=== PATIENT | female | born 1965 | race Caucasian/White ===

== ENCOUNTER 2017-02-15 03:28 | Inpatient (IN) | payer BC ==
[2017-02-15] VITALS (8 sets, daily range): BP systolic 97–132; BP diastolic 55–71; PULSE 64–98; RESP 16–20; TEMP 97.5–102.8; O2SAT 76–100
[~2017-02-15] VITALS: Ht 175.3 cm; Wt 56.7 kg
[~2017-02-15 03:28] MED LIST: CLIN1CAP6 PO; DILA4TAB10 PO; GABA300C3 PO; IBUP800 PO; LORA1TAB PO; NORT1CAP54 PO
[2017-02-15] MEDS ORDERED: LIDOCAINE 1%/EPINEPHrine 1:100,000 SOLN 20 ML VIAL INFIL ONE (04:00)
--- NOTE | 2017-02-15 04:41 | PD ---
HPI Chief Complaint: Musculoskeletal Complaint Time Seen by Provider: 03:45 Travel History International Travel<30 days: No Contact w/Intl Traveler<30days: No Traveled to known affect area: No History of Present Illness HPI The patient is a 51-year-old female that comes in complaining of redness and swelling of her right knee for 4 days. The knee is painful and she cannot flex or extend the knee without fairly severe pain. She is followed by a pain management physician, Dr. Salguero, who is in [facility]. The patient is on high doses of pain pills including Dilaudid, lorazepam and morphine. She apparently has severe neurodermatitis and starts scratching her skin, the buttocks, breasts and anterior tibial areas of her legs. She has caused multiple lesions in these areas. She has destroyed the skin of her breasts and her nipples are completely gone from this neurodermatitis. The patient's original pain was low back pain and this is why she takes chronic narcotic and other pain medications. She denies any fever. PFSH Past Medical History Cardiovascular Problems: No Diminished Hearing: No Gastrointestinal Disorders: No Genitourinary: No Musculoskeletal: No Neurologic: No Reproductive: No Respiratory: No Immunizations Current: Yes Tetanus Vaccination: Unknown Influenza Vaccination: No ?: Not Menopausal: Yes Tubal Ligation: Yes Past Surgical History Abdominal Surgery: Yes (tummy tuck) Cardiac Surgery: No Section: Yes (X2) Endocrine Surgery: No Eye Surgery: No Genitourinary Surgery: No Gynecologic Surgery: Yes () Oral Surgery: Yes (RHINOPLASTY) Pacemaker: No Thoracic Surgery: No Other Surgery: Yes (BREAST AUGMENTATION X 2, LIFT X 1) Social History Alcohol Use: No Tobacco Use: Yes (1.5 PPD) Substance Use: No (DENIES) Allergies-Medications (Allergen,Severity, Reaction): Coded Allergies: *MDRO Multi-Drug Resistant Organism (Verified Adverse Reaction, Unknown, ) MRSA (finger wound) - 06/06/16 Reported Meds & Prescriptions Reported Meds & Active Scripts Active Reported Morphine ER (Morphine Sulfate) 60 Mg Tab 60 Mg PO TID Motrin Ib (Ibuprofen) 200 Mg Tab 600 Mg PO TID PRN Lorazepam 0.5 Mg Tab 0.5 Mg PO DAILY PRN Nortriptyline (Nortriptyline HCl) 50 Mg Cap 50 Mg PO HS Dilaudid (Hydromorphone HCl) 8 Mg Tab 8 Mg PO Q6H PRN Gabapentin 600 Mg Tab 600 Mg PO BID Review of Systems Except as stated in HPI: all other systems reviewed are Neg Physical Exam Narrative GENERAL: The patient is alert, oriented 3 in moderate apparent distress with her right knee discomfort. Her vital signs show temperature of 97.5 but are otherwise normal. SKIN: Warm and dry. Multiple areas of recent and remote neurodermatitis, scarring are present on the anterior lower legs and bilateral buttocks, right greater than left. The breasts show similar lesions with complete scarring of the nipples. HEAD: Atraumatic. Normocephalic. EYES: Pupils equal and round. No scleral icterus. No injection or drainage. ENT: No nasal bleeding or discharge. Mucous membranes pink and moist. NECK: Trachea midline. No JVD. CARDIOVASCULAR: Regular rate and rhythm. No murmur appreciated. RESPIRATORY: No accessory muscle use. Clear to auscultation. Breath sounds equal bilaterally. GASTROINTESTINAL: Abdomen soft, non-tender, nondistended. Hepatic and splenic margins not palpable. MUSCULOSKELETAL: No obvious deformities. No clubbing. No cyanosis. No edema. NEUROLOGICAL: Awake and alert. No obvious cranial nerve deficits. Motor grossly within normal limits. Normal speech. PSYCHIATRIC: Appropriate mood and affect; insight and judgment normal. Data Data Last Documented VS Vital Signs Date Time Temp Pulse Resp B/P Pulse Ox O2 Delivery O2 Flow Rate FiO2 02/15/17 03:53 18 02/15/17 03:46 97.5 64 104/62 100 Orders Lidocai-Epi 1%-1:100,000 Inj (Xylocaine- (02/15/17 04:00) Synovial Fl Cell Count + Diff (02/15/17 04:20) Synovial Fluid Crystals (02/15/17 04:20) Synovial Fluid Total Protein (02/15/17 04:20) Fluid Culture And Gram Stain (02/15/17 04:20) Complete Blood Count With Diff (02/15/17 04:41) Comprehensive Metabolic Panel (02/15/17 04:41) Urinalysis - C+S If Indicated (02/15/17 04:41) Admit Order (Ed Use Only) (02/15/17 06:13) Labs Laboratory Tests Test 02/15/17 04:30 Synovial Fluid Color STRAW Synovial Fluid Appearance MARKED Synovial Fluid WBC 22824 /MM3 Synovial Fluid RBC 1600 /MM3 Synovial Fluid Neutrophils 96 % Synovial Fluid Lymphocytes 3 % Synovial Fluid Monocytes 1 % MDM Medical Decision Making Medical Screen Exam Complete: Yes Emergency Medical Condition: Yes Medical Record Reviewed: Yes Interpretation(s) The synovial fluid has a cell count of 76,400, cloudy with 1600 red cells. Differential Diagnosis Joint space infection, cellulitis knee, osteoarthritis knee, gout, pseudogout Narrative Course The patient was discussed with Dr. Monreal. He states his value for septic arthritis is 100,000 or over. The patient has plenty of opportunity for bacteria in her the skin through her neurodermatitis lesions. Plan: The patient will be put on Ceftazidime and vancomycin. Procedures Procedure Narrative The area was prepped with Betadine. After that the procedure was performed using sterile technique. Lidocaine with epinephrine was used to anesthetize the skin. A #18-gauge needle was used under sterile technique to access the joint space. Approximately 50 cc of synovial fluid was recovered. The fluid was cloudy. The patient tolerated the procedure well and felt much better after the fluid was withdrawn. The nurses could not get an IV so I started an IV in the external jugular on the right. EKG Prior to Arrival: Joshua De La Torre MD Feb 15, 2017 04:41
[2017-02-15] MEDS ORDERED: DILA8TAB4 PO (04:44)
[2017-02-15] MEDS ORDERED: NORT50CA PO (04:44)
[2017-02-15] MEDS ORDERED: MOTR200T4 PO (04:44)
[2017-02-15] MEDS ORDERED: LORA-373 PO (04:44)
[2017-02-15] MEDS ORDERED: MORP1TAB26 PO (04:44)
[2017-02-15] MEDS ORDERED: GABA600T PO (04:44)
[2017-02-15 05:51] LABS: WBC, SYNOVIAL FLUID 76400 /MM3 (0-200)
[2017-02-15 06:26] LABS: AUTOMATED NEUTROPHIL # 5.4 TH/MM3 (1.8-7.7); BASOPHIL % 0.4 % (0.0-2.0); EOSINOPHIL # 0.1 TH/MM3 (0-0.4); EOSINOPHIL % 1.1 % (0.0-4.0); HEMATOCRIT 29.6 % (35.0-46.0); LYMPH % 11.6 % (9.0-44.0); LYMPHOCYTE # 0.8 TH/MM3 (1.0-4.8); MEAN CELL VOLUME 71.3 FL (80.0-100.0); MEAN CORPUSCULAR HEMOGLOBIN 24.1 PG (27.0-34.0); MEAN CORPUSCULAR HGB CONC 33.8 % (32.0-36.0); MONO % 11.6 % (0.0-8.0); NEUT % 75.3 % (16.0-70.0); PLATELET COUNT 349 TH/MM3 (150-450); RED BLOOD COUNT 4.15 MIL/MM3 (4.00-5.30); RED CELL DISTRIBUTION WIDTH 16.7 % (11.6-17.2); WHITE BLOOD COUNT 7.1 TH/MM3 (4.0-11.0)
[2017-02-15 06:39] LABS: HEMO FLAGS AUTO DIFF
[2017-02-15 06:44] LABS: CHLORIDE 95 MEQ/L (98-107); POTASSIUM 3.1 MEQ/L (3.5-5.1); SODIUM (NA) 134 MEQ/L (136-145)
[2017-02-15] MEDS ORDERED: LORazepam 0.5 MG TAB PO PRN (06:45)
[2017-02-15] MEDS ORDERED: cefTAZidime INJ 2,000 MG in SODIUM CHLORIDE 0.9% INJ 100 ML IV ONE (06:45)
[2017-02-15] MEDS ORDERED: HYDROmorphone HCL 4 MG TAB PO PRN ×2 (06:45→12:45)
[2017-02-15] MEDS ORDERED: BISACODYL 10 MG SUPP PR PRN (06:45)
[2017-02-15] MEDS ORDERED: VANCOMYCIN INJ 1,250 MG in SODIUM CHLOR 0.9% 250 ML INJ 250 ML IV ONE (06:45)
[2017-02-15] MEDS ORDERED: SODIUM CHLORIDE 0.9% FLUSH 5 ML FLUSH FLUSH PRN (06:45)
[2017-02-15] MEDS ORDERED: ONDANSETRON HCL 4 MG/2 ML VIAL IVP PRN (06:45)
[2017-02-15 06:48] LABS: ANION GAP 10 MEQ/L (5-15); BICARBONATE 28.9 MEQ/L (21.0-32.0); BLOOD UREA NITROGEN 21 MG/DL (7-18)
[2017-02-15 06:51] LABS: ALT (GPT) 14 U/L (10-53); AST (GOT) 14 U/L (15-37); GLOMERULAR FILTRATION RATE 62 ML/MIN (>89)
[2017-02-15 06:52] LABS: TOTAL BILIRUBIN ADULT 0.6 MG/DL (0.2-1.0)
[2017-02-15] MEDS: SODIUM CHLOR 0.9% 1000 ML INJ 1,000 ML IV SCH ×2 (06:52→17:00)
[2017-02-15 06:54] LABS: ALKALINE PHOSPHATASE 252 U/L (45-117)
[2017-02-15 07:24] LABS: OVALOCYTES 1+ (NORMAL)
[2017-02-15 07:25] LABS: SCAN/DIFF AUTO DIFF CONFIRMED
[2017-02-15] MEDS ORDERED: Vancomycin Consult Pharmacy 1 EA OTHER SCH (08:00)
[2017-02-15] MEDS: GABAPENTIN 300 MG CAP PO SCH ×2 (08:58→20:37)
[2017-02-15] MEDS: SODIUM CHLORIDE 0.9% FLUSH 5 ML FLUSH FLUSH SCH ×2 (08:59→20:38)
[2017-02-15] MEDS ORDERED: MORPHINE SULFATE 60 MG CONTROLLED RELEASE TAB PO SCH (09:00)
--- NOTE | 2017-02-15 11:13 | HHI.HP ---
[facility] Primary [facility] Physician No Primary Care Physician Admission Diagnosis septic arthritis right knee, neurodermatitis Diagnoses: (1) Septic arthritis Diagnosis: Principal Chief Complaint: Right knee pain Travel History International Travel<30 Days: No Contact w/Intl Traveler <30 Da: No Traveled to Known Affected Are: No History of Present Illness 51-year-old female with history of chronic back pain, neurodermatitis , chronic wounds, polysubstance abuse, history of IV drug use who presented to hospital because three-day history of right knee pain, swelling. Patient states that she is normal state of health until 3 days ago when he started developing pain and swelling in her right knee. Progress got worse where she could not in light that well so she came to the hospital for evaluation. Patient indicates that she just got out of the hospital in [place] recently because of her chronic lower extremity wounds in which she is managing at home at this time. Patient does suffer from chronic back pain is on morphine and Dilaudid in outpatient setting. Patient states that she has been weaning herself off and has not been using any morphine. Or he has been using Dilaudid. Patient does openly admit that she and IV drug user but she states that he has not use in 20 years. Patient had workup done emergency department, had knee aspiration done which does indicate septic arthritis with gram- positive bacteria. Is recommended by ER physician patient be admitted for IV antibiotics. Patient denies any fever, chills, chest pain, shortness of breath , abdominal pain. Review of Systems Constitutional: DENIES: Diaphoretic episodes, Fatigue, Fever, Weight gain, Weight loss, Chills, Dizziness, Change in appetite, Night Sweats Eyes: DENIES: Blurred vision, Diplopia, Eye inflammation, Eye pain, Vision loss , Photosensitivity, Double Vision Ears, nose, mouth, throat: DENIES: Tinnitus, Hearing loss, Vertigo, Nasal discharge, Oral lesions, Throat pain, Hoarseness, Ear Pain, Running Nose, Epistaxis, Sinus Pain, Toothache, Odynophagia Respiratory: DENIES: Apneas, Cough, Snoring, Wheezing, Hemoptysis, Sputum production, Shortness of breath Cardiovascular: DENIES: Chest pain, Palpitations, Syncope, Dyspnea on Exertion , PND, Lower Extremity Edema, Orthopnea, Claudication Musculoskeletal: COMPLAINS OF: Joint pain (right knee), Back pain (chronic), DENIES: Muscle aches, Stiffness, Joint Swelling, Neck pain Neurologic: DENIES: Abnormal gait, Headache, Localized weakness, Paresthesias, Seizures, Speech Problems, Tremor, Poor Balance Past Family Social History Past Medical History Chronic lower extremity wounds Neurodermatitis Chronic back pain History of IV drug use Fibromyalgia Past Surgical History Tubal ligation Debridement of lower extremity wounds Breast augmentation 2 Ji toxic Right tibia fracture repair Rhinoplasty Reported Medications Reported Meds & Active Scripts Active Reported Morphine ER (Morphine Sulfate) 60 Mg Tab 60 Mg PO TID Motrin Ib (Ibuprofen) 200 Mg Tab 600 Mg PO TID PRN Lorazepam 0.5 Mg Tab 0.5 Mg PO DAILY PRN Nortriptyline (Nortriptyline HCl) 50 Mg Cap 50 Mg PO HS Dilaudid (Hydromorphone HCl) 8 Mg Tab 8 Mg PO Q6H PRN Gabapentin 600 Mg Tab 600 Mg PO BID Allergies: Coded Allergies: *MDRO Multi-Drug Resistant Organism (Verified Adverse Reaction, Unknown, ) MRSA (finger wound) - 06/06/16 Family History Reviewed and unremarkable Social History Patient states that she does smoke at 1-1/2 pack a cigarettes a day since she was 15 years old. She denies any illicit drugs at this time. States that last time she used IV drugs was 20 years ago. However she was admitted the hospital for years ago because of IV drug use and infection. Drug of choice is Dilaudid Physical Exam Vital Signs Vital Signs Date Time Temp Pulse Resp B/P Pulse Ox O2 Delivery O2 Flow Rate FiO2 02/15/17 08:00 99.5 97 20 132/71 100 02/15/17 07:21 83 16 02/15/17 07:21 98.3 83 16 106/63 100 Room Air 02/15/17 06:00 78 18 111/62 99 Room Air 02/15/17 03:53 18 02/15/17 03:46 97.5 64 16 104/62 100 Physical Exam GENERAL: Well-developed, well-nourished, in no acute distress. alert and orientated. Patient appears to be highly medicated. Hypertension had a hard time staying awake during her evaluation. Had to keep nudging her to keep her eyes open. She states that she is overmedicated. HEENT: Head is normocephalic without any lesions or masses noted. Facial features are symmetric. Eyes: Pupils equal round reactive to light. Extraocular muscles are intact. Conjunctivae were clear. Oropharyngeal: Pharynx without any erythema edema. Tongue is midline without deviation. Buccal mucosa is moist without any masses or lesions. Dentition in poor repair NECK: Supple without any masses. Trachea midline no deviation. No JVD, no bruits are appreciated CARDIAC: Regular rhythm, regular rate. S1/S2 are heard. No murmurs gallops or rubs. LUNGS: Clear to auscultation bilaterally. No wheeze, rhonchi or rales. No use of accessory muscles on inspiration or expiration. ABDOMEN: Soft, nontender. Nondistended. Bowel sounds heard in all 4 quadrants. No organomegaly or masses. Negative rebound, negative guarding NEUROLOGY: Mood and affect appear appropriate. Cranial nerves II through XII grossly intact. Muscle strength 5/5 in upper and lower extremities bilaterally. Deep tendon reflexes are 2+ in upper and lower extremities bilaterally. LEFT LOWER EXTREMITY: Patient has significant ulcerated wounds on her left lower extremity from the medial calf area down encompassing the whole anterior surface of her distal tibia and ankle. RIGHT LOWER EXTREMITY bandages noted over right knee which appears to be very painful, swollen, patient will not let me do range of motion due to pain. She also has multiple ulcerations noted on the medial aspect of her proximal tibia Laboratory Laboratory Tests Test 02/15/17 02/15/17 04:30 06:05 Synovial Fluid Color STRAW Synovial Fluid Appearance MARKED Synovial Fluid WBC 91847 Synovial Fluid RBC 1600 Synovial Fluid Neutrophils 96 Synovial Fluid Lymphocytes 3 Synovial Fluid Monocytes 1 Synovial Fluid Crystals NONE White Blood Count 7.1 Red Blood Count 4.15 Hemoglobin 10.0 Hematocrit 29.6 Mean Corpuscular Volume 71.3 Mean Corpuscular Hemoglobin 24.1 Mean Corpuscular Hemoglobin 33.8 Concent Red Cell Distribution Width 16.7 Platelet Count 349 Mean Platelet Volume 6.3 Neutrophils (%) (Auto) 75.3 Lymphocytes (%) (Auto) 11.6 Monocytes (%) (Auto) 11.6 Eosinophils (%) (Auto) 1.1 Basophils (%) (Auto) 0.4 Neutrophils # (Auto) 5.4 Lymphocytes # (Auto) 0.8 Monocytes # (Auto) 0.8 Eosinophils # (Auto) 0.1 Basophils # (Auto) 0.0 CBC Comment AUTO DIFF Differential Comment AUTO DIFF CONFIRMED Ovalocytes 1+ Sodium Level 134 Potassium Level 3.1 Chloride Level 95 Carbon Dioxide Level 28.9 Anion Gap 10 Blood Urea Nitrogen 21 Creatinine 0.94 Estimat Glomerular Filtration 62 Rate Random Glucose 112 Calcium Level 8.7 Total Bilirubin 0.6 Aspartate Amino Transf 14 (AST/SGOT) Alanine Aminotransferase 14 (ALT/SGPT) Alkaline Phosphatase 252 Total Protein 8.2 Albumin 2.4 Date/Time Procedure Status Source Growth 02/15/17 04:30 Gram Stain - Final Resulted Fluid Synovial Fluid 02/15/17 04:30 Body Fluid Culture Resulted Fluid Synovial Fluid Pending Result Diagram: 02/15/1760402/15/17604 Assessment and Plan Assessment and Plan Right knee septic arthritis: Patient afebrile, no leukocytosis, 3 day history of swelling and pain. Aspiration was done which does indicate septic arthritis with WBCs 76,400. Patient started on vancomycin, cefepime. Gram stain does show gram-positive cocci. We'll discontinue cefepime at this time. Continue pain control. Physical therapy, Check blood cultures, Consult ID for antibiotic recommendations, Discussed with ID, who indicated that the patient will require Orthopedic evaluation, will require surgical intervention, since large joint and Gram positive bacteria. Chronic lower extremity wounds: Consult wound care nurse for management Chronic back pain: Continue pain control Polysubstance abuse with history of IV drug use: Continue monitor for any signs of sepsis which would warrant any further workup for endocarditis. At this time will continue treatment for the septic arthritis. Patient is rather high doses of pain medication to include morphine 60 mg 3 times daily, Dilaudid 8 mg every 6 hours, Ativan 0.5 mg as needed for anxiety. I did review patient on E force and it is confirmed that she is prescribed these medications at that higher doses. DVT prevention: Lovenox Written by Josue Castillo PA-C, acting as scribe for Dr. Peterson on 02/15/17 at 1315. The documentation accurately reflects the work and decisions performed face-to- face by Dr. Peterson on 02/15/17 at 1315. Physician Certification 2 Midnight Certification Type: Admission for Inpatient Services Order for Inpatient Services The services are ordered in accordance with Medicare regulations or non- Medicare payer requirements, as applicable. In the case of services not specified as inpatient-only, they are appropriately provided as inpatient services in accordance with the 2-midnight benchmark. Estimated LOS (days): 2 days is the estimated time the patient will need to remain in the hospital, assuming treatment plan goals are met and no additional complications. Post-Hospital Plan: Not yet determined Problem Qualifiers (1) Septic arthritis: Qualified Code: M00.9 - Pyogenic arthritis of right knee joint, due to unspecified organism Josue Castillo Feb 15, 2017 11:13 Brandyn Peterson MD Feb 15, 2017 13:47
[2017-02-15] MEDS: ENOXAPARIN SODIUM 30 MG/0.3 ML SYRINGE SQ SCH (12:23)
--- NOTE | 2017-02-15 15:32 | PD.CONS ---
History of Present Illness Service Infectious disease Consult Requested By Dr Peterson Reason for Consult Evaluate patient with septic right knee Primary Care Physician No Primary Care Physician Diagnoses: History of Present Illness Patient seen and examined. Records reviewed. Patient very poor historian. 51-year-old female presented to the hospital complaining of 3-4 day history of acute onset of pain and swelling in her right knee. She denies having any injury or fall. Patient has chronic wounds in both lower extremity and she does her own wound care. She does not really follow up with any wound care center. She denies any fever or chills or sweats. Denies any significant respiratory complaint, GI or any urinary complaints. Since admission she has had fevers. Arthrocentesis was done of the right knee and it suggestive of septic joint, and the Gram stain showed gram-positive cocci. Infectious disease consultations be requested to evaluate the patient. Review of Systems Constitutional: COMPLAINS OF: Fever, Chills Eyes: DENIES: Eye pain Ears, nose, mouth, throat: DENIES: Nasal discharge, Oral lesions, Throat pain, Ear Pain, Running Nose Respiratory: DENIES: Cough, Shortness of breath Cardiovascular: DENIES: Chest pain, Palpitations Gastrointestinal: DENIES: Abdominal pain, Diarrhea, Nausea, Vomiting Genitourinary: DENIES: Urinary frequency, Hematuria, Dysuria Musculoskeletal: COMPLAINS OF: Joint pain, Joint Swelling Integumentary: COMPLAINS OF: Rash, Breast skin changes Neurologic: DENIES: Headache Psychiatric: COMPLAINS OF: Confusion, DENIES: Hallucinations Past Family Social History Allergies: Coded Allergies: *MDRO Multi-Drug Resistant Organism (Verified Adverse Reaction, Unknown, ) MRSA (finger wound) - 06/06/16 Past Medical History Sicca syndrome. Sun sensitivity. Psoriasis. Alopecia. Raynaud's phenomenon. Aphthous ulcers. Vasculitis diagnosis 2013 Hx MSSA sepsis and septic R wrist Fibromyalgia Hx IVDU - claims last use 15 yeasr ago, but admission 2012 (+) drug screen and admits to use at that time Past Surgical History Breasts augmentation surgery. Abdominoplasty. section. Surgery on her R wrist Tubal ligation Debridement of lower extremity wounds Right tibia fracture repair Rhinoplasty Active Ordered Medications Dulcolax Lovenox Neurontin Dilaudid Ativan Pamelor Zofran Vancomycin Social History Patient states that she does smoke at 1-1/2 pack a cigarettes a day since she was 15 years old. She denies any illicit drugs at this time. States that last time she used IV drugs was 20 years ago. However she was admitted the hospital for years ago because of IV drug use and infection. Drug of choice is Dilaudid No ETOH abuser Lives with significant other Physical Exam Vital Signs Vital Signs Date Time Temp Pulse Resp B/P Pulse Ox O2 Delivery O2 Flow Rate FiO2 02/15/17 12:00 101.0 96 20 123/71 96 02/15/17 08:00 99.5 97 20 132/71 100 02/15/17 07:21 83 16 02/15/17 07:21 98.3 83 16 106/63 100 Room Air 02/15/17 06:00 78 18 111/62 99 Room Air 02/15/17 03:53 18 02/15/17 03:46 97.5 64 16 104/62 100 Physical Exam GENERAL: This is a thin, well-developed female, looks disorganized, some confusion, awake, not in resp distress. SKIN: Warm and dry. Has large dry looking large ulcers in both legs, raised borders; Some nodular areas in her forearms, not tender, not discolored. She has generalized hypopigmented scars HEAD: Atraumatic. Normocephalic. No temporal or scalp tenderness. EYES: [place] conjunctivae, no petechia, no hemorrhage. Pupils equal round and reactive. Extraocular motions intact. No scleral icterus. No injection or drainage. ENT: Nose without bleeding, or purulent drainage. Moist mucosa. Throat without erythema, or exudate. Uvula midline. Airway patent. NECK: Trachea midline. No JVD or lymphadenopathy. Supple, nontender, no meningeal signs. CARDIOVASCULAR: Regular rate and rhythm without murmurs, gallops, or rubs. RESPIRATORY: Clear to auscultation. Breath sounds equal bilaterally. No wheezes , rales, or rhonchi. BREAST: Has implants, has hypopigmented scars on her breast GASTROINTESTINAL: Abdomen soft, non-tender, mildly distended. Bowel sounds are present and normoactive. No hepato-splenomegaly, or palpable masses. No guarding. MUSCULOSKELETAL: Extremities without clubbing, cyanosis, or edema. R knee is swollen with effusions, pain with movement. No calf tenderness. NEUROLOGICAL: Awake and with intermittent confusion. Cranial nerves II through XII intact. Motor and sensory grossly within normal limits. PSYCH: Sluggish, cooperative LINE: PIV with no evidence of infection Laboratory Laboratory Tests Test 02/15/17 02/15/17 02/15/17 04:30 06:05 11:25 Synovial Fluid Color STRAW Synovial Fluid Appearance MARKED Synovial Fluid WBC 61655 Synovial Fluid RBC 1600 Synovial Fluid Neutrophils 96 Synovial Fluid Lymphocytes 3 Synovial Fluid Monocytes 1 Synovial Fluid Crystals NONE White Blood Count 7.1 Red Blood Count 4.15 Hemoglobin 10.0 Hematocrit 29.6 Mean Corpuscular Volume 71.3 Mean Corpuscular Hemoglobin 24.1 Mean Corpuscular Hemoglobin 33.8 Concent Red Cell Distribution Width 16.7 Platelet Count 349 Mean Platelet Volume 6.3 Neutrophils (%) (Auto) 75.3 Lymphocytes (%) (Auto) 11.6 Monocytes (%) (Auto) 11.6 Eosinophils (%) (Auto) 1.1 Basophils (%) (Auto) 0.4 Neutrophils # (Auto) 5.4 Lymphocytes # (Auto) 0.8 Monocytes # (Auto) 0.8 Eosinophils # (Auto) 0.1 Basophils # (Auto) 0.0 CBC Comment AUTO DIFF Differential Comment AUTO DIFF CONFIRMED Ovalocytes 1+ Sodium Level 134 Potassium Level 3.1 Chloride Level 95 Carbon Dioxide Level 28.9 Anion Gap 10 Blood Urea Nitrogen 21 Creatinine 0.94 Estimat Glomerular Filtration 62 Rate Random Glucose 112 Calcium Level 8.7 Total Bilirubin 0.6 Aspartate Amino Transf 14 (AST/SGOT) Alanine Aminotransferase 14 (ALT/SGPT) Alkaline Phosphatase 252 Total Protein 8.2 Albumin 2.4 Nasal Screen MRSA (PCR) POSITIVE Date/Time Procedure Status Source Growth 02/15/17 13:50 Aerobic Blood Culture Received Blood Peripheral Pending 02/15/17 13:50 Anaerobic Blood Culture Received Blood Peripheral Pending 02/15/17 04:30 Gram Stain - Final Resulted Fluid Synovial Fluid 02/15/17 04:30 Body Fluid Culture Resulted Fluid Synovial Fluid Pending Result Diagram: 02/15/1760402/15/17 0605 Assessment and Plan Assessment and Plan IMPRESSION Sepsis due to septic knee Septic R knee, likely Staph or strep Chronic skin lesions, etiology? ?Hx vasculitis with purpuric lesions in BLE last 2012 Hx IVDU Hs MSSA sepsis 2012 Chronic narcotic dependence RECOMMENDATION Continue IV Vanco Follow C/S Ortho evaluation for management septic knee Monitor progress I will follow along with you Thank you for this consultation Discussed Condition With D/W Marquita Cook PA-C, MD Feb 15, 2017 15:32
[2017-02-15] MEDS ORDERED: ACETAMINOPHEN 325 MG TAB PO PRN (17:15)
[2017-02-15] MEDS ORDERED: SODIUM CHLOR 0.9% 1000 ML INJ 1,000 ML IV ONE (17:15)
[2017-02-15] MEDS: HYDROmorphone HCL PF 1 MG/ML VIAL IV PRN ×2 (17:23→20:47)
[2017-02-15] MEDS ORDERED: CEFEPIME INJ 1,000 MG in SODIUM CHLORIDE 0.9% INJ 100 ML IV SCH (18:00)
[2017-02-15] MEDS: NORTRIPTYLINE HCL 25 MG CAP PO SCH (20:37)
[2017-02-16] MEDS: SODIUM CHLOR 0.9% 1000 ML INJ 1,000 ML IV SCH ×3 (00:03→22:32)
[2017-02-16 00:04] VITALS: BP 98/52; PULSE 89; RESP 20; TEMP 98.3; O2SAT 100
[2017-02-16] MEDS ORDERED: VANCOMYCIN 1,000 MG/NS 250 ML IV SCH ×2 (02:00)
[2017-02-16] MEDS: HYDROmorphone HCL PF 1 MG/ML VIAL IV PRN ×6 (04:26→22:21)
[2017-02-16] MEDS ORDERED: GENTAMICIN SULFATE 80 MG/2 ML VIAL ONE (04:57)
[2017-02-16 05:34] VITALS: BP 122/60; PULSE 60; RESP 20; TEMP 102.1; O2SAT 95
[2017-02-16] MEDS ORDERED: FAMOTIDINE 20 MG/2 ML VIAL ONE (07:02)
[2017-02-16] MEDS ORDERED: ceFAZolin 2 GM PREMIX 50 ML ONE (07:05)
[2017-02-16] MEDS ORDERED: VANCOMYCIN HCL 1000 MG VIAL ONE (07:05)
--- NOTE | 2017-02-16 07:48 | HHI.PR ---
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 02/16 With Diagnosis of Septic right knee has Right knee arthrotomy with irrigation and debridement by Doctor Leandro Mathis also had today with Diagnosis of Right Hip intertrochanteric fracture status post Right hip reduction and intramedullary nail fixation. complaint of pain seen in the room with nurse Miss Galvan no Nausea, vomit or diarrhea. Objective Vital Signs Date Time Temp Pulse Resp B/P Pulse Ox O2 Delivery O2 Flow Rate FiO2 02/16/17 05:34 102.1 60 20 122/60 95 02/16/17 00:04 98.3 89 20 98/52 100 02/15/17 20:00 98.3 88 18 97/58 95 02/15/17 17:10 102.8 91 20 106/68 76 02/15/17 16:00 100.0 98 20 103/55 100 02/15/17 12:00 101.0 96 20 123/71 96 02/15/17 08:00 99.5 97 20 132/71 100 I/O 02/15/17 02/15/17 02/15/17 02/16/17 02/16/17 02/16/17 07:00 15:00 23:00 07:00 15:00 23:00 Intake Total 790 ml 2615 ml 692 ml Balance 790 ml 2615 ml 692 ml Intake Oral 690 ml IV Total 100 ml 2615 ml 692 ml # Voids 3 Result Diagram: 02/15/17 0605 02/15/17 0605 Imaging No Imaging studies present. Procedures 02/16 With Diagnosis of Septic right knee has Right knee arthrotomy with irrigation and debridement by Doctor Leandro Mathis also had today with Diagnosis of Right Hip intertrochanteric fracture status post Right hip reduction and intramedullary nail fixation. Other Results Laboratory Tests Test 02/15/17 02/15/17 02/15/17 04:30 06:05 11:25 Synovial Fluid Color STRAW Synovial Fluid Appearance MARKED Synovial Fluid WBC 18314 /MM3 Synovial Fluid RBC 1600 /MM3 Synovial Fluid Neutrophils 96 % Synovial Fluid Lymphocytes 3 % Synovial Fluid Monocytes 1 % Synovial Fluid Crystals NONE White Blood Count 7.1 TH/MM3 Red Blood Count 4.15 MIL/MM3 Hemoglobin 10.0 GM/DL Hematocrit 29.6 % Mean Corpuscular Volume 71.3 FL Mean Corpuscular Hemoglobin 24.1 PG Mean Corpuscular Hemoglobin 33.8 % Concent Red Cell Distribution Width 16.7 % Platelet Count 349 TH/MM3 Mean Platelet Volume 6.3 FL Neutrophils (%) (Auto) 75.3 % Lymphocytes (%) (Auto) 11.6 % Monocytes (%) (Auto) 11.6 % Eosinophils (%) (Auto) 1.1 % Basophils (%) (Auto) 0.4 % Neutrophils # (Auto) 5.4 TH/MM3 Lymphocytes # (Auto) 0.8 TH/MM3 Monocytes # (Auto) 0.8 TH/MM3 Eosinophils # (Auto) 0.1 TH/MM3 Basophils # (Auto) 0.0 TH/MM3 CBC Comment AUTO DIFF Differential Comment AUTO DIFF CONFIRMED Ovalocytes 1+ Sodium Level 134 MEQ/L Potassium Level 3.1 MEQ/L Chloride Level 95 MEQ/L Carbon Dioxide Level 28.9 MEQ/L Anion Gap 10 MEQ/L Blood Urea Nitrogen 21 MG/DL Creatinine 0.94 MG/DL Estimat Glomerular Filtration 62 ML/MIN Rate Random Glucose 112 MG/DL Calcium Level 8.7 MG/DL Total Bilirubin 0.6 MG/DL Aspartate Amino Transf 14 U/L (AST/SGOT) Alanine Aminotransferase 14 U/L (ALT/SGPT) Alkaline Phosphatase 252 U/L Total Protein 8.2 GM/DL Albumin 2.4 GM/DL Nasal Screen MRSA (PCR) POSITIVE Objective Remarks GENERAL: Well-developed, well-nourished, in no acute distress. alert and orientated. Patient appears to be highly medicated. Hypertension had a hard time staying awake during her evaluation. Had to keep nudging her to keep her eyes open. She states that she is overmedicated. HEENT: Head is normocephalic without any lesions or masses noted. Facial features are symmetric. Eyes: Pupils equal round reactive to light. Extraocular muscles are intact. Conjunctivae were clear. Oropharyngeal: Pharynx without any erythema edema. Tongue is midline without deviation. Buccal mucosa is moist without any masses or lesions. Dentition in poor repair NECK: Supple without any masses. Trachea midline no deviation. No JVD, no bruits are appreciated CARDIAC: Regular rhythm, regular rate. S1/S2 are heard. No murmurs gallops or rubs. LUNGS: Clear to auscultation bilaterally. No wheeze, rhonchi or rales. No use of accessory muscles on inspiration or expiration. ABDOMEN: Soft, nontender. Nondistended. Bowel sounds heard in all 4 quadrants. No organomegaly or masses. Negative rebound, negative guarding NEUROLOGY: Mood and affect appear appropriate. Cranial nerves II through XII grossly intact. Muscle strength 5/5 in upper and lower extremities bilaterally. Deep tendon reflexes are 2+ in upper and lower extremities bilaterally. LEFT LOWER EXTREMITY: Patient has significant ulcerated wounds on her left lower extremity from the medial calf area down encompassing the whole anterior surface of her distal tibia and ankle. RIGHT LOWER EXTREMITY bandages noted over right knee which appears to be very painful, swollen, patient will not let me do range of motion due to pain. She also has multiple ulcerations noted on the medial aspect of her proximal tibia Medications and IVs Current Medications Medications (Trade) Dose Ordered Sig/Arlette Route Start Time Stop Time Status Last Admin (NS 1000 ml Inj) 1,000 ml @ 100 mls/hr Q10H IV 02/15/17 06:32 02/16/17 00:03 (NS Flush) 2 ml UNSCH PRN FLUSH 02/15/17 06:45 (NS Flush) 2 ml BID FLUSH 02/15/17 09:00 02/15/17 20:38 (Zofran Inj) 4 mg Q6H PRN IVP 02/15/17 06:45 (Dulcolax Supp) 10 mg DAILY PRN MA 02/15/17 06:45 (Dilaudid Pf Inj) 1 mg Q3H PRN IV 02/15/17 06:45 02/16/17 04:26 (Neurontin) 600 mg BID PO 02/15/17 09:00 02/15/17 20:37 (Ativan) 0.5 mg DAILY PRN PO 02/15/17 06:45 Nortriptyline HCl 50 mg 50 mg HS PO 02/15/17 21:00 02/15/17 20:37 Pharmacy Profile Note 0 ml @ 0 mls/hr UNSCH OTHER 02/15/17 08:00 (Vancomycin Inj/ NS 250 ml Inj) 250 ml @ 250 mls/hr Q18H IV 02/16/17 02:00 02/16/17 00:38 Miscellaneous Information SPECIFIC LAB TO BE DRAWN:VANCOMY... ONCE ONCE XX 02/17/17 13:45 02/17/17 13:46 (Dilaudid) 4 mg Q6H PRN PO 02/15/17 12:45 (Lovenox Inj) 30 mg Q24H SQ 02/15/17 12:00 02/15/17 12:23 (Flu (Quadrivalent) Vaccine Inj) 0.5 ml ONCE ONCE IM 02/16/17 10:00 02/16/17 10:01 (Tylenol) 650 mg Q4H PRN PO 02/15/17 17:15 02/15/17 17:25 A/P Assessment and Plan 1. Right septic Arthritis, Aspiration performed indicating arthritis with WBCs 76,400. Patient started on vancomycin, cefepime. Gram stain does show gram-positive cocci MRSA, followed by ID specialist recommended to continued Vancomycin. Status post Family Day Care Worker procedures 02/16/17 with diagnosis of Septic right knee has Right knee arthrotomy with irrigation and debridement by Doctor Leandro Mathis. left FLORENTIN drainage 2. Tobacco dependence stated on Bronchodilator Mucolytic and incentive spirometry, strongly recommended to stop smoking. 3. Chronic lower extremity wounds, Consulted Wound care management 4. Chronic low back pain continue Pain medicines 5. Polysubstance abuse with history of IV drug use: workup for Endocarditis. 6. Hypokalemia 2.8 giving replacement with IV Potassium chloride and following. DVT prevention: Lovenox Discharge Planning Not yet cleared by attending physician. Cade Fitch MD Feb 16, 2017 07:48 Cade Fitch MD Feb 16, 2017 07:48 Cade Fitch MD Feb 16, 2017 07:48 Cade Fitch MD Feb 16, 2017 07:48
[2017-02-16] MEDS ORDERED: ONDANSETRON HCL 4 MG/2 ML VIAL IV PUSH ONE (08:00)
[2017-02-16] MEDS ORDERED: PROPOFOL 200 MG/20 ML AMP IV ONE (08:00)
[2017-02-16] MEDS ORDERED: SODIUM CHLOR 0.9% 250 ML INJ 250 ML IV ONE (08:00)
[2017-02-16] MEDS ORDERED: DO NOT ADM ANY ANTICOAGULANT DRUGS XX PRN (08:00)
--- NOTE | 2017-02-16 08:04 | PD.OP ---
cc: Leandro Mahtis MD Operative Report Date of Surgery: Feb 16, 2017 Preoperative Diagnosis: Septic right knee Postoperative Diagnosis: Procedure: Right knee arthrotomy with irrigation and debridement Anesthesia: Gen. Surgeon: Leandro Mathis Oncology Nurse Navigator(s): BRIAN Ch PA-C The surgical procedure was assisted by my physician assistant casino shift manager. My P.A. presence was necessary throughout this case for the manipulation and positioning of the surgical extremity. My P.A. was assisting me throughout the duration of this procedure. The skill set of a physician assistant casino shift manager was medically necessary to complete this procedure. During the surgical case the automobile technician was working at the back table and the physician assistant casino shift manager was directly assisting me. Operation and Findings: Jamee presented to the hospital with right knee pain and swelling. Aspiration of knee revealed bacterial infection of knee. Informed consent was obtained and operative site was marked. She is brought to operating room. She is given IV sedation and general anesthesia. Right leg was prepped with alcohol followed by Hibiclens and draped usual sterile fashion. Timeout procedure was performed. A 3 cm incision was made over the lateral aspect of the knee. Iliotibial band was split in line with fibers. Joint capsule was opened. Approximately 100 cc of purulent drainage was obtained from the knee joint. Multiple loculations were manually debrided. The knee was thoroughly irrigated with pulsatile lavage. Knee fluid appeared to be clean at this time. A drain was placed deep. Fascia was closed with 0 PDS. Subcutaneous tissues closed with 3-0 PDS. Skin was closed with govind. Sterile dressings were applied. Patient was transferred to recovery in stable condition. Leandro Mathis MD Feb 16, 2017 08:04
[2017-02-16] MEDS ORDERED: *morphine SULFATE 8 MG/ML PERIprocedure ONLY ONE ×2 (08:11→08:34)
[2017-02-16] MEDS ORDERED: SODIUM CHLORIDE 0.9% FLUSH 5 ML FLUSH IVF PRN ×2 (08:15→08:30)
[2017-02-16] MEDS ORDERED: diphenhydrAMINE HCL 25 MG CAP PO PRN (08:15)
[2017-02-16] MEDS ORDERED: Post-op Orders (for Pharmacy) MISC XX ONE (08:15)
[2017-02-16] MEDS ORDERED: MORPHINE SULFATE 4 MG/ML INJ ONE (08:15)
[2017-02-16] MEDS ORDERED: MORPHINE SULFATE 4 MG/ML INJ IV PUSH PRN ×2 (08:15→08:30)
[2017-02-16] MEDS ORDERED: fentaNYL CITRATE 250 MCG/5 ML AMP ONE (08:15)
--- NOTE | 2017-02-16 08:22 | PD.OP ---
cc: Leandro Mathis MD Operative Report Date of Surgery: Feb 16, 2017 Preoperative Diagnosis: Right hip intertrochanteric fracture Postoperative Diagnosis: Procedure: Right hip reduction and intramedullary nail fixation Anesthesia: Gen. Surgeon: Leandro Mathis Critical Care Nurse Specialist(s): BRIAN Chong PA-C The surgical procedure was assisted by my physician mobile unit assistant. My P.A. presence was necessary throughout this case for the manipulation and positioning of the surgical extremity. My P.A. was assisting me throughout the duration of this procedure. The skill set of a physician mobile unit assistant was medically necessary to complete this procedure. During the surgical case the radio tower technician was working at the back table and the physician mobile unit assistant was directly assisting me. Operation and Findings: Implants used: 10 mm 130 Synthes TFNA short troch nail Plan of activity: Weight-bear as tolerated Patient was seen and evaluated preoperatively. The patient has significant hip pain from intertrochanteric hip fracture. The risk and benefits of surgery were discussed in depth with the patient to include bleeding infection nonunion malunion and need for hip replacement painful hardware as well as medical competitions including but not stroke heart attack and . Informed consent was obtained. Operative site was marked. Patient was brought to the operating room and placed on fracture table. IV sedation was administered by anesthesiologist. Timeout procedure was performed. Hip and leg were prepped with alcohol followed by DuraPrep and draped in the usual sterile fashion. IV antibiotics were given prior to incision. Procedure began with reduction of fracture. Traction was applied. The leg was manipulated to achieve reduction. Excellent reduction was achieved. Fluoroscopy was used to confirm reduction. A three inch incision was made proximal to the trochanter. Subcutaneous tissue was dissected bluntly. Guidepin was placed at the tip of the trochanter and advanced into the femoral canal. Fluoroscopy confirmed appropriate guidepin placement. A opening reamer was placed over the guidepin. The Synthes TFNA nail was attached to the insertion handle. Nail was now placed through the tip of the trochanter into the femoral canal. Fluoroscopy confirmed appropriate nail placement. A second incision was made over the lateral thigh. Cannulas were placed through the insertion handle down to the femur. Guidepin was now placed through the femoral nail into the center of the femoral head. Fluoroscopy confirmed appropriate guidepin placement. Screw length was measured. Cannulated drill was placed over the guidepin. Appropriate length lag screw was now placed. Traction was released and compression was applied. The set screw was now tightened in dynamic mode. Using the insertion handle as a guide a distal interlocking screw was drilled and placed. Final fluoroscopy revealed well aligned fracture with well-placed hardware. Incision was closed with 3-0 Vicryl and govind. Sterile dressings were applied. Patient was awakened and transferred to recovery room. Leandro Mathis MD Feb 16, 2017 08:22
[2017-02-16] MEDS ORDERED: ACETAMINOPHEN 1000 MG/100 ML VIAL IV ONE ×2 (08:29→08:30)
[2017-02-16] MEDS ORDERED: ERGOCALCIFEROL (VIT D2) 50,000 UNIT CAP PO ONE (08:30)
[2017-02-16] MEDS ORDERED: ACETAMINOPHEN/HYDROcodone 325 MG/7.5 MG TAB PO PRN ×2 (08:30)
[2017-02-16] MEDS ORDERED: ENOXAPARIN SODIUM 30 MG/0.3 ML SYRINGE SQ SCH (08:30)
[2017-02-16] MEDS ORDERED: CHOLECALCIFEROL (VIT D3) 5000 UNIT CAP PO SCH (09:00)
[2017-02-16] MEDS ORDERED: CALCIUM/VITAMIN D 250 MG/125 U TAB PO SCH (09:00)
[2017-02-16] MEDS ORDERED: SODIUM CHLORIDE 0.9% FLUSH 5 ML FLUSH IVF SCH (09:00)
[2017-02-16] MEDS: SODIUM CHLORIDE 0.9% FLUSH 5 ML FLUSH IVF SCH ×2 (09:25→20:25)
[2017-02-16] MEDS: GABAPENTIN 300 MG CAP PO SCH ×2 (09:25→20:24)
[2017-02-16] MEDS: ENOXAPARIN SODIUM 30 MG/0.3 ML SYRINGE SQ SCH (09:27)
--- NOTE | 2017-02-16 09:41 | MB ---
cc: KARTHIK LYNCH Corrected Copy: 02/18/17 DATE OF CONSULTATION: 02/16/2017 REASON FOR CONSULTATION: Right knee infection. HISTORY Jamee is a 51-year female who has multiple medical problems. She has chronic bilateral lower extremity wounds. She also has a history of IV drug abuse and chronic smoking. She has began developing right knee pain approximately 3 days ago. She had difficulty walking. She presented to the emergency room where x-rays were negative for fracture. Aspiration of the knee revealed an infection. The patient has been admitted for treatment of septic arthritis of the right knee. She has been started on IV antibiotics. She is currently awake and alert. Her main complaint is right knee. Pain is worse with movement and walking. She denies any traumatic injuries to her knee. PAST MEDICAL HISTORY: 1. Past medical history of chronic right of bilateral lower extremity wounds. 2. Chronic back pain 3. Chronic smoking 4. Fibromyalgia. SURGERIES 1. Tubal ligation 2. 3. Breast augmentation 4. Right tibia ORIF 5. Rhinoplasty. MEDICATIONS Medications include 1. Morphine. 2. Motrin 3. Nortriptyline 4. Gabapentin ALLERGIES NO KNOWN DRUG ALLERGIES. FAMILY HISTORY Noncontributory. SOCIAL HISTORY The patient smokes a pack and half a day. She denies current drug use. REVIEW OF SYSTEMS The patient denies headache, visual changes, neck pain, chest pain, shortness of breath, abdominal pain, nausea or recent weight loss. She complains of right knee pain. She also has bilateral leg wounds. PHYSICAL EXAMINATION IN GENERAL: The patient is a thin 51-year female in no acute distress. She is awake and alert. She is alert and x3. VITAL SIGNS: Temperature 102.1, pulse 60, respirations 20, blood pressure 122/60, O2 sat 95% on room air. HEAD, EYES, EARS, NOSE, AND THROAT: The patient is normocephalic. Pupils are equal. NECK: Soft, nontender. Trachea is midline. ABDOMEN: The abdomen is soft, nontender, nondistended. EXTREMITIES: Examination of bilateral upper extremities reveals no obvious pain deformity with shoulder or wrist motion. She has good cap refill fingers. Radial pulses are palpable. Sensation intact in all fingers. Examination of left leg reveals no obvious pain or deformity with hip, knee or ankle motion. She has large skin wounds on her calf. She has diminished capillary fill in toes. Examination of right leg reveals no tension on her hip or ankle. She has a large knee effusion. She has significant pain with any knee motion. There is a large skin ulceration on her calf. She has diminished sensation. She has diminished cap refill in her toes. LABORATORY DATA The left knee was aspirated in the emergency department. The gram stain revealed gram positive cocci in clusters. IMPRESSION 1. Chronic smoking dependence 2. Septic right knee infection. 3. Probable peripheral vascular disease. PLAN The treatment options were discussed the patient. At this point I would recommend right knee arthrotomy with irrigation debridement. Risks of surgery include bleeding, infection, injury to blood vessels, recurrent infection, knee stiffness, loss of motion, arthritis as well as medical complications including blood clot, stroke, heart attack and . The patient would also benefit from fascia surgery workup given her chronic lower extremity wounds. All questions were answered. I will plan on surgery today. MD JULIANA Farrell/buck /8:35 AM /3:08 PM
[2017-02-16] MEDS ORDERED: INFLUENZA VIRUS VACCINE (QUADRIVALENT) 0.5 ML SYR IM ONE (10:00)
--- NOTE | 2017-02-16 10:00 | EKG ---
Date Performed: 02/16/2017 Time Performed: 06:56:54 PTAGE: 51 years EKG: SINUS TACHYCARDIA POSSIBLE LEFT ATRIAL ENLARGEMENT ABNORMAL RHYTHM ECG PREVIOUS TRACING : 09/22/2013 12.40 DOCTOR: Ming Fraire Interpretating Date/Time 02/16/2017 09:58:33
--- NOTE | 2017-02-16 10:50 | HHI.IDPN ---
Subjective Subjective Remarks Notes reviewed Febrile to 102 Went to OR today for her R knee BC negative so far Antibiotics Vancomycin Lines PIV Past Medical History Sicca syndrome. Sun sensitivity. Psoriasis. Alopecia. Raynaud's phenomenon. Aphthous ulcers. Vasculitis diagnosis 2013 Hx MSSA sepsis and septic R wrist Fibromyalgia Hx IVDU - claims last use 15 yeasr ago, but admission 2012 (+) drug screen and admits to use at that time Past Surgical History Breasts augmentation surgery. Abdominoplasty. section. Surgery on her R wrist Tubal ligation Debridement of lower extremity wounds Right tibia fracture repair Rhinoplasty Allergies: Coded Allergies: *MDRO Multi-Drug Resistant Organism (Verified Adverse Reaction, Unknown, ) MRSA (finger wound) - 06/06/16 MRSA PCR Screen POSITIVE -02/15/17 Objective . Vital Signs Date Time Temp Pulse Resp B/P Pulse Ox O2 Delivery O2 Flow Rate FiO2 02/16/17 09:00 99.2 88 16 109/60 98 Nasal Cannula 2 02/16/17 08:45 90 16 111/58 98 Nasal Cannula 2 02/16/17 08:30 94 16 120/59 97 Nasal Cannula 2 02/16/17 08:15 110 16 106/58 97 Nasal Cannula 2 02/16/17 08:07 101.2 108 16 99/64 98 Nasal Cannula 2 02/16/17 05:34 102.1 60 20 122/60 95 02/16/17 00:04 98.3 89 20 98/52 100 02/15/17 20:00 98.3 88 18 97/58 95 02/15/17 17:10 102.8 91 20 106/68 76 02/15/17 16:00 100.0 98 20 103/55 100 02/15/17 12:00 101.0 96 20 123/71 96 02/15/17 02/15/17 02/16/17 15:00 23:00 07:00 Intake Total 790 ml 2615 ml 692 ml Balance 790 ml 2615 ml 692 ml Intake Oral 690 ml IV Total 100 ml 2615 ml 692 ml # Voids 3 . Laboratory Tests Test 02/15/17 06:05 White Blood Count 7.1 TH/MM3 Red Blood Count 4.15 MIL/MM3 Hemoglobin 10.0 GM/DL Hematocrit 29.6 % Mean Corpuscular Volume 71.3 FL Mean Corpuscular Hemoglobin 24.1 PG Mean Corpuscular Hemoglobin 33.8 % Concent Red Cell Distribution Width 16.7 % Platelet Count 349 TH/MM3 Mean Platelet Volume 6.3 FL Neutrophils (%) (Auto) 75.3 % Lymphocytes (%) (Auto) 11.6 % Monocytes (%) (Auto) 11.6 % Eosinophils (%) (Auto) 1.1 % Basophils (%) (Auto) 0.4 % Neutrophils # (Auto) 5.4 TH/MM3 Lymphocytes # (Auto) 0.8 TH/MM3 Monocytes # (Auto) 0.8 TH/MM3 Eosinophils # (Auto) 0.1 TH/MM3 Basophils # (Auto) 0.0 TH/MM3 CBC Comment AUTO DIFF Differential Comment AUTO DIFF CONFIRMED Ovalocytes 1+ Laboratory Tests Test 02/15/17 06:05 Sodium Level 134 MEQ/L Potassium Level 3.1 MEQ/L Chloride Level 95 MEQ/L Carbon Dioxide Level 28.9 MEQ/L Anion Gap 10 MEQ/L Blood Urea Nitrogen 21 MG/DL Creatinine 0.94 MG/DL Estimat Glomerular Filtration 62 ML/MIN Rate Random Glucose 112 MG/DL Calcium Level 8.7 MG/DL Total Bilirubin 0.6 MG/DL Aspartate Amino Transf 14 U/L (AST/SGOT) Alanine Aminotransferase 14 U/L (ALT/SGPT) Alkaline Phosphatase 252 U/L Total Protein 8.2 GM/DL Albumin 2.4 GM/DL Microbiology Date/Time Procedure Status Source Growth 02/15/17 04:30 Gram Stain - Final Resulted Fluid Synovial Fluid 02/15/17 04:30 Body Fluid Culture Resulted Fluid Synovial Fluid Pending 02/15/17 13:40 Aerobic Blood Culture Received Blood Peripheral Pending 02/15/17 13:40 Anaerobic Blood Culture Received Blood Peripheral Pending 02/15/17 13:50 Aerobic Blood Culture Received Blood Peripheral Pending 02/15/17 13:50 Anaerobic Blood Culture Received Blood Peripheral Pending 02/16/17 08:00 Gram Stain Received Fluid Other Pending 02/16/17 08:00 Body Fluid Culture Received Fluid Other Pending 02/16/17 08:00 Acid Fast Stain Received Fluid Other Pending 02/16/17 08:00 Mycobacterial Culture Received Fluid Other Pending 02/16/17 08:00 Fungal Smear Received Fluid Other Pending 02/16/17 08:00 Fungal Culture Received Fluid Other Pending Physical Exam GENERAL: Somewhat lethargic, in pain SKIN: Warm and dry. Has large dry looking large ulcers in both legs, raised borders; Some nodular areas in her forearms, not tender, not discolored. She has generalized hypopigmented scars HEENT: Tarina conjunctivae, no petechia, no hemorrhage. No scleral icterus. No injection or drainage. Nose without bleeding, or purulent drainage. Moist mucosa. Throat without erythema, or exudate. Uvula midline. Airway patent. NECK: Trachea midline. No JVD or lymphadenopathy. Supple, nontender, no meningeal signs. CARDIOVASCULAR: Regular rate and rhythm without murmurs, gallops, or rubs. RESPIRATORY: Clear to auscultation. Breath sounds equal bilaterally. No wheezes , rales, or rhonchi. BREAST: Has implants, has hypopigmented scars on her breast GASTROINTESTINAL: Abdomen soft, non-tender, mildly distended. Bowel sounds are present and normoactive. No hepato-splenomegaly, or palpable masses. No guarding. MUSCULOSKELETAL: Extremities without clubbing, cyanosis, or edema. R knee with dressing in place, has drain in place. Dressings on her wounds NEUROLOGICAL: Lethargic LINE: PIV with no evidence of infection Assessment & Plan Remarks IMPRESSION Sepsis due to septic knee Septic R knee, likely Staph or strep Chronic skin lesions, etiology? ?Hx vasculitis with purpuric lesions in BLE last 2012 Hx IVDU Hs MSSA sepsis 2012 Chronic narcotic dependence RECOMMENDATION Continue IV Vanco Follow C/S Monitor progress Wound care consult I will follow along with you Marquita Ferreira MD Feb 16, 2017 10:50
[2017-02-16 11:23] LABS: AUTOMATED NEUTROPHIL # 5.4 TH/MM3 (1.8-7.7); BASOPHIL % 0.4 % (0.0-2.0); EOSINOPHIL % 0.2 % (0.0-4.0); HEMATOCRIT 26.7 % (35.0-46.0); LYMPH % 13.5 % (9.0-44.0); MEAN CELL VOLUME 69.7 FL (80.0-100.0); MEAN CORPUSCULAR HEMOGLOBIN 22.7 PG (27.0-34.0); MEAN CORPUSCULAR HGB CONC 32.5 % (32.0-36.0); MONO % 10.4 % (0.0-8.0); NEUT % 75.5 % (16.0-70.0); PLATELET COUNT 280 TH/MM3 (150-450); RED BLOOD COUNT 3.83 MIL/MM3 (4.00-5.30); RED CELL DISTRIBUTION WIDTH 17.4 % (11.6-17.2); WHITE BLOOD COUNT 7.1 TH/MM3 (4.0-11.0)
[2017-02-16 11:31] LABS: HEMO FLAGS AUTO DIFF
[2017-02-16 11:51] LABS: ALKALINE PHOSPHATASE 209 U/L (45-117); ALT (GPT) 10 U/L (10-53); ANION GAP 7 MEQ/L (5-15); AST (GOT) 11 U/L (15-37); BICARBONATE 27.1 MEQ/L (21.0-32.0); BLOOD UREA NITROGEN 7 MG/DL (7-18); CHLORIDE 102 MEQ/L (98-107); GLOMERULAR FILTRATION RATE 201 ML/MIN (>89); SODIUM (NA) 136 MEQ/L (136-145); TOTAL BILIRUBIN ADULT 0.5 MG/DL (0.2-1.0)
[2017-02-16 11:59] LABS: POTASSIUM 2.8 MEQ/L (3.5-5.1)
[2017-02-16 12:06] LABS: BANDS 8 % (0-6); METAMYELOCYTES 1 % (0-1); NEUTROPHIL # MANUAL DIFF 5.8 TH/MM3 (1.8-7.7); POLYS (SEG NEUTROPHILS) 73 % (16-70); WBC DIFF SAMPLE 100
[2017-02-16 12:07] LABS: TOXIC VACUOLATION PRESENT (NONE SEEN)
[2017-02-16 12:08] LABS: PLATELET ESTIMATE SMEAR NORMAL (NORMAL); PLATELET MORPHOLOGY NORMAL (NORMAL); SCAN/DIFF FINAL DIFF MANUAL
[2017-02-16 12:09] LABS: OVALOCYTES 1+ (NORMAL)
[2017-02-16 12:30] VITALS: BP 116/57; PULSE 87; RESP 18; TEMP 97.3; O2SAT 96
[2017-02-16] MEDS: VANCOMYCIN 1,000 MG/NS 250 ML IV SCH ×2 (13:23)
[2017-02-16] MEDS: POTASSIUM CHLOR 20 MEQ PREMIX 100 ML IV SCH ×2 (13:28→16:30)
[2017-02-16 16:30] VITALS: BP 173/84; PULSE 65; RESP 20; TEMP 98; O2SAT 94
[2017-02-16] MEDS: RESP: ALBUTEROL 2.5 MG/IPRATROPIUM 0.5 MG NEB (SCH) NEB (17:35)
--- NOTE | 2017-02-16 19:24 | PD.VS.CON ---
History of Present Illness Chief Complaint: B LE wounds Consult Requested by: Dr. Lock History of Present Illness 51 yo female with B LE wounds that she notes have been present for 3 years and initially attributed to "drug abuse" but she has reportedly been clean for years. No etiology of wounds. Does have "neurodermatitis". Presently an inpatient for an infected knee. OR today. No DM, HTN, CAD or real atherosclerotic risk factors except tobacco abuse. Past/Family/Social History Past Medical History neurodermatitis IVDA LE wounds ? etiology tobacco abuse Past Surgical History cosmetic plastic surgery LE wound debridement knee surgery Social History tobacco No recent drugs according to patient. Home Medications Reported Medications Morphine ER 60 Mg Tab60 Mg PO TID Ref 0 02/15/17 Ibuprofen (Motrin Ib)200 Mg Xyt215 Mg PO TID PRN (PAIN SCALE 1 TO 2) Ref 0 02/15/17 Lorazepam 0.5 Mg Tab0.5 Mg PO DAILY PRN (ANXIETY) Ref 0 02/15/17 Nortriptyline 50 Mg Cap50 Mg PO HS #30 CAP Ref 0 02/15/17 Hydromorphone (Dilaudid)8 Mg Tab8 Mg PO Q6H PRN (Pain Management) Ref 0 02/15/17 Gabapentin 600 Mg [id number] Mg PO BID #60 TAB Ref 0 02/15/17 Coded Allergies: *MDRO Multi-Drug Resistant Organism (Verified Adverse Reaction, Unknown, ) MRSA (finger wound) - 06/06/16 MRSA PCR Screen POSITIVE -02/15/17 Review of Systems Constitutional: COMPLAINS OF: Fatigue, Chills Respiratory: DENIES: Apneas, Cough, Snoring, Wheezing, Hemoptysis, Sputum production, Shortness of breath Cardiovascular: DENIES: Chest pain, Palpitations, Syncope, Dyspnea on Exertion , PND, Lower Extremity Edema, Orthopnea, Claudication Physical Exam Vitals/I&O Date Time Temp Pulse Resp B/P Pulse Ox O2 Delivery O2 Flow Rate FiO2 02/16/17 16:30 98.0 65 20 173/84 94 02/16/17 12:30 97.3 87 18 116/57 96 02/16/17 09:00 99.2 88 16 109/60 98 Nasal Cannula 2 02/16/17 08:45 90 16 111/58 98 Nasal Cannula 2 02/16/17 08:30 94 16 120/59 97 Nasal Cannula 2 02/16/17 08:15 110 16 106/58 97 Nasal Cannula 2 02/16/17 08:07 101.2 108 16 99/64 98 Nasal Cannula 2 02/16/17 05:34 102.1 60 20 122/60 95 02/16/17 00:04 98.3 89 20 98/52 100 02/15/17 20:00 98.3 88 18 97/58 95 02/16/17 02/16/17 02/16/17 07:00 15:00 23:00 Intake Total 692 ml 100 ml Balance 692 ml 100 ml Neuro: alert, oriented HEENT: NC/AT Neck: no JVD Heart: reg rate Lungs: nonlabored breathing Vascular: palpable B DP Extremities: medial wounds, open and superficial on the LEFT, almost appears surgical given shape. Laboratory Tests Test 02/16/17 10:50 White Blood Count 7.1 Red Blood Count 3.83 Hemoglobin 8.7 Hematocrit 26.7 Mean Corpuscular Volume 69.7 Mean Corpuscular Hemoglobin 22.7 Mean Corpuscular Hemoglobin 32.5 Concent Red Cell Distribution Width 17.4 Platelet Count 280 Mean Platelet Volume 6.5 Neutrophils (%) (Auto) 75.5 Lymphocytes (%) (Auto) 13.5 Monocytes (%) (Auto) 10.4 Eosinophils (%) (Auto) 0.2 Basophils (%) (Auto) 0.4 Neutrophils # (Auto) 5.4 Lymphocytes # (Auto) 1.0 Monocytes # (Auto) 0.7 Eosinophils # (Auto) 0.0 Basophils # (Auto) 0.0 CBC Comment AUTO DIFF Differential Total Cells 100 Counted Neutrophils % (Manual) 73 Band Neutrophils % 8 Lymphocytes % 13 Monocytes % 5 Neutrophils # (Manual) 5.8 Metamyelocytes 1 Differential Comment FINAL DIFF MANUAL Atypical Lymphocytes Toxic Vacuolation PRESENT Platelet Estimate NORMAL Platelet Morphology Comment NORMAL Ovalocytes 1+ Sodium Level 136 Potassium Level 2.8 Chloride Level 102 Carbon Dioxide Level 27.1 Anion Gap 7 Blood Urea Nitrogen 7 Creatinine 0.34 Estimat Glomerular Filtration 201 Rate Random Glucose 90 Calcium Level 8.0 Total Bilirubin 0.5 Aspartate Amino Transf 11 (AST/SGOT) Alanine Aminotransferase 10 (ALT/SGPT) Alkaline Phosphatase 209 Total Protein 6.7 Albumin 1.9 Date/Time Procedure Status Source Growth 02/16/17 08:00 Gram Stain - Final Resulted Fluid Other 02/16/17 08:00 Body Fluid Culture Resulted Fluid Other Pending 02/16/17 08:00 Fungal Smear - Final Resulted Fluid Other NO FUNGAL ELEMENTS SEEN. 02/16/17 08:00 Fungal Culture Resulted Fluid Other Pending 02/16/17 08:00 Acid Fast Stain Received Fluid Other Pending 02/16/17 08:00 Mycobacterial Culture Received Fluid Other Pending 02/15/17 13:50 Aerobic Blood Culture - Preliminary Resulted Blood Peripheral NO GROWTH IN 1 DAY 02/15/17 13:50 Anaerobic Blood Culture - Preliminary Resulted Blood Peripheral NO GROWTH IN 1 DAY Assessment and Plan Plan No PAD and I am not sure of the etiology of her wounds. I recommend plastic surgery consultation. She has adequate blood flow to heal any surgery needed. Quoc Cage MD FACS clinical informatics specialist [facility] Quoc Cage MD Feb 16, 2017 19:24
[2017-02-16 20:00] VITALS: BP 105/59; PULSE 94; RESP 20; TEMP 98.1; O2SAT 100
[2017-02-16] MEDS: NORTRIPTYLINE HCL 25 MG CAP PO SCH (20:23)
[2017-02-16] MEDS: guaiFENesin E.R. 600 MG TAB PO SCH (20:25)
[2017-02-17] VITALS (8 sets, daily range): BP systolic 90–111; BP diastolic 52–59; PULSE 96–109; RESP 16–20; TEMP 97.8–99.8; O2SAT 92–99
[2017-02-17] MEDS: VANCOMYCIN 1,000 MG/NS 250 ML IV SCH ×6 (01:08→22:19)
[2017-02-17] MEDS: HYDROmorphone HCL PF 1 MG/ML VIAL IV PRN ×6 (01:08→23:15)
[2017-02-17] MEDS: RESP: ALBUTEROL 2.5 MG/IPRATROPIUM 0.5 MG NEB (SCH) NEB ×4 (04:01→21:06)
[2017-02-17 08:13] LABS: AUTOMATED NEUTROPHIL # 2.9 TH/MM3 (1.8-7.7); BASOPHIL % 0.5 % (0.0-2.0); EOSINOPHIL # 0.1 TH/MM3 (0-0.4); EOSINOPHIL % 1.4 % (0.0-4.0); HEMATOCRIT 25.2 % (35.0-46.0); LYMPH % 23.6 % (9.0-44.0); LYMPHOCYTE # 1.1 TH/MM3 (1.0-4.8); MEAN CELL VOLUME 69.9 FL (80.0-100.0); MEAN CORPUSCULAR HEMOGLOBIN 22.8 PG (27.0-34.0); MEAN CORPUSCULAR HGB CONC 32.6 % (32.0-36.0); MONO % 11.6 % (0.0-8.0); NEUT % 62.9 % (16.0-70.0); PLATELET COUNT 271 TH/MM3 (150-450); RED BLOOD COUNT 3.61 MIL/MM3 (4.00-5.30); WHITE BLOOD COUNT 4.5 TH/MM3 (4.0-11.0)
[2017-02-17 08:21] LABS: HEMO FLAGS AUTO DIFF
[2017-02-17] MEDS: guaiFENesin E.R. 600 MG TAB PO SCH ×2 (08:32→22:18)
[2017-02-17] MEDS: SODIUM CHLOR 0.9% 1000 ML INJ 1,000 ML IV SCH ×2 (08:32→14:21)
[2017-02-17] MEDS: GABAPENTIN 300 MG CAP PO SCH ×2 (08:32→22:19)
[2017-02-17] MEDS: SODIUM CHLORIDE 0.9% FLUSH 5 ML FLUSH IVF SCH ×2 (08:32→21:00)
--- NOTE | 2017-02-17 08:59 | PD.ORT.PN ---
Subjective Subjective Remarks POD 1 s/p I&D right knee doing well. pain improving Objective Vitals Vital Signs Date Time Temp Pulse Resp B/P Pulse Ox O2 Delivery O2 Flow Rate FiO2 02/17/17 05:35 99.2 104 20 103/53 94 02/17/17 04:03 92 21 02/17/17 00:00 99.8 104 20 97/54 95 02/16/17 20:00 98.1 94 20 105/59 100 02/16/17 16:30 98.0 65 20 173/84 94 02/16/17 12:30 97.3 87 18 116/57 96 02/16/17 09:00 99.2 88 16 109/60 98 Nasal Cannula 2 I/O 02/16/17 02/16/17 02/16/17 02/17/17 02/17/17 02/17/17 07:00 15:00 23:00 07:00 15:00 23:00 Intake Total 692 ml 100 ml 1409 ml 1228 ml Output Total 75 ml 20 ml Balance 692 ml 100 ml 1334 ml 1208 ml Intake Oral 700 ml 500 ml IV Total 692 ml 100 ml 709 ml 728 ml Output Drainage Total 75 ml 20 ml # Voids 2 2 # Bowel Movements 0 Result Diagram: 02/17/17 0723 02/16/17 1050 Objective Remarks RLE: dressings clean and dry. intact. +drain. NVI with good dorsiflexion Assessment & Plan Assessment and Plan 1) Right Septic knee s/p I&D - POD 1 -WBAT -daily dressing changes POD 2 -maintain drain. will plan for DC of drain possible POD 3 -infectious disease for IV Abx pending cultures Bao García Feb 17, 2017 08:59
--- NOTE | 2017-02-17 09:14 | HHI.PR ---
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 02/16 With Diagnosis of Septic right knee has Right knee arthrotomy with irrigation and debridement by Doctor Leandro Mathis also had today with Diagnosis of Right Hip intertrochanteric fracture status post Right hip reduction and intramedullary nail fixation. complaint of pain seen in the room with nurse Mandy no Nausea, vomit or diarrhea. 02/16 patient seen in the room, she was already evaluated by Vascular specialist Doctor Quoc Cage and with Diagnosis of No PAD not sure about the etiology, recommended for bioinformatics support specialist consult. asked for consult, Consulted by Podiatry specialist doctor Franky Segal and recommended for I and D next 02/19/17 seen by ID specialist doctor Jhon with Diagnosis of Right knee Culture positive for MRSA, to continue Vancomycin. place a PICC line. No Nausea, vomit or diarrhea, discussed with Patient and nurse Objective Vital Signs Date Time Temp Pulse Resp B/P Pulse Ox O2 Delivery O2 Flow Rate FiO2 02/17/17 05:35 99.2 104 20 103/53 94 02/17/17 04:03 92 21 02/17/17 00:00 99.8 104 20 97/54 95 02/16/17 20:00 98.1 94 20 105/59 100 02/16/17 16:30 98.0 65 20 173/84 94 02/16/17 12:30 97.3 87 18 116/57 96 I/O 02/16/17 02/16/17 02/16/17 02/17/17 02/17/17 02/17/17 06:59 14:59 22:59 06:59 14:59 22:59 Intake Total 692 ml 100 ml 1409 ml 1228 ml Output Total 75 ml 20 ml Balance 692 ml 100 ml 1334 ml 1208 ml Intake Oral 700 ml 500 ml IV Total 692 ml 100 ml 709 ml 728 ml Output Drainage Total 75 ml 20 ml # Voids 2 2 # Bowel Movements 0 Result Diagram: 02/17/17 0723 02/16/17 1050 Imaging Last Impressions Chest X-Ray 02/17/17 0000 Signed Impressions: Service Date/Time: Friday, February 17, 2017 13:34 - CONCLUSION: 1. Patchy areas of bibasilar infiltrate atelectasis concerning for pneumonia. 2. Large lytic lesion in the humeral head on the left. This is described in detail above. Malignancy is not excluded. Stoney Hwang MD Procedures 02/16 With Diagnosis of Septic right knee has Right knee arthrotomy with irrigation and debridement by Doctor Leandro Mathis also had today with Diagnosis of Right Hip intertrochanteric fracture status post Right hip reduction and intramedullary nail fixation. Other Results Laboratory Tests Test 02/15/17 02/15/17 02/16/17 02/17/17 04:30 11:25 10:50 07:23 Synovial Fluid Color STRAW Synovial Fluid Appearance MARKED Synovial Fluid WBC 35968 /MM3 Synovial Fluid RBC 1600 /MM3 Synovial Fluid Neutrophils 96 % Synovial Fluid Lymphocytes 3 % Synovial Fluid Monocytes 1 % Synovial Fluid Crystals NONE Nasal Screen MRSA (PCR) POSITIVE Differential Total Cells 100 Counted Neutrophils % (Manual) 73 % Band Neutrophils % 8 % Lymphocytes % 13 % Monocytes % 5 % Neutrophils # (Manual) 5.8 TH/MM3 Metamyelocytes 1 % Differential Comment FINAL DIFF MANUAL Atypical Lymphocytes % Toxic Vacuolation PRESENT Platelet Estimate NORMAL Platelet Morphology Comment NORMAL Ovalocytes 1+ Sodium Level 136 MEQ/L Potassium Level 2.8 MEQ/L Chloride Level 102 MEQ/L Carbon Dioxide Level 27.1 MEQ/L Anion Gap 7 MEQ/L Blood Urea Nitrogen 7 MG/DL Creatinine 0.34 MG/DL Estimat Glomerular Filtration 201 ML/MIN Rate Random Glucose 90 MG/DL Calcium Level 8.0 MG/DL Total Bilirubin 0.5 MG/DL Aspartate Amino Transf 11 U/L (AST/SGOT) Alanine Aminotransferase 10 U/L (ALT/SGPT) Alkaline Phosphatase 209 U/L Total Protein 6.7 GM/DL Albumin 1.9 GM/DL White Blood Count 4.5 TH/MM3 Red Blood Count 3.61 MIL/MM3 Hemoglobin 8.2 GM/DL Hematocrit 25.2 % Mean Corpuscular Volume 69.9 FL Mean Corpuscular Hemoglobin 22.8 PG Mean Corpuscular Hemoglobin 32.6 % Concent Red Cell Distribution Width 17.0 % Platelet Count 271 TH/MM3 Mean Platelet Volume 6.4 FL Neutrophils (%) (Auto) 62.9 % Lymphocytes (%) (Auto) 23.6 % Monocytes (%) (Auto) 11.6 % Eosinophils (%) (Auto) 1.4 % Basophils (%) (Auto) 0.5 % Neutrophils # (Auto) 2.9 TH/MM3 Lymphocytes # (Auto) 1.1 TH/MM3 Monocytes # (Auto) 0.5 TH/MM3 Eosinophils # (Auto) 0.1 TH/MM3 Basophils # (Auto) 0.0 TH/MM3 CBC Comment AUTO DIFF Objective Remarks GENERAL: Well-developed, well-nourished, in no acute distress. alert and orientated. Patient appears to be highly medicated. Hypertension had a hard time staying awake during her evaluation. Had to keep nudging her to keep her eyes open. She states that she is overmedicated. HEENT: Head is normocephalic without any lesions or masses noted. Facial features are symmetric. Eyes: Pupils equal round reactive to light. Extraocular muscles are intact. Conjunctivae were clear. Oropharyngeal: Pharynx without any erythema edema. Tongue is midline without deviation. Buccal mucosa is moist without any masses or lesions. Dentition in poor repair NECK: Supple without any masses. Trachea midline no deviation. No JVD, no bruits are appreciated CARDIAC: Regular rhythm, regular rate. S1/S2 are heard. No murmurs gallops or rubs. LUNGS: Clear to auscultation bilaterally. No wheeze, rhonchi or rales. No use of accessory muscles on inspiration or expiration. ABDOMEN: Soft, nontender. Nondistended. Bowel sounds heard in all 4 quadrants. No organomegaly or masses. Negative rebound, negative guarding NEUROLOGY: Mood and affect appear appropriate. Cranial nerves II through XII grossly intact. Muscle strength 5/5 in upper and lower extremities bilaterally. Deep tendon reflexes are 2+ in upper and lower extremities bilaterally. LEFT LOWER EXTREMITY: Patient has significant ulcerated wounds on her left lower extremity from the medial calf area down encompassing the whole anterior surface of her distal tibia and ankle. RIGHT LOWER EXTREMITY bandages noted over right knee which appears to be very painful, swollen, patient will not let me do range of motion due to pain. She also has multiple ulcerations noted on the medial aspect of her proximal tibia Medications and IVs Current Medications Medications (Trade) Dose Ordered Sig/Arlette Route Start Time Stop Time Status Last Admin (NS 1000 ml Inj) 1,000 ml @ 100 mls/hr Q10H IV 02/15/17 06:32 02/17/17 08:32 (Zofran Inj) 4 mg Q6H PRN IVP 02/15/17 06:45 (Dulcolax Supp) 10 mg DAILY PRN OH 02/15/17 06:45 (Dilaudid Pf Inj) 1 mg Q3H PRN IV 02/15/17 06:45 02/17/17 07:11 (Neurontin) 600 mg BID PO 02/15/17 09:00 02/17/17 08:32 (Ativan) 0.5 mg DAILY PRN PO 02/15/17 06:45 Nortriptyline HCl 50 mg 50 mg HS PO 02/15/17 21:00 02/16/17 20:23 (Vancomycin Consult Pharmacy) 0 ml @ 0 mls/hr UNSCH OTHER 02/15/17 08:00 Miscellaneous Information SPECIFIC LAB TO BE DRAWN:VANCOMY... ONCE ONCE XX 02/17/17 13:45 02/17/17 13:46 (Dilaudid) 4 mg Q6H PRN PO 02/15/17 12:45 (Lovenox Inj) 30 mg Q24H SQ 02/15/17 12:00 02/15/17 12:23 (Tylenol) 650 mg Q4H PRN PO 02/15/17 17:15 02/15/17 17:25 (NS Flush) 2 ml UNSCH PRN IVF 02/16/17 08:15 (NS Flush) 2 ml BID IVF 02/16/17 09:00 02/17/17 08:32 (Benadryl) 25 mg Q6H PRN PO 02/16/17 08:15 Morphine Sulfate 4 mg 4 mg Q3H PRN IV PUSH 02/16/17 08:15 (Vancomycin Inj/ NS 250 ml Inj) 250 ml @ 250 mls/hr Q12H IV 02/16/17 14:00 02/17/17 01:08 (Mucinex Er) 600 mg BID PO 02/16/17 21:00 02/17/17 08:32 A/P Assessment and Plan 1. Right septic Arthritis, Aspiration performed indicating arthritis with WBCs 76,400. Patient started on vancomycin, cefepime. Gram stain does show gram-positive cocci MRSA, followed by ID specialist recommended to continued Vancomycin. Status post Locker Room Attendant procedures 02/16/17 with diagnosis of Septic right knee has Right knee arthrotomy with irrigation and debridement by Doctor Leandro Mathis. left FLORENTIN drainage chronic lower extremity ulcers seen by Podiatry specialist and scheduled for I and D for 02/19/17 2. Tobacco dependence stated on Bronchodilator Mucolytic and incentive spirometry, strongly recommended to stop smoking. Nicotine replacement started. 3. Chronic lower extremity wounds, Wound care following, and will have I and D, also consulted bioinformatics support specialist asked by Vascular specialist Doctor Ciro. 4. Chronic low back pain continue Pain medicines 5. Polysubstance abuse with history of IV drug use: workup for Endocarditis. 6. Electrolyte derangement replaced Potassium yesterday and asked for follow up laboratory for today but not taken asked for stat laboratory again and following. 7. Community acquired Pneumonia added Ceftriaxone. DVT prevention: Lovenox Discharge Planning Not yet cleared by attending physician. Cade Fitch MD Feb 17, 2017 09:13
[2017-02-17 09:53] LABS: BANDS 23 % (0-6); NEUTROPHIL # MANUAL DIFF 3.5 TH/MM3 (1.8-7.7); OVALOCYTES 1+ (NORMAL); PLATELET ESTIMATE SMEAR NORMAL (NORMAL); PLATELET MORPHOLOGY NORMAL (NORMAL); POLYS (SEG NEUTROPHILS) 54 % (16-70); WBC DIFF SAMPLE 100
[2017-02-17 09:54] LABS: SCAN/DIFF FINAL DIFF MANUAL
[2017-02-17 11:06] LABS: BACTERIA, URINE OCC /hpf; BLOOD, URINE TRACE (NEG); GLUCOSE,URINE NEG (NEG); KETONE, URINE NEG (NEG); MUCUS URINE FEW /lpf (OCC); NITRITE,URINE NEG (NEG); PH, URINE 6.5 (5.0-8.5); SQUAMOUS EPITHELIAL CELL URINE 3 /hpf (0-5); URINE COLOR YELLOW (YELLW/STRAW)
[2017-02-17 11:10] LABS: COMMENT (UR) CULT NOT INDICATED; CULTURE IF INDICATED CULT NOT INDICATED
--- NOTE | 2017-02-17 12:55 | PD.POD.CON ---
Patient Intake Chief Complaint Bilateral lower extremity wounds Consult Requested by Dr. Ramirez Reason for Consult Evaluation and treatment of wounds Primary Care Physician No Primary Care Physician History of Present Illness Patient is a 51-year-old female who presented to [place] with a septic right knee. Patient states at home she was developing wounds of both lower extremities. She does not know the etiology of the wounds. She has had these in the past and they have gone on to heal. Patient has a drug abuse history but denies using drugs recently. I was consulted for evaluation and treatment of the wounds Coded Allergies: *MDRO Multi-Drug Resistant Organism (Verified Adverse Reaction, Unknown, ) MRSA (finger wound) - 06/06/16; (synovial fluid) - 02/15/17 MRSA PCR Screen POSITIVE -02/15/17 Preferred Language to Discuss: Indonesian Barriers to Learning: None Teaching Method: Discussion Vital Signs Date Time Temp Pulse Resp B/P Pulse Ox O2 Delivery O2 Flow Rate FiO2 02/17/17 09:44 99 21 02/17/17 05:35 99.2 104 20 103/53 94 02/17/17 04:03 92 21 02/17/17 00:00 99.8 104 20 97/54 95 02/16/17 20:00 98.1 94 20 105/59 100 02/16/17 16:30 98.0 65 20 173/84 94 Pain scale used: 0-10 numeric scale Pain score: 3 Medications Current Medications Lidocaine/ Epinephrine 10 ml 10 ml ONCE ONCE INFIL Last administered on 06:29; Start 02/15/17 at 04:00; Stop 02/15/17 at 04:02; Status DC Sodium Chloride (NS 1000 ml Inj) 1,000 ml @ 100 mls/hr Q10H IV Last administered on 02/17/17 08:32; Start 02/15/17 at 06:32 IV Flush (NS Flush) 2 ml UNSCH PRN FLUSH FLUSH AFTER USING IV ACCESS; Start at 06:45; Stop 02/16/17 at 08:51; Status DC IV Flush (NS Flush) 2 ml BID FLUSH Last administered on 02/15/17 20:38; Start 02/15/17 at 09:00; Stop 02/16/17 at 08:51; Status DC Ondansetron HCl (Zofran Inj) 4 mg Q6H PRN IVP NAUSEA OR VOMITING; Start at 06:45 Bisacodyl (Dulcolax Supp) 10 mg DAILY PRN HI CONSTIPATION; Start 02/15/17 at 06 :45 Hydromorphone HCl (Dilaudid Pf Inj) 1 mg Q3H PRN IV Pain 6-10 Last administered on 02/17/17 07:11; Start 02/15/17 at 06:45 Gabapentin (Neurontin) 600 mg BID PO Last administered on 02/17/17 08:32; Start 02/15/17 at 09:00 Hydromorphone HCl (Dilaudid) 8 mg Q6H PRN PO PAIN 3-5; Start 02/15/17 at 06:45 ; Stop 02/15/17 at 11:17; Status DC Lorazepam (Ativan) 0.5 mg DAILY PRN PO ANXIETY; Start 02/15/17 at 06:45 Morphine Sulfate (Oramorph Sr) 60 mg TID PO Last administered on 02/15/17 08: 57; Start 02/15/17 at 09:00; Stop 02/15/17 at 11:17; Status DC Nortriptyline HCl 50 mg 50 mg HS PO Last administered on 02/16/17 20:23; Start 02/15/17 at 21:00 Ceftazidime 2000 mg/Sodium Chloride 100 ml @ 200 mls/hr ONCE ONCE IV Last administered on 02/15/17 06:47; Start 02/15/17 at 06:45; Stop 02/15/17 at 07:14 ; Status DC Vancomycin HCl 1250 mg/Sodium Chloride 262.5 ml @ 262.5 mls/ hr ONCE ONCE IV Last administered on 02/15/17 07:14; Start 02/15/17 at 06:45; Stop 02/15/17 at 07:44; Status DC Pharmacy Profile Note 0 ml @ 0 mls/hr UNSCH OTHER ; Start 02/15/17 at 08:00 Cefepime HCl 1000 mg/Sodium Chloride 100 ml @ 200 mls/hr Q12H IV ; Start at 18:00; Stop 02/15/17 at 18:00; Status DC Vancomycin HCl/ Sodium Chloride (Vancomycin Inj/ NS 250 ml Inj) 250 ml @ 250 mls/hr Q18H IV Last administered on 02/16/17 00:38; Start 02/16/17 at 02:00; Stop 02/16/17 at 12:48; Status DC Miscellaneous Information SPECIFIC LAB TO BE DRAWN:VANCOMY... ONCE ONCE XX ; Start 02/17/17 at 13:45; Stop 02/17/17 at 13:46 Hydromorphone HCl (Dilaudid) 4 mg Q6H PRN PO PAIN 3-5; Start 02/15/17 at 12:45 Enoxaparin Sodium (Lovenox Inj) 30 mg Q24H SQ Last administered on 02/15/17 12 :23; Start 02/15/17 at 12:00 Influenza Virus Vaccine 0.5 ml 0.5 ml ONCE ONCE IM Last administered on 09:27; Start 02/16/17 at 10:00; Stop 02/16/17 at 10:01; Status DC Sodium Chloride (NS 1000 ml Inj) 1,000 ml @ 999 mls/hr BOLUS ONCE IV Last administered on 02/15/17 17:26; Start 02/15/17 at 17:15; Stop 02/15/17 at 18:15 ; Status DC Acetaminophen (Tylenol) 650 mg Q4H PRN PO fever, [place] Last administered on 17:25; Start 02/15/17 at 17:15 Gentamicin Sulfate (Gentamicin Inj) 240 mg STK-MED ONCE .ROUTE Last administered on 02/16/17 08:23; Start 02/16/17 at 04:57; Stop 02/16/17 at 04:58 ; Status DC Famotidine (Pepcid Inj) 20 mg STK-MED ONCE .ROUTE ; Start 02/16/17 at 07:02; Stop 02/16/17 at 07:03; Status DC Vancomycin HCl 1000 mg 1,000 mg STK-MED ONCE .ROUTE Last administered on 07:27; Start 02/16/17 at 07:05; Stop 02/16/17 at 07:06; Status DC Cefazolin Sodium/ Dextrose (Ancef 2 Gm Premix) 50 ml @ As Directed STK-MED ONCE .ROUTE Last administered on 02/16/17 07:23; Start 02/16/17 at 07:05; Stop at 07:06; Status DC IV Flush (NS Flush) 2 ml UNSCH PRN IVF FLUSH AFTER USING IV ACCESS; Start 02/16 at 08:15 IV Flush (NS Flush) 2 ml BID IVF Last administered on 02/17/17 08:32; Start at 09:00 Miscellaneous Information (Post-op Orders (for Pharmacy)) STAT ONCE XX ; Start 02/16/17 at 08:15; Stop 02/16/17 at 08:16; Status DC Diphenhydramine HCl (Benadryl) 25 mg Q6H PRN PO ITCHING; Start 02/16/17 at 08: 15 Morphine Sulfate (Morphine Inj) 4 mg Q3H PRN IV PUSH break thru pain; Start at 08:15 Morphine Sulfate (*morphine INJ PERIprocedure ONLY) 8 mg STK-MED ONCE .ROUTE Last administered on 02/16/17 08:11; Start 02/16/17 at 08:11; Stop 02/16/17 at 08:12; Status DC Morphine Sulfate (Morphine Inj) 8 mg STK-MED ONCE .ROUTE ; Start 02/16/17 at 08: 15; Stop 02/16/17 at 08:16; Status DC Fentanyl Citrate (fentaNYL INJ) 500 mcg STK-MED ONCE .ROUTE ; Start 02/16/17 at 08:15; Stop 02/16/17 at 08:16; Status DC IV Flush (NS Flush) 2 ml UNSCH PRN IVF FLUSH AFTER USING IV ACCESS; Start 02/16 at 08:30; Stop 02/16/17 at 08:30; Status DC IV Flush (NS Flush) 2 ml BID IVF ; Start 02/16/17 at 09:00; Stop 02/16/17 at 09: 00; Status DC Enoxaparin Sodium 30 mg 30 mg Q24H SQ ; Start 02/16/17 at 08:30; Stop 02/16/17 at 08:30; Status DC Cefazolin Sodium/ Sodium Chloride (Ancef Inj/NS Inj) 100 ml @ 200 mls/hr Q8H IV ; Start 02/16/17 at 08:30; Stop 02/16/17 at 08:30; Status DC Calcium/Vitamin D (Oscal-D 250-125) 250 mg TID PO ; Start 02/16/17 at 09:00; Stop 02/16/17 at 09:00; Status DC Acetaminophen/ Hydrocodone Bitart ([place] 7.5-325 Mg) 1 tab Q3H PRN PO pain 2<5 ; Start 02/16/17 at 08:30; Stop 02/16/17 at 08:30; Status DC Acetaminophen/ Hydrocodone Bitart ([place] 7.5-325 Mg) 2 tab Q6H PRN PO pain 6< 10; Start 02/16/17 at 08:30; Stop 02/16/17 at 08:30; Status DC Morphine Sulfate (Morphine Inj) 3 mg Q3H PRN IV PUSH break thru pain; Start at 08:30; Stop 02/16/17 at 08:30; Status DC Cholecalciferol (Vitamin D3) 5,000 units DAILY PO ; Start 02/16/17 at 09:00; Stop 02/16/17 at 09:00; Status DC Ergocalciferol (Drisdol) 50,000 units ONCE ONCE PO ; Start 02/16/17 at 08:30; Stop 02/16/17 at 08:30; Status DC Acetaminophen (Ofirmev Inj) 1,000 mg STK-MED ONCE IV Last administered on 08:29; Start 02/16/17 at 08:29; Stop 02/16/17 at 08:30; Status DC Morphine Sulfate (*morphine INJ PERIprocedure ONLY) 8 mg STK-MED ONCE .ROUTE Last administered on 02/16/17 08:34; Start 02/16/17 at 08:34; Stop 02/16/17 at 08:35; Status DC Acetaminophen (Ofirmev Inj) 1,000 mg ONCE ONCE IV ; Start 02/16/17 at 08:30; Stop 02/16/17 at 08:50; Status DC Miscellaneous Information ALL NURSING DEPARTME... UNSCH PRN XX SEE LABEL COMMENTS; Start 02/16/17 at 08:00; Stop 02/17/17 at 07:59; Status DC Potassium Chloride 100 ml @ 50 mls/hr Q2H IV Last administered on 02/16/17 16 :30; Start 02/16/17 at 13:00; Stop 02/16/17 at 16:59; Status DC Vancomycin HCl/ Sodium Chloride (Vancomycin Inj/ NS 250 ml Inj) 250 ml @ 250 mls/hr Q12H IV Last administered on 02/17/17 01:08; Start 02/16/17 at 14:00 Albuterol/ Ipratropium (Duoneb Neb) 1 ampule Q6HR NEB NEB Last administered on 02/17/17 09:43; Start 02/16/17 at 16:00 Guaifenesin (Mucinex Er) 600 mg BID PO Last administered on 02/17/17 08:32; Start 02/16/17 at 21:00 Propofol (Diprivan 200 Mg/20 ml Inj) 200 mg STK-MED ONCE IV ; Start 02/16/17 at 08:00; Stop 02/17/17 at 08:30; Status DC Ondansetron HCl 4 mg 4 mg STK-MED ONCE IV PUSH ; Start 02/16/17 at 08:00; Stop 02/17/17 at 08:30; Status DC Sodium Chloride (NS 250 ml Inj) 250 ml @ As Directed STK-MED ONCE IV ; Start at 08:00; Stop 02/17/17 at 08:30; Status DC Past, Family & Social History Past Medical History PFSH Reviewed: Yes Musculoskeletal: REPORTS HX OF: Other musculoskeletal hx (septic right knee) Integumentary: REPORTS HX OF: Other integumentary hx Review of Systems Constitutional: COMPLAINS OF: Pain Musculoskeletal: COMPLAINS OF: Joint pain/swell/dysarthr Exam-Podiatry Constitutional General appearance: comfortable Nutritional status: normal Orientation: alert and oriented x3 Dermatological Exam Skin Temp - Right: Within Normal Limits Skin Texture - Right: Within Normal Limits Skin Elasticity - Right: Within Normal Limits Skin Tugor - Right: Within Normal Limits Hair Growth - Right: Within Normal Limits Pigmentation - Right: Within Normal Limits Skin Temp - Left: Within Normal Limits Skin Texture - Left: Within Normal Limits Skin Elasticity - Left: Within Normal Limits Skin Tugor - Left: Within Normal Limits Hair Growth - Left: Within Normal Limits Pigmentation - Left: Within Normal Limits Vascular/Lymphatic Exam R Dorsails Pedis: Palpable L Dorsails Pedis: Palpable R Posterior Tibial: Palpable L Posterior Tibial: Palpable Neurologic Exam Details No neurological deficits Muscle Strength Dorsiflexion (Right): Normal Plantarflexion (Right): Normal Inversion (Right): Normal Eversion (Right): Normal Digital (Right): Normal Dorsiflexion (Left): Normal Plantarflexion (Left): Normal Inversion (Left): Normal Eversion (Left): Normal Digital (Left): Normal Foot Range of Motion Dorsiflexion (Right): Normal Plantarflexion (Right): Normal Inversion (Right): Normal Eversion (Right): Normal Digital (Right): Normal Dorsiflexion (Left): Normal Plantarflexion (Left): Normal Inversion (Left): Normal Eversion (Left): Normal Digital (Left): Normal Wound Assessment Wound Information - Wound One Large bilateral leg wounds Wound Location: bilateral wounds of both lower extremities. Appear to be venous in nature. Wound Type: Other Classification: FT- full thickness Exudate: Moderate Exudate Type: Green, Yellow Fibrin Amount: Mild Granulation Tissue Color: [place] Granulation Tissue Texture: Spongy Exposed: No exposed bone, muscle, tendon Eschar: Yes Odor: No Periwound Appearance: FINDINGS: Normal Dressings: Optiva Gentle 4x4 (AG product) Lab and Radiology Results Laboratory Laboratory Tests Test 02/16/17 02/17/17 10:50 07:23 White Blood Count 7.1 TH/MM3 4.5 TH/MM3 Red Blood Count 3.83 MIL/MM3 3.61 MIL/MM3 Hemoglobin 8.7 GM/DL 8.2 GM/DL Hematocrit 26.7 % 25.2 % Mean Corpuscular Volume 69.7 FL 69.9 FL Mean Corpuscular Hemoglobin 22.7 PG 22.8 PG Mean Corpuscular Hemoglobin 32.5 % 32.6 % Concent Red Cell Distribution Width 17.4 % 17.0 % Platelet Count 280 TH/MM3 271 TH/MM3 Mean Platelet Volume 6.5 FL 6.4 FL Neutrophils (%) (Auto) 75.5 % 62.9 % Lymphocytes (%) (Auto) 13.5 % 23.6 % Monocytes (%) (Auto) 10.4 % 11.6 % Eosinophils (%) (Auto) 0.2 % 1.4 % Basophils (%) (Auto) 0.4 % 0.5 % Neutrophils # (Auto) 5.4 TH/MM3 2.9 TH/MM3 Lymphocytes # (Auto) 1.0 TH/MM3 1.1 TH/MM3 Monocytes # (Auto) 0.7 TH/MM3 0.5 TH/MM3 Eosinophils # (Auto) 0.0 TH/MM3 0.1 TH/MM3 Basophils # (Auto) 0.0 TH/MM3 0.0 TH/MM3 CBC Comment AUTO DIFF AUTO DIFF Differential Total Cells 100 100 Counted Neutrophils % (Manual) 73 % 54 % Band Neutrophils % 8 % 23 % Lymphocytes % 13 % 17 % Monocytes % 5 % 6 % Neutrophils # (Manual) 5.8 TH/MM3 3.5 TH/MM3 Metamyelocytes 1 % Differential Comment FINAL DIFF FINAL DIFF MANUAL MANUAL Atypical Lymphocytes % Toxic Vacuolation PRESENT Platelet Estimate NORMAL NORMAL Platelet Morphology Comment NORMAL NORMAL Ovalocytes 1+ 1+ Laboratory Tests Test 02/16/17 10:50 Sodium Level 136 MEQ/L Potassium Level 2.8 MEQ/L Chloride Level 102 MEQ/L Carbon Dioxide Level 27.1 MEQ/L Anion Gap 7 MEQ/L Blood Urea Nitrogen 7 MG/DL Creatinine 0.34 MG/DL Estimat Glomerular Filtration 201 ML/MIN Rate Random Glucose 90 MG/DL Calcium Level 8.0 MG/DL Total Bilirubin 0.5 MG/DL Aspartate Amino Transf 11 U/L (AST/SGOT) Alanine Aminotransferase 10 U/L (ALT/SGPT) Alkaline Phosphatase 209 U/L Total Protein 6.7 GM/DL Albumin 1.9 GM/DL Microbiology Date/Time Procedure Status Source Growth 02/15/17 04:30 Gram Stain - Final Complete Fluid Synovial Fluid 02/15/17 04:30 Body Fluid Culture - Final Complete S. Aureus Mrsa 02/15/17 13:40 Aerobic Blood Culture - Preliminary Resulted Blood Peripheral NO GROWTH IN 2 DAYS 02/15/17 13:40 Anaerobic Blood Culture - Preliminary Resulted Blood Peripheral NO GROWTH IN 2 DAYS 02/15/17 13:50 Aerobic Blood Culture - Preliminary Resulted Blood Peripheral NO GROWTH IN 2 DAYS 02/15/17 13:50 Anaerobic Blood Culture - Preliminary Resulted Blood Peripheral NO GROWTH IN 2 DAYS 02/16/17 08:00 Gram Stain - Final Resulted Fluid Other 02/16/17 08:00 Body Fluid Culture Resulted Fluid Other Pending 02/16/17 08:00 Acid Fast Stain - Final Resulted Fluid Other NO ACID FAST BACILLI SEEN 02/16/17 08:00 Mycobacterial Culture Resulted Fluid Other Pending 02/16/17 08:00 Fungal Smear - Final Resulted Fluid Other NO FUNGAL ELEMENTS SEEN. 02/16/17 08:00 Fungal Culture Resulted Fluid Other Pending Assessment/Plan Problem List: (1) Thrombocytopenia Status: Acute (2) Vasculitis Status: Acute (3) MSSA (methicillin susceptible Staphylococcus aureus) septicemia Status: Acute (4) Polysubstance abuse Status: Acute (5) Septic arthritis Status: Acute (6) Open wound of both legs with complication Status: Acute Additional Plans & Procedures PLAN: Patient's dressing changed to Optifoam gentle AG. Culture obtained of the left ankle wound. Scheduled patient for OR debridement of bilateral leg wounds were Wednesday. Preop lab's ordered. Will follow.` Problem Qualifiers (1) Septic arthritis: Qualified Code: M00.9 - Pyogenic arthritis of right knee joint, due to unspecified organism Franky Segal DPM Feb 17, 2017 12:55
[2017-02-17] MEDS ORDERED: VANCOMYCIN TROUGH XX ONE (13:45)
[2017-02-17] MEDS: ENOXAPARIN SODIUM 30 MG/0.3 ML SYRINGE SQ SCH (14:07)
--- NOTE | 2017-02-17 14:19 | HHI.IDPN ---
Subjective Subjective Remarks Notes reviewed Temps better Went to OR 02/16 for her R knee BC negative so far Knee C/S MRSA Podiatry planning on debridement of her leg wounds Antibiotics Vancomycin Lines PIV Past Medical History Sicca syndrome. Sun sensitivity. Psoriasis. Alopecia. Raynaud's phenomenon. Aphthous ulcers. Vasculitis diagnosis 2012 Hx MSSA sepsis and septic R wrist Fibromyalgia Hx IVDU - claims last use 15 yeasr ago, but admission 2012 (+) drug screen and admits to use at that time Past Surgical History Breasts augmentation surgery. Abdominoplasty. section. Surgery on her R wrist Tubal ligation Debridement of lower extremity wounds Right tibia fracture repair Rhinoplasty Allergies: Coded Allergies: *MDRO Multi-Drug Resistant Organism (Verified Adverse Reaction, Unknown, ) MRSA (finger wound) - 06/06/16; (synovial fluid) - 02/15/17 MRSA PCR Screen POSITIVE -02/15/17 Objective . Vital Signs Date Time Temp Pulse Resp B/P Pulse Ox O2 Delivery O2 Flow Rate FiO2 02/17/17 09:44 99 21 02/17/17 05:35 99.2 104 20 103/53 94 02/17/17 04:03 92 21 02/17/17 00:00 99.8 104 20 97/54 95 02/16/17 20:00 98.1 94 20 105/59 100 02/16/17 16:30 98.0 65 20 173/84 94 02/16/17 02/16/17 02/17/17 15:00 23:00 07:00 Intake Total 100 ml 1409 ml 1228 ml Output Total 75 ml 20 ml Balance 100 ml 1334 ml 1208 ml Intake Oral 700 ml 500 ml IV Total 100 ml 709 ml 728 ml Output Drainage Total 75 ml 20 ml # Voids 2 2 # Bowel Movements 0 . Laboratory Tests Test 02/16/17 02/17/17 10:50 07:23 White Blood Count 7.1 TH/MM3 4.5 TH/MM3 Red Blood Count 3.83 MIL/MM3 3.61 MIL/MM3 Hemoglobin 8.7 GM/DL 8.2 GM/DL Hematocrit 26.7 % 25.2 % Mean Corpuscular Volume 69.7 FL 69.9 FL Mean Corpuscular Hemoglobin 22.7 PG 22.8 PG Mean Corpuscular Hemoglobin 32.5 % 32.6 % Concent Red Cell Distribution Width 17.4 % 17.0 % Platelet Count 280 TH/MM3 271 TH/MM3 Mean Platelet Volume 6.5 FL 6.4 FL Neutrophils (%) (Auto) 75.5 % 62.9 % Lymphocytes (%) (Auto) 13.5 % 23.6 % Monocytes (%) (Auto) 10.4 % 11.6 % Eosinophils (%) (Auto) 0.2 % 1.4 % Basophils (%) (Auto) 0.4 % 0.5 % Neutrophils # (Auto) 5.4 TH/MM3 2.9 TH/MM3 Lymphocytes # (Auto) 1.0 TH/MM3 1.1 TH/MM3 Monocytes # (Auto) 0.7 TH/MM3 0.5 TH/MM3 Eosinophils # (Auto) 0.0 TH/MM3 0.1 TH/MM3 Basophils # (Auto) 0.0 TH/MM3 0.0 TH/MM3 CBC Comment AUTO DIFF AUTO DIFF Differential Total Cells 100 100 Counted Neutrophils % (Manual) 73 % 54 % Band Neutrophils % 8 % 23 % Lymphocytes % 13 % 17 % Monocytes % 5 % 6 % Neutrophils # (Manual) 5.8 TH/MM3 3.5 TH/MM3 Metamyelocytes 1 % Differential Comment FINAL DIFF FINAL DIFF MANUAL MANUAL Atypical Lymphocytes % Toxic Vacuolation PRESENT Platelet Estimate NORMAL NORMAL Platelet Morphology Comment NORMAL NORMAL Ovalocytes 1+ 1+ Laboratory Tests Test 02/16/17 10:50 Sodium Level 136 MEQ/L Potassium Level 2.8 MEQ/L Chloride Level 102 MEQ/L Carbon Dioxide Level 27.1 MEQ/L Anion Gap 7 MEQ/L Blood Urea Nitrogen 7 MG/DL Creatinine 0.34 MG/DL Estimat Glomerular Filtration 201 ML/MIN Rate Random Glucose 90 MG/DL Calcium Level 8.0 MG/DL Total Bilirubin 0.5 MG/DL Aspartate Amino Transf 11 U/L (AST/SGOT) Alanine Aminotransferase 10 U/L (ALT/SGPT) Alkaline Phosphatase 209 U/L Total Protein 6.7 GM/DL Albumin 1.9 GM/DL Microbiology Date/Time Procedure Status Source Growth 02/15/17 04:30 Gram Stain - Final Complete Fluid Synovial Fluid 02/15/17 04:30 Body Fluid Culture - Final Complete S. Aureus Mrsa 02/15/17 13:40 Aerobic Blood Culture - Preliminary Resulted Blood Peripheral NO GROWTH IN 2 DAYS 02/15/17 13:40 Anaerobic Blood Culture - Preliminary Resulted Blood Peripheral NO GROWTH IN 2 DAYS 02/15/17 13:50 Aerobic Blood Culture - Preliminary Resulted Blood Peripheral NO GROWTH IN 2 DAYS 02/15/17 13:50 Anaerobic Blood Culture - Preliminary Resulted Blood Peripheral NO GROWTH IN 2 DAYS 02/16/17 08:00 Gram Stain - Final Resulted Fluid Other 02/16/17 08:00 Body Fluid Culture - Preliminary Resulted S. Aureus Mrsa 02/16/17 08:00 Acid Fast Stain - Final Resulted Fluid Other NO ACID FAST BACILLI SEEN 02/16/17 08:00 Mycobacterial Culture Resulted Fluid Other Pending 02/16/17 08:00 Fungal Smear - Final Resulted Fluid Other NO FUNGAL ELEMENTS SEEN. 02/16/17 08:00 Fungal Culture Resulted Fluid Other Pending Physical Exam GENERAL: Awakens easily, NAD SKIN: Warm and dry. Has large dry looking large ulcers in both legs, raised borders; Some nodular areas in her forearms, not tender, not discolored. She has generalized hypopigmented scars HEENT: [place] conjunctivae, no petechia, no hemorrhage. No scleral icterus. Moist mucosa. NECK: Trachea midline. No JVD or lymphadenopathy. Supple, nontender, no meningeal signs. CARDIOVASCULAR: Regular rate and rhythm without murmurs, gallops, or rubs. RESPIRATORY: Clear to auscultation. Breath sounds equal bilaterally. No wheezes , rales, or rhonchi. BREAST: Has implants, has hypopigmented scars on her breast GASTROINTESTINAL: Abdomen soft, non-tender, mildly distended. Bowel sounds are present and normoactive. No hepato-splenomegaly, or palpable masses. No guarding. MUSCULOSKELETAL: Extremities without clubbing, cyanosis, or edema. R knee with dressing in place, has drain in place. Dressings on her wounds NEUROLOGICAL: Non-focal LINE: PIV with no evidence of infection Assessment & Plan Remarks IMPRESSION Sepsis due to septic knee Septic R knee, C/S MRSA - had OR 02/16 Chronic skin lesions, etiology? ?Hx vasculitis with purpuric lesions in BLE last 2012 Hx IVDU Hs MSSA sepsis 2012 Chronic narcotic dependence RECOMMENDATION Continue IV Vanco Follow C/S Monitor progress Wound care consult If BC negative, will ok placement PICC Marquita Ferreira MD Feb 17, 2017 14:18
--- NOTE | 2017-02-17 15:00 | RADRPT ---
EXAM DATE/TIME: 02/17/2017 13:34 [facility] COMPARISON: CHEST SINGLE AP, August 31, 2013, 4:35. FINGER LEFT 3RD DIGIT ([id number]), June 06, 2016, 18:30. INDICATIONS : Cellulitis. MEDICAL HISTORY : None. SURGICAL HISTORY : None. ENCOUNTER: Subsequent ACUITY: 3 days PAIN SCORE: 0/10 LOCATION: Bilateral chest FINDINGS: The heart is normal in size. There are patchy areas of infiltrate and atelectasis in both lower lobes . These are new compared to previous dated 08/31/13 and would be concerning for basilar pneumonia. The examination also demonstrates a large cortical defect in the superior margin of the left humeral head. This was not present previously on examination of 08/31/13. Differential considerations would i nclude an erosive or inflammatory arthropathy versus a metastatic lesion. CONCLUSION: 1. Patchy areas of bibasilar infiltrate atelectasis concerning for pneumonia. 2. Large lytic lesion in the humeral head on the left. This is described in detail above. Malignancy is not excluded. Stoney Hwang MD on February 17, 2017 at 14:48 Board Certified Radiologist. This report was verified electronically.
[2017-02-17 15:42] LABS: BICARBONATE 28.5 MEQ/L (21.0-32.0)
[2017-02-17 15:43] LABS: VANCOMYCIN TROUGH 4.9 MCG/ML (5.0-10.0)
[2017-02-17] MEDS: cefTRIAXone INJ 1,000 MG in SODIUM CHLORIDE 0.9% INJ 100 ML IV SCH (16:03)
[2017-02-17] MEDS: NICOTINE 14 MG/24 HR PATCH TD SCH (16:10)
[2017-02-17] MEDS: REMOVE OLD NICODERM (NICOTINE) PATCH TD SCH (21:00)
[2017-02-17 21:44] LABS: PROTHROMBIN TIME - PATIENT 11.6 SEC (9.8-11.6)
[2017-02-17 21:52] LABS: BICARBONATE 30.5 MEQ/L (21.0-32.0); MAGNESIUM 1.6 MG/DL (1.5-2.5); POTASSIUM 3.1 MEQ/L (3.5-5.1)
[2017-02-17 22:16] LABS: CALCIUM-PROTEIN CORRECTED 7.5 MG/DL (8.5-10.1)
[2017-02-17] MEDS: NORTRIPTYLINE HCL 25 MG CAP PO SCH (22:18)
[2017-02-17] MEDS ORDERED: CALCIUM GLUCONATE INJ 1 GM in SODIUM CHLORIDE 0.9% INJ 100 ML IV ONE (23:45)
[2017-02-17] MEDS ORDERED: POTASSIUM CHLORIDE 25 MEQ EFFERVESCENT TAB PO ONE (23:45)
[2017-02-17] MEDS ORDERED: CALCIUM GLUCONATE 10% 1 GM/10 ML VIAL IV PUSH ONE (23:45)
[2017-02-18] VITALS (8 sets, daily range): BP systolic 94–124; BP diastolic 56–66; PULSE 93–111; RESP 16–18; TEMP 97.6–99.1; O2SAT 95–100
[2017-02-18] MEDS: POTASSIUM CHLOR 20 MEQ PREMIX 100 ML IV SCH ×2 (01:27→01:45)
[2017-02-18] MEDS: HYDROmorphone HCL PF 1 MG/ML VIAL IV PRN ×5 (02:54→20:45)
[2017-02-18] MEDS: RESP: ALBUTEROL 2.5 MG/IPRATROPIUM 0.5 MG NEB (SCH) NEB ×4 (03:41→22:53)
[2017-02-18] MEDS: SODIUM CHLOR 0.9% 1000 ML INJ 1,000 ML IV SCH ×2 (04:32→20:00)
[2017-02-18] MEDS: VANCOMYCIN 1,000 MG/NS 250 ML IV SCH ×6 (05:25→20:49)
[2017-02-18] MEDS: NICOTINE 14 MG/24 HR PATCH TD SCH (09:00)
--- NOTE | 2017-02-18 09:19 | PD.OP ---
cc: Leandro Mathis MD Operative Report Date of Surgery: Feb 16, 2017 Preoperative Diagnosis: Septic right knee Postoperative Diagnosis: Procedure: Right knee arthrotomy with irrigation and debridement of infection Anesthesia: Gen. Surgeon: Leandro Mathis Bottom Pounder Cement Shoes(s): BRIAN Ch PA-C The surgical procedure was assisted by my physician assistant technician. My P.A. presence was necessary throughout this case for the manipulation and positioning of the surgical extremity. My P.A. was assisting me throughout the duration of this procedure. The skill set of a physician assistant technician was medically necessary to complete this procedure. During the surgical case the surgical coordinator was working at the back table and the physician assistant technician was directly assisting me. Operation and Findings: Jamee presented to the hospital with right knee pain and swelling. Aspiration of knee revealed bacterial infection of knee. Informed consent was obtained and operative site was marked. She is brought to operating room. She is given IV sedation and general anesthesia. Right leg was prepped with alcohol followed by Hibiclens and draped usual sterile fashion. Timeout procedure was performed. A 3 cm incision was made over the lateral aspect of the knee. Iliotibial band was split in line with fibers. Joint capsule was opened. Approximately 100 cc of purulent drainage was obtained from the knee joint. Multiple loculations were manually debrided. The knee was thoroughly irrigated with pulsatile lavage. Knee fluid appeared to be clean at this time. A drain was placed deep. Fascia was closed with 0 PDS. Subcutaneous tissues closed with 3-0 PDS. Skin was closed with govind. Sterile dressings were applied. Patient was transferred to recovery in stable condition. Leandro Mathsi MD Feb 18, 2017 09:19
--- NOTE | 2017-02-18 09:21 | PD.ORT.PN ---
Subjective Subjective Remarks Resting comfortably Objective Vitals Vital Signs Date Time Temp Pulse Resp B/P Pulse Ox O2 Delivery O2 Flow Rate FiO2 02/18/17 05:03 97.6 97 16 112/66 95 02/18/17 00:00 99.0 111 16 104/57 96 02/17/17 20:00 Room Air 02/17/17 20:00 98.2 103 16 111/59 97 02/17/17 16:00 98.0 109 18 111/52 95 02/17/17 12:00 98.1 101 18 98/53 99 02/17/17 09:44 99 21 I/O 02/17/17 02/17/17 02/17/17 02/18/17 02/18/17 02/18/17 07:00 15:00 23:00 07:00 15:00 23:00 Intake Total 1228 ml 1578 ml 1413 ml Output Total 20 ml 3125 ml Balance 1208 ml 1578 ml -1712 ml Intake Oral 500 ml 600 ml IV Total 728 ml 1578 ml 813 ml Output Urine Total 3100 ml Drainage Total 20 ml 25 ml # Voids 2 # Bowel Movements 0 0 Result Diagram: 02/17/17 [id number]/172108 Other Results Laboratory Tests Test 02/17/17 21:09 Prothrombin Time 11.6 SEC (9.8-11.6) Prothromb Time International 1.0 RATIO Ratio Objective Remarks RLE: dressings clean and dry. intact. +drain. NVI with good dorsiflexion Assessment & Plan Assessment and Plan 1) Right Septic knee s/p I&D - POD 2 -WBAT -daily dressing changes -maintain drain. will plan for DC of drain possible POD 3 -infectious disease for IV Abx pending cultures Johnny Botello Jr. Feb 18, 2017 09:21
[2017-02-18] MEDS: guaiFENesin E.R. 600 MG TAB PO SCH ×2 (09:51→20:48)
[2017-02-18] MEDS: GABAPENTIN 300 MG CAP PO SCH ×2 (09:51→20:48)
[2017-02-18] MEDS: SODIUM CHLORIDE 0.9% FLUSH 5 ML FLUSH IVF SCH ×2 (09:58→20:48)
[2017-02-18] MEDS: ENOXAPARIN SODIUM 30 MG/0.3 ML SYRINGE SQ SCH (13:45)
--- NOTE | 2017-02-18 14:25 | HHI.IDPN ---
Subjective Subjective Remarks Notes reviewed Temps better Feels better Not SOB Not coughing Rocephin started for ?PNA Went to OR 02/16 for her R knee BC negative so far Knee C/S MRSA Going to OR tomorrow for wounds on her L leg Podiatry planning on debridement of her leg wounds Antibiotics Vancomycin Rocephin Lines PIV Past Medical History Sicca syndrome. Sun sensitivity. Psoriasis. Alopecia. Raynaud's phenomenon. Aphthous ulcers. Vasculitis diagnosis 2012 Hx MSSA sepsis and septic R wrist Fibromyalgia Hx IVDU - claims last use 15 yeasr ago, but admission 2012 (+) drug screen and admits to use at that time Past Surgical History Breasts augmentation surgery. Abdominoplasty. section. Surgery on her R wrist Tubal ligation Debridement of lower extremity wounds Right tibia fracture repair Rhinoplasty Allergies: Coded Allergies: *MDRO Multi-Drug Resistant Organism (Verified Adverse Reaction, Unknown, ) MRSA (finger wound) - 06/06/16; (synovial fluid) - 02/15/17 MRSA PCR Screen POSITIVE -02/15/17 Objective . Vital Signs Date Time Temp Pulse Resp B/P Pulse Ox O2 Delivery O2 Flow Rate FiO2 02/18/17 05:03 97.6 97 16 112/66 95 02/18/17 00:00 99.0 111 16 104/57 96 02/17/17 20:00 Room Air 02/17/17 20:00 98.2 103 16 111/59 97 02/17/17 16:00 98.0 109 18 111/52 95 02/17/17 02/17/17 02/18/17 15:00 23:00 07:00 Intake Total 1578 ml 1413 ml Output Total 3125 ml Balance 1578 ml -1712 ml Intake Oral 600 ml IV Total 1578 ml 813 ml Output Urine Total 3100 ml Drainage Total 25 ml # Bowel Movements 0 . Laboratory Tests Test 02/17/17 07:23 White Blood Count 4.5 TH/MM3 Red Blood Count 3.61 MIL/MM3 Hemoglobin 8.2 GM/DL Hematocrit 25.2 % Mean Corpuscular Volume 69.9 FL Mean Corpuscular Hemoglobin 22.8 PG Mean Corpuscular Hemoglobin 32.6 % Concent Red Cell Distribution Width 17.0 % Platelet Count 271 TH/MM3 Mean Platelet Volume 6.4 FL Neutrophils (%) (Auto) 62.9 % Lymphocytes (%) (Auto) 23.6 % Monocytes (%) (Auto) 11.6 % Eosinophils (%) (Auto) 1.4 % Basophils (%) (Auto) 0.5 % Neutrophils # (Auto) 2.9 TH/MM3 Lymphocytes # (Auto) 1.1 TH/MM3 Monocytes # (Auto) 0.5 TH/MM3 Eosinophils # (Auto) 0.1 TH/MM3 Basophils # (Auto) 0.0 TH/MM3 CBC Comment AUTO DIFF Differential Total Cells 100 Counted Neutrophils % (Manual) 54 % Band Neutrophils % 23 % Lymphocytes % 17 % Monocytes % 6 % Neutrophils # (Manual) 3.5 TH/MM3 Differential Comment FINAL DIFF MANUAL Platelet Estimate NORMAL Platelet Morphology Comment NORMAL Ovalocytes 1+ Laboratory Tests Test 02/17/17 02/17/17 14:20 21:09 Sodium Level 136 MEQ/L 135 MEQ/L Potassium Level 3.0 MEQ/L 3.1 MEQ/L Chloride Level 99 MEQ/L 98 MEQ/L Carbon Dioxide Level 28.5 MEQ/L 30.5 MEQ/L Anion Gap 9 MEQ/L 7 MEQ/L Blood Urea Nitrogen 8 MG/DL 8 MG/DL Creatinine 0.43 MG/DL 0.49 MG/DL Estimat Glomerular Filtration 154 ML/MIN 132 ML/MIN Rate Random Glucose 111 MG/DL 116 MG/DL Calcium Level 7.8 MG/DL 7.1 MG/DL Phosphorus Level 1.9 MG/DL 2.2 MG/DL Protein Corrected Calcium 7.5 MG/DL Magnesium Level 1.6 MG/DL Total Protein 6.3 GM/DL Microbiology Date/Time Procedure Status Source Growth 02/16/17 08:00 Gram Stain - Final Complete Fluid Other 02/16/17 08:00 Body Fluid Culture - Final Complete S. Aureus Mrsa 02/16/17 08:00 Acid Fast Stain - Final Resulted Fluid Other NO ACID FAST BACILLI SEEN 02/16/17 08:00 Mycobacterial Culture Resulted Fluid Other Pending 02/16/17 08:00 Fungal Smear - Final Resulted Fluid Other NO FUNGAL ELEMENTS SEEN. 02/16/17 08:00 Fungal Culture Resulted Fluid Other Pending Imaging Chest X-Ray 02/17/17 0000 Signed Impressions: Service Date/Time: Friday, February 17, 2017 13:34 - CONCLUSION: 1. Patchy areas of bibasilar infiltrate atelectasis concerning for pneumonia. 2. Large lytic lesion in the humeral head on the left. This is described in detail above. Malignancy is not excluded. Stoney Hwang MD Physical Exam GENERAL: Awake and alert, NAD SKIN: Warm and dry. Has dressings on BLE wounds, dry and intact. She has generalized hypopigmented scars HEENT: [employer] conjunctivae, no petechia, no hemorrhage. No scleral icterus. Moist mucosa. NECK: Trachea midline. No JVD or lymphadenopathy. Supple, nontender, no meningeal signs. CARDIOVASCULAR: Regular rate and rhythm without murmurs, gallops, or rubs. RESPIRATORY: Clear to auscultation. Breath sounds equal bilaterally. No wheezes , rales, or rhonchi. BREAST: Has implants, has hypopigmented scars on her breast GASTROINTESTINAL: Abdomen soft, non-tender, mildly distended. Bowel sounds are present and normoactive. No hepato-splenomegaly, or palpable masses. No guarding. MUSCULOSKELETAL: Extremities without clubbing, cyanosis, or edema. R knee with dressing in place, has drain in place. Dressings on her wounds NEUROLOGICAL: Non-focal LINE: PIV with no evidence of infection Assessment & Plan Remarks IMPRESSION Sepsis due to septic knee Septic R knee, C/S MRSA - had OR 02/16 Chronic skin lesions, etiology? ?Hx vasculitis with purpuric lesions in BLE last 2012 Hx IVDU Hs MSSA sepsis 2012 Chronic narcotic dependence CXR with infiltrates though clinically no PNA symptoms RECOMMENDATION Continue IV Vanco Follow C/S Monitor progress Wound care consult If BC negative, will ok placement PICC For debridement of leg wounds tomorrow HEPAS started Marquita Whitney RN, MD Feb 18, 2017 14:25
--- NOTE | 2017-02-18 14:45 | EKG ---
Date Performed: 02/17/2017 Time Performed: 18:18:45 PTAGE: 51 years EKG: SINUS TACHYCARDIA LOW QRS VOLTAGE IN PRECORDIAL LEADS Nonspecific ST-T wave changes Compare d to prior tracing no significant change ABNORMAL RHYTHM ECG PREVIOUS TRACING : 02/16/2017 06.56 DOCTOR: Evan Burgess Interpretating Date/Time 02/18/2017 14:40:58
[2017-02-18] MEDS: cefTRIAXone INJ 1,000 MG in SODIUM CHLORIDE 0.9% INJ 100 ML IV SCH (16:03)
[2017-02-18 18:56] LABS: AUTOMATED NEUTROPHIL # 2.7 TH/MM3 (1.8-7.7); BASOPHIL % 0.7 % (0.0-2.0); EOSINOPHIL # 0.1 TH/MM3 (0-0.4); EOSINOPHIL % 2.7 % (0.0-4.0); HEMATOCRIT 28.3 % (35.0-46.0); LYMPH % 19.5 % (9.0-44.0); LYMPHOCYTE # 0.8 TH/MM3 (1.0-4.8); MEAN CELL VOLUME 69.9 FL (80.0-100.0); MEAN CORPUSCULAR HEMOGLOBIN 22.4 PG (27.0-34.0); MONO % 11.3 % (0.0-8.0); NEUT % 65.8 % (16.0-70.0); PLATELET COUNT 303 TH/MM3 (150-450); RED BLOOD COUNT 4.05 MIL/MM3 (4.00-5.30); RED CELL DISTRIBUTION WIDTH 17.2 % (11.6-17.2)
[2017-02-18 19:01] LABS: HEMO FLAGS AUTO DIFF
[2017-02-18 19:24] LABS: ALT (GPT) 23 U/L (10-53); ANION GAP 3 MEQ/L (5-15); AST (GOT) 38 U/L (15-37); BICARBONATE 33.8 MEQ/L (21.0-32.0); BLOOD UREA NITROGEN 6 MG/DL (7-18); CHLORIDE 100 MEQ/L (98-107); GLOMERULAR FILTRATION RATE 158 ML/MIN (>89); MAGNESIUM 1.7 MG/DL (1.5-2.5); POTASSIUM 3.7 MEQ/L (3.5-5.1); SODIUM (NA) 137 MEQ/L (136-145)
[2017-02-18 19:26] LABS: ALKALINE PHOSPHATASE 363 U/L (45-117); TOTAL BILIRUBIN ADULT 0.3 MG/DL (0.2-1.0)
[2017-02-18 19:40] LABS: OVALOCYTES 1+ (NORMAL); SCAN/DIFF AUTO DIFF CONFIRMED
[2017-02-18] MEDS: NORTRIPTYLINE HCL 25 MG CAP PO SCH (20:48)
[2017-02-18] MEDS: REMOVE OLD NICODERM (NICOTINE) PATCH TD SCH (20:48)
--- NOTE | 2017-02-18 20:59 | HHI.PR ---
Subjective Remarks Patient feels well. States she was able to walk earlier today and move her knee. Denies fevers or chills been Denies rash. Denies diarrhea Denies chest pain or shortness of breath. Objective Vitals Vital Signs Date Time Temp Pulse Resp B/P Pulse Ox O2 Delivery O2 Flow Rate FiO2 02/18/17 16:43 100 21 02/18/17 16:00 97.9 93 18 112/64 98 02/18/17 12:00 98.0 95 18 124/63 95 02/18/17 08:00 98.4 94 18 94/62 97 02/18/17 08:00 96 Room Air 21 02/18/17 05:03 97.6 97 16 112/66 95 02/18/17 00:00 99.0 111 16 104/57 96 I/O 02/17/17 02/17/17 02/17/17 02/18/17 02/18/17 02/18/17 07:00 15:00 23:00 07:00 15:00 23:00 Intake Total 1228 ml 1578 ml 1413 ml 720 ml Output Total 20 ml 3125 ml 2000 ml Balance 1208 ml 1578 ml -1712 ml -1280 ml Intake Oral 500 ml 600 ml 720 ml IV Total 728 ml 1578 ml 813 ml Output Urine Total 3100 ml 2000 ml Drainage Total 20 ml 25 ml # Voids 2 # Bowel Movements 0 0 Result Diagram: 02/18/17 1822 02/18/17 1822 Imaging Last Impressions Chest X-Ray 02/17/17 0000 Signed Impressions: Service Date/Time: Friday, February 17, 2017 13:34 - CONCLUSION: 1. Patchy areas of bibasilar infiltrate atelectasis concerning for pneumonia. 2. Large lytic lesion in the humeral head on the left. This is described in detail above. Malignancy is not excluded. Stoney Hwang MD Objective Remarks GENERAL: Awake and alert, NAD SKIN: Warm and dry. Has dressings on BLE wounds, dry and intact. She has generalized hypopigmented scars HEENT: [place] conjunctivae, no petechia, no hemorrhage. No scleral icterus. Moist mucosa. NECK: Trachea midline. No JVD or lymphadenopathy. Supple, nontender, no meningeal signs. CARDIOVASCULAR: Regular rate and rhythm without murmurs, gallops, or rubs. RESPIRATORY: Clear to auscultation. Breath sounds equal bilaterally. No wheezes , rales, or rhonchi. BREAST: Has implants, has hypopigmented scars on her breast GASTROINTESTINAL: Abdomen soft, non-tender, mildly distended. Bowel sounds are present and normoactive. No hepato-splenomegaly, or palpable masses. No guarding. MUSCULOSKELETAL: Extremities without clubbing, cyanosis, or edema. R knee with dressing in place, has drain in place. Dressings on her wounds NEUROLOGICAL: Non-focal LINE: PIV with no evidence of infection Medications and IVs Current Medications Medications (Trade) Dose Ordered Sig/Arlette Route Start Time Stop Time Status Last Admin (NS 1000 ml Inj) 1,000 ml @ 100 mls/hr Q10H IV 02/15/17 06:32 02/17/17 14:21 (Zofran Inj) 4 mg Q6H PRN IVP 02/15/17 06:45 (Dulcolax Supp) 10 mg DAILY PRN RI 02/15/17 06:45 (Dilaudid Pf Inj) 1 mg Q3H PRN IV 02/15/17 06:45 02/18/17 17:22 (Neurontin) 600 mg BID PO 02/15/17 09:00 02/18/17 09:51 (Ativan) 0.5 mg DAILY PRN PO 02/15/17 06:45 Nortriptyline HCl 50 mg 50 mg HS PO 02/15/17 21:00 02/17/17 22:18 (Vancomycin Consult Pharmacy) 0 ml @ 0 mls/hr UNSCH OTHER 02/15/17 08:00 (Dilaudid) 4 mg Q6H PRN PO 02/15/17 12:45 (Lovenox Inj) 30 mg Q24H SQ 02/15/17 12:00 02/18/17 13:45 (Tylenol) 650 mg Q4H PRN PO 02/15/17 17:15 02/15/17 17:25 (NS Flush) 2 ml UNSCH PRN IVF 02/16/17 08:15 (NS Flush) 2 ml BID IVF 02/16/17 09:00 02/18/17 09:58 (Benadryl) 25 mg Q6H PRN PO 02/16/17 08:15 (Morphine Inj) 4 mg Q3H PRN IV PUSH 02/16/17 08:15 (Mucinex Er) 600 mg BID PO 02/16/17 21:00 02/18/17 09:51 Nicotine 1 patch 1 patch DAILY TD 02/17/17 16:00 02/18/17 09:00 (Rocephin Inj/NS Inj) 100 ml @ 200 mls/hr Q24H IV 02/17/17 16:00 02/18/17 16:03 Miscellaneous Information 1 1 HS TD 02/17/17 21:00 02/17/17 21:00 (Vancomycin Inj/ NS 250 ml Inj) 250 ml @ 250 mls/hr Q8H IV 02/17/17 22:00 02/18/17 13:46 Miscellaneous Information SPECIFIC LAB TO BE DRAWN:VANCOMYCIN TROUGH DATE TO... ONCE ONCE XX 02/19/17 05:45 02/19/17 05:46 Urinary Catheter: No Vascular Central Line Catheter: No A/P Assessment and Plan 1. Septic arthritis of the right knee. Patient status post aspiration of the right knee with elevated white blood cell count of 76,400. The patient will start IV vancomycin and IV cefepime. Gram stain from aspiration showed gram-positive cocci MRSA. ID consulted who recommended to continue IV vancomycin. Patient underwent surgical procedures on 02/19/17 with diagnosis of septic right knee status post right knee arthrotomy with irrigation and right min by Dr. Mathis. Chronic lower extremity ulcers since by podiatry specialist and scheduled for incision and drainage on 02/19/17. 2. Chronic low summary ones. Continue wound care. Patient to have I&D. Plastic surgery consulted as per vascular operations staff specialist security request Dr. Tanner 3. Polysubstance abuse with history of IV drug abuse. ID following. 4. Hypokalemia. Resolved after repletion. Continue to monitor and replace as needed. 5. Tobacco dependence started on bronchodilator mucolytic and incentive spirometry. Advised smoking cessation. Continue nicotine patch. 6. Community-acquired pneumonia. Chest x-ray obtained on 02/17/17 reviewed by me shows patchy areas of bibasilar infiltrate versus atelectasis. Large lytic lesion in the humeral head on the left. I will obtain a CT of the chest to better assess x-ray abnormalities on lung parenchyma and large lytic lesion in the humeral head. 7. Bone bleeding lesion found in the left humeral head. As per radiology report there is a new large cortical defect in the superior margin of the left humeral head which was not present on previous exam on 08/31/13. Differential considerations would include an erosive or inflammatory arthropathy versus metastatic lesion. I will order a CT scan of the left shoulder and chest to better assess the lytic lesion. GI prophylaxis: I will add PPI. DVT prophylaxis: Continue Lovenox SQ Randall Farnsworth MD Feb 18, 2017 20:59
[2017-02-19] VITALS (7 sets, daily range): BP systolic 97–120; BP diastolic 54–68; PULSE 71–98; RESP 16–18; TEMP 97–99; O2SAT 94–99
[2017-02-19] MEDS: HYDROmorphone HCL PF 1 MG/ML VIAL IV PRN ×6 (00:01→20:44)
[2017-02-19] MEDS: SODIUM CHLOR 0.9% 1000 ML INJ 1,000 ML IV SCH ×2 (03:00→20:42)
[2017-02-19] MEDS: RESP: ALBUTEROL 2.5 MG/IPRATROPIUM 0.5 MG NEB (SCH) NEB ×4 (04:00→19:56)
[2017-02-19] MEDS ORDERED: PHARMACY ORDERED LAB XX ONE (05:45)
[2017-02-19] MEDS ORDERED: LACTATED RINGER'S 1000 ML IV SCH (06:15)
[2017-02-19] MEDS ORDERED: INSULIN HUMAN REGULAR 1,000 UNITS/10 ML VIAL SQ PRN (06:15)
[2017-02-19] MEDS ORDERED: SODIUM CHLORID 0.9% 500 ML IV SCH (06:15)
[2017-02-19] MEDS: VANCOMYCIN 1,000 MG/NS 250 ML IV SCH ×6 (06:27→20:56)
[2017-02-19 07:29] LABS: BASOPHIL % 0.7 % (0.0-2.0); EOSINOPHIL # 0.1 TH/MM3 (0-0.4); EOSINOPHIL % 3.9 % (0.0-4.0); HEMATOCRIT 24.1 % (35.0-46.0); LYMPH % 20.3 % (9.0-44.0); LYMPHOCYTE # 0.7 TH/MM3 (1.0-4.8); MEAN CELL VOLUME 69.8 FL (80.0-100.0); MEAN CORPUSCULAR HEMOGLOBIN 22.6 PG (27.0-34.0); MEAN CORPUSCULAR HGB CONC 32.4 % (32.0-36.0); MONO % 12.3 % (0.0-8.0); NEUT % 62.8 % (16.0-70.0); PLATELET COUNT 306 TH/MM3 (150-450); RED BLOOD COUNT 3.45 MIL/MM3 (4.00-5.30); WHITE BLOOD COUNT 3.2 TH/MM3 (4.0-11.0)
[2017-02-19 07:32] LABS: HEMO FLAGS AUTO DIFF
[2017-02-19] MEDS ORDERED: BUPIVACAINE HCL PF 0.5% 30 ML VIAL ONE (07:41)
[2017-02-19 08:01] LABS: ALKALINE PHOSPHATASE 333 U/L (45-117); ALT (GPT) 24 U/L (10-53); ANION GAP 8 MEQ/L (5-15); AST (GOT) 31 U/L (15-37); BICARBONATE 29.3 MEQ/L (21.0-32.0); BLOOD UREA NITROGEN 6 MG/DL (7-18); CHLORIDE 101 MEQ/L (98-107); GLOMERULAR FILTRATION RATE 172 ML/MIN (>89); MAGNESIUM 1.7 MG/DL (1.5-2.5); POTASSIUM 3.4 MEQ/L (3.5-5.1); SODIUM (NA) 138 MEQ/L (136-145); TOTAL BILIRUBIN ADULT 0.3 MG/DL (0.2-1.0)
[2017-02-19] MEDS: NICOTINE 14 MG/24 HR PATCH TD SCH (08:02)
[2017-02-19] MEDS: GABAPENTIN 300 MG CAP PO SCH ×2 (08:02→20:48)
[2017-02-19] MEDS: guaiFENesin E.R. 600 MG TAB PO SCH ×2 (08:02→20:48)
[2017-02-19 08:37] LABS: SCAN/DIFF AUTO DIFF CONFIRMED
[2017-02-19] MEDS: ACETAMINOPHEN 1000 MG/100 ML VIAL IV SCH ×2 (09:00→20:43)
[2017-02-19] MEDS ORDERED: FAMOTIDINE 20 MG/2 ML VIAL ONE (09:13)
[2017-02-19] MEDS ORDERED: DEXAMETHASONE SOD PHOS 4 MG/ML VIAL ONE (09:13)
[2017-02-19] MEDS ORDERED: ACETAMINOPHEN 1000 MG/100 ML VIAL IV ONE (09:13)
[2017-02-19] MEDS ORDERED: MIDAZOLAM HCL 2 MG/2 ML VIAL ONE (09:13)
[2017-02-19] MEDS ORDERED: SODIUM CHLORIDE 0.9% FLUSH 10 ML FLUSH IV FLUSH PRN (10:00)
[2017-02-19] MEDS ORDERED: Post-op Orders (for Pharmacy) MISC XX ONE (10:00)
[2017-02-19] MEDS ORDERED: NALOXONE HCL 0.4 MG/ML AMP IV PRN (10:00)
[2017-02-19] MEDS ORDERED: POTASSIUM CHLORIDE 10 MEQ CONTROLLED RELEASE TAB PO ONE (10:00)
--- NOTE | 2017-02-19 10:10 | PD.OP ---
Operative Report Date of Surgery: Feb 19, 2017 Preoperative Diagnosis: (1) Open wound of both legs with complication Postoperative Diagnosis: (1) Open wound of both legs with complication Procedure: Procedure and debridement of bilateral leg wounds including subcutaneous tissue. Total wound size added together 250 cm Anesthesia: Gen. Surgeon: Franky Segal DPM Animal Anatomy Teacher(s): ALIE Marlow Operation and Findings: Patient was brought to the operating room placed on the operating table in supine position. Patient has a drain in the right knee from septic joint which was left alone. All dressings and bilateral lower extremities were removed and patient had large ulcerations of both lower extremities. Total ulceration size added together is 250 cm. Patient was given general relation anesthesia. Bilateral legs were prepped and draped in the usual sterile manner. Using a bone curet soft tissue culture of the left leg wound was sent for culture and sensitivity. Using a versijet set at a power level of 8, all wounds were debrided of all subcutaneous necrotic tissue down to an excellent bleeding base. Debridement was utilized to reduce the bacterial load of the wounds. All wounds are dressed with Optifoam gentle AG, Vivek and Nasir bandages. Total blood loss was less than 50 cc. Sponge and instrument counts were noted to be correct. Patient tolerated the procedures and anesthesia well and left the OR to PACU in apparent satisfactory condition with all vital signs stable and vascular status intact to both lower extremities. Franky Segal DPM Feb 19, 2017 10:10
[2017-02-19] MEDS ORDERED: fentaNYL CITRATE 250 MCG/5 ML AMP ONE (10:13)
[2017-02-19] MEDS ORDERED: DO NOT ADM ANY ANTICOAGULANT DRUGS XX PRN ×2 (11:30→13:15)
[2017-02-19] MEDS: SODIUM CHLORIDE 0.9% FLUSH 5 ML FLUSH IVF SCH ×2 (11:39→20:43)
[2017-02-19] MEDS: ENOXAPARIN SODIUM 30 MG/0.3 ML SYRINGE SQ SCH (12:00)
[2017-02-19] MEDS ORDERED: NEOSTIGMINE 3 MG/3 ML SYR IV ONE (12:00)
--- NOTE | 2017-02-19 12:07 | HHI.IDPN ---
Subjective Subjective Remarks Notes reviewed Temps better Had debriedment of bilateral leg wounds Went to OR 02/16 for her R knee BC negative so far Knee C/S MRSA Antibiotics Vancomycin Rocephin Lines PIV Past Medical History Sicca syndrome. Sun sensitivity. Psoriasis. Alopecia. Raynaud's phenomenon. Aphthous ulcers. Vasculitis diagnosis 2012 Hx MSSA sepsis and septic R wrist Fibromyalgia Hx IVDU - claims last use 15 yeasr ago, but admission 2012 (+) drug screen and admits to use at that time Past Surgical History Breasts augmentation surgery. Abdominoplasty. section. Surgery on her R wrist Tubal ligation Debridement of lower extremity wounds Right tibia fracture repair Rhinoplasty Allergies: Coded Allergies: *MDRO Multi-Drug Resistant Organism (Verified Adverse Reaction, Unknown, ) MRSA (finger wound) - 06/06/16; (synovial fluid) - 02/15/17 MRSA PCR Screen POSITIVE -02/15/17 Objective . Vital Signs Date Time Temp Pulse Resp B/P Pulse Ox O2 Delivery O2 Flow Rate FiO2 02/19/17 10:30 97.5 85 16 102/64 96 Room Air 02/19/17 10:15 89 16 100/62 95 Room Air 02/19/17 10:02 97.0 99 16 92/58 99 Nasal Cannula 3 02/19/17 05:12 98.3 89 16 117/68 96 02/19/17 00:23 99.0 98 16 118/54 96 02/18/17 22:53 96 02/18/17 20:04 99.1 100 16 116/56 96 02/18/17 20:00 Room Air 02/18/17 16:43 100 21 02/18/17 16:00 97.9 93 18 112/64 98 02/18/17 02/18/17 02/19/17 15:00 23:00 07:00 Intake Total 720 ml 2028 ml 1625 ml Output Total 2000 ml 825 ml 1365 ml Balance -1280 ml 1203 ml 260 ml Intake Oral 720 ml 360 ml 0 ml IV Total 1668 ml 1625 ml Output Urine Total 2000 ml 800 ml 1350 ml Drainage Total 25 ml 15 ml # Bowel Movements 2 0 . Laboratory Tests Test 02/18/17 02/19/17 18:22 06:35 White Blood Count 4.0 TH/MM3 3.2 TH/MM3 Red Blood Count 4.05 MIL/MM3 3.45 MIL/MM3 Hemoglobin 9.1 GM/DL 7.8 GM/DL Hematocrit 28.3 % 24.1 % Mean Corpuscular Volume 69.9 FL 69.8 FL Mean Corpuscular Hemoglobin 22.4 PG 22.6 PG Mean Corpuscular Hemoglobin 32.0 % 32.4 % Concent Red Cell Distribution Width 17.2 % 17.0 % Platelet Count 303 TH/MM3 306 TH/MM3 Mean Platelet Volume 6.4 FL 6.7 FL Neutrophils (%) (Auto) 65.8 % 62.8 % Lymphocytes (%) (Auto) 19.5 % 20.3 % Monocytes (%) (Auto) 11.3 % 12.3 % Eosinophils (%) (Auto) 2.7 % 3.9 % Basophils (%) (Auto) 0.7 % 0.7 % Neutrophils # (Auto) 2.7 TH/MM3 2.0 TH/MM3 Lymphocytes # (Auto) 0.8 TH/MM3 0.7 TH/MM3 Monocytes # (Auto) 0.5 TH/MM3 0.4 TH/MM3 Eosinophils # (Auto) 0.1 TH/MM3 0.1 TH/MM3 Basophils # (Auto) 0.0 TH/MM3 0.0 TH/MM3 CBC Comment AUTO DIFF AUTO DIFF Differential Comment AUTO DIFF AUTO DIFF CONFIRMED CONFIRMED Ovalocytes 1+ Laboratory Tests Test 02/17/17 02/17/17 02/18/17 02/19/17 14:20 21:09 18:22 06:35 Sodium Level 136 MEQ/L 135 MEQ/L 137 MEQ/L 138 MEQ/L Potassium Level 3.0 MEQ/L 3.1 MEQ/L 3.7 MEQ/L 3.4 MEQ/L Chloride Level 99 MEQ/L 98 MEQ/L 100 MEQ/L 101 MEQ/L Carbon Dioxide Level 28.5 MEQ/L 30.5 MEQ/L 33.8 MEQ/L 29.3 MEQ/L Anion Gap 9 MEQ/L 7 MEQ/L 3 MEQ/L 8 MEQ/L Blood Urea Nitrogen 8 MG/DL 8 MG/DL 6 MG/DL 6 MG/DL Creatinine 0.43 MG/DL 0.49 MG/DL 0.42 MG/DL 0.39 MG/DL Estimat Glomerular Filtration 154 ML/MIN 132 ML/MIN 158 ML/MIN 172 ML/MIN Rate Random Glucose 111 MG/DL 116 MG/DL 93 MG/DL 81 MG/DL Calcium Level 7.8 MG/DL 7.1 MG/DL 8.2 MG/DL 8.1 MG/DL Phosphorus Level 1.9 MG/DL 2.2 MG/DL 3.2 MG/DL 3.2 MG/DL Protein Corrected Calcium 7.5 MG/DL Magnesium Level 1.6 MG/DL 1.7 MG/DL 1.7 MG/DL Total Protein 6.3 GM/DL 7.0 GM/DL 6.8 GM/DL Total Bilirubin 0.3 MG/DL 0.3 MG/DL Aspartate Amino Transf 38 U/L 31 U/L (AST/SGOT) Alanine Aminotransferase 23 U/L 24 U/L (ALT/SGPT) Alkaline Phosphatase 363 U/L 333 U/L Albumin 1.8 GM/DL 1.9 GM/DL Microbiology Date/Time Procedure Status Source Growth 02/19/17 09:50 Gram Stain Received Wound Leg Pending 02/19/17 09:50 Wound Culture Received Wound Leg Pending Imaging Chest X-Ray 02/17/17 0000 Signed Impressions: Service Date/Time: Friday, February 17, 2017 13:34 - CONCLUSION: 1. Patchy areas of bibasilar infiltrate atelectasis concerning for pneumonia. 2. Large lytic lesion in the humeral head on the left. This is described in detail above. Malignancy is not excluded. Stoney Hwang MD Physical Exam GENERAL: Awake and alert, NAD SKIN: Warm and dry. She has generalized hypopigmented scars HEENT: [place] conjunctivae, no petechia, no hemorrhage. No scleral icterus. Moist mucosa. NECK: Trachea midline. No JVD or lymphadenopathy. Supple, nontender, no meningeal signs. CARDIOVASCULAR: Regular rate and rhythm without murmurs, gallops, or rubs. RESPIRATORY: Clear to auscultation. Breath sounds equal bilaterally. No wheezes , rales, or rhonchi. BREAST: Has implants, has hypopigmented scars on her breast GASTROINTESTINAL: Abdomen soft, non-tender, mildly distended. No hepato- splenomegaly, or palpable masses. No guarding. MUSCULOSKELETAL: Extremities without clubbing, cyanosis, or edema. R knee with dressing in place, has drain in place. Dressings on her wounds NEUROLOGICAL: Non-focal LINE: PIV with no evidence of infection Assessment & Plan Remarks IMPRESSION Sepsis due to septic knee Septic R knee, C/S MRSA - had OR 02/16 Chronic skin lesions, etiology? ?Hx vasculitis with purpuric lesions in BLE last 2012 Hx IVDU Hs MSSA sepsis 2013 Chronic narcotic dependence CXR with infiltrates though clinically no PNA symptoms RECOMMENDATION Continue IV Vanco Follow C/S Monitor progress Wound care consult If BC negative, will ok placement PICC HEPAS started Marquita Sales MD Feb 19, 2017 12:07
--- NOTE | 2017-02-19 12:43 | PD.ORT.PN ---
Subjective Subjective Remarks Resting comfortably Just returned from wound care with Dr. Segal Objective Vitals Vital Signs Date Time Temp Pulse Resp B/P Pulse Ox O2 Delivery O2 Flow Rate FiO2 02/19/17 10:30 97.5 85 16 102/64 96 Room Air 02/19/17 10:15 89 16 100/62 95 Room Air 02/19/17 10:02 97.0 99 16 92/58 99 Nasal Cannula 3 02/19/17 05:12 98.3 89 16 117/68 96 02/19/17 00:23 99.0 98 16 118/54 96 02/18/17 22:53 96 02/18/17 20:04 99.1 100 16 116/56 96 02/18/17 20:00 Room Air 02/18/17 16:43 100 21 02/18/17 16:00 97.9 93 18 112/64 98 I/O 02/18/17 02/18/17 02/18/17 02/19/17 02/19/17 02/19/17 07:00 15:00 23:00 07:00 15:00 23:00 Intake Total 1413 ml 720 ml 2028 ml 1625 ml 500 ml Output Total 3125 ml 2000 ml 825 ml 1365 ml 50 ml Balance -1712 ml -1280 ml 1203 ml 260 ml 450 ml Intake Oral 600 ml 720 ml 360 ml 0 ml IV Total 813 ml 1668 ml 1625 ml 100 ml Other 400 ml Output Urine Total 3100 ml 2000 ml 800 ml 1350 ml Drainage Total 25 ml 25 ml 15 ml Estimated Blood Loss 50 ml # Voids 0 # Bowel Movements 0 2 0 Result Diagram: 02/19/17 0635 02/19/17 0635 Objective Remarks RLE: dressings clean and dry. intact. +drain. NVI with good dorsiflexion 40 cc overnight Assessment & Plan Assessment and Plan 1) Right Septic knee s/p I&D - POD 3 -WBAT -daily dressing changes -maintain drain, if drainage decreases to 15 cc overnight we will discontinue -infectious disease for IV Abx pending cultures Johnny Botello Jr. Feb 19, 2017 12:43
[2017-02-19] MEDS ORDERED: ONDANSETRON HCL 4 MG/2 ML VIAL IV PUSH ONE (13:59)
[2017-02-19] MEDS ORDERED: PROPOFOL 200 MG/20 ML AMP IV ONE (13:59)
[2017-02-19] MEDS: cefTRIAXone INJ 1,000 MG in SODIUM CHLORIDE 0.9% INJ 100 ML IV SCH (16:35)
[2017-02-19] MEDS: SODIUM CHLORIDE 0.9% FLUSH 10 ML FLUSH IV FLUSH SCH (20:47)
[2017-02-19] MEDS: NORTRIPTYLINE HCL 25 MG CAP PO SCH (20:48)
[2017-02-19] MEDS: REMOVE OLD NICODERM (NICOTINE) PATCH TD SCH (20:55)
--- NOTE | 2017-02-19 21:29 | HHI.PR ---
Subjective Remarks Patient seen earlier at 11:15 AM. Patient denies chest pain or short of breath. Pain control. Potassium low at 3.4 Objective Vitals Vital Signs Date Time Temp Pulse Resp B/P Pulse Ox O2 Delivery O2 Flow Rate FiO2 02/19/17 20:49 97.1 85 16 97/54 99 02/19/17 16:00 97.0 80 18 120/65 95 02/19/17 12:00 97.5 79 18 115/68 94 02/19/17 10:30 97.5 85 16 102/64 96 Room Air 02/19/17 10:15 89 16 100/62 95 Room Air 02/19/17 10:02 97.0 99 16 92/58 99 Nasal Cannula 3 02/19/17 08:00 96 Room Air 21 02/19/17 08:00 97.6 87 18 109/63 97 02/19/17 05:12 98.3 89 16 117/68 96 02/19/17 00:23 99.0 98 16 118/54 96 02/18/17 22:53 96 I/O 02/18/17 02/18/17 02/18/17 02/19/17 02/19/17 02/19/17 07:00 15:00 23:00 07:00 15:00 23:00 Intake Total 1413 ml 720 ml 2028 ml 1625 ml 500 ml Output Total 3125 ml 2000 ml 825 ml 1365 ml 50 ml Balance -1712 ml -1280 ml 1203 ml 260 ml 450 ml Intake Oral 600 ml 720 ml 360 ml 0 ml IV Total 813 ml 1668 ml 1625 ml 100 ml Other 400 ml Output Urine Total 3100 ml 2000 ml 800 ml 1350 ml Drainage Total 25 ml 25 ml 15 ml Estimated Blood Loss 50 ml # Voids 0 # Bowel Movements 0 2 0 Result Diagram: 02/19/17 0635 02/19/17 0635 Imaging Last Impressions Chest X-Ray 02/17/17 0000 Signed Impressions: Service Date/Time: Friday, February 17, 2017 13:34 - CONCLUSION: 1. Patchy areas of bibasilar infiltrate atelectasis concerning for pneumonia. 2. Large lytic lesion in the humeral head on the left. This is described in detail above. Malignancy is not excluded. Stoney Hwang MD Objective Remarks GENERAL: Awake and alert, NAD SKIN: Warm and dry. Has dressings on BLE wounds, dry and intact. She has generalized hypopigmented scars HEENT: [place] conjunctivae, no petechia, no hemorrhage. No scleral icterus. Moist mucosa. NECK: Trachea midline. No JVD or lymphadenopathy. Supple, nontender, no meningeal signs. CARDIOVASCULAR: Regular rate and rhythm without murmurs, gallops, or rubs. RESPIRATORY: Clear to auscultation. Breath sounds equal bilaterally. No wheezes , rales, or rhonchi. BREAST: Has implants, has hypopigmented scars on her breast GASTROINTESTINAL: Abdomen soft, non-tender, mildly distended. Bowel sounds are present and normoactive. No hepato-splenomegaly, or palpable masses. No guarding. MUSCULOSKELETAL: Extremities without clubbing, cyanosis, or edema. R knee with dressing in place, has drain in place. Dressings on her wounds NEUROLOGICAL: Non-focal LINE: PIV with no evidence of infection Medications and IVs Current Medications Medications (Trade) Dose Ordered Sig/Arlette Route Start Time Stop Time Status Last Admin (NS 1000 ml Inj) 1,000 ml @ 100 mls/hr Q10H IV 02/15/17 06:32 02/19/17 20:42 (Zofran Inj) 4 mg Q6H PRN IVP 02/15/17 06:45 (Dulcolax Supp) 10 mg DAILY PRN IN 02/15/17 06:45 (Dilaudid Pf Inj) 1 mg Q3H PRN IV 02/15/17 06:45 02/19/17 20:44 (Neurontin) 600 mg BID PO 02/15/17 09:00 02/19/17 20:48 (Ativan) 0.5 mg DAILY PRN PO 02/15/17 06:45 Nortriptyline HCl 50 mg 50 mg HS PO 02/15/17 21:00 02/19/17 20:48 (Vancomycin Consult Pharmacy) 0 ml @ 0 mls/hr UNSCH OTHER 02/15/17 08:00 (Dilaudid) 4 mg Q6H PRN PO 02/15/17 12:45 (Lovenox Inj) 30 mg Q24H SQ 02/15/17 12:00 02/18/17 13:45 (Tylenol) 650 mg Q4H PRN PO 02/15/17 17:15 02/15/17 17:25 (NS Flush) 2 ml UNSCH PRN IVF 02/16/17 08:15 (NS Flush) 2 ml BID IVF 02/16/17 09:00 02/19/17 20:43 (Benadryl) 25 mg Q6H PRN PO 02/16/17 08:15 (Morphine Inj) 4 mg Q3H PRN IV PUSH 02/16/17 08:15 (Mucinex Er) 600 mg BID PO 02/16/17 21:00 02/19/17 20:48 Nicotine 1 patch 1 patch DAILY TD 02/17/17 16:00 02/19/17 08:02 (Rocephin Inj/NS Inj) 100 ml @ 200 mls/hr Q24H IV 02/17/17 16:00 02/19/17 16:35 Miscellaneous Information 1 1 HS TD 02/17/17 21:00 02/19/17 20:55 Vancomycin HCl 1000 mg/Sodium Chloride 250 ml @ 250 mls/hr Q8H IV 02/17/17 22:00 02/19/17 20:56 Lactated Ringer's 1,000 ml @ 30 mls/hr Q24H IV 02/19/17 06:15 (NS 500 ml Inj) 500 ml @ 30 mls/hr [id number] IV 02/19/17 06:15 02/20/17 06:14 Miscellaneous Information SPECIFIC LAB TO BE [facility]... ONCE ONCE XX 02/20/17 13:45 02/20/17 13:46 (NS Flush) 2 ml UNSCH PRN IV FLUSH 02/19/17 10:00 (NS Flush) 2 ml BID IV FLUSH 02/19/17 21:00 (Ofirmev Inj) 1,000 mg Q6H IV 02/19/17 09:00 02/20/17 03:01 02/19/17 20:43 (Narcan Inj) 0.4 mg UNSCH PRN IV 02/19/17 10:00 Miscellaneous Information ALL NURSING DEPARTME... UNSCH PRN XX 02/19/17 11:30 02/20/17 11:29 Miscellaneous Information ALL NURSING DEPARTME... UNSCH PRN XX 02/19/17 13:15 02/20/17 13:14 Urinary Catheter: No Vascular Central Line Catheter: No A/P Problem List: (1) Septic arthritis ICD Code: M00.9 Status: Acute Assessment and Plan 1. Septic arthritis of the right knee. Patient status post aspiration of the right knee with elevated white blood cell count of 76,400. The patient will start IV vancomycin and IV cefepime. Gram stain from aspiration showed gram-positive cocci MRSA. ID consulted who recommended to continue IV vancomycin. Patient underwent surgical procedures on 02/19/17 with diagnosis of septic right knee status post right knee arthrotomy with irrigation and right min by Dr. Mathis. Patient is status post incision and debridement of lower extremity wounds. Follow-up podiatry recommendations. 2. Chronic lower extremity wounds. Continue wound care. Patient to have I&D. Plastic surgery consulted as per vascular customer service specialist request Dr. Tanner 3. Polysubstance abuse with history of IV drug abuse. ID following. 4. Hypokalemia. Resolved after repletion. Continue to monitor and replace as needed. 5. Tobacco dependence started on bronchodilator mucolytic and incentive spirometry. Advised smoking cessation. Continue nicotine patch. 6. Community-acquired pneumonia. Chest x-ray obtained on 02/17/17 reviewed by me shows patchy areas of bibasilar infiltrate versus atelectasis. Large lytic lesion in the humeral head on the left. I will obtain a CT of the chest to better assess x-ray abnormalities on lung parenchyma and large lytic lesion in the humeral head. 7. Bone bleeding lesion found in the left humeral head. As per radiology report there is a new large cortical defect in the superior margin of the left humeral head which was not present on previous exam on 08/31/13. Differential considerations would include an erosive or inflammatory arthropathy versus metastatic lesion. CT scan of the left shoulder ordered and pending. . GI prophylaxis: I will add PPI. DVT prophylaxis: Continue Lovenox SQ Problem Qualifiers (1) Septic arthritis: Qualified Code: M00.9 - Pyogenic arthritis of right knee joint, due to unspecified organism Randall Farnsworth MD Feb 19, 2017 21:29
[2017-02-20] VITALS (7 sets, daily range): BP systolic 100–118; BP diastolic 56–69; PULSE 84–100; RESP 16–18; TEMP 96.5–98.5; O2SAT 98–100
[2017-02-20] MEDS: HYDROmorphone HCL PF 1 MG/ML VIAL IV PRN ×7 (00:20→22:25)
[2017-02-20] MEDS: ACETAMINOPHEN 1000 MG/100 ML VIAL IV SCH (03:44)
[2017-02-20] MEDS: RESP: ALBUTEROL 2.5 MG/IPRATROPIUM 0.5 MG NEB (SCH) NEB ×2 (04:00→12:16)
[2017-02-20] MEDS: VANCOMYCIN 1,000 MG/NS 250 ML IV SCH ×6 (04:54→22:30)
[2017-02-20] MEDS: SODIUM CHLOR 0.9% 1000 ML INJ 1,000 ML IV SCH ×2 (04:56→22:28)
--- NOTE | 2017-02-20 07:47 | PD.ORT.PN ---
Subjective Subjective Remarks Resting comfortably Just returned from wound care with Dr. Segal Objective Vitals Vital Signs Date Time Temp Pulse Resp B/P Pulse Ox O2 Delivery O2 Flow Rate FiO2 02/20/17 04:00 96.5 84 18 118/69 98 02/20/17 00:38 97.2 84 16 107/63 99 02/19/17 20:49 97.1 85 16 97/54 99 02/19/17 20:00 Room Air 02/19/17 20:00 71 02/19/17 16:00 97.0 80 18 120/65 95 02/19/17 12:00 97.5 79 18 115/68 94 02/19/17 10:30 97.5 85 16 102/64 96 Room Air 02/19/17 10:15 89 16 100/62 95 Room Air 02/19/17 10:02 97.0 99 16 92/58 99 Nasal Cannula 3 02/19/17 08:00 96 Room Air 21 02/19/17 08:00 97.6 87 18 109/63 97 I/O 02/19/17 02/19/17 02/19/17 02/20/17 02/20/17 02/20/17 07:00 15:00 23:00 07:00 15:00 23:00 Intake Total 1625 ml 500 ml Output Total 1365 ml 50 ml 30 ml Balance 260 ml 450 ml -30 ml Intake Oral 0 ml IV Total 1625 ml 100 ml Other 400 ml Output Urine Total 1350 ml Drainage Total 15 ml 30 ml Estimated Blood Loss 50 ml # Voids 0 2 # Bowel Movements 0 0 Result Diagram: 02/19/17 0635 02/19/17 0635 Objective Remarks RLE: dressings clean and dry. intact. +drain. NVI with good dorsiflexion 30 cc overnight Assessment & Plan Assessment and Plan 1) Right Septic knee s/p I&D - POD 3 MRSA -WBAT -daily dressing changes -maintain drain, if drainage decreases to 15 cc overnight we will discontinue plan for Wednesday -infectious disease for IV Abx pending cultures Johnny Botello Jr. Feb 20, 2017 07:47
--- NOTE | 2017-02-20 08:24 | RADRPT ---
EXAM DATE/TIME: 02/20/2017 07:48 [facility] COMPARISON: CHEST SINGLE AP, August 31, 2013, 4:35. CHEST PA & LAT, February 17, 2017, 13:34. INDICATIONS : Infiltrate; evaluate for pneumonia. RADIATION DOSE: 7.38 CTDIvol (mGy) MEDICAL HISTORY : None SURGICAL HISTORY : Tubal ligation. Breast augmentation. ENCOUNTER: Initial ACUITY: 1 day PAIN SCALE: 0/10 LOCATION: chest TECHNIQUE: Volumetric scanning of the chest was performed. Using automated exposure control and adjustment of t he mA and/or kV according to patient size, radiation dose was kept as low as reasonably achievable to obtain optimal diagnostic quality images. FINDINGS: LUNGS: There is by basilar airspace consolidation involving the bilateral lower lobes consistent with pneumo [place]. These findings are stable to slightly worsened as compared to the exam of April 19, 2017 and new a s compared to the prior exam of 2012. No evidence of concerning pulmonary mass. PLEURAE: There is no pleural thickening or pleural effusion. MEDIASTINUM: The heart and great vessels demonstrate no acute abnormality. There is no mediastinal or hilar lymph adenopathy. AXILLAE: Within normal limits. No lymphadenopathy. MUSCULOSKELETAL: Severe left shoulder degenerative change or posttraumatic change. MISCELLANEOUS: The visualized upper abdominal organs demonstrate no acute abnormality. Imaging of the patient's impl ant demonstrates the left implant to be intact, however, the right implant demonstrates intracapsular rupture. CONCLUSION: 1. Bilateral bibasilar airspace consolidation consistent with pneumonia. 2. Right breast implant intracapsular rupture. Amairani Cleary MD on February 20, 2017 at 8:18 Board Certified Radiologist. This report was verified electronically.
--- NOTE | 2017-02-20 08:34 | RADRPT ---
EXAM DATE/TIME: 02/20/2017 07:48 [facility] COMPARISON: CHEST SINGLE AP, August 31, 2013, 4:35. CHEST PA & LAT, February 17, 2017, 13:34. INDICATIONS : Lytic lesion, left humeral head. RADIATION DOSE: ; Reconstructed from previous dataset MEDICAL HISTORY : None SURGICAL HISTORY : Tubal ligation. Breast augmentation. ENCOUNTER: Initial ACUITY: 1 day PAIN SCALE: 5/10 LOCATION: Left shoulder TECHNIQUE: Volumetric scanning of the shoulder was performed. Using automated exposure control and adjustment o f the mA and/or kV according to patient size, radiation dose was kept as low as reasonably achievable to obtain optimal diagnostic quality images. FINDINGS: BONES: The left shoulder is significantly abnormal in appearance. The left glenoid demonstrates diffuse thin akua with areas of articular sclerosis. The adjacent humeral head is both [place] with respect to the adjacent glenoid and demonstrates well-circumscribed lucent lytic appearing lesions along the ar ticular surface of the humeral head with adjacent glenoid as well as a large areas of well-circumscri bed lucency involving the greater tuberosity at the site of the rotator cuff tendon insertions as wel l as anteriorly at the site of the subscapularis tendon insertion. The trabecular pattern identified within the humeral head also demonstrates a somewhat moth-eaten appearance. All of these findings are new as compared to the prior exam of 2012. Given that these areas of lucency abut articular surfaces or tendon insertions as well as the adjacent remodeling of the left glenoid favor a diffuse arthriti c process, however, a lytic neoplastic lesion is not completely excluded. Consider further evaluation for marrow with MRI. The remainder of the osseous structures appear intact without evidence of scler otic or lytic lesion. JOINTS: Diffuse narrowing of the glenohumeral joint and narrowing of the subacromial space. SOFT TISSUES: There is decreased density within the soft tissues adjacent to the dural head which may represent agusto nt effusion. Again MRI is recommended for better evaluation of this region. CONCLUSION: Diffuse destructive process involving the left shoulder which given the adjacent bony remodeling and the location of the lytic lesions favor a severe arthritic process, however, a neoplastic process is not completely excluded and should be further evaluated with MRI to evaluate the marrow... mAairani Cleary MD on February 20, 2017 at 8:23 Board Certified Radiologist. This report was verified electronically.
[2017-02-20] MEDS: SODIUM CHLORIDE 0.9% FLUSH 5 ML FLUSH IVF SCH ×2 (09:00→22:28)
[2017-02-20] MEDS: guaiFENesin E.R. 600 MG TAB PO SCH ×2 (09:38→22:29)
[2017-02-20] MEDS: GABAPENTIN 300 MG CAP PO SCH ×2 (09:38→22:29)
[2017-02-20] MEDS: NICOTINE 14 MG/24 HR PATCH TD SCH (09:39)
[2017-02-20] MEDS: REMOVE OLD NICODERM (NICOTINE) PATCH TD SCH (09:39)
[2017-02-20] MEDS: SODIUM CHLORIDE 0.9% FLUSH 10 ML FLUSH IV FLUSH SCH (09:42)
--- NOTE | 2017-02-20 10:52 | PD.POD ---
Subjective Podiatric Problems Bilateral lower leg wounds Pain scale used: 0-10 numeric scale Pain score: 3 Remarks 51-year-old patient with a septic knee growing MRSA. She also has large wounds of both lower extremities of unknown etiology. Total wound size totals 250 cm bilaterally. Yesterday she was taken to the OR for culture and sensitivity and Versed jet debridement of the wounds. Wounds are dressed with Optifoam gentle AG. Patient has no complaints of pain or discomfort Past Med/Surg/Social History Past Medical History PFSH Reviewed: Yes Musculoskeletal: REPORTS HX OF: Other musculoskeletal hx (septic right knee) Integumentary: REPORTS HX OF: Other integumentary hx Social History Smoking Status: Current Every Day Smoker Review of Systems Notes No changes in her 14 point review of systems exam from the previous visit Musculoskeletal: COMPLAINS OF: Joint pain/swell/dysarthr Objective Vital Signs Vital Signs Date Time Temp Pulse Resp B/P Pulse Ox O2 Delivery O2 Flow Rate FiO2 02/20/17 08:00 97.4 92 18 108/61 98 02/20/17 04:00 96.5 84 18 118/69 98 02/20/17 00:38 97.2 84 16 107/63 99 02/19/17 20:49 97.1 85 16 97/54 99 02/19/17 20:00 Room Air 02/19/17 20:00 71 02/19/17 16:00 97.0 80 18 120/65 95 02/19/17 12:00 97.5 79 18 115/68 94 Coded Allergies: *MDRO Multi-Drug Resistant Organism (Verified Adverse Reaction, Unknown, ) MRSA (finger wound) - 06/06/16; (synovial fluid) - 02/15/17 MRSA PCR Screen POSITIVE -02/15/17 Medications and IVs Current Medications Lidocaine/ Epinephrine 10 ml 10 ml ONCE ONCE INFIL Last administered on 06:29; Start 02/15/17 at 04:00; Stop 02/15/17 at 04:02; Status DC Sodium Chloride (NS 1000 ml Inj) 1,000 ml @ 100 mls/hr Q10H IV Last administered on 02/20/17 04:56; Start 02/15/17 at 06:32 IV Flush (NS Flush) 2 ml UNSCH PRN FLUSH FLUSH AFTER USING IV ACCESS; Start at 06:45; Stop 02/16/17 at 08:51; Status DC IV Flush (NS Flush) 2 ml BID FLUSH Last administered on 02/15/17 20:38; Start 02/15/17 at 09:00; Stop 02/16/17 at 08:51; Status DC Ondansetron HCl (Zofran Inj) 4 mg Q6H PRN IVP NAUSEA OR VOMITING; Start at 06:45 Bisacodyl (Dulcolax Supp) 10 mg DAILY PRN [place] CONSTIPATION; Start 02/15/17 at 06 :45 Hydromorphone HCl (Dilaudid Pf Inj) 1 mg Q3H PRN IV Pain 6-10 Last administered on 02/20/17 08:16; Start 02/15/17 at 06:45 Gabapentin (Neurontin) 600 mg BID PO Last administered on 02/20/17 09:38; Start 02/15/17 at 09:00 Hydromorphone HCl (Dilaudid) 8 mg Q6H PRN PO PAIN 3-5; Start 02/15/17 at 06:45 ; Stop 02/15/17 at 11:17; Status DC Lorazepam (Ativan) 0.5 mg DAILY PRN PO ANXIETY; Start 02/15/17 at 06:45 Morphine Sulfate (Oramorph Sr) 60 mg TID PO Last administered on 02/15/17 08: 57; Start 02/15/17 at 09:00; Stop 02/15/17 at 11:17; Status DC Nortriptyline HCl 50 mg 50 mg HS PO Last administered on 02/19/17 20:48; Start 02/15/17 at 21:00 Ceftazidime 2000 mg/Sodium Chloride 100 ml @ 200 mls/hr ONCE ONCE IV Last administered on 02/15/17 06:47; Start 02/15/17 at 06:45; Stop 02/15/17 at 07:14 ; Status DC Vancomycin HCl 1250 mg/Sodium Chloride 262.5 ml @ 262.5 mls/ hr ONCE ONCE IV Last administered on 02/15/17 07:14; Start 02/15/17 at 06:45; Stop 02/15/17 at 07:44; Status DC Pharmacy Profile Note 0 ml @ 0 mls/hr UNSCH OTHER ; Start 02/15/17 at 08:00 Cefepime HCl 1000 mg/Sodium Chloride 100 ml @ 200 mls/hr Q12H IV ; Start at 18:00; Stop 02/15/17 at 18:00; Status DC Vancomycin HCl/ Sodium Chloride (Vancomycin Inj/ NS 250 ml Inj) 250 ml @ 250 mls/hr Q18H IV Last administered on 02/16/17 00:38; Start 02/16/17 at 02:00; Stop 02/16/17 at 12:48; Status DC Miscellaneous Information SPECIFIC LAB TO BE DRAWN:VANCOMY... ONCE ONCE XX Last administered on 02/17/17 13:45; Start 02/17/17 at 13:45; Stop 02/17/17 at 13:46; Status DC Hydromorphone HCl (Dilaudid) 4 mg Q6H PRN PO PAIN 3-5; Start 02/15/17 at 12:45 Enoxaparin Sodium (Lovenox Inj) 30 mg Q24H SQ Last administered on 02/18/17 13 :45; Start 02/15/17 at 12:00 Influenza Virus Vaccine 0.5 ml 0.5 ml ONCE ONCE IM Last administered on 09:27; Start 02/16/17 at 10:00; Stop 02/16/17 at 10:01; Status DC Sodium Chloride (NS 1000 ml Inj) 1,000 ml @ 999 mls/hr BOLUS ONCE IV Last administered on 02/15/17 17:26; Start 02/15/17 at 17:15; Stop 02/15/17 at 18:15 ; Status DC Acetaminophen (Tylenol) 650 mg Q4H PRN PO fever, [place] Last administered on 17:25; Start 02/15/17 at 17:15 Gentamicin Sulfate (Gentamicin Inj) 240 mg STK-MED ONCE .ROUTE Last administered on 02/16/17 08:23; Start 02/16/17 at 04:57; Stop 02/16/17 at 04:58 ; Status DC Famotidine (Pepcid Inj) 20 mg STK-MED ONCE .ROUTE ; Start 02/16/17 at 07:02; Stop 02/16/17 at 07:03; Status DC Vancomycin HCl 1000 mg 1,000 mg STK-MED ONCE .ROUTE Last administered on 07:27; Start 02/16/17 at 07:05; Stop 02/16/17 at 07:06; Status DC Cefazolin Sodium/ Dextrose (Ancef 2 Gm Premix) 50 ml @ As Directed STK-MED ONCE .ROUTE Last administered on 02/16/17 07:23; Start 02/16/17 at 07:05; Stop at 07:06; Status DC IV Flush (NS Flush) 2 ml UNSCH PRN IVF FLUSH AFTER USING IV ACCESS; Start 02/16 at 08:15 IV Flush (NS Flush) 2 ml BID IVF Last administered on 02/19/17 20:43; Start at 09:00 Miscellaneous Information (Post-op Orders (for Pharmacy)) STAT ONCE XX ; Start 02/16/17 at 08:15; Stop 02/16/17 at 08:16; Status DC Diphenhydramine HCl (Benadryl) 25 mg Q6H PRN PO ITCHING; Start 02/16/17 at 08: 15 Morphine Sulfate (Morphine Inj) 4 mg Q3H PRN IV PUSH break thru pain; Start at 08:15 Morphine Sulfate (*morphine INJ PERIprocedure ONLY) 8 mg STK-MED ONCE .ROUTE Last administered on 02/16/17 08:11; Start 02/16/17 at 08:11; Stop 02/16/17 at 08:12; Status DC Morphine Sulfate (Morphine Inj) 8 mg STK-MED ONCE .ROUTE ; Start 02/16/17 at 08: 15; Stop 02/16/17 at 08:16; Status DC Fentanyl Citrate (fentaNYL INJ) 500 mcg STK-MED ONCE .ROUTE ; Start 02/16/17 at 08:15; Stop 02/16/17 at 08:16; Status DC IV Flush (NS Flush) 2 ml UNSCH PRN IVF FLUSH AFTER USING IV ACCESS; Start 02/16 at 08:30; Stop 02/16/17 at 08:30; Status DC IV Flush (NS Flush) 2 ml BID IVF ; Start 02/16/17 at 09:00; Stop 02/16/17 at 09: 00; Status DC Enoxaparin Sodium 30 mg 30 mg Q24H SQ ; Start 02/16/17 at 08:30; Stop 02/16/17 at 08:30; Status DC Cefazolin Sodium/ Sodium Chloride (Ancef Inj/NS Inj) 100 ml @ 200 mls/hr Q8H IV ; Start 02/16/17 at 08:30; Stop 02/16/17 at 08:30; Status DC Calcium/Vitamin D (Oscal-D 250-125) 250 mg TID PO ; Start 02/16/17 at 09:00; Stop 02/16/17 at 09:00; Status DC Acetaminophen/ Hydrocodone Bitart ([place] 7.5-325 Mg) 1 tab Q3H PRN PO pain 2<5 ; Start 02/16/17 at 08:30; Stop 02/16/17 at 08:30; Status DC Acetaminophen/ Hydrocodone Bitart ([place] 7.5-325 Mg) 2 tab Q6H PRN PO pain 6< 10; Start 02/16/17 at 08:30; Stop 02/16/17 at 08:30; Status DC Morphine Sulfate (Morphine Inj) 3 mg Q3H PRN IV PUSH break thru pain; Start at 08:30; Stop 02/16/17 at 08:30; Status DC Cholecalciferol (Vitamin D3) 5,000 units DAILY PO ; Start 02/16/17 at 09:00; Stop 02/16/17 at 09:00; Status DC Ergocalciferol (Drisdol) 50,000 units ONCE ONCE PO ; Start 02/16/17 at 08:30; Stop 02/16/17 at 08:30; Status DC Acetaminophen (Ofirmev Inj) 1,000 mg STK-MED ONCE IV Last administered on 08:29; Start 02/16/17 at 08:29; Stop 02/16/17 at 08:30; Status DC Morphine Sulfate (*morphine INJ PERIprocedure ONLY) 8 mg STK-MED ONCE .ROUTE Last administered on 02/16/17 08:34; Start 02/16/17 at 08:34; Stop 02/16/17 at 08:35; Status DC Acetaminophen (Ofirmev Inj) 1,000 mg ONCE ONCE IV ; Start 02/16/17 at 08:30; Stop 02/16/17 at 08:50; Status DC Miscellaneous Information ALL NURSING DEPARTME... UNSCH PRN XX SEE LABEL COMMENTS; Start 02/16/17 at 08:00; Stop 02/17/17 at 07:59; Status DC Potassium Chloride 100 ml @ 50 mls/hr Q2H IV Last administered on 02/16/17 16 :30; Start 02/16/17 at 13:00; Stop 02/16/17 at 16:59; Status DC Vancomycin HCl/ Sodium Chloride (Vancomycin Inj/ NS 250 ml Inj) 250 ml @ 250 mls/hr Q12H IV Last administered on 02/17/17 14:18; Start 02/16/17 at 14:00; Stop 02/17/17 at 15:45; Status DC Albuterol/ Ipratropium (Duoneb Neb) 1 ampule Q6HR NEB NEB Last administered on 02/19/17 19:56; Start 02/16/17 at 16:00 Guaifenesin (Mucinex Er) 600 mg BID PO Last administered on 02/20/17 09:38; Start 02/16/17 at 21:00 Propofol (Diprivan 200 Mg/20 ml Inj) 200 mg STK-MED ONCE IV ; Start 02/16/17 at 08:00; Stop 02/17/17 at 08:30; Status DC Ondansetron HCl 4 mg 4 mg STK-MED ONCE IV PUSH ; Start 02/16/17 at 08:00; Stop 02/17/17 at 08:30; Status DC Sodium Chloride (NS 250 ml Inj) 250 ml @ As Directed STK-MED ONCE IV ; Start at 08:00; Stop 02/17/17 at 08:30; Status DC Nicotine 1 patch 1 patch DAILY TD Last administered on 02/20/17 09:39; Start 02/17/17 at 16:00 Ceftriaxone Sodium/Sodium Chloride (Rocephin Inj/NS Inj) 100 ml @ 200 mls/hr Q24H IV Last administered on 02/19/17 16:35; Start 02/17/17 at 16:00 Miscellaneous Information 1 1 HS TD Last administered on 02/20/17 09:39; Start 02/17/17 at 21:00 Vancomycin HCl/ Sodium Chloride (Vancomycin Inj/ NS 250 ml Inj) 250 ml @ 250 mls/hr Q8H IV Last administered on 02/20/17 04:54; Start 02/17/17 at 22:00 Miscellaneous Information SPECIFIC LAB TO BE DRAWN:VANCOMYCIN TROUGH DATE TO... ONCE ONCE XX Last administered on 02/19/17 05:45; Start 02/19/17 at 05:45; Stop 02/19/17 at 05:46; Status DC Potassium Bicarb/ Potassium Chloride 50 meq 50 meq ONCE ONCE PO Last administered on 02/18/17 00:19; Start 02/17/17 at 23:45; Stop 02/17/17 at 23:52 ; Status DC Potassium Chloride (KCl 20 Meq Premix Inj) 100 ml @ 50 mls/hr Q2H IV Last administered on 02/18/17 01:27; Start 02/17/17 at 23:45; Stop 02/18/17 at 03:44 ; Status DC Calcium Gluconate 1 gm 1 gm ONCE ONCE IV PUSH ; Start 02/17/17 at 23:45; Stop 02/17/17 at 23:46; Status UNV Calcium Gluconate 1 gm/Sodium Chloride 110 ml @ 110 mls/hr ONCE ONCE IV Last administered on 02/18/17 00:12; Start 02/17/17 at 23:45; Stop 02/18/17 at 00:44 ; Status DC Lactated Ringer's 1,000 ml @ 30 mls/hr Q24H IV ; Start 02/19/17 at 06:15 Sodium Chloride (NS 500 ml Inj) 500 ml @ 30 mls/hr [id number] IV ; Start 02/19/17 at 06:15; Stop 02/20/17 at 06:14; Status DC Insulin Human Regular (NovoLIN R INJ) See Protocol Table ... UNSCH X1 PRN SQ SEE PROTOCOL; Start 02/19/17 at 06:15; Stop 02/20/17 at 06:14; Status DC Bupivacaine HCl (Marcaine Pf 0.5% Inj) 30 ml STK-MED ONCE .ROUTE ; Start at 07:41; Stop 02/19/17 at 07:42; Status DC Miscellaneous Information SPECIFIC LAB TO BE EMILY... ONCE ONCE XX ; Start at 13:45; Stop 02/20/17 at 13:46 Acetaminophen (Ofirmev Inj) 1,000 mg STK-MED ONCE IV ; Start 02/19/17 at 09:13; Stop 02/19/17 at 09:14; Status DC Famotidine (Pepcid Inj) 20 mg STK-MED ONCE .ROUTE ; Start 02/19/17 at 09:13; Stop 02/19/17 at 09:14; Status DC Midazolam HCl (Versed Inj) 2 mg STK-MED ONCE .ROUTE ; Start 02/19/17 at 09:13; Stop 02/19/17 at 09:14; Status DC Dexamethasone Sodium Phosphate (Decadron Inj) 4 mg STK-MED ONCE .ROUTE ; Start 02/19/17 at 09:13; Stop 02/19/17 at 09:14; Status DC Potassium Chloride (KCl) 30 meq ONCE ONCE PO Last administered on 02/19/17 11 :37; Start 02/19/17 at 10:00; Stop 02/19/17 at 10:02; Status DC Sodium Chloride (NS Flush) 2 ml UNSCH PRN IV FLUSH FLUSH AFTER USING IV ACCESS Last administered on 02/20/17 00:21; Start 02/19/17 at 10:00 Sodium Chloride (NS Flush) 2 ml BID IV FLUSH Last administered on 02/20/17 09: 42; Start 02/19/17 at 21:00 Miscellaneous Information (Post-op Orders (for Pharmacy)) STAT ONCE XX ; Start 02/19/17 at 10:00; Stop 02/19/17 at 10:21; Status DC Acetaminophen (Ofirmev Inj) 1,000 mg Q6H IV Last administered on 02/20/17 03: 44; Start 02/19/17 at 09:00; Stop 02/20/17 at 03:01; Status DC Naloxone HCl (Narcan Inj) 0.4 mg UNSCH PRN IV SEE LABEL COMMENTS; Start at 10:00 Fentanyl Citrate (fentaNYL INJ) 250 mcg STK-MED ONCE .ROUTE ; Start 02/19/17 at 10:13; Stop 02/19/17 at 10:14; Status DC Miscellaneous Information ALL NURSING DEPARTME... UNSCH PRN XX SEE LABEL COMMENTS; Start 02/19/17 at 11:30; Stop 02/20/17 at 11:29 Miscellaneous Information ALL NURSING DEPARTME... UNSCH PRN XX SEE LABEL COMMENTS; Start 02/19/17 at 13:15; Stop 02/20/17 at 13:14 Other Results Laboratory Tests Test 02/18/17 02/19/17 18:22 06:35 White Blood Count 4.0 TH/MM3 3.2 TH/MM3 Red Blood Count 4.05 MIL/MM3 3.45 MIL/MM3 Hemoglobin 9.1 GM/DL 7.8 GM/DL Hematocrit 28.3 % 24.1 % Mean Corpuscular Volume 69.9 FL 69.8 FL Mean Corpuscular Hemoglobin 22.4 PG 22.6 PG Mean Corpuscular Hemoglobin 32.0 % 32.4 % Concent Red Cell Distribution Width 17.2 % 17.0 % Platelet Count 303 TH/MM3 306 TH/MM3 Mean Platelet Volume 6.4 FL 6.7 FL Neutrophils (%) (Auto) 65.8 % 62.8 % Lymphocytes (%) (Auto) 19.5 % 20.3 % Monocytes (%) (Auto) 11.3 % 12.3 % Eosinophils (%) (Auto) 2.7 % 3.9 % Basophils (%) (Auto) 0.7 % 0.7 % Neutrophils # (Auto) 2.7 TH/MM3 2.0 TH/MM3 Lymphocytes # (Auto) 0.8 TH/MM3 0.7 TH/MM3 Monocytes # (Auto) 0.5 TH/MM3 0.4 TH/MM3 Eosinophils # (Auto) 0.1 TH/MM3 0.1 TH/MM3 Basophils # (Auto) 0.0 TH/MM3 0.0 TH/MM3 CBC Comment AUTO DIFF AUTO DIFF Differential Comment AUTO DIFF AUTO DIFF CONFIRMED CONFIRMED Ovalocytes 1+ Laboratory Tests Test 02/18/17 02/19/17 18:22 06:35 Sodium Level 137 MEQ/L 138 MEQ/L Potassium Level 3.7 MEQ/L 3.4 MEQ/L Chloride Level 100 MEQ/L 101 MEQ/L Carbon Dioxide Level 33.8 MEQ/L 29.3 MEQ/L Anion Gap 3 MEQ/L 8 MEQ/L Blood Urea Nitrogen 6 MG/DL 6 MG/DL Creatinine 0.42 MG/DL 0.39 MG/DL Estimat Glomerular Filtration 158 ML/MIN 172 ML/MIN Rate Random Glucose 93 MG/DL 81 MG/DL Calcium Level 8.2 MG/DL 8.1 MG/DL Phosphorus Level 3.2 MG/DL 3.2 MG/DL Magnesium Level 1.7 MG/DL 1.7 MG/DL Total Bilirubin 0.3 MG/DL 0.3 MG/DL Aspartate Amino Transf 38 U/L 31 U/L (AST/SGOT) Alanine Aminotransferase 23 U/L 24 U/L (ALT/SGPT) Alkaline Phosphatase 363 U/L 333 U/L Total Protein 7.0 GM/DL 6.8 GM/DL Albumin 1.8 GM/DL 1.9 GM/DL Microbiology Date/Time Procedure Status Source Growth 02/19/17 09:50 Gram Stain - Final Resulted Wound Leg 02/19/17 09:50 Wound Culture Resulted Wound Leg Pending Exam-Podiatry Constitutional General appearance: comfortable Nutritional status: normal Orientation: alert and oriented x3 Dermatological Exam Skin Temp - Right: Within Normal Limits Skin Texture - Right: Within Normal Limits Skin Elasticity - Right: Within Normal Limits Skin Tugor - Right: Within Normal Limits Hair Growth - Right: Within Normal Limits Pigmentation - Right: Within Normal Limits Skin Temp - Left: Within Normal Limits Skin Texture - Left: Within Normal Limits Skin Elasticity - Left: Within Normal Limits Skin Tugor - Left: Within Normal Limits Hair Growth - Left: Within Normal Limits Pigmentation - Left: Within Normal Limits Ulcers: Location/Measurements Bilateral lower extremity ulcerations measuring 250 cm. Dressings are intact. No strike through drainage noted. Vascular/Lymphatic Exam R Dorsails Pedis: Palpable L Dorsails Pedis: Palpable R Posterior Tibial: Palpable L Posterior Tibial: Palpable Neurologic Exam Details No neurological deficits Muscle Strength Dorsiflexion (Right): Normal Plantarflexion (Right): Normal Inversion (Right): Normal Eversion (Right): Normal Digital (Right): Normal Dorsiflexion (Left): Normal Plantarflexion (Left): Normal Inversion (Left): Normal Eversion (Left): Normal Digital (Left): Normal Foot Range of Motion Dorsiflexion (Right): Normal Plantarflexion (Right): Normal Inversion (Right): Normal Eversion (Right): Normal Digital (Right): Normal Dorsiflexion (Left): Normal Plantarflexion (Left): Normal Inversion (Left): Normal Eversion (Left): Normal Digital (Left): Normal Assessment & Plan Diagnosis: (1) Open wound of both legs with complication Status: Acute A/P PLAN: Await final culture and sensitivity. Continue dressing wounds every other day with Optifoam gentle AG. Franky Segal DPM Feb 20, 2017 10:52
[2017-02-20] MEDS: ENOXAPARIN SODIUM 30 MG/0.3 ML SYRINGE SQ SCH (12:00)
--- NOTE | 2017-02-20 13:17 | HHI.PR ---
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 Objective Vitals Vital Signs Date Time Temp Pulse Resp B/P Pulse Ox O2 Delivery O2 Flow Rate FiO2 02/20/17 12:00 97.7 100 18 116/60 99 02/20/17 08:00 97.4 92 18 108/61 98 02/20/17 04:00 96.5 84 18 118/69 98 02/20/17 00:38 97.2 84 16 107/63 99 02/19/17 20:49 97.1 85 16 97/54 99 02/19/17 20:00 Room Air 02/19/17 20:00 71 02/19/17 16:00 97.0 80 18 120/65 95 I/O 02/19/17 02/19/17 02/19/17 02/20/17 02/20/17 02/20/17 07:00 15:00 23:00 07:00 15:00 23:00 Intake Total 1625 ml 500 ml Output Total 1365 ml 50 ml 30 ml Balance 260 ml 450 ml -30 ml Intake Oral 0 ml IV Total 1625 ml 100 ml Other 400 ml Output Urine Total 1350 ml Drainage Total 15 ml 30 ml Estimated Blood Loss 50 ml # Voids 0 2 # Bowel Movements 0 0 Result Diagram: 02/19/17 0635 02/19/17 0635 Imaging Last Impressions Shoulder MRI 02/20/17 0000 Signed Impressions: Service Date/Time: Monday, February 20, 2017 14:42 - CONCLUSION: 1. Abnormal marrow edema and enhancement and erosions in the proximal humerus and bony glenoid is characteristic of, possibly with an infected joint effusion as well. There is edema of the rotator musculature and the rotator cuff tear distally. They are enlarged left axillary lymph nodes. Ole Lam MD Upper Extremity CT 02/18/17 0000 Signed Impressions: Service Date/Time: Monday, February 20, 2017 07:48 - CONCLUSION: Diffuse destructive process involving the left shoulder which given the adjacent bony remodeling and the location of the lytic lesions favor a severe arthritic process, however, a neoplastic process is not completely excluded and should be further evaluated with MRI to evaluate the marrow... Amairani Cleary MD Chest CT 02/18/17 0000 Signed Impressions: Service Date/Time: Monday, February 20, 2017 07:48 - CONCLUSION: 1. Bilateral bibasilar airspace consolidation consistent with pneumonia. 2. Right breast implant intracapsular rupture. Amairani Cleary MD Chest X-Ray 02/17/17 0000 Signed Impressions: Service Date/Time: Friday, February 17, 2017 13:34 - CONCLUSION: 1. Patchy areas of bibasilar infiltrate atelectasis concerning for pneumonia. 2. Large lytic lesion in the humeral head on the left. This is described in detail above. Malignancy is not excluded. Stoney Hwang MD Objective Remarks GENERAL: Awake and alert, NAD SKIN: Warm and dry. Has dressings on BLE wounds, dry and intact. She has generalized hypopigmented scars HEENT: [place] conjunctivae, no petechia, no hemorrhage. No scleral icterus. Moist mucosa. NECK: Trachea midline. No JVD or lymphadenopathy. Supple, nontender, no meningeal signs. CARDIOVASCULAR: Regular rate and rhythm without murmurs, gallops, or rubs. RESPIRATORY: Clear to auscultation. Breath sounds equal bilaterally. No wheezes , rales, or rhonchi. BREAST: Has implants, has hypopigmented scars on her breast GASTROINTESTINAL: Abdomen soft, non-tender, mildly distended. Bowel sounds are present and normoactive. No hepato-splenomegaly, or palpable masses. No guarding. MUSCULOSKELETAL: Extremities without clubbing, cyanosis, or edema. R knee with dressing in place, has drain in place. Dressings on her wounds. Left shoulder pain on palpation of the glenohumeral joint. Patient unable to move left shoulder secondary to pain. NEUROLOGICAL: Non-focal LINE: PIV with no evidence of infection Procedures sp Right knee arthrotomy with irrigation and debridement of infection 02/16/17 sp debridement of bilateral lower extremity wounds on 02/19/17 Medications and IVs Current Medications Medications (Trade) Dose Ordered Sig/Arlette Route Start Time Stop Time Status Last Admin (NS 1000 ml Inj) 1,000 ml @ 100 mls/hr Q10H IV 02/15/17 06:32 02/20/17 04:56 (Zofran Inj) 4 mg Q6H PRN IVP 02/15/17 06:45 (Dulcolax Supp) 10 mg DAILY PRN UT 02/15/17 06:45 (Dilaudid Pf Inj) 1 mg Q3H PRN IV 02/15/17 06:45 02/20/17 16:01 (Neurontin) 600 mg BID PO 02/15/17 09:00 02/20/17 09:38 (Ativan) 0.5 mg DAILY PRN PO 02/15/17 06:45 Nortriptyline HCl 50 mg 50 mg HS PO 02/15/17 21:00 02/19/17 20:48 (Vancomycin Consult Pharmacy) 0 ml @ 0 mls/hr UNSCH OTHER 02/15/17 08:00 (Dilaudid) 4 mg Q6H PRN PO 02/15/17 12:45 (Lovenox Inj) 30 mg Q24H SQ 02/15/17 12:00 02/20/17 12:00 (Tylenol) 650 mg Q4H PRN PO 02/15/17 17:15 02/15/17 17:25 (NS Flush) 2 ml UNSCH PRN IVF 02/16/17 08:15 (NS Flush) 2 ml BID IVF 02/16/17 09:00 02/20/17 09:00 (Benadryl) 25 mg Q6H PRN PO 02/16/17 08:15 (Morphine Inj) 4 mg Q3H PRN IV PUSH 02/16/17 08:15 (Mucinex Er) 600 mg BID PO 02/16/17 21:00 02/20/17 09:38 Nicotine 1 patch 1 patch DAILY TD 02/17/17 16:00 02/20/17 09:39 (Rocephin Inj/NS Inj) 100 ml @ 200 mls/hr Q24H IV 02/17/17 16:00 02/19/17 16:35 Miscellaneous Information 1 1 HS TD 02/17/17 21:00 02/20/17 09:39 Vancomycin HCl 1000 mg/Sodium Chloride 250 ml @ 250 mls/hr Q8H IV 02/17/17 22:00 02/20/17 15:57 (Lr 1000 ml Inj) 1,000 ml @ 30 mls/hr Q24H IV 02/19/17 06:15 (NS Flush) 2 ml UNSCH PRN IV FLUSH 02/19/17 10:00 02/20/17 00:21 (NS Flush) 2 ml BID IV FLUSH 02/19/17 21:00 02/20/17 09:42 Naloxone HCl 0.4 mg 0.4 mg UNSCH PRN IV 02/19/17 10:00 (Zithromax Inj/ NS 250 ml Inj) 250 ml @ 250 mls/hr Q24H IV 02/20/17 14:00 Urinary Catheter: No Vascular Central Line Catheter: No A/P Problem List: (1) Septic arthritis ICD Code: M00.9 Status: Acute (2) Lytic lesion of bone on x-ray ICD Code: M89.9 Status: Acute Assessment and Plan 1. Septic arthritis of the right knee. Patient status post aspiration of the right knee with elevated white blood cell count of 76,400. The patient will start IV vancomycin and IV cefepime. Gram stain from aspiration showed gram-positive cocci MRSA. ID consulted who recommended to continue IV vancomycin. Patient underwent surgical procedures on 02/19/17 with diagnosis of septic right knee status post right knee arthrotomy with irrigation and right min by Dr. Mathis. Patient is status post incision and debridement of lower extremity wounds. Follow-up podiatry recommendations. 02/20 final cultures and sensitivities still show MRSA. 2. Chronic lower extremity wounds. Continue wound care. Patient to have I&D. Plastic surgery consulted as per vascular oral surgery assistant request Dr. Tanner 3. Polysubstance abuse with history of IV drug abuse. ID following. 4. Hypokalemia. Resolved after repletion. Continue to monitor and replace as needed. 5. Tobacco dependence started on bronchodilator mucolytic and incentive spirometry. Advised smoking cessation. Continue nicotine patch. 6. Community-acquired pneumonia. Chest x-ray obtained on 02/17/17 reviewed by me shows patchy areas of bibasilar infiltrate versus atelectasis. Large lytic lesion in the humeral head on the left. 02/20 CT of the chest shows bilateral bibasilar airspace consolidation consistent with pneumonia. Right breast implant intracapsular rupture. Continue IV vancomycin, Rocephin and azithromycin. 7. Bone Lytic lesion found in the left humeral head. As per radiology report there is a new large cortical defect in the superior margin of the left humeral head which was not present on previous exam on 08/31/13. Differential considerations would include an erosive or inflammatory arthropathy versus metastatic lesion. 02/20 CT scan of the left shoulder showed diffuse destructive process involving the left shoulder which favors a severe arthritic process. However neoplastic process was not completely excluded. MRI was ordered to further assess the above-mentioned abnormalities. It showed abnormal bone marrow edema and enhancement and erosions in the proximal humerus and bony glenoid characteristic of possibly an infected joint effusion as well. There is edema of the rotator musculature and a rotator cuff tear distally. Enlarged left axillary lymph nodes also described. MRI and CT scan personally reviewed by me. This is possibly secondary to septic arthritis of the left shoulder. I will follow-up on infectious disease and orthopedic surgery recommendations. 8. Right breast implant intracapsular rupture. I will consult plastic surgery for further recommendations. GI prophylaxis: I will add PPI. DVT prophylaxis: Continue Lovenox SQ Discharge Planning Continue to monitor and the medical floor. Problem Qualifiers (1) Septic arthritis: Qualified Code: M00.9 - Pyogenic arthritis of right knee joint, due to unspecified organism Randall Farnsworth MD Feb 20, 2017 13:17
[2017-02-20 13:27] LABS: AUTOMATED NEUTROPHIL # 3.7 TH/MM3 (1.8-7.7); BASOPHIL % 0.5 % (0.0-2.0); EOSINOPHIL % 0.8 % (0.0-4.0); HEMATOCRIT 27.7 % (35.0-46.0); LYMPH % 17.6 % (9.0-44.0); LYMPHOCYTE # 0.9 TH/MM3 (1.0-4.8); MEAN CELL VOLUME 70.6 FL (80.0-100.0); MEAN CORPUSCULAR HEMOGLOBIN 23.2 PG (27.0-34.0); MEAN CORPUSCULAR HGB CONC 32.9 % (32.0-36.0); MONO % 7.4 % (0.0-8.0); NEUT % 73.7 % (16.0-70.0); PLATELET COUNT 327 TH/MM3 (150-450); RED BLOOD COUNT 3.92 MIL/MM3 (4.00-5.30); RED CELL DISTRIBUTION WIDTH 17.5 % (11.6-17.2)
[2017-02-20 13:29] LABS: HEMO FLAGS AUTO DIFF
[2017-02-20] MEDS ORDERED: PHARMACY ORDERED LAB XX ONE (13:45)
[2017-02-20 13:46] LABS: ANION GAP 9 MEQ/L (5-15); AST (GOT) 18 U/L (15-37); BICARBONATE 25.4 MEQ/L (21.0-32.0); BLOOD UREA NITROGEN 13 MG/DL (7-18); CHLORIDE 105 MEQ/L (98-107); GLOMERULAR FILTRATION RATE 142 ML/MIN (>89); POTASSIUM 3.5 MEQ/L (3.5-5.1); SODIUM (NA) 139 MEQ/L (136-145)
[2017-02-20 13:49] LABS: ALKALINE PHOSPHATASE 291 U/L (45-117); ALT (GPT) 20 U/L (10-53); TOTAL BILIRUBIN ADULT 0.2 MG/DL (0.2-1.0)
[2017-02-20 14:09] LABS: SCAN/DIFF AUTO DIFF CONFIRMED
[2017-02-20] MEDS ORDERED: GADODIAMIDE PF 287 MG/ML 10 ML VIAL (for RAD MRI) IV ONE (15:42)
[2017-02-20 15:45] LABS: VANCOMYCIN TROUGH 15.8 MCG/ML (5.0-10.0)
--- NOTE | 2017-02-20 16:24 | RADRPT ---
EXAM DATE/TIME: 02/20/2017 14:42 [place] COMPARISON: No previous studies available for comparison. INDICATIONS : Lytic lesion left humeral head. CONTRAST: 10 cc Omniscan (gadodiamide) IV MEDICAL HISTORY : Raynauds, fibromyalgia, vasculitis, psoriasis, alopecia, sicca syndrome. SURGICAL HISTORY : section. BLE debridement. Cosmetic surgery. ENCOUNTER: Subsequent ACUITY: 4-6 days PAIN SCORE: 2/10 LOCATION: Left upper extremity. TECHNIQUE: Multiplanar, multisequence MRI examination was performed with and without contrast. FINDINGS: The left shoulder is markedly abnormal. There is extensive marrow edema and marrow enhancement with b one erosions present in the proximal humerus. The findings are most characteristic of osteomyelitis. There is an enhancing joint effusion at the shoulder joint which could represent an associated septic arthritis. Extensive edema is present in the rotator cuff musculature. The rotator cuff is torn dist ally. There is also bone erosion in the scapula around the bony glenoid and extending into the base o f the coracoid process. No discrete or drainable fluid collections are seen in the soft tissues. Ther e is muscular edema. CONCLUSION: 1. Abnormal marrow edema and enhancement and erosions in the proximal humerus and bony glenoid is silvio racteristic of, possibly with an infected joint effusion as well. There is edema of the rotator muscu lature and the rotator cuff tear distally. They are enlarged left axillary lymph nodes. Ole Lam MD on February 20, 2017 at 16:08 Board Certified Radiologist. This report was verified electronically.
[2017-02-20] MEDS: AZITHROMYCIN INJ 500 MG in SODIUM CHLOR 0.9% 250 ML INJ 250 ML IV SCH (17:20)
[2017-02-20] MEDS: cefTRIAXone INJ 1,000 MG in SODIUM CHLORIDE 0.9% INJ 100 ML IV SCH (19:00)
[2017-02-20] MEDS: NORTRIPTYLINE HCL 25 MG CAP PO SCH (22:29)
[2017-02-21] VITALS (7 sets, daily range): BP systolic 110–126; BP diastolic 57–73; PULSE 66–111; RESP 16–20; TEMP 97.9–99.5; O2SAT 94–100
[2017-02-21] MEDS: HYDROmorphone HCL PF 1 MG/ML VIAL IV PRN ×6 (03:18→21:46)
[2017-02-21] MEDS: SODIUM CHLOR 0.9% 1000 ML INJ 1,000 ML IV SCH ×3 (04:09→22:32)
[2017-02-21] MEDS: VANCOMYCIN 1,000 MG/NS 250 ML IV SCH ×6 (05:54→21:52)
[2017-02-21 06:40] LABS: ALT (GPT) 27 U/L (10-53); ANION GAP 8 MEQ/L (5-15); AST (GOT) 28 U/L (15-37); BICARBONATE 27.3 MEQ/L (21.0-32.0); BLOOD UREA NITROGEN 7 MG/DL (7-18); CHLORIDE 102 MEQ/L (98-107); GLOMERULAR FILTRATION RATE 162 ML/MIN (>89); POTASSIUM 3.9 MEQ/L (3.5-5.1); SODIUM (NA) 137 MEQ/L (136-145)
[2017-02-21 06:43] LABS: ALKALINE PHOSPHATASE 312 U/L (45-117); TOTAL BILIRUBIN ADULT 0.2 MG/DL (0.2-1.0)
--- NOTE | 2017-02-21 07:15 | PD.ORT.PN ---
Subjective Subjective Remarks Resting comfortably Just returned from wound care with Dr. Segal Objective Vitals Vital Signs Date Time Temp Pulse Resp B/P Pulse Ox O2 Delivery O2 Flow Rate FiO2 02/21/17 04:00 97.9 66 16 114/58 98 02/21/17 00:00 99.4 103 20 114/59 96 02/20/17 21:06 21 02/20/17 20:00 98.5 98 18 100/56 100 02/20/17 20:00 Room Air 02/20/17 20:00 99 02/20/17 12:16 98 02/20/17 12:00 97.7 100 18 116/60 99 02/20/17 08:40 91 02/20/17 08:00 97.4 92 18 108/61 98 02/20/17 07:15 Room Air I/O 02/20/17 02/20/17 02/20/17 02/21/17 02/21/17 02/21/17 07:00 15:00 23:00 07:00 15:00 23:00 Intake Total 480 ml 1833 ml 880 ml Output Total 20 ml 15 ml 15 ml Balance 460 ml 1818 ml 865 ml Intake Oral 480 ml IV Total 1833 ml 880 ml Drainage Total 20 ml 15 ml 15 ml # Voids 2 2 # Bowel Movements 0 Result Diagram: 02/20/17 1304 02/21/17 0532 Objective Remarks RLE: dressings clean and dry. intact. +drain. NVI with good dorsiflexion Assessment & Plan Assessment and Plan 1) Right Septic knee s/p I&D - POD 4 MRSA -WBAT -daily dressing changes right knee -discontinue drain -infectious disease for IV Abx pending cultures Johnny Botello Jr. Feb 21, 2017 07:14
[2017-02-21 07:38] LABS: BASOPHIL % 0.7 % (0.0-2.0); EOSINOPHIL # 0.1 TH/MM3 (0-0.4); EOSINOPHIL % 2.4 % (0.0-4.0); HEMATOCRIT 24.1 % (35.0-46.0); LYMPH % 21.6 % (9.0-44.0); MEAN CORPUSCULAR HEMOGLOBIN 22.6 PG (27.0-34.0); MEAN CORPUSCULAR HGB CONC 32.3 % (32.0-36.0); MONO % 12.1 % (0.0-8.0); NEUT % 63.2 % (16.0-70.0); PLATELET COUNT 337 TH/MM3 (150-450); RED BLOOD COUNT 3.44 MIL/MM3 (4.00-5.30); RED CELL DISTRIBUTION WIDTH 17.5 % (11.6-17.2); WHITE BLOOD COUNT 4.7 TH/MM3 (4.0-11.0)
[2017-02-21 08:34] LABS: HEMO FLAGS AUTO DIFF
[2017-02-21] MEDS: SODIUM CHLORIDE 0.9% FLUSH 5 ML FLUSH IVF SCH ×2 (09:00→21:52)
[2017-02-21] MEDS: REMOVE OLD NICODERM (NICOTINE) PATCH TD SCH (09:16)
[2017-02-21] MEDS: NICOTINE 14 MG/24 HR PATCH TD SCH (09:16)
[2017-02-21] MEDS: GABAPENTIN 300 MG CAP PO SCH ×2 (09:17→21:51)
[2017-02-21] MEDS: guaiFENesin E.R. 600 MG TAB PO SCH ×2 (09:17→21:51)
[2017-02-21] MEDS: ENOXAPARIN SODIUM 30 MG/0.3 ML SYRINGE SQ SCH (11:29)
[2017-02-21 12:26] LABS: SCAN/DIFF AUTO DIFF CONFIRMED
--- NOTE | 2017-02-21 12:36 | HHI.PR ---
Subjective Remarks Pain controlled states she has pain on left shoulder denies fevers/chills Objective Vitals Vital Signs Date Time Temp Pulse Resp B/P Pulse Ox O2 Delivery O2 Flow Rate FiO2 02/21/17 08:00 98.5 91 18 115/67 97 02/21/17 07:15 Room Air 3.00 21 02/21/17 04:00 97.9 66 16 114/58 98 02/21/17 00:00 99.4 103 20 114/59 96 02/20/17 21:06 21 02/20/17 20:00 98.5 98 18 100/56 100 02/20/17 20:00 Room Air 02/20/17 20:00 99 I/O 02/20/17 02/20/17 02/20/17 02/21/17 02/21/17 02/21/17 07:00 15:00 23:00 07:00 15:00 23:00 Intake Total 480 ml 1833 ml 880 ml Output Total 20 ml 15 ml 15 ml Balance 460 ml 1818 ml 865 ml Intake Oral 480 ml IV Total 1833 ml 880 ml Drainage Total 20 ml 15 ml 15 ml # Voids 2 2 # Bowel Movements 0 Result Diagram: 02/21/17 0532 02/21/17 0532 Imaging Last Impressions Shoulder MRI 02/20/17 0000 Signed Impressions: Service Date/Time: Monday, February 20, 2017 14:42 - CONCLUSION: 1. Abnormal marrow edema and enhancement and erosions in the proximal humerus and bony glenoid is characteristic of, possibly with an infected joint effusion as well. There is edema of the rotator musculature and the rotator cuff tear distally. They are enlarged left axillary lymph nodes. Ole Lam MD Upper Extremity CT 02/18/17 0000 Signed Impressions: Service Date/Time: Monday, February 20, 2017 07:48 - CONCLUSION: Diffuse destructive process involving the left shoulder which given the adjacent bony remodeling and the location of the lytic lesions favor a severe arthritic process, however, a neoplastic process is not completely excluded and should be further evaluated with MRI to evaluate the marrow... Amairani Cleary MD Chest CT 02/18/17 0000 Signed Impressions: Service Date/Time: Monday, February 20, 2017 07:48 - CONCLUSION: 1. Bilateral bibasilar airspace consolidation consistent with pneumonia. 2. Right breast implant intracapsular rupture. Amairani Cleary MD Chest X-Ray 02/17/17 0000 Signed Impressions: Service Date/Time: Friday, February 17, 2017 13:34 - CONCLUSION: 1. Patchy areas of bibasilar infiltrate atelectasis concerning for pneumonia. 2. Large lytic lesion in the humeral head on the left. This is described in detail above. Malignancy is not excluded. Stoney Hwang MD Objective Remarks GENERAL: Awake and alert, NAD SKIN: Warm and dry. Has dressings on BLE wounds, dry and intact. She has generalized hypopigmented scars HEENT: [place] conjunctivae, no petechia, no hemorrhage. No scleral icterus. Moist mucosa. NECK: Trachea midline. No JVD or lymphadenopathy. Supple, nontender, no meningeal signs. CARDIOVASCULAR: Regular rate and rhythm without murmurs, gallops, or rubs. RESPIRATORY: Clear to auscultation. Breath sounds equal bilaterally. No wheezes , rales, or rhonchi. BREAST: Has implants, has hypopigmented scars on her breast GASTROINTESTINAL: Abdomen soft, non-tender, mildly distended. Bowel sounds are present and normoactive. No hepato-splenomegaly, or palpable masses. No guarding. MUSCULOSKELETAL: Extremities without clubbing, cyanosis, or edema. R knee with dressing in place, has drain in place. Dressings on her wounds. Left shoulder pain on palpation of the glenohumeral joint. Patient unable to move left shoulder secondary to pain. NEUROLOGICAL: Non-focal LINE: PIV with no evidence of infection Procedures sp Right knee arthrotomy with irrigation and debridement of infection 02/16/17 sp debridement of bilateral lower extremity wounds on 02/19/17 Medications and IVs Current Medications Medications (Trade) Dose Ordered Sig/Arlette Route Start Time Stop Time Status Last Admin (NS 1000 ml Inj) 1,000 ml @ 100 mls/hr Q10H IV 02/15/17 06:32 02/21/17 04:09 (Zofran Inj) 4 mg Q6H PRN IVP 02/15/17 06:45 (Dulcolax Supp) 10 mg DAILY PRN AR 02/15/17 06:45 (Dilaudid Pf Inj) 1 mg Q3H PRN IV 02/15/17 06:45 02/21/17 11:26 (Neurontin) 600 mg BID PO 02/15/17 09:00 02/21/17 09:17 (Ativan) 0.5 mg DAILY PRN PO 02/15/17 06:45 Nortriptyline HCl 50 mg 50 mg HS PO 02/15/17 21:00 02/20/17 22:29 (Vancomycin Consult Pharmacy) 0 ml @ 0 mls/hr UNSCH OTHER 02/15/17 08:00 (Dilaudid) 4 mg Q6H PRN PO 02/15/17 12:45 (Lovenox Inj) 30 mg Q24H SQ 02/15/17 12:00 02/21/17 11:29 (Tylenol) 650 mg Q4H PRN PO 02/15/17 17:15 02/15/17 17:25 (NS Flush) 2 ml UNSCH PRN IVF 02/16/17 08:15 (NS Flush) 2 ml BID IVF 02/16/17 09:00 02/20/17 22:28 (Benadryl) 25 mg Q6H PRN PO 02/16/17 08:15 (Morphine Inj) 4 mg Q3H PRN IV PUSH 02/16/17 08:15 (Mucinex Er) 600 mg BID PO 02/16/17 21:00 02/21/17 09:17 Nicotine 1 patch 1 patch DAILY TD 02/17/17 16:00 02/21/17 09:16 (Rocephin Inj/NS Inj) 100 ml @ 200 mls/hr Q24H IV 02/17/17 16:00 02/20/17 19:00 Miscellaneous Information 1 1 HS TD 02/17/17 21:00 02/21/17 09:16 (Vancomycin Inj/ NS 250 ml Inj) 250 ml @ 250 mls/hr Q8H IV 02/17/17 22:00 02/21/17 05:54 Naloxone HCl 0.4 mg 0.4 mg UNSCH PRN IV 02/19/17 10:00 (Zithromax Inj/ NS 250 ml Inj) 250 ml @ 250 mls/hr Q24H IV 02/20/17 14:00 02/20/17 17:20 Miscellaneous Information SPECIFIC LAB TO BE DRAWN:[facility] DATE TO BE DRAyan.. ONCE ONCE XX 02/22/17 05:45 02/22/17 05:46 Urinary Catheter: No Vascular Central Line Catheter: No A/P Problem List: (1) Septic arthritis ICD Code: M00.9 Status: Acute (2) Lytic lesion of bone on x-ray ICD Code: M89.9 Status: Acute Assessment and Plan 1. Septic arthritis of the right knee. Patient status post aspiration of the right knee with elevated white blood cell count of 76,400. The patient will start IV vancomycin and IV cefepime. Gram stain from aspiration showed gram-positive cocci MRSA. ID consulted who recommended to continue IV vancomycin. Patient underwent surgical procedures on 02/19/17 with diagnosis of septic right knee status post right knee arthrotomy with irrigation and right min by Dr. Mathis. Patient is status post incision and debridement of lower extremity wounds. Follow-up podiatry recommendations. 02/20 final cultures and sensitivities still show MRSA. 2. Chronic lower extremity wounds. Continue wound care. Patient to have I&D. Plastic surgery consulted as per vascular digital specialist request Dr. Tanner 3. Polysubstance abuse with history of IV drug abuse. ID following. 4. Hypokalemia. Resolved after repletion. Continue to monitor and replace as needed. 5. Tobacco dependence started on bronchodilator mucolytic and incentive spirometry. Advised smoking cessation. Continue nicotine patch. 6. Community-acquired pneumonia. Chest x-ray obtained on 02/17/17 reviewed by me shows patchy areas of bibasilar infiltrate versus atelectasis. Large lytic lesion in the humeral head on the left. 02/20 CT of the chest shows bilateral bibasilar airspace consolidation consistent with pneumonia. Right breast implant intracapsular rupture. Continue IV vancomycin, Rocephin and azithromycin. 7. Bone Lytic lesion found in the left humeral head. As per radiology report there is a new large cortical defect in the superior margin of the left humeral head which was not present on previous exam on 08/31/13. Differential considerations would include an erosive or inflammatory arthropathy versus metastatic lesion. 02/20 CT scan of the left shoulder showed diffuse destructive process involving the left shoulder which favors a severe arthritic process. However neoplastic process was not completely excluded. MRI was ordered to further assess the above-mentioned abnormalities. It showed abnormal bone marrow edema and enhancement and erosions in the proximal humerus and bony glenoid characteristic of possibly an infected joint effusion as well. There is edema of the rotator musculature and a rotator cuff tear distally. Enlarged left axillary lymph nodes also described. MRI and CT scan personally reviewed by me. This is possibly secondary to septic arthritis of the left shoulder. I will follow-up on infectious disease and orthopedic surgery recommendations. 8. Right breast implant intracapsular rupture. I will consult plastic surgery for further recommendations ---> pending. GI prophylaxis: I will add PPI. DVT prophylaxis: Continue Lovenox SQ Discharge Planning Pending ID and ortho evaluation of left shoulder Lytic lesion and possible septic arthritis. Pending plastic surgery consultation. Problem Qualifiers (1) Septic arthritis: Qualified Code: M00.9 - Pyogenic arthritis of right knee joint, due to unspecified organism Randall Farnsworth MD Feb 21, 2017 12:36
[2017-02-21] MEDS: AZITHROMYCIN INJ 500 MG in SODIUM CHLOR 0.9% 250 ML INJ 250 ML IV SCH (16:19)
[2017-02-21] MEDS: cefTRIAXone INJ 1,000 MG in SODIUM CHLORIDE 0.9% INJ 100 ML IV SCH (17:35)
[2017-02-21] MEDS: NORTRIPTYLINE HCL 25 MG CAP PO SCH (21:50)
[2017-02-22] VITALS (8 sets, daily range): BP systolic 103–121; BP diastolic 50–63; PULSE 93–107; RESP 16–18; TEMP 97.8–98.6; O2SAT 95–97
[2017-02-22] MEDS: HYDROmorphone HCL PF 1 MG/ML VIAL IV PRN ×7 (00:48→21:10)
[2017-02-22] MEDS ORDERED: PHARMACY ORDERED LAB XX ONE (05:45)
[2017-02-22] MEDS: VANCOMYCIN 1,000 MG/NS 250 ML IV SCH ×6 (05:50→21:09)
[2017-02-22] MEDS: guaiFENesin E.R. 600 MG TAB PO SCH ×2 (08:05→21:07)
[2017-02-22] MEDS: GABAPENTIN 300 MG CAP PO SCH ×2 (08:05→21:07)
[2017-02-22] MEDS: NICOTINE 14 MG/24 HR PATCH TD SCH (08:06)
[2017-02-22] MEDS: SODIUM CHLORIDE 0.9% FLUSH 5 ML FLUSH IVF SCH ×2 (09:00→21:08)
--- NOTE | 2017-02-22 10:58 | HHI.PR ---
Subjective Remarks Deneis fevers/chills pain controlled denies diarrhea/rash denies cp/sob (+) pain in left shoulder with decreased range of motion Objective Vitals Vital Signs Date Time Temp Pulse Resp B/P Pulse Ox O2 Delivery O2 Flow Rate FiO2 02/22/17 09:35 98 02/22/17 08:11 Room Air 02/22/17 08:00 98.1 96 18 121/63 95 02/22/17 04:00 98.1 99 18 107/60 96 02/22/17 00:00 97.8 107 18 117/58 95 02/21/17 20:00 99.5 105 18 126/60 99 02/21/17 20:00 Room Air 02/21/17 20:00 111 02/21/17 19:29 94 21 02/21/17 16:00 98.7 106 18 110/57 100 02/21/17 12:00 98.0 95 18 119/73 95 I/O 02/21/17 02/21/17 02/21/17 02/22/17 02/22/17 02/22/17 07:00 15:00 23:00 07:00 15:00 23:00 Intake Total 880 ml 1520 ml 848 ml Output Total 15 ml Balance 865 ml 1520 ml 848 ml Intake Oral 720 ml IV Total 880 ml 800 ml 848 ml Drainage Total 15 ml # Voids 3 2 6 # Bowel Movements 1 0 Result Diagram: 02/21/17 0532 02/21/17 0532 Imaging Last Impressions Shoulder MRI 02/20/17 0000 Signed Impressions: Service Date/Time: Monday, February 20, 2017 14:42 - CONCLUSION: 1. Abnormal marrow edema and enhancement and erosions in the proximal humerus and bony glenoid is characteristic of, possibly with an infected joint effusion as well. There is edema of the rotator musculature and the rotator cuff tear distally. They are enlarged left axillary lymph nodes. Ole Lam MD Upper Extremity CT 02/18/17 0000 Signed Impressions: Service Date/Time: Monday, February 20, 2017 07:48 - CONCLUSION: Diffuse destructive process involving the left shoulder which given the adjacent bony remodeling and the location of the lytic lesions favor a severe arthritic process, however, a neoplastic process is not completely excluded and should be further evaluated with MRI to evaluate the marrow... Amairani Cleary MD Chest CT 02/18/17 0000 Signed Impressions: Service Date/Time: Monday, February 20, 2017 07:48 - CONCLUSION: 1. Bilateral bibasilar airspace consolidation consistent with pneumonia. 2. Right breast implant intracapsular rupture. Amairani Cleary MD Chest X-Ray 02/17/17 0000 Signed Impressions: Service Date/Time: Friday, February 17, 2017 13:34 - CONCLUSION: 1. Patchy areas of bibasilar infiltrate atelectasis concerning for pneumonia. 2. Large lytic lesion in the humeral head on the left. This is described in detail above. Malignancy is not excluded. Stoney Hwang MD Objective Remarks GENERAL: Awake and alert, NAD SKIN: Warm and dry. Has dressings on BLE wounds, dry and intact. She has generalized hypopigmented scars HEENT: [place] conjunctivae, no petechia, no hemorrhage. No scleral icterus. Moist mucosa. NECK: Trachea midline. No JVD or lymphadenopathy. Supple, nontender, no meningeal signs. CARDIOVASCULAR: Regular rate and rhythm without murmurs, gallops, or rubs. RESPIRATORY: Clear to auscultation. Breath sounds equal bilaterally. No wheezes , rales, or rhonchi. BREAST: Has implants, has hypopigmented scars on her breast GASTROINTESTINAL: Abdomen soft, non-tender, mildly distended. Bowel sounds are present and normoactive. No hepato-splenomegaly, or palpable masses. No guarding. MUSCULOSKELETAL: Extremities without clubbing, cyanosis, or edema. R knee with dressing in place, has drain in place. Dressings on her wounds. Left shoulder pain on palpation of the glenohumeral joint. Patient unable to move left shoulder secondary to pain. NEUROLOGICAL: Non-focal LINE: PIV with no evidence of infection Procedures sp Right knee arthrotomy with irrigation and debridement of infection 02/16/17 sp debridement of bilateral lower extremity wounds on 02/19/17 Medications and IVs Current Medications Medications (Trade) Dose Ordered Sig/Arlette Route Start Time Stop Time Status Last Admin (NS 1000 ml Inj) 1,000 ml @ 100 mls/hr Q10H IV 02/15/17 06:32 02/21/17 21:53 (Zofran Inj) 4 mg Q6H PRN IVP 02/15/17 06:45 (Dulcolax Supp) 10 mg DAILY PRN ND 02/15/17 06:45 (Dilaudid Pf Inj) 1 mg Q3H PRN IV 02/15/17 06:45 02/22/17 08:03 (Neurontin) 600 mg BID PO 02/15/17 09:00 02/22/17 08:05 (Ativan) 0.5 mg DAILY PRN PO 02/15/17 06:45 Nortriptyline HCl 50 mg 50 mg HS PO 02/15/17 21:00 02/21/17 21:50 (Vancomycin Consult Pharmacy) 0 ml @ 0 mls/hr UNSCH OTHER 02/15/17 08:00 (Dilaudid) 4 mg Q6H PRN PO 02/15/17 12:45 (Lovenox Inj) 30 mg Q24H SQ 02/15/17 12:00 02/21/17 11:29 (Tylenol) 650 mg Q4H PRN PO 02/15/17 17:15 02/15/17 17:25 (NS Flush) 2 ml UNSCH PRN IVF 02/16/17 08:15 02/22/17 00:48 (NS Flush) 2 ml BID IVF 02/16/17 09:00 02/21/17 21:52 (Benadryl) 25 mg Q6H PRN PO 02/16/17 08:15 (Morphine Inj) 4 mg Q3H PRN IV PUSH 02/16/17 08:15 (Mucinex Er) 600 mg BID PO 02/16/17 21:00 02/22/17 08:05 Nicotine 1 patch 1 patch DAILY TD 02/17/17 16:00 02/22/17 08:06 (Rocephin Inj/NS Inj) 100 ml @ 200 mls/hr Q24H IV 02/17/17 16:00 02/21/17 17:35 Miscellaneous Information 1 1 HS TD 02/17/17 21:00 02/21/17 09:16 (Vancomycin Inj/ NS 250 ml Inj) 250 ml @ 250 mls/hr Q8H IV 02/17/17 22:00 02/22/17 05:50 Naloxone HCl 0.4 mg 0.4 mg UNSCH PRN IV 02/19/17 10:00 (Zithromax Inj/ NS 250 ml Inj) 250 ml @ 250 mls/hr Q24H IV 02/20/17 14:00 02/21/17 16:19 Urinary Catheter: No Vascular Central Line Catheter: No A/P Problem List: (1) Septic arthritis ICD Code: M00.9 Status: Acute (2) Lytic lesion of bone on x-ray ICD Code: M89.9 Status: Acute Assessment and Plan 1. Septic arthritis of the right knee. Patient status post aspiration of the right knee with elevated white blood cell count of 76,400. The patient will start IV vancomycin and IV cefepime. Gram stain from aspiration showed gram-positive cocci MRSA. ID consulted who recommended to continue IV vancomycin. Patient underwent surgical procedures on 02/19/17 with diagnosis of septic right knee status post right knee arthrotomy with irrigation and right min by Dr. Mathis. Patient is status post incision and debridement of lower extremity wounds. Follow-up podiatry recommendations. final cultures and sensitivities still show MRSA. 2. Chronic lower extremity wounds. Continue wound care. Patient to have I&D. Plastic surgery consulted as per vascular wound specialist request Dr. Tanner 3. Polysubstance abuse with history of IV drug abuse. ID following. 4. Hypokalemia. Resolved after repletion. Continue to monitor and replace as needed. 5. Tobacco dependence started on bronchodilator mucolytic and incentive spirometry. Advised smoking cessation. Continue nicotine patch. 6. Community-acquired pneumonia. Chest x-ray obtained on 02/17/17 reviewed by me shows patchy areas of bibasilar infiltrate versus atelectasis. Large lytic lesion in the humeral head on the left. 02/20 CT of the chest shows bilateral bibasilar airspace consolidation consistent with pneumonia. Right breast implant intracapsular rupture. Continue IV vancomycin, Rocephin and azithromycin. 7. Bone Lytic lesion found in the left humeral head. As per radiology report there is a new large cortical defect in the superior margin of the left humeral head which was not present on previous exam on 08/31/13. Differential considerations would include an erosive or inflammatory arthropathy versus metastatic lesion. 02/20 CT scan of the left shoulder showed diffuse destructive process involving the left shoulder which favors a severe arthritic process. However neoplastic process was not completely excluded. MRI was ordered to further assess the above-mentioned abnormalities. It showed abnormal bone marrow edema and enhancement and erosions in the proximal humerus and bony glenoid characteristic of possibly an infected joint effusion as well. There is edema of the rotator musculature and a rotator cuff tear distally. Enlarged left axillary lymph nodes also described. MRI and CT scan personally reviewed by me. This is possibly secondary to septic arthritis of the left shoulder. I will follow-up on infectious disease and orthopedic surgery recommendations. 8. Right breast implant intracapsular rupture. Discussed case with Dr Ramirez. He states that the patient can follow up with Dr Jang as an outpatient to have the breast implant removed and replaced. GI prophylaxis: I will add PPI. DVT prophylaxis: Continue Lovenox SQ Discharge Planning Pending ID and ortho evaluation of left shoulder Lytic lesion and possible septic arthritis. Problem Qualifiers (1) Septic arthritis: Qualified Code: M00.9 - Pyogenic arthritis of right knee joint, due to unspecified organism Randall Farnsworth MD Feb 22, 2017 10:58
[2017-02-22] MEDS: SODIUM CHLOR 0.9% 1000 ML INJ 1,000 ML IV SCH (11:06)
[2017-02-22] MEDS: ENOXAPARIN SODIUM 30 MG/0.3 ML SYRINGE SQ SCH (11:10)
--- NOTE | 2017-02-22 11:29 | HHI.IDPN ---
Subjective Subjective Remarks Notes reviewed Temps ok Has had problem with L shoulder previously, but worsening MRI with findings of osteo, possible septic joint and rotator cuff tear BC negative so far Knee C/S MRSA Also had debridement of her leg wounds Antibiotics Vancomycin Rocephin Zithromax Lines PIV Past Medical History Sicca syndrome. Sun sensitivity. Psoriasis. Alopecia. Raynaud's phenomenon. Aphthous ulcers. Vasculitis diagnosis 2012 Hx MSSA sepsis and septic R wrist Fibromyalgia Hx IVDU - claims last use 15 yeasr ago, but admission 2012 (+) drug screen and admits to use at that time Past Surgical History Breasts augmentation surgery. Abdominoplasty. section. Surgery on her R wrist Tubal ligation Debridement of lower extremity wounds Right tibia fracture repair Rhinoplasty Allergies: Coded Allergies: *MDRO Multi-Drug Resistant Organism (Verified Adverse Reaction, Unknown, ) MRSA (finger wound) - 06/06/16; (synovial fluid) - 02/15/17; (leg)-02/19/17 MRSA PCR Screen POSITIVE -02/15/17 Objective . Vital Signs Date Time Temp Pulse Resp B/P Pulse Ox O2 Delivery O2 Flow Rate FiO2 02/22/17 09:35 98 02/22/17 08:11 Room Air 02/22/17 08:00 98.1 96 18 121/63 95 02/22/17 04:00 98.1 99 18 107/60 96 02/22/17 00:00 97.8 107 18 117/58 95 02/21/17 20:00 99.5 105 18 126/60 99 02/21/17 20:00 Room Air 02/21/17 20:00 111 02/21/17 19:29 94 21 02/21/17 16:00 98.7 106 18 110/57 100 02/21/17 12:00 98.0 95 18 119/73 95 02/21/17 02/21/17 02/22/17 15:00 23:00 07:00 Intake Total 1520 ml 848 ml Balance 1520 ml 848 ml Intake Oral 720 ml IV Total 800 ml 848 ml # Voids 3 2 6 # Bowel Movements 1 0 . Laboratory Tests Test 02/20/17 02/21/17 13:04 05:32 White Blood Count 5.0 TH/MM3 4.7 TH/MM3 Red Blood Count 3.92 MIL/MM3 3.44 MIL/MM3 Hemoglobin 9.1 GM/DL 7.8 GM/DL Hematocrit 27.7 % 24.1 % Mean Corpuscular Volume 70.6 FL 70.0 FL Mean Corpuscular Hemoglobin 23.2 PG 22.6 PG Mean Corpuscular Hemoglobin 32.9 % 32.3 % Concent Red Cell Distribution Width 17.5 % 17.5 % Platelet Count 327 TH/MM3 337 TH/MM3 Mean Platelet Volume 6.4 FL 6.8 FL Neutrophils (%) (Auto) 73.7 % 63.2 % Lymphocytes (%) (Auto) 17.6 % 21.6 % Monocytes (%) (Auto) 7.4 % 12.1 % Eosinophils (%) (Auto) 0.8 % 2.4 % Basophils (%) (Auto) 0.5 % 0.7 % Neutrophils # (Auto) 3.7 TH/MM3 3.0 TH/MM3 Lymphocytes # (Auto) 0.9 TH/MM3 1.0 TH/MM3 Monocytes # (Auto) 0.4 TH/MM3 0.6 TH/MM3 Eosinophils # (Auto) 0.0 TH/MM3 0.1 TH/MM3 Basophils # (Auto) 0.0 TH/MM3 0.0 TH/MM3 CBC Comment AUTO DIFF AUTO DIFF Differential Comment AUTO DIFF AUTO DIFF CONFIRMED CONFIRMED Laboratory Tests Test 02/20/17 02/21/17 13:04 05:32 Sodium Level 139 MEQ/L 137 MEQ/L Potassium Level 3.5 MEQ/L 3.9 MEQ/L Chloride Level 105 MEQ/L 102 MEQ/L Carbon Dioxide Level 25.4 MEQ/L 27.3 MEQ/L Anion Gap 9 MEQ/L 8 MEQ/L Blood Urea Nitrogen 13 MG/DL 7 MG/DL Creatinine 0.46 MG/DL 0.41 MG/DL Estimat Glomerular Filtration 142 ML/MIN 162 ML/MIN Rate Random Glucose 129 MG/DL 77 MG/DL Calcium Level 8.2 MG/DL 8.3 MG/DL Total Bilirubin 0.2 MG/DL 0.2 MG/DL Aspartate Amino Transf 18 U/L 28 U/L (AST/SGOT) Alanine Aminotransferase 20 U/L 27 U/L (ALT/SGPT) Alkaline Phosphatase 291 U/L 312 U/L Total Protein 6.7 GM/DL 6.8 GM/DL Albumin 1.7 GM/DL 1.9 GM/DL Imaging Chest X-Ray 02/17/17 0000 Signed Impressions: Service Date/Time: Friday, February 17, 2017 13:34 - CONCLUSION: 1. Patchy areas of bibasilar infiltrate atelectasis concerning for pneumonia. 2. Large lytic lesion in the humeral head on the left. This is described in detail above. Malignancy is not excluded. Stoney Hwang MD Physical Exam GENERAL: Awake and alert, NAD SKIN: Warm and dry. She has generalized hypopigmented scars HEENT: [place] conjunctivae, no petechia, no hemorrhage. No scleral icterus. Moist mucosa. NECK: Trachea midline. No JVD or lymphadenopathy. Supple, nontender, no meningeal signs. CARDIOVASCULAR: Regular rate and rhythm without murmurs, gallops, or rubs. RESPIRATORY: Clear to auscultation. Breath sounds equal bilaterally. No wheezes , rales, or rhonchi. BREAST: Has implants, has hypopigmented scars on her breast GASTROINTESTINAL: Abdomen soft, non-tender, mildly distended. No hepato- splenomegaly, or palpable masses. No guarding. MUSCULOSKELETAL: Extremities without clubbing, cyanosis, or edema. R knee with dry dressing in place. Dry dressings on her leg wounds. L shoulder, pain with ROM NEUROLOGICAL: Non-focal LINE: no evidence of infection Assessment & Plan Remarks IMPRESSION Sepsis due to septic knee Septic R knee, C/S MRSA - had OR 02/16 Possile septic joint L shoulder and osteo humerus Chronic skin lesions, etiology? ?Hx vasculitis with purpuric lesions in BLE last 2012 Hx IVDU Hs MSSA sepsis 2013 Chronic narcotic dependence CXR with infiltrates though clinically no PNA symptoms RECOMMENDATION Continue IV Vanco Follow C/S Monitor progress Wound care consult Also on Rocephin and Zithromax Will ask ortho to evaluate L shoulder D/W Marquita Grove MD Feb 22, 2017 11:29
[2017-02-22] MEDS: AZITHROMYCIN INJ 500 MG in SODIUM CHLOR 0.9% 250 ML INJ 250 ML IV SCH (13:00)
[2017-02-22] MEDS: cefTRIAXone INJ 1,000 MG in SODIUM CHLORIDE 0.9% INJ 100 ML IV SCH (16:23)
[2017-02-22] MEDS: NORTRIPTYLINE HCL 25 MG CAP PO SCH (21:07)
[2017-02-22] MEDS: REMOVE OLD NICODERM (NICOTINE) PATCH TD SCH (21:09)
[2017-02-23] VITALS (8 sets, daily range): BP systolic 97–120; BP diastolic 52–73; PULSE 84–103; RESP 18; TEMP 97.1–98.7; O2SAT 96–100
[2017-02-23] MEDS: HYDROmorphone HCL PF 1 MG/ML VIAL IV PRN ×7 (00:45→21:51)
[2017-02-23] MEDS: SODIUM CHLOR 0.9% 1000 ML INJ 1,000 ML IV SCH ×2 (04:24→13:41)
[2017-02-23] MEDS: VANCOMYCIN 1,000 MG/NS 250 ML IV SCH ×6 (04:50→21:52)
[2017-02-23] MEDS: guaiFENesin E.R. 600 MG TAB PO SCH ×2 (07:36→21:52)
[2017-02-23] MEDS: NICOTINE 14 MG/24 HR PATCH TD SCH (07:37)
[2017-02-23] MEDS: GABAPENTIN 300 MG CAP PO SCH ×2 (07:37→21:51)
[2017-02-23] MEDS: SODIUM CHLORIDE 0.9% FLUSH 5 ML FLUSH IVF SCH ×2 (09:00→21:00)
[2017-02-23] MEDS: ENOXAPARIN SODIUM 30 MG/0.3 ML SYRINGE SQ SCH (11:20)
--- NOTE | 2017-02-23 12:39 | HHI.IDPN ---
Subjective Subjective Remarks Notes reviewed Temps ok C/O pain L shoulder MRI with findings of osteo, possible septic joint and rotator cuff tear BC negative so far Knee C/S MRSA Also had debridement of her leg wounds Antibiotics Vancomycin Rocephin Zithromax Lines PIV Past Medical History Sicca syndrome. Sun sensitivity. Psoriasis. Alopecia. Raynaud's phenomenon. Aphthous ulcers. Vasculitis diagnosis 2012 Hx MSSA sepsis and septic R wrist Fibromyalgia Hx IVDU - claims last use 15 yeasr ago, but admission 2012 (+) drug screen and admits to use at that time Past Surgical History Breasts augmentation surgery. Abdominoplasty. section. Surgery on her R wrist Tubal ligation Debridement of lower extremity wounds Right tibia fracture repair Rhinoplasty Allergies: Coded Allergies: *MDRO Multi-Drug Resistant Organism (Verified Adverse Reaction, Unknown, ) MRSA (finger wound) - 06/06/16; (synovial fluid) - 02/15/17; (leg)-02/19/17 MRSA PCR Screen POSITIVE -02/15/17 Objective . Vital Signs Date Time Temp Pulse Resp B/P Pulse Ox O2 Delivery O2 Flow Rate FiO2 02/23/17 09:40 Room Air 02/23/17 08:00 98.3 96 18 119/73 96 02/23/17 04:00 98.3 96 18 120/69 96 02/23/17 01:13 93 02/23/17 01:11 Room Air 02/23/17 00:08 98.7 93 18 118/65 97 02/22/17 21:08 97 21 02/22/17 20:00 98.5 93 16 105/58 96 02/22/17 16:00 98.6 97 18 104/54 96 02/22/17 02/22/17 02/23/17 15:00 23:00 07:00 Intake Total 2195 ml 1100 ml 1158 ml Output Total 2600 ml 850 ml Balance -405 ml 250 ml 1158 ml Intake Oral 960 ml IV Total 1235 ml 1100 ml 1158 ml Output Urine Total 2600 ml 850 ml # Voids 1 4 # Bowel Movements 0 0 . Laboratory Tests Test 02/23/17 06:54 Creatinine 0.54 MG/DL Estimat Glomerular Filtration 118 ML/MIN Rate Imaging Chest X-Ray 02/17/17 0000 Signed Impressions: Service Date/Time: Friday, February 17, 2017 13:34 - CONCLUSION: 1. Patchy areas of bibasilar infiltrate atelectasis concerning for pneumonia. 2. Large lytic lesion in the humeral head on the left. This is described in detail above. Malignancy is not excluded. Stoney Hwang MD Physical Exam GENERAL: Awake and alert, NAD SKIN: Warm and dry. She has generalized hypopigmented scars HEENT: [place] conjunctivae, no petechia, no hemorrhage. No scleral icterus. Moist mucosa. NECK: Trachea midline. No JVD or lymphadenopathy. Supple, nontender, no meningeal signs. CARDIOVASCULAR: Regular rate and rhythm without murmurs, gallops, or rubs. RESPIRATORY: Clear to auscultation. Breath sounds equal bilaterally. No wheezes , rales, or rhonchi. BREAST: Has implants, has hypopigmented scars on her breast GASTROINTESTINAL: Abdomen soft, non-tender, mildly distended. No hepato- splenomegaly, or palpable masses. No guarding. MUSCULOSKELETAL: Extremities without clubbing, cyanosis, or edema. R knee with dry dressing in place. Dry dressings on her leg wounds. L shoulder, pain with ROM NEUROLOGICAL: Non-focal LINE: no evidence of infection Assessment & Plan Remarks IMPRESSION Sepsis due to septic knee Septic R knee, C/S MRSA - had OR 02/16 Possile septic joint L shoulder and osteo humerus Chronic skin lesions, etiology? ?Hx vasculitis with purpuric lesions in BLE last 2012 Hx IVDU Hs MSSA sepsis 2012 Chronic narcotic dependence CXR with infiltrates though clinically no PNA symptoms RECOMMENDATION Continue IV Vanco Follow C/S Monitor progress Wound care consult Stop Rocephin and Zithromax Will ask ortho to evaluate L shoulder Marquita Ferreira MD Feb 23, 2017 12:39
--- NOTE | 2017-02-23 18:28 | HHI.PR ---
Subjective Remarks As per RN patient not eating much Patient states had a migraine earlier and that is why she did not eat breakfast , states ate lunch still has left shoulder pain denies diarrhea, nausea or vomiting denies rash Objective Vitals Vital Signs Date Time Temp Pulse Resp B/P Pulse Ox O2 Delivery O2 Flow Rate FiO2 02/23/17 16:00 97.8 89 18 97/52 100 02/23/17 13:18 97.1 84 18 106/59 100 02/23/17 09:40 Room Air 02/23/17 08:20 103 02/23/17 08:00 98.3 96 18 119/73 96 02/23/17 04:00 98.3 96 18 120/69 96 02/23/17 01:13 93 02/23/17 01:11 Room Air 02/23/17 00:08 98.7 93 18 118/65 97 02/22/17 21:08 97 21 02/22/17 20:00 98.5 93 16 105/58 96 I/O 02/22/17 02/22/17 02/22/17 02/23/17 02/23/17 02/23/17 07:00 15:00 23:00 07:00 15:00 23:00 Intake Total 848 ml 2195 ml 1100 ml 1158 ml 720 ml Output Total 2600 ml 850 ml 1750 ml Balance 848 ml -405 ml 250 ml 1158 ml -1030 ml Intake Oral 960 ml 720 ml IV Total 848 ml 1235 ml 1100 ml 1158 ml Output Urine Total 2600 ml 850 ml 1750 ml # Voids 6 1 4 # Bowel Movements 0 0 0 0 Result Diagram: 02/21/17 0532 02/23/17 0654 Imaging Last Impressions Shoulder MRI 02/20/17 0000 Signed Impressions: Service Date/Time: Monday, February 20, 2017 14:42 - CONCLUSION: 1. Abnormal marrow edema and enhancement and erosions in the proximal humerus and bony glenoid is characteristic of, possibly with an infected joint effusion as well. There is edema of the rotator musculature and the rotator cuff tear distally. They are enlarged left axillary lymph nodes. Ole Lam MD Upper Extremity CT 02/18/17 0000 Signed Impressions: Service Date/Time: Monday, February 20, 2017 07:48 - CONCLUSION: Diffuse destructive process involving the left shoulder which given the adjacent bony remodeling and the location of the lytic lesions favor a severe arthritic process, however, a neoplastic process is not completely excluded and should be further evaluated with MRI to evaluate the marrow... Amairani Cleary MD Chest CT 02/18/17 0000 Signed Impressions: Service Date/Time: Monday, February 20, 2017 07:48 - CONCLUSION: 1. Bilateral bibasilar airspace consolidation consistent with pneumonia. 2. Right breast implant intracapsular rupture. Amairani Cleary MD Chest X-Ray 02/17/17 0000 Signed Impressions: Service Date/Time: Friday, February 17, 2017 13:34 - CONCLUSION: 1. Patchy areas of bibasilar infiltrate atelectasis concerning for pneumonia. 2. Large lytic lesion in the humeral head on the left. This is described in detail above. Malignancy is not excluded. Stoney Hwang MD Objective Remarks GENERAL: Awake and alert, NAD SKIN: Warm and dry. Has dressings on BLE wounds, dry and intact. She has generalized hypopigmented scars HEENT: [place] conjunctivae, no petechia, no hemorrhage. No scleral icterus. Moist mucosa. NECK: Trachea midline. No JVD or lymphadenopathy. Supple, nontender, no meningeal signs. CARDIOVASCULAR: Regular rate and rhythm without murmurs, gallops, or rubs. RESPIRATORY: Clear to auscultation. Breath sounds equal bilaterally. No wheezes , rales, or rhonchi. BREAST: Has implants, has hypopigmented scars on her breast GASTROINTESTINAL: Abdomen soft, non-tender, mildly distended. Bowel sounds are present and normoactive. No hepato-splenomegaly, or palpable masses. No guarding. MUSCULOSKELETAL: Extremities without clubbing, cyanosis, or edema. R knee with dressing in place, has drain in place. Dressings on her wounds. Left shoulder pain on palpation of the glenohumeral joint. Patient unable to move left shoulder secondary to pain. NEUROLOGICAL: Non-focal LINE: PIV with no evidence of infection Procedures sp Right knee arthrotomy with irrigation and debridement of infection 02/16/17 sp debridement of bilateral lower extremity wounds on 02/19/17 Medications and IVs Current Medications Medications (Trade) Dose Ordered Sig/Arlette Route Start Time Stop Time Status Last Admin (NS 1000 ml Inj) 1,000 ml @ 100 mls/hr Q10H IV 02/15/17 06:32 02/23/17 13:41 (Zofran Inj) 4 mg Q6H PRN IVP 02/15/17 06:45 (Dulcolax Supp) 10 mg DAILY PRN NM 02/15/17 06:45 (Dilaudid Pf Inj) 1 mg Q3H PRN IV 02/15/17 06:45 02/23/17 18:08 (Neurontin) 600 mg BID PO 02/15/17 09:00 02/23/17 07:37 (Ativan) 0.5 mg DAILY PRN PO 02/15/17 06:45 Nortriptyline HCl 50 mg 50 mg HS PO 02/15/17 21:00 02/22/17 21:07 (Vancomycin Consult Pharmacy) 0 ml @ 0 mls/hr UNSCH OTHER 02/15/17 08:00 (Dilaudid) 4 mg Q6H PRN PO 02/15/17 12:45 (Lovenox Inj) 30 mg Q24H SQ 02/15/17 12:00 02/23/17 11:20 (Tylenol) 650 mg Q4H PRN PO 02/15/17 17:15 02/15/17 17:25 (NS Flush) 2 ml UNSCH PRN IVF 02/16/17 08:15 02/22/17 00:48 (NS Flush) 2 ml BID IVF 02/16/17 09:00 02/22/17 21:08 (Benadryl) 25 mg Q6H PRN PO 02/16/17 08:15 (Morphine Inj) 4 mg Q3H PRN IV PUSH 02/16/17 08:15 (Mucinex Er) 600 mg BID PO 02/16/17 21:00 02/23/17 07:36 (Habitrol 14 Mg Patch.24 Hr) 1 patch DAILY TD 02/17/17 16:00 02/23/17 07:37 Miscellaneous Information 1 1 HS TD 02/17/17 21:00 02/22/17 21:09 (Vancomycin Inj/ NS 250 ml Inj) 250 ml @ 250 mls/hr Q8H IV 02/17/17 22:00 02/23/17 13:28 (Narcan Inj) 0.4 mg UNSCH PRN IV 02/19/17 10:00 Urinary Catheter: No Vascular Central Line Catheter: No A/P Problem List: (1) Septic arthritis ICD Code: M00.9 Status: Acute (2) Lytic lesion of bone on x-ray ICD Code: M89.9 Status: Acute Assessment and Plan 1. Septic arthritis of the right knee. Patient status post aspiration of the right knee with elevated white blood cell count of 76,400. The patient will start IV vancomycin and IV cefepime. Gram stain from aspiration showed gram-positive cocci MRSA. ID consulted who recommended to continue IV vancomycin. Patient underwent surgical procedures on 02/19/17 with diagnosis of septic right knee status post right knee arthrotomy with irrigation and right min by Dr. Mathis. Patient is status post incision and debridement of lower extremity wounds. Follow-up podiatry recommendations. final cultures and sensitivities still show MRSA. 2. Chronic lower extremity wounds. Continue wound care. Patient to have I&D. Plastic surgery consulted as per vascular radiator specialist request Dr. Tanner 3. Polysubstance abuse with history of IV drug abuse. ID following. 4. Hypokalemia. Resolved after repletion. Continue to monitor and replace as needed. 5. Tobacco dependence started on bronchodilator mucolytic and incentive spirometry. Advised smoking cessation. Continue nicotine patch. 6. Community-acquired pneumonia. Chest x-ray obtained on 02/17/17 reviewed by me shows patchy areas of bibasilar infiltrate versus atelectasis. Large lytic lesion in the humeral head on the left. 02/23 CT of the chest shows bilateral bibasilar airspace consolidation consistent with pneumonia. Right breast implant intracapsular rupture. Sp Rx with IV Rocephin and Azithromycin completed on 02/22/17. 7. Bone Lytic lesion found in the left humeral head. As per radiology report there is a new large cortical defect in the superior margin of the left humeral head which was not present on previous exam on 08/31/13. Differential considerations would include an erosive or inflammatory arthropathy versus metastatic lesion. 02/20 CT scan of the left shoulder showed diffuse destructive process involving the left shoulder which favors a severe arthritic process. However neoplastic process was not completely excluded. MRI was ordered to further assess the above-mentioned abnormalities. It showed abnormal bone marrow edema and enhancement and erosions in the proximal humerus and bony glenoid characteristic of possibly an infected joint effusion as well. There is edema of the rotator musculature and a rotator cuff tear distally. Enlarged left axillary lymph nodes also described. MRI and CT scan personally reviewed by me. This is possibly secondary to septic arthritis of the left shoulder. 02/23 Called orthopedic surgery and spoke to Dr Flores who said he would see the patient. 8. Right breast implant intracapsular rupture. Discussed case with Dr Ramirez. He states that the patient can follow up with Dr Jang as an outpatient to have the breast implant removed and replaced. this was discussed with the patient. GI prophylaxis: I will add PPI. DVT prophylaxis: Continue Lovenox SQ Discharge Planning Pending ID clearance and orthopedic surgery evaluation of the left shoulder. Problem Qualifiers (1) Septic arthritis: Qualified Code: M00.9 - Pyogenic arthritis of right knee joint, due to unspecified organism Randall Farnsworth MD Feb 23, 2017 18:28
[2017-02-23] MEDS: REMOVE OLD NICODERM (NICOTINE) PATCH TD SCH (21:00)
[2017-02-23] MEDS: NORTRIPTYLINE HCL 25 MG CAP PO SCH (21:00)
[2017-02-24] VITALS: BP 115/62; PULSE 93; RESP 16; TEMP 98.2; O2SAT 98
[2017-02-24] MEDS: SODIUM CHLOR 0.9% 1000 ML INJ 1,000 ML IV SCH ×3 (00:32→20:32)
[2017-02-24] MEDS: HYDROmorphone HCL PF 1 MG/ML VIAL IV PRN ×6 (01:24→22:46)
[2017-02-24 04:00] VITALS: BP 110/64; PULSE 77; RESP 16; TEMP 98.5; O2SAT 98
[2017-02-24] MEDS: VANCOMYCIN 1,000 MG/NS 250 ML IV SCH ×4 (05:14→22:46)
--- NOTE | 2017-02-24 06:54 | PD.ORT.PN ---
Subjective Subjective Remarks Knee is continuing to improve. She does have continued pain in her left shoulder. She has had issues over the past several months but over the past several weeks it has become more severe Objective Vitals Vital Signs Date Time Temp Pulse Resp B/P Pulse Ox O2 Delivery O2 Flow Rate FiO2 02/24/17 04:00 98.5 77 16 110/64 98 02/24/17 00:00 98.2 93 16 115/62 98 02/23/17 20:00 97.9 88 18 103/56 100 02/23/17 20:00 Room Air 02/23/17 16:00 97.8 89 18 97/52 100 02/23/17 13:18 97.1 84 18 106/59 100 02/23/17 09:40 Room Air 02/23/17 08:20 103 02/23/17 08:00 98.3 96 18 119/73 96 I/O 02/23/17 02/23/17 02/23/17 02/24/17 02/24/17 02/24/17 07:00 15:00 23:00 07:00 15:00 23:00 Intake Total 1158 ml 720 ml 480 ml 360 ml Output Total 1750 ml 300 ml Balance 1158 ml -1030 ml 180 ml 360 ml Intake Oral 720 ml 480 ml 360 ml IV Total 1158 ml Output Urine Total 1750 ml 300 ml # Voids 4 1 # Bowel Movements 0 0 0 1 Result Diagram: 02/21/17 0532 02/23/17 0654 Objective Remarks RLE: dressings clean and dry. intact. . NVI with good dorsiflexion Left upper extremity: Mild swelling and pain to palpation to both anterior and posterior portion of shoulder. She has pain with motion her shoulder. Is unable to abduct more than 45 or forward flex more than 45. Skin is intact over shoulder. Distally she is intact sensation over the radial ulnar and median nerve distributions with good capillary refills. Assessment & Plan Assessment and Plan 1) Right Septic knee s/p I&D - POD 8 MRSA -WBAT -daily dressing changes right knee -discontinue drain -infectious disease for IV Abx pending cultures MRI does show rotator cuff tear and also abnormal changes to her humeral head with small joint effusion. Due to patient's history and pain with infusion we will plan on surgery today for irrigation and debridement of left shoulder. Nothing by mouth Sign consents Johnny Botello Jr. Feb 24, 2017 06:54
[2017-02-24 07:06] LABS: HEMATOCRIT 24.6 % (35.0-46.0); MEAN CELL VOLUME 69.1 FL (80.0-100.0); MEAN CORPUSCULAR HEMOGLOBIN 23.1 PG (27.0-34.0); MEAN CORPUSCULAR HGB CONC 33.5 % (32.0-36.0); PLATELET COUNT 431 TH/MM3 (150-450); RED BLOOD COUNT 3.57 MIL/MM3 (4.00-5.30); RED CELL DISTRIBUTION WIDTH 17.4 % (11.6-17.2); WHITE BLOOD COUNT 3.2 TH/MM3 (4.0-11.0)
[2017-02-24 07:11] LABS: REVIEW FLAG FINAL
[2017-02-24 07:20] LABS: BICARBONATE 26.5 MEQ/L (21.0-32.0); POTASSIUM 3.7 MEQ/L (3.5-5.1)
[2017-02-24 08:35] VITALS: BP 91/51; PULSE 79; RESP 17; TEMP 97.8; O2SAT 98
[2017-02-24] MEDS ORDERED: DO NOT ADM ANY ANTICOAGULANT DRUGS XX PRN (08:45)
[2017-02-24] MEDS: NICOTINE 14 MG/24 HR PATCH TD SCH (09:00)
[2017-02-24] MEDS: GABAPENTIN 300 MG CAP PO SCH ×2 (09:00→22:47)
[2017-02-24] MEDS: guaiFENesin E.R. 600 MG TAB PO SCH ×2 (09:00→22:46)
[2017-02-24] MEDS: SODIUM CHLORIDE 0.9% FLUSH 5 ML FLUSH IVF SCH ×2 (09:34→21:00)
[2017-02-24] MEDS ORDERED: VANCOMYCIN HCL 1000 MG VIAL ONE (10:51)
[2017-02-24] MEDS: GENTAMICIN SULFATE 80 MG/2 ML VIAL ONE ×2 (10:52→11:55)
[2017-02-24] MEDS ORDERED: ceFAZolin 2 GM PREMIX 50 ML ONE (10:52)
[2017-02-24] MEDS ORDERED: ceFAZolin INJ 1,000 MG VIAL ONE (10:52)
[2017-02-24] MEDS ORDERED: FAMOTIDINE 20 MG/2 ML VIAL ONE (11:08)
[2017-02-24] MEDS ORDERED: MIDAZOLAM HCL 2 MG/2 ML VIAL ONE (11:08)
[2017-02-24] MEDS ORDERED: PROPOFOL 200 MG/20 ML AMP IV ONE (12:00)
[2017-02-24] MEDS ORDERED: NEOSTIGMINE 3 MG/3 ML SYR IV ONE (12:00)
[2017-02-24] MEDS ORDERED: ONDANSETRON HCL 4 MG/2 ML VIAL IV PUSH ONE (12:00)
[2017-02-24] MEDS: ENOXAPARIN SODIUM 30 MG/0.3 ML SYRINGE SQ SCH (12:00)
--- NOTE | 2017-02-24 12:25 | PD.OP ---
cc: Leandro Mathis MD Operative Report Date of Surgery: Feb 24, 2017 Preoperative Diagnosis: Probable left shoulder infection and osteomyelitis of humerus Postoperative Diagnosis: Procedure: Left shoulder arthrotomy with irrigation debridement Left proximal humerus debridement of bone and humeral head Anesthesia: Gen. Surgeon: Leandro Mathis [employer] Supervisor(s): BRIAN Ch PA-C The surgical procedure was assisted by my physician starch treating assistant. My P.A. presence was necessary throughout this case for the manipulation and positioning of the surgical extremity. My P.A. was assisting me throughout the duration of this procedure. The skill set of a physician starch treating assistant was medically necessary to complete this procedure. During the surgical case the instructor adjunct surgical technician was working at the back table and the physician starch treating assistant was directly assisting me. Operation and Findings: Patient was seen and evaluated preoperatively. Patient has had severe left shoulder pain. CT scan and MRI were concerning for infection of shoulder joint and osteomyelitis. The risks and benefits of surgical and nonsurgical options were discussed in detail and informed consent was obtained for surgery. Patient was brought to the operating room and placed on or table. IV sedation and GETA were administered by anesthesiologist. Antibiotics were given prior to incision. Operative arm and shoulder were prepped with alcohol followed by Hibiclens and draped usual sterile fashion. Timeout procedure was performed. Procedure began with a 4 inch incision over the anterior shoulder. Cephalic vein was identified. A deltopectoral approach was utilized. At this point the rotator cuff interval was identified. Rotator cuff interval was opened. There was some fluid within the joint. The fluid will did not appear to be frankly infected or purulent. Cultures were obtained from the shoulder joint itself. The shoulder joint was visualized and noted to have severe osteoarthritis. The shoulder joint was thoroughly irrigated with pulsatile lavage. The rotator cuff interval was now closed with #1 PDS. Next attention was turned to the proximal humerus. A 3.5 mm drill bit was utilized to create holes in the metaphyseal region. A window was now created in the cortex. Curettes were used to obtain bone from the humeral head and neck. This bone was sent for cultures as well as pathology. After the bone was thoroughly debrided the soft tissue and bone were thoroughly irrigated with pulsatile lavage. A drain was now placed deep. Wound was thoroughly irrigated. Fascia was closed with #1 PDS, subcutaneous tissues closed with 3-0 PDS, and skin was closed with govind. Sterile dressings were applied. Patient was awakened and transferred to recovery in stable condition. Needle and sponge counts were correct. Leandro Mathis MD Feb 24, 2017 12:25
[2017-02-24] MEDS ORDERED: MORPHINE SULFATE 4 MG/ML INJ IV PUSH PRN (12:30)
[2017-02-24] MEDS ORDERED: Post-op Orders (for Pharmacy) MISC XX ONE (12:30)
[2017-02-24] MEDS ORDERED: ONDANSETRON HCL 4 MG/2 ML VIAL IVP PRN (12:30)
[2017-02-24] MEDS ORDERED: SODIUM CHLORIDE 0.9% FLUSH 5 ML FLUSH IVF PRN (12:30)
[2017-02-24 16:47] VITALS: BP 91/55; PULSE 97; RESP 18; TEMP 97.8; O2SAT 100
[2017-02-24 20:00] VITALS: BP 99/57; PULSE 89; PULSE 91; RESP 16; TEMP 98.3; O2SAT 100
[2017-02-24] MEDS: REMOVE OLD NICODERM (NICOTINE) PATCH TD SCH (21:00)
[2017-02-24] MEDS: NORTRIPTYLINE HCL 25 MG CAP PO SCH (22:47)
[2017-02-25] VITALS: BP 103/57; PULSE 89; RESP 18; TEMP 98.7; O2SAT 97
[2017-02-25] MEDS: HYDROmorphone HCL PF 1 MG/ML VIAL IV PRN ×7 (01:57→21:33)
[2017-02-25 04:00] VITALS: BP 106/58; PULSE 93; RESP 18; TEMP 97.4; O2SAT 99
[2017-02-25] MEDS: VANCOMYCIN 1,000 MG/NS 250 ML IV SCH ×6 (05:46→22:00)
[2017-02-25] MEDS: SODIUM CHLOR 0.9% 1000 ML INJ 1,000 ML IV SCH (05:47)
[2017-02-25 08:00] VITALS: BP 96/57; PULSE 86; PULSE 91; RESP 18; TEMP 98; O2SAT 97
[2017-02-25] MEDS: GABAPENTIN 300 MG CAP PO SCH ×2 (08:50→21:32)
[2017-02-25] MEDS: NICOTINE 14 MG/24 HR PATCH TD SCH (08:50)
[2017-02-25] MEDS: guaiFENesin E.R. 600 MG TAB PO SCH ×2 (08:50→21:32)
[2017-02-25] MEDS: SODIUM CHLORIDE 0.9% FLUSH 5 ML FLUSH IVF SCH ×2 (08:50→21:00)
--- NOTE | 2017-02-25 11:03 | HHI.IDPN ---
Subjective Subjective Remarks Notes reviewed Temps ok Pain in joints better C/O being in a diabetic diet Had OR done on her L shoulder Antibiotics Vancomycin Lines PIV Past Medical History Sicca syndrome. Sun sensitivity. Psoriasis. Alopecia. Raynaud's phenomenon. Aphthous ulcers. Vasculitis diagnosis 2012 Hx MSSA sepsis and septic R wrist Fibromyalgia Hx IVDU - claims last use 15 yeasr ago, but admission 2012 (+) drug screen and admits to use at that time Past Surgical History Breasts augmentation surgery. Abdominoplasty. section. Surgery on her R wrist Tubal ligation Debridement of lower extremity wounds Right tibia fracture repair Rhinoplasty Allergies: Coded Allergies: *MDRO Multi-Drug Resistant Organism (Verified Adverse Reaction, Unknown, ) MRSA (finger wound) - 06/06/16; (synovial fluid) - 02/15/17; (leg)-02/19/17 MRSA PCR Screen POSITIVE -02/15/17 Objective . Vital Signs Date Time Temp Pulse Resp B/P Pulse Ox O2 Delivery O2 Flow Rate FiO2 02/25/17 09:00 Room Air 02/25/17 08:00 98.0 86 18 96/57 97 02/25/17 04:00 97.4 93 18 106/58 99 02/25/17 00:00 98.7 89 18 103/57 97 02/24/17 22:55 Room Air 02/24/17 20:00 98.3 89 16 99/57 100 02/24/17 20:00 91 02/24/17 16:47 97.8 97 18 91/55 100 02/24/17 14:29 98.0 95 16 96/58 97 02/24/17 02/24/17 02/25/17 15:00 23:00 07:00 Intake Total 400 ml 595 ml 1286 ml Output Total 850 ml 350 ml 2400 ml Balance -450 ml 245 ml -1114 ml Intake Oral 0 ml 480 ml IV Total 595 ml 806 ml Other 400 ml Output Urine Total 800 ml 350 ml 2400 ml Drainage Total 0 ml Estimated Blood Loss 50 ml # Voids 2 # Bowel Movements 0 . Laboratory Tests Test 02/24/17 05:56 White Blood Count 3.2 TH/MM3 Red Blood Count 3.57 MIL/MM3 Hemoglobin 8.2 GM/DL Hematocrit 24.6 % Mean Corpuscular Volume 69.1 FL Mean Corpuscular Hemoglobin 23.1 PG Mean Corpuscular Hemoglobin 33.5 % Concent Red Cell Distribution Width 17.4 % Platelet Count 431 TH/MM3 Mean Platelet Volume 6.1 FL Laboratory Tests Test 02/24/17 05:56 Sodium Level 137 MEQ/L Potassium Level 3.7 MEQ/L Chloride Level 104 MEQ/L Carbon Dioxide Level 26.5 MEQ/L Anion Gap 7 MEQ/L Blood Urea Nitrogen 7 MG/DL Creatinine 0.44 MG/DL Estimat Glomerular Filtration 150 ML/MIN Rate Random Glucose 92 MG/DL Calcium Level 8.8 MG/DL Microbiology Date/Time Procedure Status Source Growth 02/24/17 12:06 Cancelled Fluid Other 02/24/17 12:06 Cancelled Fluid Other 02/24/17 12:06 Cancelled Fluid Other 02/24/17 12:06 Cancelled Fluid Other 02/24/17 12:06 Cancelled Fluid Other 02/24/17 12:06 Cancelled Fluid Other 02/24/17 12:06 Acid Fast Stain Received Wound Other Pending 02/24/17 12:06 Mycobacterial Culture Received Wound Other Pending 02/24/17 12:06 Fungal Smear - Final Resulted Wound Other NO FUNGAL ELEMENTS SEEN. 02/24/17 12:06 Fungal Culture Resulted Wound Other Pending 02/24/17 12:06 Acid Fast Stain Received Wound Other Pending 02/24/17 12:06 Mycobacterial Culture Received Wound Other Pending 02/24/17 12:06 Fungal Smear - Final Resulted Wound Other NO FUNGAL ELEMENTS SEEN. 02/24/17 12:06 Fungal Culture Resulted Wound Other Pending 02/24/17 12:06 Gram Stain - Final Resulted Wound Bone 02/24/17 12:06 Wound Culture Resulted Wound Bone Pending 02/24/17 12:06 Acid Fast Stain Received Wound Bone Pending 02/24/17 12:06 Mycobacterial Culture Received Wound Bone Pending 02/24/17 12:06 Fungal Smear - Final Resulted Wound Bone NO FUNGAL ELEMENTS SEEN. 02/24/17 12:06 Fungal Culture Resulted Wound Bone Pending 02/24/17 12:06 Gram Stain - Final Resulted Wound Other 02/24/17 12:06 Wound Culture Resulted Wound Other Pending 02/24/17 12:06 Gram Stain - Final Resulted Wound Other 02/24/17 12:06 Wound Culture Resulted Wound Other Pending Imaging Chest X-Ray 02/17/17 0000 Signed Impressions: Service Date/Time: Friday, February 17, 2017 13:34 - CONCLUSION: 1. Patchy areas of bibasilar infiltrate atelectasis concerning for pneumonia. 2. Large lytic lesion in the humeral head on the left. This is described in detail above. Malignancy is not excluded. Stoney Hwang MD Physical Exam GENERAL: Awake and alert, NAD SKIN: Warm and dry. She has generalized hypopigmented scars HEENT: [place] conjunctivae, no petechia, no hemorrhage. No scleral icterus. Moist mucosa. NECK: Trachea midline. No JVD or lymphadenopathy. Supple, nontender, no meningeal signs. CARDIOVASCULAR: Regular rate and rhythm without murmurs, gallops, or rubs. RESPIRATORY: Clear to auscultation. Breath sounds equal bilaterally. No wheezes , rales, or rhonchi. BREAST: Has implants, has hypopigmented scars on her breast GASTROINTESTINAL: Abdomen soft, non-tender, mildly distended. No hepato- splenomegaly, or palpable masses. No guarding. MUSCULOSKELETAL: Extremities without edema. R knee with dry dressing in place. Dry dressings on her leg wounds. INtact dressing L shoulder, has FLORENTIN drain in place, with serosanguineous fluid NEUROLOGICAL: Non-focal LINE: no evidence of infection Assessment & Plan Remarks IMPRESSION Sepsis due to septic knee Septic R knee, C/S MRSA - had OR 02/16 Septic joint L shoulder and osteo humerus Chronic skin lesions, etiology? ?Hx vasculitis with purpuric lesions in BLE last 2012 Hx IVDU Hs MSSA sepsis 2012 Chronic narcotic dependence CXR with infiltrates though clinically no PNA symptoms RECOMMENDATION Continue IV Vanco Follow C/S Monitor progress Wound care consult Marquita Ferreira MD Feb 25, 2017 11:03
[2017-02-25 12:00] VITALS: BP 100/55; PULSE 92; RESP 18; TEMP 98; O2SAT 97
[2017-02-25] MEDS: ENOXAPARIN SODIUM 30 MG/0.3 ML SYRINGE SQ SCH (12:16)
--- NOTE | 2017-02-25 13:21 | HHI.PR ---
Subjective Remarks Follow-up for septic arthritis Status post arthrotomy of left shoulder yesterday, pain is not controlled, about 8, no nausea or vomiting. Eating well. Afebrile. Objective Vitals Vital Signs Date Time Temp Pulse Resp B/P Pulse Ox O2 Delivery O2 Flow Rate FiO2 02/25/17 12:00 98.0 92 18 100/55 97 02/25/17 09:00 Room Air 02/25/17 08:00 98.0 86 18 96/57 97 02/25/17 04:00 97.4 93 18 106/58 99 02/25/17 00:00 98.7 89 18 103/57 97 02/24/17 22:55 Room Air 02/24/17 20:00 98.3 89 16 99/57 100 02/24/17 20:00 91 02/24/17 16:47 97.8 97 18 91/55 100 02/24/17 14:29 98.0 95 16 96/58 97 I/O 02/24/17 02/24/17 02/24/17 02/25/17 02/25/17 02/25/17 07:00 15:00 23:00 07:00 15:00 23:00 Intake Total 1518 ml 400 ml 595 ml 1286 ml Output Total 850 ml 350 ml 2400 ml Balance 1518 ml -450 ml 245 ml -1114 ml Intake Oral 360 ml 0 ml 480 ml IV Total 1158 ml 595 ml 806 ml Other 400 ml Output Urine Total 800 ml 350 ml 2400 ml Drainage Total 0 ml Estimated Blood Loss 50 ml # Voids 1 2 # Bowel Movements 1 0 Result Diagram: 02/24/17 0556 02/24/17 05 Objective Remarks GENERAL: Awake and alert, NAD SKIN: Warm and dry. Has dressings on BLE wounds, dry and intact. She has generalized hypopigmented scars HEENT: [place] conjunctivae, no petechia, no hemorrhage. No scleral icterus. Moist mucosa. NECK: Trachea midline. No JVD or lymphadenopathy. Supple, nontender, no meningeal signs. CARDIOVASCULAR: Regular rate and rhythm without murmurs, gallops, or rubs. RESPIRATORY: Clear to auscultation. Breath sounds equal bilaterally. No wheezes , rales, or rhonchi. BREAST: Has implants, has hypopigmented scars on her breast GASTROINTESTINAL: Abdomen soft, non-tender, mildly distended. MUSCULOSKELETAL: Extremities without clubbing, cyanosis, or edema. R knee with dressing in place, has drain in place. Left shoulder dressings in place, drain also in place NEUROLOGICAL: Non-focal, alert awake and oriented 3. Procedures sp Right knee arthrotomy with irrigation and debridement of infection 02/16/17 sp debridement of bilateral lower extremity wounds on 02/19/17 A/P Problem List: (1) Septic arthritis ICD Code: M00.9 Status: Acute (2) Lytic lesion of bone on x-ray ICD Code: M89.9 Status: Acute Assessment and Plan Septic arthritis of the right knee. Patient status post aspiration of the right knee with elevated white blood cell count of 76,400. Infectious disease on board, culture growing MRSA. Continue vancomycin. Patient underwent surgical procedures on 02/19/17 with diagnosis of septic right knee status post right knee arthrotomy with irrigation and right min by Dr. Mathis. Patient is status post incision and debridement of lower extremity wounds. Follow-up podiatry recommendations. Chronic lower extremity wounds. Continue wound care. Patient to have I&D. Plastic surgery consulted as per vascular flow specialist request Dr. Tanner Polysubstance abuse with history of IV drug abuse. ID following. Minimize IV drugs, switch to oral. Hypokalemia. Resolved after repletion. Continue to monitor and replace as needed. Tobacco dependence started on bronchodilator mucolytic and incentive spirometry. Advised smoking cessation. Continue nicotine patch. Community-acquired pneumonia. Chest x-ray obtained on 02/17/17 reviewed by me shows patchy areas of bibasilar infiltrate versus atelectasis. CT scan consistent with pneumonia as well. Continue antibiotics with vancomycin, status post azithromycin. Bone lytic lesion left humeral head - status post arthrotomy, incision and drainage 02/24/17, continue pain control. Inflammatory arthropathy, infection were joint effusion versus metastatic lesion, follow-up biopsy results. IV Dilaudid for breakthrough pain Right breast implant intracapsular rupture- Discussed case with Dr Ramirez. He states that the patient can follow up with Dr Jang as an outpatient to have the breast implant removed and replaced.T His was discussed with the patient. GI prophylaxis: PPI. DVT prophylaxis: Continue Lovenox SQ Problem Qualifiers (1) Septic arthritis: Qualified Code: M00.9 - Pyogenic arthritis of right knee joint, due to unspecified organism Leonel Ya MD Feb 25, 2017 13:21 There is edema of the rotator musculature and a rotator cuff tear distally. Enlarged left axillary lymph nodes also described. MRI and CT scan personally reviewed by me. This is possibly secondary to septic arthritis of the left shoulder. 02/23 Called orthopedic surgery and spoke to Dr Flores who said he would see the patient. 8. Right breast implant intracapsular rupture. Discussed case with Dr Ramirez. He states that the patient can follow up with Dr Jang as an outpatient to have the breast implant removed and replaced. this was discussed with the patient. GI prophylaxis: I will add PPI. DVT prophylaxis: Continue Lovenox SQ Problem Qualifiers (1) Septic arthritis: Qualified Code: M00.9 - Pyogenic arthritis of right knee joint, due to unspecified organism Leonel Ya MD Feb 25, 2017 13:21
[2017-02-25 16:00] VITALS: BP 93/55; PULSE 98; RESP 18; TEMP 97; O2SAT 98
[2017-02-25 20:00] VITALS: BP 110/60; PULSE 112; RESP 18; TEMP 99.4; O2SAT 99
[2017-02-25] MEDS: REMOVE OLD NICODERM (NICOTINE) PATCH TD SCH (21:00)
[2017-02-25] MEDS: NORTRIPTYLINE HCL 25 MG CAP PO SCH (21:32)
[2017-02-26] VITALS (7 sets, daily range): BP systolic 100–113; BP diastolic 55–61; PULSE 84–100; RESP 16–18; TEMP 97.2–98.5; O2SAT 96–100
[2017-02-26] MEDS: HYDROmorphone HCL PF 1 MG/ML VIAL IV PRN ×7 (01:48→21:30)
[2017-02-26] MEDS: VANCOMYCIN 1,000 MG/NS 250 ML IV SCH ×6 (05:05→21:28)
[2017-02-26] MEDS: guaiFENesin E.R. 600 MG TAB PO SCH ×2 (08:27→21:27)
[2017-02-26] MEDS: GABAPENTIN 300 MG CAP PO SCH ×2 (08:27→21:28)
[2017-02-26] MEDS: NICOTINE 14 MG/24 HR PATCH TD SCH (08:28)
[2017-02-26] MEDS: SODIUM CHLORIDE 0.9% FLUSH 5 ML FLUSH IVF SCH ×2 (08:28→21:00)
--- NOTE | 2017-02-26 09:47 | PD.ORT.PN ---
Subjective Subjective Remarks Knee is continuing to improve. She does have continued pain in her left shoulder but improving Objective Vitals Vital Signs Date Time Temp Pulse Resp B/P Pulse Ox O2 Delivery O2 Flow Rate FiO2 02/26/17 08:00 97.2 89 16 104/56 97 02/26/17 08:00 Room Air 02/26/17 04:00 98.1 92 16 100/56 96 02/26/17 00:00 98.0 99 18 113/61 98 02/25/17 22:19 Room Air 02/25/17 20:00 99.4 112 18 110/60 99 02/25/17 16:00 97.0 98 18 93/55 98 02/25/17 12:00 98.0 92 18 100/55 97 I/O 02/25/17 02/25/17 02/25/17 02/26/17 02/26/17 02/26/17 07:00 15:00 23:00 07:00 15:00 23:00 Intake Total 1286 ml 2061 ml 720 ml 720 ml Output Total 2400 ml 2000 ml 1200 ml 2300 ml Balance -1114 ml 61 ml -480 ml -1580 ml Intake Oral 480 ml 960 ml 720 ml 720 ml IV Total 806 ml 1101 ml Output Urine Total 2400 ml 2000 ml 1200 ml 2300 ml # Bowel Movements 0 0 1 Result Diagram: 02/24/17 0556 02/26/17 0530 Objective Remarks RLE: dressings clean and dry. intact. . NVI with good dorsiflexion Left upper extremity: Clean dressings intact. Drain present Mild swelling and pain to palpation to both anterior and posterior portion of shoulder. She has pain with motion her shoulder. Is unable to abduct more than 45 or forward flex more than 45. Skin is intact over shoulder. Distally she is intact sensation over the radial ulnar and median nerve distributions with good capillary refills. Assessment & Plan Assessment and Plan 1) Right Septic knee s/p I&D - POD 10 MRSA -WBAT -daily dressing changes right knee -infectious disease for IV Abx pending cultures irrigation and debridement of left shoulder. POD 2 Daily dressing changes and discontinue drain POD 3 Physical therapy for range of motion of knee as well as shoulder No further orthopedic interventions planned Johnny Botello Jr. Feb 26, 2017 09:47
[2017-02-26] MEDS: ENOXAPARIN SODIUM 30 MG/0.3 ML SYRINGE SQ SCH (11:30)
--- NOTE | 2017-02-26 12:40 | HHI.FF ---
Face to Face Verification Diagnosis: (1) Septic arthritis Physical Therapy Order: Evaluate and Treat Home Health Nursing Order: Medication education-adverse effect Wound care and dressing changes Nursing assessment with vital signs I have seen patient Jamee Mclaughlin on 02/26/17. My clinical findings support the need for the requested home health care services because: Ltd mobility - disease progression Limited ability to care for self I certify that my clinical findings support that this patient is homebound because: Post-op weakness Unsteady gait/balance Leonel Ya MD Feb 26, 2017 12:40
--- NOTE | 2017-02-26 13:35 | HHI.IDPN ---
Subjective Subjective Remarks Notes reviewed Temps ok Knee pain better Pain in her shoulder Shoulder C/S negative so far Path report L humerus pending Antibiotics Vancomycin Lines PIV Past Medical History Sicca syndrome. Sun sensitivity. Psoriasis. Alopecia. Raynaud's phenomenon. Aphthous ulcers. Vasculitis diagnosis 2012 Hx MSSA sepsis and septic R wrist Fibromyalgia Hx IVDU - claims last use 15 yeasr ago, but admission 2012 (+) drug screen and admits to use at that time Past Surgical History Breasts augmentation surgery. Abdominoplasty. section. Surgery on her R wrist Tubal ligation Debridement of lower extremity wounds Right tibia fracture repair Rhinoplasty Allergies: Coded Allergies: *MDRO Multi-Drug Resistant Organism (Verified Adverse Reaction, Unknown, ) MRSA (finger wound) - 06/06/16; (synovial fluid) - 02/15/17; (leg)-02/19/17 MRSA PCR Screen POSITIVE -02/15/17 Objective . Vital Signs Date Time Temp Pulse Resp B/P Pulse Ox O2 Delivery O2 Flow Rate FiO2 02/26/17 12:00 98.1 84 16 104/56 97 02/26/17 08:17 90 02/26/17 08:00 97.2 89 16 104/56 97 02/26/17 08:00 Room Air 02/26/17 04:00 98.1 92 16 100/56 96 02/26/17 00:00 98.0 99 18 113/61 98 02/25/17 22:19 Room Air 02/25/17 20:00 99.4 112 18 110/60 99 02/25/17 16:00 97.0 98 18 93/55 98 02/25/17 02/25/17 02/26/17 15:00 23:00 07:00 Intake Total 2061 ml 720 ml 720 ml Output Total 2000 ml 1200 ml 2300 ml Balance 61 ml -480 ml -1580 ml Intake Oral 960 ml 720 ml 720 ml IV Total 1101 ml Output Urine Total 2000 ml 1200 ml 2300 ml # Bowel Movements 0 1 . Laboratory Tests Test 02/26/17 05:30 Creatinine 0.60 MG/DL Estimat Glomerular Filtration 105 ML/MIN Rate Microbiology Date/Time Procedure Status Source Growth 02/24/17 12:06 Cancelled Fluid Other 02/24/17 12:06 Cancelled Fluid Other 02/24/17 12:06 Cancelled Fluid Other 02/24/17 12:06 Cancelled Fluid Other 02/24/17 12:06 Cancelled Fluid Other 02/24/17 12:06 Cancelled Fluid Other 02/24/17 12:06 Acid Fast Stain - Final Resulted Wound Other NO ACID FAST BACILLI SEEN 02/24/17 12:06 Mycobacterial Culture Resulted Wound Other Pending 02/24/17 12:06 Fungal Smear - Final Resulted Wound Other NO FUNGAL ELEMENTS SEEN. 02/24/17 12:06 Fungal Culture Resulted Wound Other Pending 02/24/17 12:06 Acid Fast Stain - Final Resulted Wound Other NO ACID FAST BACILLI SEEN 02/24/17 12:06 Mycobacterial Culture Resulted Wound Other Pending 02/24/17 12:06 Fungal Smear - Final Resulted Wound Other NO FUNGAL ELEMENTS SEEN. 02/24/17 12:06 Fungal Culture Resulted Wound Other Pending 02/24/17 12:06 Gram Stain - Final Resulted Wound Bone 02/24/17 12:06 Wound Culture - Preliminary Resulted Wound Bone NO GROWTH IN 48 HOURS. 02/24/17 12:06 Acid Fast Stain - Final Resulted Wound Bone NO ACID FAST BACILLI SEEN 02/24/17 12:06 Mycobacterial Culture Resulted Wound Bone Pending 02/24/17 12:06 Fungal Smear - Final Resulted Wound Bone NO FUNGAL ELEMENTS SEEN. 02/24/17 12:06 Fungal Culture Resulted Wound Bone Pending 02/24/17 12:06 Gram Stain - Final Resulted Wound Other 02/24/17 12:06 Wound Culture - Preliminary Resulted Wound Other NO GROWTH IN 48 HOURS. 02/24/17 12:06 Gram Stain - Final Resulted Wound Other 02/24/17 12:06 Wound Culture - Preliminary Resulted Wound Other NO GROWTH IN 48 HOURS. Imaging Chest X-Ray 02/17/17 0000 Signed Impressions: Service Date/Time: Friday, February 17, 2017 13:34 - CONCLUSION: 1. Patchy areas of bibasilar infiltrate atelectasis concerning for pneumonia. 2. Large lytic lesion in the humeral head on the left. This is described in detail above. Malignancy is not excluded. Stoney Hwang MD Physical Exam GENERAL: Awake and alert, NAD SKIN: Warm and dry. She has generalized hypopigmented scars HEENT: [place] conjunctivae, no petechia, no hemorrhage. No scleral icterus. Moist mucosa. NECK: Supple, nontender, no meningeal signs. CARDIOVASCULAR: Regular rate and rhythm without murmurs, gallops, or rubs. RESPIRATORY: Clear to auscultation. Breath sounds equal bilaterally. No wheezes , rales, or rhonchi. BREAST: Has implants, has hypopigmented scars on her breast GASTROINTESTINAL: Abdomen soft, non-tender, mildly distended. No hepato- splenomegaly, or palpable masses. No guarding. MUSCULOSKELETAL: R knee with dry dressing in place. Dry dressings on her leg wounds. 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 ?Hx vasculitis with purpuric lesions in BLE last 2012 Hx IVDU Hs MSSA sepsis 2013 Chronic narcotic dependence CXR with infiltrates though clinically no PNA symptoms RECOMMENDATION Continue IV Vanco Follow C/S Monitor progress Await path report to determine course of Rx Marquita Ferreira MD Feb 26, 2017 13:35
--- NOTE | 2017-02-26 16:14 | HHI.PR ---
Subjective Remarks Follow-up for septic arthritis Afebrile, pain is controlled. Patient does not want to go to rehabilitation. Cleared by orthopedics. Objective Vitals Vital Signs Date Time Temp Pulse Resp B/P Pulse Ox O2 Delivery O2 Flow Rate FiO2 02/26/17 12:00 98.1 84 16 104/56 97 02/26/17 08:17 90 02/26/17 08:00 97.2 89 16 104/56 97 02/26/17 08:00 Room Air 02/26/17 04:00 98.1 92 16 100/56 96 02/26/17 00:00 98.0 99 18 113/61 98 02/25/17 22:19 Room Air 02/25/17 20:00 99.4 112 18 110/60 99 I/O 02/25/17 02/25/17 02/25/17 02/26/17 02/26/17 02/26/17 07:00 15:00 23:00 07:00 15:00 23:00 Intake Total 1286 ml 2061 ml 720 ml 720 ml 4 ml Output Total 2400 ml 2000 ml 1200 ml 2300 ml Balance -1114 ml 61 ml -480 ml -1580 ml 4 ml Intake Oral 480 ml 960 ml 720 ml 720 ml IV Total 806 ml 1101 ml 4 ml Output Urine Total 2400 ml 2000 ml 1200 ml 2300 ml # Bowel Movements 0 0 1 Result Diagram: 02/24/17 0556 02/26/17 0530 Objective Remarks GENERAL: Awake and alert, NAD SKIN: Warm and dry. Has dressings on BLE wounds, dry and intact. She has generalized hypopigmented scars HEENT: [place] conjunctivae, no petechia, no hemorrhage. No scleral icterus. Moist mucosa. NECK: Trachea midline. No JVD or lymphadenopathy. Supple, nontender, no meningeal signs. CARDIOVASCULAR: Regular rate and rhythm without murmurs, gallops, or rubs. RESPIRATORY: Clear to auscultation. Breath sounds equal bilaterally. No wheezes , rales, or rhonchi. BREAST: Has implants, has hypopigmented scars on her breast GASTROINTESTINAL: Abdomen soft, non-tender, mildly distended. MUSCULOSKELETAL: Extremities without clubbing, cyanosis, or edema. R knee with dressing in place, has drain in place. Left shoulder dressings in place, drain also in place NEUROLOGICAL: Non-focal, alert awake and oriented 3. Procedures sp Right knee arthrotomy with irrigation and debridement of infection 02/16/17 sp debridement of bilateral lower extremity wounds on 02/19/17 A/P Problem List: (1) Septic arthritis ICD Code: M00.9 Status: Acute (2) Lytic lesion of bone on x-ray ICD Code: M89.9 Status: Acute Assessment and Plan Septic arthritis of the right knee. Patient status post aspiration of the right knee with elevated white blood cell count of 76,400. Infectious disease on board, culture growing MRSA. Patient underwent surgical procedures on 02/19 with diagnosis of septic right knee status post right knee arthrotomy with irrigation and right min by Dr. Mathis.Patient is status post incision and debridement of lower extremity wounds. Follow-up podiatry recommendations. Awaiting further recommendations from infectious disease pending pathology report. Continue vancomycin for now Chronic lower extremity wounds. Continue wound care. Patient to have I&D. Plastic surgery consulted as per vascular technology sales specialist request Dr. Tanner Polysubstance abuse with history of IV drug abuse. ID following. Minimize IV drugs, switch to oral. Hypokalemia. Resolved after repletion. Continue to monitor and replace as needed. Tobacco dependence started on bronchodilator mucolytic and incentive spirometry. Advised smoking cessation. Continue nicotine patch. Community-acquired pneumonia. Chest x-ray obtained on 02/17/17 reviewed by me shows patchy areas of bibasilar infiltrate versus atelectasis. CT scan consistent with pneumonia as well. Continue antibiotics with vancomycin, status post azithromycin. Bone lytic lesion left humeral head - status post arthrotomy, incision and drainage 02/24/17, continue pain control. Inflammatory arthropathy, infection were joint effusion versus metastatic lesion, follow-up biopsy results. IV Dilaudid for breakthrough pain Right breast implant intracapsular rupture- Discussed case with Dr Ramirez. He states that the patient can follow up with Dr Jang as an outpatient to have the breast implant removed and replaced.T His was discussed with the patient. GI prophylaxis: PPI. DVT prophylaxis: Continue Lovenox SQ Discharge Planning Will need discharge to home with home health care, [id number] done. Problem Qualifiers (1) Septic arthritis: Qualified Code: M00.9 - Pyogenic arthritis of right knee joint, due to unspecified organism Leonel Ya MD Feb 26, 2017 16:14
[2017-02-26] MEDS: NORTRIPTYLINE HCL 25 MG CAP PO SCH (21:00)
[2017-02-26] MEDS: REMOVE OLD NICODERM (NICOTINE) PATCH TD SCH (21:00)
[2017-02-27] VITALS (7 sets, daily range): BP systolic 98–119; BP diastolic 53–71; PULSE 81–102; RESP 18–20; TEMP 97.4–99.3; O2SAT 96–100
[2017-02-27] MEDS: HYDROmorphone HCL PF 1 MG/ML VIAL IV PRN ×5 (00:28→21:54)
[2017-02-27] MEDS: VANCOMYCIN 1,000 MG/NS 250 ML IV SCH ×6 (05:14→21:47)
[2017-02-27] MEDS: SODIUM CHLORIDE 0.9% FLUSH 5 ML FLUSH IVF SCH ×2 (09:00→20:45)
--- NOTE | 2017-02-27 09:08 | HHI.PR ---
Subjective Remarks Follow-up on septic arthritis Pain is not controlled last night, about 10 over 10 despite IV and oral narcotics. No fever, nausea, vomiting, constipation. Eating well. Objective Vitals Vital Signs Date Time Temp Pulse Resp B/P Pulse Ox O2 Delivery O2 Flow Rate FiO2 02/27/17 08:28 99.1 101 18 106/53 96 02/27/17 04:00 98.6 102 18 111/62 99 02/27/17 00:00 99.3 101 18 114/58 97 02/26/17 20:00 100 02/26/17 20:00 98.5 100 18 107/56 97 02/26/17 20:00 Room Air 02/26/17 16:00 97.4 93 16 104/55 100 02/26/17 12:00 98.1 84 16 104/56 97 I/O 02/26/17 02/26/17 02/26/17 02/27/17 02/27/17 02/27/17 07:00 15:00 23:00 07:00 15:00 23:00 Intake Total 720 ml 724 ml 975 ml 730 ml Output Total 2300 ml 1750 ml 10 ml Balance -1580 ml -1026 ml 965 ml 730 ml Intake Oral 720 ml 720 ml 480 ml 480 ml IV Total 4 ml 450 ml 250 ml Other 45 ml Output Urine Total 2300 ml 1750 ml Drainage Total 10 ml # Voids 1 2 # Bowel Movements 0 0 Result Diagram: 02/24/17 0556 02/26/17 0530 Objective Remarks GENERAL: Awake and alert, NAD SKIN: Warm and dry. Has dressings on BLE wounds, dry and intact. HEENT: [place] conjunctivae, no petechia, no hemorrhage. No scleral icterus. Moist mucosa. NECK: Airway patent. CARDIOVASCULAR: Regular rate and rhythm without murmurs, gallops, or rubs. RESPIRATORY: Clear to auscultation. Breath sounds equal bilaterally. No wheezes , rales, or rhonchi. BREAST: Has implants, has hypopigmented scars on her breast GASTROINTESTINAL: Abdomen soft, non-tender, nondistended. MUSCULOSKELETAL: Extremities without clubbing, cyanosis, or edema. R knee with dressing in place. Left shoulder dressings in place, FLORENTIN drain also in place NEUROLOGICAL: Non-focal, alert awake and oriented 3. Procedures sp Right knee arthrotomy with irrigation and debridement of infection 02/16/17 sp debridement of bilateral lower extremity wounds on 02/19/17 A/P Problem List: (1) Septic arthritis ICD Code: M00.9 Status: Acute (2) Lytic lesion of bone on x-ray ICD Code: M89.9 Status: Acute Assessment and Plan This is a 51-year-old female with history of chronic back pain, neurodermatitis , chronic wound, polysubstance abuse presented to the hospital with a 2 day history of right knee pain and swelling, found to have septic arthritis of the right knee. Septic arthritis of the right knee- Patient status post aspiration of the right knee with elevated white blood cell count of 76,400. Infectious disease on board, culture grew. MRSA. Patient treated as a case of septic knee arthritis, status post right knee arthrotomy with irrigation by Dr. Mathis.Patient is status post incision and debridement of lower extremity wounds. Podiatry was also consulted, appreciate. Awaiting further recommendations from infectious disease pending pathology report. Continue vancomycin for now, monitor BMP. Chronic lower extremity wounds- status post incision and debridement, Patient to have I&D. Plastic surgery consulted as per vascular neurosurgery research director request Dr. Tanner Polysubstance abuse with history of IV drug abuse- Minimize IV drugs, switch to oral when feasible, patient still having 10 over 10 pain, wean, stop morphine , decreased Dilaudid IV frequency. Hypokalemia- Resolved after repletion. Tobacco dependence started on bronchodilator mucolytic and incentive spirometry. Advised smoking cessation. Continue nicotine patch. Community-acquired pneumonia. Chest x-ray obtained on 02/17/17 reviewed by me shows patchy areas of bibasilar infiltrate versus atelectasis. CT scan consistent with pneumonia as well. Continue antibiotics with vancomycin, status post azithromycin. Bone lytic lesion left humeral head - status post arthrotomy, incision and drainage 02/24/17, continue pain control. Inflammatory arthropathy, infection with joint effusion versus metastatic lesion, follow-up biopsy results. Right breast implant intracapsular rupture- Discussed case with Dr Ramirez. He states that the patient can follow up with Dr Jang as an outpatient to have the breast implant removed and replaced.T His was discussed with the patient. GI prophylaxis: PPI. DVT prophylaxis: Continue Lovenox SQ Discharge Planning Discharge to home with home health care after ideas due to patient pending pathology report, [id number] done. Will likely need vancomycin intravenously. Problem Qualifiers (1) Septic arthritis: Qualified Code: M00.9 - Pyogenic arthritis of right knee joint, due to unspecified organism Leonel Ya MD Feb 27, 2017 09:07
[2017-02-27] MEDS: HYDROmorphone HCL 2 MG TAB PO PRN ×2 (11:05→18:38)
[2017-02-27] MEDS: guaiFENesin E.R. 600 MG TAB PO SCH ×2 (11:06→20:43)
[2017-02-27] MEDS: GABAPENTIN 300 MG CAP PO SCH ×2 (11:06→20:43)
[2017-02-27] MEDS: REMOVE OLD NICODERM (NICOTINE) PATCH TD SCH ×2 (11:07→20:47)
[2017-02-27] MEDS: NICOTINE 14 MG/24 HR PATCH TD SCH (11:07)
[2017-02-27] MEDS: ENOXAPARIN SODIUM 30 MG/0.3 ML SYRINGE SQ SCH (11:09)
[2017-02-27] MEDS ORDERED: HYDROmorphone HCL 4 MG TAB PO PRN (12:45)
[2017-02-27] MEDS: NORTRIPTYLINE HCL 25 MG CAP PO SCH (20:43)
[2017-02-28] VITALS: BP 112/55; PULSE 109; RESP 20; TEMP 98.6; O2SAT 100
[2017-02-28] MEDS: HYDROmorphone HCL 2 MG TAB PO PRN ×3 (01:02→20:38)
[2017-02-28 04:00] VITALS: BP 104/67; PULSE 108; RESP 20; TEMP 98.7; O2SAT 96
[2017-02-28] MEDS: HYDROmorphone HCL PF 1 MG/ML VIAL IV PRN ×3 (04:15→23:30)
[2017-02-28] MEDS: VANCOMYCIN 1,000 MG/NS 250 ML IV SCH ×6 (05:51→23:25)
[2017-02-28 08:00] VITALS: BP 108/63; PULSE 93; RESP 20; TEMP 97.9; O2SAT 100
[2017-02-28] MEDS: guaiFENesin E.R. 600 MG TAB PO SCH ×2 (09:17→20:38)
[2017-02-28] MEDS: GABAPENTIN 300 MG CAP PO SCH ×2 (09:17→20:38)
[2017-02-28] MEDS: NICOTINE 14 MG/24 HR PATCH TD SCH (09:18)
[2017-02-28] MEDS: ENOXAPARIN SODIUM 30 MG/0.3 ML SYRINGE SQ SCH (09:18)
[2017-02-28] MEDS: SODIUM CHLORIDE 0.9% FLUSH 5 ML FLUSH IVF SCH ×2 (09:43→20:39)
[2017-02-28 12:00] VITALS: BP 96/61; PULSE 96; RESP 20; TEMP 97.3; O2SAT 99
--- NOTE | 2017-02-28 14:40 | HHI.PR ---
Subjective Remarks Follow-up for pain Pain is a lot more controlled, not using intravenous narcotics. Afebrile. Objective Vitals Vital Signs Date Time Temp Pulse Resp B/P Pulse Ox O2 Delivery O2 Flow Rate FiO2 02/28/17 12:00 97.3 96 20 96/61 99 02/28/17 11:54 20 02/28/17 09:43 20 02/28/17 08:00 97.9 93 20 108/63 100 02/28/17 04:00 98.7 108 20 104/67 96 02/28/17 00:00 98.6 109 20 112/55 100 02/27/17 20:45 Room Air 02/27/17 20:00 97.7 100 20 98/54 100 02/27/17 16:00 97.4 81 18 119/71 96 I/O 02/27/17 02/27/17 02/27/17 02/28/17 02/28/17 02/28/17 07:00 15:00 23:00 07:00 15:00 23:00 Intake Total 730 ml 670 ml 680 ml 480 ml Output Total 800 ml 10 ml Balance 730 ml -130 ml 680 ml 470 ml Intake Oral 480 ml 420 ml 680 ml 480 ml IV Total 250 ml 250 ml Output Urine Total 800 ml Drainage Total 10 ml # Voids 2 2 3 3 # Bowel Movements 0 1 Result Diagram: 02/24/17 0556 02/28/17 0713 Objective Remarks GENERAL: Awake and alert, NAD SKIN: Warm and dry. Has dressings on BLE wounds, dry and intact. HEENT: [place] conjunctivae, no petechia, no hemorrhage. No scleral icterus. Moist mucosa. NECK: Airway patent. CARDIOVASCULAR: Regular rate and rhythm without murmurs, gallops, or rubs. RESPIRATORY: Clear to auscultation. Breath sounds equal bilaterally. No wheezes , rales, or rhonchi. BREAST: Has implants, has hypopigmented scars on her breast GASTROINTESTINAL: Abdomen soft, non-tender, nondistended. MUSCULOSKELETAL: Extremities without clubbing, cyanosis, or edema. R knee with dressing in place. Left shoulder dressings in place, FLORENTIN drain also in place NEUROLOGICAL: Non-focal, alert awake and oriented 3. Procedures sp Right knee arthrotomy with irrigation and debridement of infection 02/16/17 sp debridement of bilateral lower extremity wounds on 02/19/17 A/P Problem List: (1) Septic arthritis ICD Code: M00.9 Status: Acute (2) Lytic lesion of bone on x-ray ICD Code: M89.9 Status: Acute Assessment and Plan This is a 51-year-old female with history of chronic back pain, neurodermatitis , chronic wound, polysubstance abuse presented to the hospital with a 2 day history of right knee pain and swelling, found to have septic arthritis of the right knee. Septic arthritis of the right knee- Patient status post aspiration of the right knee with elevated white blood cell count of 76,400. Infectious disease on board, culture grew. MRSA. Patient treated as a case of septic knee arthritis, status post right knee arthrotomy with irrigation by Dr. Mathis.Patient is status post incision and debridement of lower extremity wounds. Podiatry was also consulted, appreciate. Awaiting further recommendations from infectious disease pending pathology report. Continue vancomycin for now, monitor BMP. Chronic lower extremity wounds- status post incision and debridement, Patient to have I&D. Plastic surgery consulted as per vascular electronic security specialist request Dr. Tanner Polysubstance abuse with history of IV drug abuse- switch medications to oral, breakthrough intravenous only if needed. Patient is compliant with oral Dilaudid. Takes this much at home as well. Hypokalemia- Resolved after repletion. Tobacco dependence started on bronchodilator mucolytic and incentive spirometry. Advised smoking cessation. Continue nicotine patch. Community-acquired pneumonia. Chest x-ray obtained on 02/17/17 reviewed by me shows patchy areas of bibasilar infiltrate versus atelectasis. CT scan consistent with pneumonia as well. Continue antibiotics with vancomycin, status post azithromycin. Bone lytic lesion left humeral head - status post arthrotomy, incision and drainage 02/24/17, continue pain control. Inflammatory arthropathy, infection with joint effusion versus metastatic lesion, follow-up biopsy results. Right breast implant intracapsular rupture- Discussed case with Dr Ramirez. He states that the patient can follow up with Dr Jang as an outpatient to have the breast implant removed and replaced.T His was discussed with the patient. GI prophylaxis: PPI. DVT prophylaxis: Continue Lovenox SQ Discharge Planning Discharge to home with home health care after ideas due to patient pending pathology report, [id number] done. Will likely need vancomycin intravenously. Problem Qualifiers (1) Septic arthritis: Qualified Code: M00.9 - Pyogenic arthritis of right knee joint, due to unspecified organism Leonel Ya MD Feb 28, 2017 14:40
[2017-02-28 16:00] VITALS: BP 134/68; PULSE 81; RESP 20; TEMP 97.7; O2SAT 95
[2017-02-28 20:00] VITALS: BP 104/60; PULSE 100; RESP 26; TEMP 98.3; O2SAT 98
[2017-02-28] MEDS: NORTRIPTYLINE HCL 25 MG CAP PO SCH (20:38)
[2017-02-28] MEDS: REMOVE OLD NICODERM (NICOTINE) PATCH TD SCH (20:39)
[2017-03-01] VITALS: BP 104/58; PULSE 92; RESP 22; TEMP 98.4; O2SAT 98
[2017-03-01] MEDS: HYDROmorphone HCL 2 MG TAB PO PRN ×4 (02:59→18:37)
[2017-03-01 04:00] VITALS: BP 121/63; PULSE 101; RESP 22; TEMP 99.7; O2SAT 96
[2017-03-01] MEDS: VANCOMYCIN 1,000 MG/NS 250 ML IV SCH ×6 (06:18→20:54)
[2017-03-01 08:00] VITALS: BP 112/66; PULSE 107; RESP 20; TEMP 98.2; O2SAT 100
[2017-03-01] MEDS: HYDROmorphone HCL PF 1 MG/ML VIAL IV PRN ×2 (08:09→16:39)
[2017-03-01] MEDS: GABAPENTIN 300 MG CAP PO SCH ×2 (08:13→20:53)
[2017-03-01] MEDS: SODIUM CHLORIDE 0.9% FLUSH 5 ML FLUSH IVF SCH ×2 (08:13→20:53)
[2017-03-01] MEDS: NICOTINE 14 MG/24 HR PATCH TD SCH (08:13)
[2017-03-01] MEDS: guaiFENesin E.R. 600 MG TAB PO SCH ×2 (08:13→20:53)
--- NOTE | 2017-03-01 09:19 | HHI.PR ---
Subjective Remarks Pt states she feels better. Pain controlled. Denies any chest pain, SOB, nausea or vomiting Objective Vitals Vital Signs Date Time Temp Pulse Resp B/P Pulse Ox O2 Delivery O2 Flow Rate FiO2 03/01/17 08:00 98.2 107 20 112/66 100 03/01/17 04:00 99.7 101 22 121/63 96 03/01/17 02:24 Room Air 03/01/17 00:00 98.4 92 22 104/58 98 02/28/17 20:00 98.3 100 26 104/60 98 02/28/17 18:50 95 Room Air 02/28/17 16:00 97.7 81 20 134/68 95 02/28/17 12:00 97.3 96 20 96/61 99 02/28/17 11:54 20 02/28/17 09:43 20 I/O 02/28/17 02/28/17 02/28/17 03/01/17 03/01/17 03/01/17 06:59 14:59 22:59 06:59 14:59 22:59 Intake Total 480 ml 490 ml 500 ml Output Total 10 ml 475 ml 1200 ml Balance 470 ml 15 ml -700 ml Intake Oral 480 ml 240 ml 0 ml IV Total 250 ml 500 ml Output Urine Total 475 ml 1200 ml Drainage Total 10 ml # Voids 3 3 # Bowel Movements 0 0 Result Diagram: 02/28/17 0713 Imaging Last Impressions Shoulder MRI 02/20/17 Signed Impressions: Service Date/Time: Monday, February 20, 2017 14:42 - CONCLUSION: 1. Abnormal marrow edema and enhancement and erosions in the proximal humerus and bony glenoid is characteristic of, possibly with an infected joint effusion as well. There is edema of the rotator musculature and the rotator cuff tear distally. They are enlarged left axillary lymph nodes. Ole Lam MD Upper Extremity CT 02/18/17 0000 Signed Impressions: Service Date/Time: Monday, February 20, 2017 07:48 - CONCLUSION: Diffuse destructive process involving the left shoulder which given the adjacent bony remodeling and the location of the lytic lesions favor a severe arthritic process, however, a neoplastic process is not completely excluded and should be further evaluated with MRI to evaluate the marrow... Amairani Cleary MD Chest CT 02/18/17 0000 Signed Impressions: Service Date/Time: Monday, February 20, 2017 07:48 - CONCLUSION: 1. Bilateral bibasilar airspace consolidation consistent with pneumonia. 2. Right breast implant intracapsular rupture. Amairani Cleary MD Chest X-Ray 02/17/17 0000 Signed Impressions: Service Date/Time: Friday, February 17, 2017 13:34 - CONCLUSION: 1. Patchy areas of bibasilar infiltrate atelectasis concerning for pneumonia. 2. Large lytic lesion in the humeral head on the left. This is described in detail above. Malignancy is not excluded. Stoney Hwang MD Objective Remarks GENERAL: Awake and alert, NAD SKIN: Warm and dry. Has dressings on BLE wounds, dry and intact. CARDIOVASCULAR: Regular rate and rhythm without murmurs RESPIRATORY: Clear to auscultation. Breath sounds equal bilaterally. No wheezes BREAST: Has implants GASTROINTESTINAL: Abdomen soft, non-tender, nondistended. MUSCULOSKELETAL: Extremities without edema. R knee with dressing in place. Left shoulder dressings in place NEUROLOGICAL: Non-focal, alert awake and oriented 3. Procedures sp Right knee arthrotomy with irrigation and debridement of infection 02/16/17 sp debridement of bilateral lower extremity wounds on 02/19/17 A/P Problem List: (1) Septic arthritis ICD Code: M00.9 Status: Acute (2) Lytic lesion of bone on x-ray ICD Code: M89.9 Status: Acute Assessment and Plan This is a 51-year-old female with history of chronic back pain, neurodermatitis , chronic wound, polysubstance abuse presented to the hospital with a 2 day history of right knee pain and swelling, found to have septic arthritis of the right knee. Septic arthritis of the right knee- Patient status post aspiration of the right knee with elevated white blood cell count of 76,400. Infectious disease on board, culture grew. MRSA. Patient treated as a case of septic knee arthritis, status post right knee arthrotomy with irrigation by Dr. Mathis. Patient is status post incision and debridement of lower extremity wounds. Podiatry was also consulted, appreciate. Awaiting further recommendations from infectious disease pending pathology report. Continue vancomycin for now, monitor Cr. Chronic lower extremity wounds- status post incision and debridement, Patient to have I&D. Plastic surgery consulted as per vascular ecmo specialist request Dr. Tanner Polysubstance abuse with history of IV drug abuse- switch medications to oral, breakthrough intravenous only if needed, IV decreased to q8hrs prn. Patient is compliant with oral Dilaudid. Takes this much at home as well. It was explained to her that we will continue to decrease IV dose and she is agreeable w plan. Hypokalemia- Resolved after repletion. Tobacco dependence started on bronchodilator mucolytic and incentive spirometry. Advised smoking cessation. Continue nicotine patch. Community-acquired pneumonia. Chest x-ray obtained on 02/17/17 reviewed by me shows patchy areas of bibasilar infiltrate versus atelectasis. CT scan consistent with pneumonia as well. Continue antibiotics with vancomycin, s/p azithromycin. Bone lytic lesion left humeral head - status post arthrotomy, incision and drainage 02/24/17, continue pain control. Inflammatory arthropathy, infection with joint effusion versus metastatic lesion, follow-up biopsy results. Pathology still pending. Right breast implant intracapsular rupture- Discussed case with Dr Ramirez. He states that the patient can follow up with Dr Jang as an outpatient to have the breast implant removed and replaced.T His was discussed with the patient. GI prophylaxis: PPI. DVT prophylaxis: Continue Lovenox SQ Discharge Planning Discharge to home with home health care once ID makes final recs, they are awaiting final pathology results. [id number] done. Will likely need vancomycin intravenously. Problem Qualifiers (1) Septic arthritis: Qualified Code: M00.9 - Pyogenic arthritis of right knee joint, due to unspecified organism Ruth Olvera MD Mar 01, 2017 09:19
[2017-03-01] MEDS: ENOXAPARIN SODIUM 30 MG/0.3 ML SYRINGE SQ SCH (11:05)
[2017-03-01 12:00] VITALS: BP 107/65; PULSE 93; RESP 18; TEMP 97.4; O2SAT 100
--- NOTE | 2017-03-01 12:46 | HHI.IDPN ---
Subjective Subjective Remarks Notes reviewed Temps ok Knee pain better Pain in her shoulder still present not worse Shoulder C/S negative Path report L humerus pending Antibiotics Vancomycin Lines PIV Past Medical History Reviewed Allergies: Coded Allergies: *MDRO Multi-Drug Resistant Organism (Verified Adverse Reaction, Unknown, ) MRSA (finger wound) - 06/06/16; (synovial fluid) - 02/15/17; (leg)-02/19/17 MRSA PCR Screen POSITIVE -02/15/17 Objective . Vital Signs Date Time Temp Pulse Resp B/P Pulse Ox O2 Delivery O2 Flow Rate FiO2 03/01/17 12:00 97.4 93 18 107/65 100 03/01/17 08:00 98.2 107 20 112/66 100 03/01/17 04:00 99.7 101 22 121/63 96 03/01/17 02:24 Room Air 03/01/17 00:00 98.4 92 22 104/58 98 02/28/17 20:00 98.3 100 26 104/60 98 02/28/17 18:50 95 Room Air 02/28/17 16:00 97.7 81 20 134/68 95 02/28/17 02/28/17 03/01/17 15:00 23:00 07:00 Intake Total 490 ml 500 ml Output Total 475 ml 1200 ml Balance 15 ml -700 ml Intake Oral 240 ml 0 ml IV Total 250 ml 500 ml Output Urine Total 475 ml 1200 ml # Voids 3 # Bowel Movements 0 0 . Laboratory Tests Test 02/28/17 07:13 Creatinine 0.60 MG/DL Estimat Glomerular Filtration 105 ML/MIN Rate Imaging Chest X-Ray 02/17/17 0000 Signed Impressions: Service Date/Time: Friday, February 17, 2017 13:34 - CONCLUSION: 1. Patchy areas of bibasilar infiltrate atelectasis concerning for pneumonia. 2. Large lytic lesion in the humeral head on the left. This is described in detail above. Malignancy is not excluded. Stoney Hwang MD Physical Exam GENERAL: Awake and alert, NAD SKIN: Warm and dry. She has generalized hypopigmented scars HEENT: [place] conjunctivae, no petechia, no hemorrhage. No scleral icterus. Moist mucosa. NECK: Supple, nontender, no meningeal signs. CARDIOVASCULAR: Regular rate and rhythm without murmurs, gallops, or rubs. RESPIRATORY: Clear to auscultation. Breath sounds equal bilaterally. No wheezes , rales, or rhonchi. BREAST: Has implants, has hypopigmented scars on her breast GASTROINTESTINAL: Abdomen soft, non-tender, mildly distended. No hepato- splenomegaly, or palpable masses. No guarding. MUSCULOSKELETAL: R knee with dry dressing in place. Dry dressings on her leg wounds. 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
[2017-03-01 16:00] VITALS: BP 106/59; PULSE 88; RESP 18; TEMP 97.5; O2SAT 99
[2017-03-01 20:00] VITALS: BP 108/65; PULSE 96; RESP 20; TEMP 97.8; O2SAT 100
[2017-03-01] MEDS: NORTRIPTYLINE HCL 25 MG CAP PO SCH (20:52)
[2017-03-01] MEDS: REMOVE OLD NICODERM (NICOTINE) PATCH TD SCH (20:53)
--- NOTE | 2017-03-01 23:16 | HHI.PR ---
Subjective Remarks This is a lte entry for date 02/24/2017 at around 2 pm Patient c/o left shoulder pain denies cp/sob denies fevers/chills sp left shoulder I and D. Objective Vitals Vital Signs Date Time Temp Pulse Resp B/P Pulse Ox O2 Delivery O2 Flow Rate FiO2 03/01/17 20:00 97.8 96 20 108/65 100 03/01/17 16:00 97.5 88 18 106/59 99 03/01/17 12:00 97.4 93 18 107/65 100 03/01/17 08:00 98.2 107 20 112/66 100 03/01/17 04:00 99.7 101 22 121/63 96 03/01/17 02:24 Room Air 03/01/17 00:00 98.4 92 22 104/58 98 I/O 02/28/17 02/28/17 02/28/17 03/01/17 03/01/17 03/01/17 07:00 15:00 23:00 07:00 15:00 23:00 Intake Total 480 ml 490 ml 500 ml 1080 ml 360 ml Output Total 10 ml 475 ml 1200 ml 5 ml 500 ml Balance 470 ml 15 ml -700 ml 1075 ml -140 ml Intake Oral 480 ml 240 ml 0 ml 960 ml 360 ml IV Total 250 ml 500 ml 120 ml Output Urine Total 475 ml 1200 ml 500 ml Drainage Total 10 ml 5 ml # Voids 3 3 2 # Bowel Movements 0 0 1 0 Result Diagram: 02/28/17 0713 Objective Remarks GENERAL: Awake and alert, NAD SKIN: Warm and dry. Has dressings on BLE wounds, dry and intact. She has generalized hypopigmented scars HEENT: [place] conjunctivae, no petechia, no hemorrhage. No scleral icterus. Moist mucosa. NECK: Trachea midline. No JVD or lymphadenopathy. Supple, nontender, no meningeal signs. CARDIOVASCULAR: Regular rate and rhythm without murmurs, gallops, or rubs. RESPIRATORY: Clear to auscultation. Breath sounds equal bilaterally. No wheezes , rales, or rhonchi. BREAST: Has implants, has hypopigmented scars on her breast GASTROINTESTINAL: Abdomen soft, non-tender, mildly distended. Bowel sounds are present and normoactive. No hepato-splenomegaly, or palpable masses. No guarding. MUSCULOSKELETAL: Extremities without clubbing, cyanosis, or edema. R knee with dressing in place, has drain in place. Dressings on her wounds. Left shoulder covered with dressing. Patient unable to move left shoulder secondary to pain. NEUROLOGICAL: Non-focal LINE: PIV with no evidence of infection Procedures sp Right knee arthrotomy with irrigation and debridement of infection 02/16/17 sp debridement of bilateral lower extremity wounds on 02/19/17 Urinary Catheter: No Vascular Central Line Catheter: No A/P Problem List: (1) Septic arthritis ICD Code: M00.9 Status: Acute (2) Lytic lesion of bone on x-ray ICD Code: M89.9 Status: Acute Assessment and Plan 1. Septic arthritis of the right knee. Patient status post aspiration of the right knee with elevated white blood cell count of 76,400. The patient will start IV vancomycin and IV cefepime. Gram stain from aspiration showed gram-positive cocci MRSA. ID consulted who recommended to continue IV vancomycin. Patient underwent surgical procedures on 02/19/17 with diagnosis of septic right knee status post right knee arthrotomy with irrigation and right min by Dr. Mathis. Patient is status post incision and debridement of lower extremity wounds. Follow-up podiatry recommendations. final cultures and sensitivities still show MRSA. 2. Chronic lower extremity wounds. Continue wound care. Patient to have I&D. Plastic surgery consulted as per vascular content development specialist request Dr. Tanner 3. Polysubstance abuse with history of IV drug abuse. ID following. 4. Hypokalemia. Resolved after repletion. Continue to monitor and replace as needed. 5. Tobacco dependence started on bronchodilator mucolytic and incentive spirometry. Advised smoking cessation. Continue nicotine patch. 6. Community-acquired pneumonia. Chest x-ray obtained on 02/17/17 reviewed by me shows patchy areas of bibasilar infiltrate versus atelectasis. Large lytic lesion in the humeral head on the left. 02/23 CT of the chest shows bilateral bibasilar airspace consolidation consistent with pneumonia. Right breast implant intracapsular rupture. Sp Rx with IV Rocephin and Azithromycin completed on 02/22/17. 7. Bone Lytic lesion found in the left humeral head. As per radiology report there is a new large cortical defect in the superior margin of the left humeral head which was not present on previous exam on 08/31/13. Differential considerations would include an erosive or inflammatory arthropathy versus metastatic lesion. 02/20 CT scan of the left shoulder showed diffuse destructive process involving the left shoulder which favors a severe arthritic process. However neoplastic process was not completely excluded. MRI was ordered to further assess the above-mentioned abnormalities. It showed abnormal bone marrow edema and enhancement and erosions in the proximal humerus and bony glenoid characteristic of possibly an infected joint effusion as well. There is edema of the rotator musculature and a rotator cuff tear distally. Enlarged left axillary lymph nodes also described. MRI and CT scan personally reviewed by me. Due to septic arthritis of the left shoulder. 02/23 Called orthopedic surgery and spoke to Dr Flores who said he would see the patient. 02/24 Patient is sp Incision and drainage of left shoulder. Fu orthopedic surgery recommendations. 8. Right breast implant intracapsular rupture. Discussed case with Dr Ramirez. He states that the patient can follow up with Dr Jang as an outpatient to have the breast implant removed and replaced. this was discussed with the patient. GI prophylaxis: I will add PPI. DVT prophylaxis: Continue Lovenox SQ Discharge Planning pending orthopedic surgery and ID clearance. Continue to monitor in the medical floor. Problem Qualifiers (1) Septic arthritis: Qualified Code: M00.9 - Pyogenic arthritis of right knee joint, due to unspecified organism Randall Farnsworth MD Mar 01, 2017 23:16
[2017-03-02] VITALS: BP 113/59; PULSE 91; RESP 22; TEMP 98; O2SAT 100
[2017-03-02] MEDS: HYDROmorphone HCL 2 MG TAB PO PRN ×4 (00:10→20:28)
[2017-03-02] MEDS: HYDROmorphone HCL PF 1 MG/ML VIAL IV PRN ×3 (02:30→16:59)
[2017-03-02 04:00] VITALS: BP 110/61; PULSE 93; RESP 22; TEMP 97.9; O2SAT 98
[2017-03-02] MEDS ORDERED: PHARMACY ORDERED LAB ONE (05:45)
[2017-03-02] MEDS: VANCOMYCIN 1,000 MG/NS 250 ML IV SCH ×6 (06:27→22:42)
[2017-03-02 08:00] VITALS: BP 93/57; PULSE 99; RESP 18; TEMP 97; O2SAT 98
[2017-03-02] MEDS: guaiFENesin E.R. 600 MG TAB PO SCH ×2 (08:03→20:27)
[2017-03-02] MEDS: SODIUM CHLORIDE 0.9% FLUSH 5 ML FLUSH IVF SCH ×2 (08:03→20:28)
[2017-03-02] MEDS: GABAPENTIN 300 MG CAP PO SCH ×2 (08:03→20:27)
[2017-03-02] MEDS: NICOTINE 14 MG/24 HR PATCH TD SCH (08:03)
--- NOTE | 2017-03-02 11:46 | HHI.PR ---
Subjective Remarks Pt states she has pain. Not too happy about not having an increase in her PO dilaudid. Otherwise no CP/SOB/N/V Objective Vitals Vital Signs Date Time Temp Pulse Resp B/P Pulse Ox O2 Delivery O2 Flow Rate FiO2 03/02/17 09:04 Room Air 21 03/02/17 08:00 97.0 99 18 93/57 98 03/02/17 04:00 Room Air 03/02/17 04:00 97.9 93 22 110/61 98 03/02/17 00:00 98.0 91 22 113/59 100 03/02/17 00:00 Room Air 03/01/17 20:00 Room Air 03/01/17 20:00 97.8 96 20 108/65 100 03/01/17 16:00 97.5 88 18 106/59 99 03/01/17 12:00 97.4 93 18 107/65 100 I/O 03/01/17 03/01/17 03/01/17 03/02/17 03/02/17 03/02/17 07:00 15:00 23:00 07:00 15:00 23:00 Intake Total 500 ml 1080 ml 610 ml 730 ml Output Total 1200 ml 5 ml 500 ml 1100 ml Balance -700 ml 1075 ml 110 ml -370 ml Intake Oral 0 ml 960 ml 360 ml 480 ml IV Total 500 ml 120 ml 250 ml 250 ml Output Urine Total 1200 ml 500 ml 1100 ml Drainage Total 5 ml # Voids 2 # Bowel Movements 0 1 0 0 Result Diagram: 03/02/17 0546 Imaging Last Impressions Shoulder MRI 02/20/17 0000 Signed Impressions: Service Date/Time: Monday, February 20, 2017 14:42 - CONCLUSION: 1. Abnormal marrow edema and enhancement and erosions in the proximal humerus and bony glenoid is characteristic of, possibly with an infected joint effusion as well. There is edema of the rotator musculature and the rotator cuff tear distally. They are enlarged left axillary lymph nodes. Ole Lam MD Upper Extremity CT 02/18/17 0000 Signed Impressions: Service Date/Time: Monday, February 20, 2017 07:48 - CONCLUSION: Diffuse destructive process involving the left shoulder which given the adjacent bony remodeling and the location of the lytic lesions favor a severe arthritic process, however, a neoplastic process is not completely excluded and should be further evaluated with MRI to evaluate the marrow... Amairani Cleary MD Chest CT 02/18/17 0000 Signed Impressions: Service Date/Time: Monday, February 20, 2017 07:48 - CONCLUSION: 1. Bilateral bibasilar airspace consolidation consistent with pneumonia. 2. Right breast implant intracapsular rupture. Amairani Cleary MD Chest X-Ray 02/17/17 0000 Signed Impressions: Service Date/Time: Friday, February 17, 2017 13:34 - CONCLUSION: 1. Patchy areas of bibasilar infiltrate atelectasis concerning for pneumonia. 2. Large lytic lesion in the humeral head on the left. This is described in detail above. Malignancy is not excluded. Stoney Hwang MD Objective Remarks GENERAL: Awake and alert, NAD SKIN: Warm and dry. Has dressings on BLE wounds, dry and intact. CARDIOVASCULAR: Regular rate and rhythm without murmurs RESPIRATORY: Clear to auscultation. Breath sounds equal bilaterally. No wheezes BREAST: Has implants GASTROINTESTINAL: Abdomen soft, non-tender, nondistended. MUSCULOSKELETAL: Extremities without edema. R knee with dressing in place. Left shoulder dressings in place NEUROLOGICAL: Non-focal, alert awake and oriented 3. Procedures sp Right knee arthrotomy with irrigation and debridement of infection 02/16/17 sp debridement of bilateral lower extremity wounds on 02/19/17 A/P Problem List: (1) Septic arthritis ICD Code: M00.9 Status: Acute (2) Lytic lesion of bone on x-ray ICD Code: M89.9 Status: Acute Assessment and Plan This is a 51-year-old female with history of chronic back pain, neurodermatitis , chronic wound, polysubstance abuse presented to the hospital with a 2 day history of right knee pain and swelling, found to have septic arthritis of the right knee. update 03/02/17: no changes to management today. Pt still getting IV abx. Monitor Cr. Awaiting pathology report. Per ID, if path shows osteo then will need 6 weeks of abx. Once again, discussed w pt regarding not increasing dose of pain meds. Septic arthritis of the right knee- Patient status post aspiration of the right knee with elevated white blood cell count of 76,400. Infectious disease on board, culture grew. MRSA. Patient treated as a case of septic knee arthritis, status post right knee arthrotomy with irrigation by Dr. Mathis. Patient is status post incision and debridement of lower extremity wounds. Podiatry was also consulted, appreciate. Awaiting further recommendations from infectious disease pending pathology report. Continue vancomycin for now, monitor Cr. Chronic lower extremity wounds- status post incision and debridement, Patient to have I&D. Plastic surgery consulted as per vascular sales and service specialist request Dr. Tanner Polysubstance abuse with history of IV drug abuse- switch medications to oral, breakthrough intravenous only if needed, IV decreased to q8hrs prn. Patient is compliant with oral Dilaudid. Takes this much at home as well. It was explained to her that we will continue to decrease IV dose and she is agreeable w plan. Hypokalemia- Resolved after repletion. Tobacco dependence started on bronchodilator mucolytic and incentive spirometry. Advised smoking cessation. Continue nicotine patch. Community-acquired pneumonia. Chest x-ray obtained on 02/17/17 reviewed by me shows patchy areas of bibasilar infiltrate versus atelectasis. CT scan consistent with pneumonia as well. Continue antibiotics with vancomycin, s/p azithromycin. Bone lytic lesion left humeral head - status post arthrotomy, incision and drainage 02/24/17, continue pain control. Inflammatory arthropathy, infection with joint effusion versus metastatic lesion, follow-up biopsy results. Pathology still pending. Right breast implant intracapsular rupture- Discussed case with Dr Ramirez. He states that the patient can follow up with Dr Jang as an outpatient to have the breast implant removed and replaced.T His was discussed with the patient. GI prophylaxis: PPI. DVT prophylaxis: Continue Lovenox SQ Discharge Planning Discharge to home with home health care once ID makes final recs, they are awaiting final pathology results. [id number] done. Will likely need vancomycin intravenously. Problem Qualifiers (1) Septic arthritis: Qualified Code: M00.9 - Pyogenic arthritis of right knee joint, due to unspecified organism Ruth Olvera MD Mar 02, 2017 11:46
[2017-03-02 12:00] VITALS: BP 96/56; PULSE 91; RESP 18; TEMP 97; O2SAT 97
[2017-03-02] MEDS: ENOXAPARIN SODIUM 30 MG/0.3 ML SYRINGE SQ SCH (13:19)
--- NOTE | 2017-03-02 13:36 | HHI.IDPN ---
Subjective Subjective Remarks Notes reviewed Temps ok Clinically better Shoulder C/S negative Path report L humerus pending Antibiotics Vancomycin Lines PIV Past Medical History Reviewed Allergies: Coded Allergies: *MDRO Multi-Drug Resistant Organism (Verified Adverse Reaction, Unknown, ) MRSA (finger wound) - 06/06/16; (synovial fluid) - 02/15/17; (leg)-02/19/17 MRSA PCR Screen POSITIVE -02/15/17 Objective . Vital Signs Date Time Temp Pulse Resp B/P Pulse Ox O2 Delivery O2 Flow Rate FiO2 03/02/17 12:00 97.0 91 18 96/56 97 03/02/17 09:04 Room Air 21 03/02/17 08:00 97.0 99 18 93/57 98 03/02/17 04:00 Room Air 03/02/17 04:00 97.9 93 22 110/61 98 03/02/17 00:00 98.0 91 22 113/59 100 03/02/17 00:00 Room Air 03/01/17 20:00 Room Air 03/01/17 20:00 97.8 96 20 108/65 100 03/01/17 16:00 97.5 88 18 106/59 99 03/01/17 03/01/17 03/02/17 15:00 23:00 07:00 Intake Total 1080 ml 610 ml 730 ml Output Total 5 ml 500 ml 1100 ml Balance 1075 ml 110 ml -370 ml Intake Oral 960 ml 360 ml 480 ml IV Total 120 ml 250 ml 250 ml Output Urine Total 500 ml 1100 ml Drainage Total 5 ml # Voids 2 # Bowel Movements 1 0 0 . Laboratory Tests Test 03/02/17 05:46 Creatinine 0.66 MG/DL Estimat Glomerular Filtration 94 ML/MIN Rate Imaging Chest X-Ray 02/17/17 0000 Signed Impressions: Service Date/Time: Friday, February 17, 2017 13:34 - CONCLUSION: 1. Patchy areas of bibasilar infiltrate atelectasis concerning for pneumonia. 2. Large lytic lesion in the humeral head on the left. This is described in detail above. Malignancy is not excluded. Stoney Hwang MD Physical Exam GENERAL: Awake and alert, NAD SKIN: Warm and dry. She has generalized hypopigmented scars HEENT: [employer] conjunctivae, no petechia, no hemorrhage. No scleral icterus. Moist mucosa. NECK: Supple, nontender, no meningeal signs. CARDIOVASCULAR: Regular rate and rhythm without murmurs, gallops, or rubs. RESPIRATORY: Clear to auscultation. GASTROINTESTINAL: Abdomen soft, non-tender, mildly distended. No hepato- splenomegaly, or palpable masses. No guarding. MUSCULOSKELETAL: R knee with dry dressing in place. Dry dressings on her leg wounds. Intact dressing L shoulder NEUROLOGICAL: Non-focal LINE: no evidence of infection Assessment & Plan Remarks IMPRESSION Sepsis due to septic knee Septic R knee, C/S MRSA - had OR 02/16 Septic joint L shoulder and possible osteo humerus - path pending Chronic skin lesions, etiology? 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
[2017-03-02 16:00] VITALS: BP 100/68; PULSE 90; RESP 18; TEMP 97; O2SAT 98
[2017-03-02] MEDS ORDERED: SODIUM CHLORIDE 0.9% FLUSH 10 ML FLUSH IV FLUSH PRN (16:30)
--- NOTE | 2017-03-02 16:52 | RADRPT ---
EXAM DATE/TIME: 03/02/2017 16:18 [facility] COMPARISON: CHEST SINGLE AP, August 31, 2013, 4:35. INDICATIONS : Post PICC line placement. MEDICAL HISTORY : Raynauds, fibromyalgia, vasculitis, psoriasis, alopecia, sicca syndrome. SURGICAL HISTORY : section. BLE debridement. Cosmetic surgery. ENCOUNTER: Subsequent ACUITY: 2 days PAIN SCORE: 3/10 LOCATION: Bilateral chest FINDINGS: The cardiac silhouette is normal in transverse diameter. There is parenchymal scarring bilaterally. A PICC line is in place via right-sided approach with its tip in the region of the superior vena cava. There is blunting of the costophrenic angle on the right consistent with pleural thickening. CONCLUSION: 1. Uncomplicated PICC line placement. Grady Mabry MD on March 02, 2017 at 16:50 Board Certified Radiologist. This report was verified electronically.
[2017-03-02 20:00] VITALS: BP 109/56; PULSE 88; RESP 18; TEMP 97.9; O2SAT 95
[2017-03-02] MEDS: NORTRIPTYLINE HCL 25 MG CAP PO SCH (20:27)
[2017-03-02] MEDS: REMOVE OLD NICODERM (NICOTINE) PATCH TD SCH (20:29)
[2017-03-03] VITALS: BP 91/53; PULSE 105; RESP 18; TEMP 98; O2SAT 98
[2017-03-03] MEDS: HYDROmorphone HCL PF 1 MG/ML VIAL IV PRN ×3 (01:27→17:09)
[2017-03-03 04:00] VITALS: BP 84/50; PULSE 89; RESP 18; TEMP 97; O2SAT 99
[2017-03-03] MEDS: HYDROmorphone HCL 2 MG TAB PO PRN ×3 (04:37→20:19)
[2017-03-03] MEDS: VANCOMYCIN 1,000 MG/NS 250 ML IV SCH ×6 (05:57→22:09)
[2017-03-03 06:18] LABS: AUTOMATED NEUTROPHIL # 2.3 TH/MM3 (1.8-7.7); BASOPHIL # 0.1 TH/MM3 (0-0.2); BASOPHIL % 1.4 % (0.0-2.0); EOSINOPHIL # 0.2 TH/MM3 (0-0.4); EOSINOPHIL % 3.9 % (0.0-4.0); HEMATOCRIT 23.4 % (35.0-46.0); LYMPH % 25.8 % (9.0-44.0); MEAN CELL VOLUME 68.7 FL (80.0-100.0); MEAN CORPUSCULAR HEMOGLOBIN 23.2 PG (27.0-34.0); MEAN CORPUSCULAR HGB CONC 33.7 % (32.0-36.0); MONO % 11.9 % (0.0-8.0); PLATELET COUNT 544 TH/MM3 (150-450); RED CELL DISTRIBUTION WIDTH 15.9 % (11.6-17.2); WHITE BLOOD COUNT 4.1 TH/MM3 (4.0-11.0)
[2017-03-03 06:24] LABS: HEMO FLAGS AUTO DIFF
[2017-03-03 06:43] LABS: ANION GAP 9 MEQ/L (5-15); AST (GOT) 39 U/L (15-37); BICARBONATE 29.2 MEQ/L (21.0-32.0); BLOOD UREA NITROGEN 12 MG/DL (7-18); CHLORIDE 95 MEQ/L (98-107); GLOMERULAR FILTRATION RATE 103 ML/MIN (>89); POTASSIUM 4.2 MEQ/L (3.5-5.1); SODIUM (NA) 133 MEQ/L (136-145)
[2017-03-03 06:47] LABS: ALKALINE PHOSPHATASE 347 U/L (45-117); ALT (GPT) 40 U/L (10-53); TOTAL BILIRUBIN ADULT 0.2 MG/DL (0.2-1.0)
[2017-03-03] MEDS: SODIUM CHLORIDE 0.9% FLUSH 5 ML FLUSH IVF SCH ×2 (07:42→20:25)
[2017-03-03 08:04] VITALS: BP 92/55; PULSE 90; RESP 19; TEMP 97.8; O2SAT 97
[2017-03-03 08:14] LABS: SCAN/DIFF AUTO DIFF CONFIRMED
[2017-03-03] MEDS ORDERED: SODIUM CHLORIDE 0.9% FLUSH 10 ML FLUSH IV FLUSH SCH (09:00)
[2017-03-03] MEDS: GABAPENTIN 300 MG CAP PO SCH ×2 (09:30→20:19)
[2017-03-03] MEDS: guaiFENesin E.R. 600 MG TAB PO SCH ×2 (09:30→20:19)
[2017-03-03] MEDS: NICOTINE 14 MG/24 HR PATCH TD SCH (09:30)
[2017-03-03] MEDS: ENOXAPARIN SODIUM 30 MG/0.3 ML SYRINGE SQ SCH (11:17)
[2017-03-03 12:05] VITALS: BP 134/66; PULSE 96; RESP 19; TEMP 97.5; O2SAT 100
--- NOTE | 2017-03-03 15:46 | HHI.FF ---
Infusion Therapy Location of Infusion Therapy: Home Health Care IV Infusion Order Patient Information Patient Weight 56.6 kg Diagnosis: Diagnosis MRSA infection knee and shoulder Coded Allergies: *MDRO Multi-Drug Resistant Organism (Verified Adverse Reaction, Unknown, ) MRSA (finger wound) - 06/06/16; (synovial fluid) - 02/15/17; (leg)-02/19/17 MRSA PCR Screen POSITIVE -02/15/17 Administer Medication Daptomycin 500 mg IV q 24 hours Stop Treatment: April 01, 2017 Additional Information Venous access: PICC Line Additional Instructions [x] Peripheral flush and dressing changes per protocol [x] Implanted port and central class a lineman: * Implanted port: 10 ml Normal Saline followed by 5 ml Heparin 100 units/ml Heparin flush after each use and monthly to maintain. [] May leave port accessed during therapy. [] May leave peripheral site accessed for duration of therapy. [x] If patient has SOB or respiratory distress, check oxygen saturation. If less than 90% or clinical signs of respiratory distress, administer oxygen at 2 L/min. via nasal cannula and notify physician. [x] Anaphylaxis/Reaction orders: * Stop infusion. * Keep IV line open with saline flush. * Notify physician. * Monitor vital signs every 15 minutes until symptoms resolve. * Check Oxygen saturation; Oxygen at 2 L/min. via nasal cannula if less than 90% or clinical signs of respiratory distress. * Administer diphenhydramine (Benadryl) 25 mg IV STAT, (unless patient has received as pre-med). May repeat once, if necessary. * Solu-Cortef 250 mg IVP over 30-60 seconds, use 100 mg vials for each dissolution. * Epinephrine (1mg/1 ml) 0.3 mg subcutaneously or IVP now with any signs of respiratory distress. * Check with physician for new additional pre-med orders if patient is re- challenged or re-treated. [x] May remove PICC line when treatment complete, after confirming with Physician. [x] If the patient is admitted to the hospital, the ED, or transferred via [facility] , complete transfer form including medication reconciliation order sheet. Laboratory Tests Weekly Labs: CBC w/diff, Creatinine, LFT's (Hepatic function test), Serum CK Levels (Labs every Wednesday - copy to me) Marquita Ferreira MD Mar 03, 2017 15:46
[2017-03-03 16:04] VITALS: BP 92/50; PULSE 93; RESP 18; TEMP 97.8; O2SAT 98
--- NOTE | 2017-03-03 16:54 | HHI.PR ---
Subjective Remarks no complaints today. would like to be discharged soon. asking about update on path report and plan Objective Vitals Vital Signs Date Time Temp Pulse Resp B/P Pulse Ox O2 Delivery O2 Flow Rate FiO2 03/03/17 12:05 97.5 96 19 134/66 100 03/03/17 08:04 97.8 90 19 92/55 97 03/03/17 04:00 97.0 89 18 84/50 99 03/03/17 01:57 18 03/03/17 00:00 98.0 105 18 91/53 98 03/02/17 21:28 18 03/02/17 20:00 97.9 88 18 109/56 95 I/O 03/02/17 03/02/17 03/02/17 03/03/17 03/03/17 03/03/17 07:00 15:00 23:00 07:00 15:00 23:00 Intake Total 730 ml 960 ml Output Total 1100 ml 1000 ml Balance -370 ml 960 ml -1000 ml Intake Oral 480 ml 960 ml IV Total 250 ml Output Urine Total 1100 ml 1000 ml # Voids 3 # Bowel Movements 0 0 2 Result Diagram: 03/03/17 0600 03/03/17 0600 Imaging Last Impressions Chest X-Ray 03/02/17 0000 Signed Impressions: Service Date/Time: Thursday, March 02, 2017 16:18 - CONCLUSION: 1. Uncomplicated PICC line placement. Grady Mabry MD Shoulder MRI 02/20/17 0000 Signed Impressions: Service Date/Time: Monday, February 20, 2017 14:42 - CONCLUSION: 1. Abnormal marrow edema and enhancement and erosions in the proximal humerus and bony glenoid is characteristic of, possibly with an infected joint effusion as well. There is edema of the rotator musculature and the rotator cuff tear distally. They are enlarged left axillary lymph nodes. Ole Lam MD Upper Extremity CT 02/18/17 0000 Signed Impressions: Service Date/Time: Monday, February 20, 2017 07:48 - CONCLUSION: Diffuse destructive process involving the left shoulder which given the adjacent bony remodeling and the location of the lytic lesions favor a severe arthritic process, however, a neoplastic process is not completely excluded and should be further evaluated with MRI to evaluate the marrow... Amairani Cleary MD Chest CT 02/18/17 0000 Signed Impressions: Service Date/Time: Monday, February 20, 2017 07:48 - CONCLUSION: 1. Bilateral bibasilar airspace consolidation consistent with pneumonia. 2. Right breast implant intracapsular rupture. Amairani Cleary MD Objective Remarks GENERAL: Awake and alert, NAD CARDIOVASCULAR: Regular rate and rhythm without murmurs RESPIRATORY: Clear to auscultation. Breath sounds equal bilaterally. No wheezes GASTROINTESTINAL: Abdomen soft, non-tender, nondistended. MUSCULOSKELETAL: Extremities without edema. R knee with dressing in place. Left shoulder dressings in place NEUROLOGICAL: Non-focal, alert awake and oriented 3. Procedures sp Right knee arthrotomy with irrigation and debridement of infection 02/16/17 sp debridement of bilateral lower extremity wounds on 02/19/17 A/P Problem List: (1) Septic arthritis ICD Code: M00.9 Status: Acute (2) Lytic lesion of bone on x-ray ICD Code: M89.9 Status: Acute Assessment and Plan This is a 51-year-old female with history of chronic back pain, neurodermatitis , chronic wound, polysubstance abuse presented to the hospital with a 2 day history of right knee pain and swelling, found to have septic arthritis of the right knee. update 03/02/17: no changes to management today. Pt still getting IV abx. Monitor Cr. Awaiting pathology report. Per ID, if path shows osteo then will need 6 weeks of abx. Once again, discussed w pt regarding not increasing dose of pain meds. update 03/03/17: no new changes. discussed w Dr. Ferreira and she has reviewed the path report. She would like to treat pt for osteo x 6 week w cubicin, case assistant is working on finding out if it will be approved by pt's insurance and how much the co-pay will be. if co-pay affordable then will d/c pt on cubicin. Anticipate d/c tomorrow if IV abx is set up. Septic arthritis of the right knee- Patient status post aspiration of the right knee with elevated white blood cell count of 76,400. Infectious disease on board, culture grew. MRSA. Patient treated as a case of septic knee arthritis, status post right knee arthrotomy with irrigation by Dr. Mathis. Patient is status post incision and debridement of lower extremity wounds. Podiatry was also consulted, appreciate. Awaiting further recommendations from infectious disease pending pathology report. Continue vancomycin for now, monitor Cr. Chronic lower extremity wounds- status post incision and debridement, Patient to have I&D. Plastic surgery consulted as per vascular document preparation specialist request Dr. Tanner Polysubstance abuse with history of IV drug abuse- switch medications to oral, breakthrough intravenous only if needed, IV decreased to q8hrs prn. Patient is compliant with oral Dilaudid. Takes this much at home as well. It was explained to her that we will continue to decrease IV dose and she is agreeable w plan. Hypokalemia- Resolved after repletion. Tobacco dependence started on bronchodilator mucolytic and incentive spirometry. Advised smoking cessation. Continue nicotine patch. Community-acquired pneumonia. Chest x-ray obtained on 02/17/17 reviewed by me shows patchy areas of bibasilar infiltrate versus atelectasis. CT scan consistent with pneumonia as well. Continue antibiotics with vancomycin, s/p azithromycin. Bone lytic lesion left humeral head - status post arthrotomy, incision and drainage 02/24/17, continue pain control. Inflammatory arthropathy, infection with joint effusion versus metastatic lesion, follow-up biopsy results. Pathology still pending. Right breast implant intracapsular rupture- Discussed case with Dr Ramirez. He states that the patient can follow up with Dr Jang as an outpatient to have the breast implant removed and replaced.T His was discussed with the patient. GI prophylaxis: PPI. DVT prophylaxis: Continue Lovenox SQ Discharge Planning anticipate d/c tomorrow IV abx can be set up Problem Qualifiers (1) Septic arthritis: Qualified Code: M00.9 - Pyogenic arthritis of right knee joint, due to unspecified organism Ruth Olvera MD Mar 03, 2017 16:54
--- NOTE | 2017-03-03 17:09 | HHI.IDPN ---
Subjective Subjective Remarks Notes reviewed Temps ok Clinically better Shoulder C/S negative Path report L humerus chronic osteo Antibiotics Vancomycin Lines PIV Past Medical History Reviewed Allergies: Coded Allergies: *MDRO Multi-Drug Resistant Organism (Verified Adverse Reaction, Unknown, ) MRSA (finger wound) - 06/06/16; (synovial fluid) - 02/15/17; (leg)-02/19/17 MRSA PCR Screen POSITIVE -02/15/17 Objective . Vital Signs Date Time Temp Pulse Resp B/P Pulse Ox O2 Delivery O2 Flow Rate FiO2 03/03/17 12:05 97.5 96 19 134/66 100 03/03/17 08:04 97.8 90 19 92/55 97 03/03/17 04:00 97.0 89 18 84/50 99 03/03/17 01:57 18 03/03/17 00:00 98.0 105 18 91/53 98 03/02/17 21:28 18 03/02/17 20:00 97.9 88 18 109/56 95 03/02/17 03/02/17 03/03/17 15:00 23:00 07:00 Intake Total 960 ml Output Total 1000 ml Balance 960 ml -1000 ml Intake Oral 960 ml Output Urine Total 1000 ml # Voids 3 # Bowel Movements 0 2 . Laboratory Tests Test 03/03/17 06:00 White Blood Count 4.1 TH/MM3 Red Blood Count 3.40 MIL/MM3 Hemoglobin 7.9 GM/DL Hematocrit 23.4 % Mean Corpuscular Volume 68.7 FL Mean Corpuscular Hemoglobin 23.2 PG Mean Corpuscular Hemoglobin 33.7 % Concent Red Cell Distribution Width 15.9 % Platelet Count 544 TH/MM3 Mean Platelet Volume 5.8 FL Neutrophils (%) (Auto) 57.0 % Lymphocytes (%) (Auto) 25.8 % Monocytes (%) (Auto) 11.9 % Eosinophils (%) (Auto) 3.9 % Basophils (%) (Auto) 1.4 % Neutrophils # (Auto) 2.3 TH/MM3 Lymphocytes # (Auto) 1.0 TH/MM3 Monocytes # (Auto) 0.5 TH/MM3 Eosinophils # (Auto) 0.2 TH/MM3 Basophils # (Auto) 0.1 TH/MM3 CBC Comment AUTO DIFF Differential Comment AUTO DIFF CONFIRMED Laboratory Tests Test 03/02/17 03/03/17 05:46 06:00 Creatinine 0.66 MG/DL 0.61 MG/DL Estimat Glomerular Filtration 94 ML/MIN 103 ML/MIN Rate Sodium Level 133 MEQ/L Potassium Level 4.2 MEQ/L Chloride Level 95 MEQ/L Carbon Dioxide Level 29.2 MEQ/L Anion Gap 9 MEQ/L Blood Urea Nitrogen 12 MG/DL Random Glucose 90 MG/DL Calcium Level 9.1 MG/DL Total Bilirubin 0.2 MG/DL Aspartate Amino Transf 39 U/L (AST/SGOT) Alanine Aminotransferase 40 U/L (ALT/SGPT) Alkaline Phosphatase 347 U/L Total Protein 8.7 GM/DL Albumin 2.4 GM/DL Imaging Chest X-Ray 02/17/17 0000 Signed Impressions: Service Date/Time: Friday, February 17, 2017 13:34 - CONCLUSION: 1. Patchy areas of bibasilar infiltrate atelectasis concerning for pneumonia. 2. Large lytic lesion in the humeral head on the left. This is described in detail above. Malignancy is not excluded. Stoney Hwang MD Physical Exam GENERAL: Awake and alert, NAD SKIN: Warm and dry. She has generalized hypopigmented scars HEENT: [place] conjunctivae, no petechia, no hemorrhage. No scleral icterus. Moist mucosa. NECK: Supple, nontender, no meningeal signs. CARDIOVASCULAR: Regular rate and rhythm without murmurs, gallops, or rubs. RESPIRATORY: Clear to auscultation. GASTROINTESTINAL: Abdomen soft, non-tender, mildly distended. No hepato- splenomegaly, or palpable masses. No guarding. MUSCULOSKELETAL: R knee with dry dressing in place. Dry dressings on her leg wounds. Intact dressing L shoulder NEUROLOGICAL: Non-focal LINE: no evidence of infection Assessment & Plan Remarks IMPRESSION Sepsis due to septic knee Septic R knee, C/S MRSA - had OR 02/16 Septic joint L shoulder and possible osteo humerus Chronic skin lesions, etiology? 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
[2017-03-03 20:00] VITALS: BP 117/58; PULSE 97; RESP 18; TEMP 98.1; O2SAT 100
[2017-03-03] MEDS: REMOVE OLD NICODERM (NICOTINE) PATCH TD SCH (20:19)
[2017-03-03] MEDS: NORTRIPTYLINE HCL 25 MG CAP PO SCH (22:13)
[2017-03-04] VITALS: BP 101/60; PULSE 94; RESP 18; TEMP 97.3; O2SAT 98
[2017-03-04] MEDS: HYDROmorphone HCL PF 1 MG/ML VIAL IV PRN ×3 (01:30→17:28)
[2017-03-04 04:00] VITALS: BP 114/64; PULSE 93; RESP 18; TEMP 97.6; O2SAT 98
[2017-03-04] MEDS: HYDROmorphone HCL 2 MG TAB PO PRN ×3 (04:34→16:47)
[2017-03-04 08:40] VITALS: BP 112/60; PULSE 98; RESP 17; TEMP 97.7; O2SAT 99
[2017-03-04] MEDS ORDERED: DAPTOmycin INJ 500 MG in SODIUM CHLORIDE 0.9% INJ 100 ML IV SCH (09:00)
[2017-03-04] MEDS: GABAPENTIN 300 MG CAP PO SCH (09:42)
[2017-03-04] MEDS: NICOTINE 14 MG/24 HR PATCH TD SCH (09:42)
[2017-03-04] MEDS: guaiFENesin E.R. 600 MG TAB PO SCH (09:43)
--- NOTE | 2017-03-04 10:05 | PD.ORT.PN ---
Subjective Subjective Remarks Knee is continuing to improve. She has improved with left shoulder motion and with pain Objective Vitals Vital Signs Date Time Temp Pulse Resp B/P Pulse Ox O2 Delivery O2 Flow Rate FiO2 03/04/17 08:40 97.7 98 17 112/60 99 03/04/17 04:00 97.6 93 18 114/64 98 03/04/17 04:00 Room Air 03/04/17 00:00 97.3 94 18 101/60 98 03/04/17 00:00 Room Air 03/03/17 20:00 98.1 97 18 117/58 100 03/03/17 20:00 Room Air 03/03/17 16:04 97.8 93 18 92/50 98 03/03/17 12:05 97.5 96 19 134/66 100 I/O 03/03/17 03/03/17 03/03/17 03/04/17 03/04/17 03/04/17 07:00 15:00 23:00 07:00 15:00 23:00 Intake Total 360 ml 610 ml 360 ml Output Total 1000 ml Balance -1000 ml 360 ml 610 ml 360 ml Intake Oral 360 ml 360 ml 360 ml IV Total 250 ml Output Urine Total 1000 ml # Voids 4 3 2 # Bowel Movements 2 0 0 0 Result Diagram: 03/03/17 0600 03/04/17 0640 Objective Remarks RLE: dressings clean and dry. intact. . NVI with good dorsiflexion Left upper extremity: Clean dressings intact. Drain present Mild swelling and pain to palpation to both anterior and posterior portion of shoulder. She has mild pain with motion her shoulder. Passively I can abduct to 70 and forward flex to 90 Assessment & Plan Assessment and Plan 1) Right Septic knee s/p I&D - POD 16 MRSA -WBAT -Discontinue sutures and dressed with Xeroform Primapore 3 days then discontinue -infectious disease for IV Abx pending cultures irrigation and debridement of left shoulder. POD 8 Daily dressing changes Physical therapy for range of motion of knee as well as shoulder No further orthopedic interventions planned Follow-up with Dr. Mathis or [facility] in 7-10 days Johnny Botello Jr. Mar 04, 2017 10:05
[2017-03-04] MEDS: ENOXAPARIN SODIUM 30 MG/0.3 ML SYRINGE SQ SCH (12:00)
[2017-03-04 12:07] VITALS: BP 93/60; PULSE 92; RESP 18; TEMP 97.9; O2SAT 96
--- NOTE | 2017-03-04 12:27 | HHI.DS ---
Discharge Summary Admission Date Feb 15, 2017 at 06:15 Discharge Date: Mar 04, 2017 Admitting Diagnosis septic arthritis right knee, neurodermatitis (1) Septic arthritis ICD Code: M00.9 Diagnosis: Principal (2) Lytic lesion of bone on x-ray ICD Code: M89.9 Diagnosis: Principal Procedures sp Right knee arthrotomy with irrigation and debridement of infection 02/16/17 sp debridement of bilateral lower extremity wounds on 02/19/17 Brief History - From Admission 51-year-old female with history of chronic back pain, neurodermatitis , chronic wounds, polysubstance abuse, history of IV drug use who presented to hospital because three-day history of right knee pain, swelling. Patient states that she is normal state of health until 3 days ago when he started developing pain and swelling in her right knee. Progress got worse where she could not in light that well so she came to the hospital for evaluation. Patient indicates that she just got out of the hospital in [place] recently because of her chronic lower extremity wounds in which she is managing at home at this time. Patient does suffer from chronic back pain is on morphine and Dilaudid in outpatient setting. Patient states that she has been weaning herself off and has not been using any morphine. Or he has been using Dilaudid. Patient does openly admit that she and IV drug user but she states that he has not use in 20 years. Patient had workup done emergency department, had knee aspiration done which does indicate septic arthritis with gram- positive bacteria. Is recommended by ER physician patient be admitted for IV antibiotics. Patient denies any fever, chills, chest pain, shortness of breath , abdominal pain. CBC/BMP: 03/03/17 0600 03/04/17 0640 Significant Findings Laboratory Tests Test 03/02/17 03/03/17 03/04/17 06:20 06:00 06:40 Vancomycin Level Trough 18.4 MCG/ML (5.0-10.0) Red Blood Count 3.40 MIL/MM3 (4.00-5.30) Hemoglobin 7.9 GM/DL (11.6-15.3) Hematocrit 23.4 % (35.0-46.0) Mean Corpuscular Volume 68.7 FL (80.0-100.0) Mean Corpuscular Hemoglobin 23.2 PG (27.0-34.0) Platelet Count 544 TH/MM3 (150-450) Mean Platelet Volume 5.8 FL (7.0-11.0) Monocytes (%) (Auto) 11.9 % (0.0-8.0) Sodium Level 133 MEQ/L 134 MEQ/L (136-145) (136-145) Chloride Level 95 MEQ/L (98-107) Aspartate Amino Transf 39 U/L (15-37) (AST/SGOT) Alkaline Phosphatase 347 U/L (45-117) Total Protein 8.7 GM/DL (6.4-8.2) Albumin 2.4 GM/DL (3.4-5.0) PE at Discharge GENERAL: Awake and alert, NAD CARDIOVASCULAR: Regular rate and rhythm without murmurs RESPIRATORY: Clear to auscultation. Breath sounds equal bilaterally. No wheezes GASTROINTESTINAL: Abdomen soft, non-tender, nondistended. MUSCULOSKELETAL: Extremities without edema. R knee with dressing in place. Left shoulder dressings in place NEUROLOGICAL: Non-focal, alert awake and oriented 3. Pt update on day of discharge Pt doing well. hoping to go home today. denies any CP/SOB/N/V Hospital Course Septic arthritis of the right knee- Patient status post aspiration of the right knee with elevated white blood cell count of 76,400. culture grew. MRSA. Patient treated as a case of septic knee arthritis, status post right knee arthrotomy with irrigation by Dr. Lock. Patient is status post incision and debridement of lower extremity wounds. Podiatry was also consulted, appreciate. was treated w vanco Chronic lower extremity wounds- status post incision and debridement, Patient to have I&D. Plastic surgery evaluated the patient Community-acquired pneumonia. Chest x-ray obtained on 02/17/17 showed patchy areas of bibasilar infiltrate versus atelectasis. CT scan consistent with pneumonia as well. was treated w azithro, and was on vanco Bone lytic lesion left humeral head - status post arthrotomy, incision and drainage 02/24/17. Pathology showed increased marrow fibrosis associated w increased plasma cells concerning for chronic osteomyelitis. Discussed w Dr. Dimayuga and pt received a dose of cubicin and will be discharged w IV cubicin. Pt was strongly advised against using the PICC line for anything other than IV abx. Pt voiced her understanding. Right breast implant intracapsular rupture- Case discussed with Dr Ramirez who stated that the patient can follow up with Dr Jang as an outpatient to have the breast implant removed and replaced. Patient is aware. Pt Condition on Discharge: Stable Discharge Disposition: Disch w/ Home Health Serv Discharge Time: > 30 minutes Discharge Instructions DIET: Follow Instructions for: As Tolerated, No Restrictions Activities you can perform: Regular-No Restrictions Follow up Referrals: Orthopedics - 10 Days @ [facility] with Leandro Lock MD Continued Medications: Gabapentin (Gabapentin) 600 Mg Tab 600 MG PO BID #60 Ref 0 TAB Hydromorphone (Dilaudid) 8 Mg Tab 8 MG PO Q6H PRN Pain Management Ref 0 TAB Ibuprofen (Motrin Ib) 200 Mg Tab 600 MG PO TID PRN PAIN SCALE 1 TO 2 Ref 0 TAB Lorazepam (Lorazepam) 0.5 Mg Tab 0.5 MG PO DAILY PRN ANXIETY Ref 0 TAB Morphine ER (Morphine ER) 60 Mg Tab 60 MG PO TID Pain Management Ref 0 TAB Nortriptyline (Nortriptyline) 50 Mg Cap 50 MG PO HS Depression Control #30 Ref 0 CAP Ruth Olvera MD Mar 04, 2017 12:27
[2017-03-04 16:04] VITALS: BP 109/58; PULSE 93; RESP 18; TEMP 98; O2SAT 100
[2017-05-25] MEDS ORDERED: LEVA500T20 PO (14:34)
== END 2017-03-04 18:26 | disposition home health service (06) | DRG 485 ==
LOC: PHED 03:28 → PHEDA 06:15 → PH3A 08:19 → N04A 23:18
PROVIDERS: ADMIT Hospitalist; ATTEND Hospitalist
PROC: 0S9C3ZX Drainage of Right Knee Joint, Percutaneous Approach, Diagnostic (ICD-10-PCS; 2017-02-15)
PROC: 0S9C00Z Drainage of Right Knee Joint with Drainage Device, Open Approach (ICD-10-PCS; principal; 2017-02-16 07:07)
PROC: 0JDP3ZZ Extraction of Left Lower Leg Subcutaneous Tissue and Fascia, Percutaneous Approach (ICD-10-PCS; 2017-02-19)
PROC: 0JDN3ZZ Extraction of Right Lower Leg Subcutaneous Tissue and Fascia, Percutaneous Approach (ICD-10-PCS; 2017-02-19)
PROC: 0PBD0ZZ Excision of Left Humeral Head, Open Approach (ICD-10-PCS; 2017-02-24)
PROC: 0R9K0ZZ Drainage of Left Shoulder Joint, Open Approach (ICD-10-PCS; 2017-02-24)
PROC: 02HV33Z Insertion of Infusion Device into Superior Vena Cava, Percutaneous Approach (ICD-10-PCS; 2017-03-02)
DX: M00.061 Staphylococcal arthritis, right knee (principal); J18.9 Pneumonia, unspecified organism; M86.612 Other chronic osteomyelitis, left shoulder; F11.20 Opioid dependence, uncomplicated; L97.829 Non-pressure chronic ulcer of other part of left lower leg with unspecified severity; L97.819 Non-pressure chronic ulcer of other part of right lower leg with unspecified severity; T85.49XA Other mechanical complication of breast prosthesis and implant, initial encounter; B95.62 Methicillin resistant Staphylococcus aureus infection as the cause of diseases classified elsewhere; F17.210 Nicotine dependence, cigarettes, uncomplicated; M54.5 Low back pain; G89.29 Other chronic pain; E87.6 Hypokalemia; M79.7 Fibromyalgia; L28.0 Lichen simplex chronicus; M19.012 Primary osteoarthritis, left shoulder; Y83.1 Surgical operation with implant of artificial internal device as the cause of abnormal reaction of the patient, or of later complication, without mention of misadventure at the time of the procedure; Z87.898 Personal history of other specified conditions; Z23 Encounter for immunization
CPT/HCPCS: 10160; 36569; 71010; 71020; 71250; 73200; 73223; 76937; 80048; 80053; 80202; 81001; 82565; 83735; 84100; 84155; 84157; 85007; 85025; 85027; 85610; 86403; 87015; 87040; 87070; 87102; 87116; 87147; 87186; 87205; 87206; 87641; 88305; 88307; 88311; 89051; 89060; 90686; 93005; 94150; 94640; 94664; A9579; J0131; J0456; J0610; J0690; J0696; J0713; J0878; J1100; J1170; J1580; J1642; J1650; J2250; J2270; J2405; J2710; J3010; J3370; J3480; J7030; J7050; Q2038

== ENCOUNTER 2017-03-29 06:30 | Emergency (ER) | payer BC ==
[~2017-03-29] VITALS: Ht 175.3 cm; Wt 60.0 kg
[~2017-03-29 06:30] MED LIST changes: -CLIN1CAP6 PO; -DILA4TAB10 PO; +DILA8TAB4 PO; -GABA300C3 PO; +GABA600T PO; -IBUP800 PO; +LORA-373 PO; -LORA1TAB PO; +MORP1TAB26 PO; +MOTR200T4 PO; -NORT1CAP54 PO; +NORT50CA PO
[2017-03-29 06:34] VITALS: BP 108/63; PULSE 103; RESP 18; TEMP 99; O2SAT 100
[2017-03-29] MEDS ORDERED: DAPT250I IV (06:58)
--- NOTE | 2017-03-29 07:29 | PD ---
HPI Chief Complaint: Skin Problem Time Seen by Provider: 07:17 Travel History International Travel<30 days: No Contact w/Intl Traveler<30days: No Traveled to known affect area: No History of Present Illness HPI 51-year-old female notes itching all over. She denies any shortness of breath or other concurrent complaints. She states she has a PICC line for vancomycin which she has 4 more days worth of. She states she is on this for bad infection to her lower legs that she's had for a long time. She states that she has not used IV drugs for a couple years now and has a home health nurse that helps check on her. PFSH Past Medical History Cardiovascular Problems: No Diabetes: No Diminished Hearing: No Endocrine: No Gastrointestinal Disorders: No Genitourinary: No Medical other: Yes (IV drug use) Musculoskeletal: No Neurologic: No Psychiatric: No Reproductive: No Respiratory: No Immunizations Current: Yes Sickle Cell Disease: No Thyroid Disease: No Tetanus Vaccination: < 5 Years ?: Not Menopausal: Yes : 3 Tubal Ligation: Yes Past Surgical History Abdominal Surgery: Yes (tummy tuck) Body Medical Devices: Right fibula, plane and 8 screws, Bilat breast augmentation Cardiac Surgery: No Section: Yes (X3) Endocrine Surgery: No Eye Surgery: No Genitourinary Surgery: No Gynecologic Surgery: Yes () Oral Surgery: Yes (RHINOPLASTY) Pacemaker: No Other Surgery: Yes (BREAST AUGMENTATION X 2, LIFT X 1) Social History Alcohol Use: No Tobacco Use: Yes (1.5 PPD) Substance Use: No (DENIES - years ago) Allergies-Medications (Allergen,Severity, Reaction): Coded Allergies: *MDRO Multi-Drug Resistant Organism (Verified Adverse Reaction, Unknown, ) MRSA (finger wound) - 06/06/16; (synovial fluid) - 02/15/17; (leg)-02/19/17 MRSA PCR Screen POSITIVE -02/15/17 Reported Meds & Prescriptions Reported Meds & Active Scripts Active Reported Daptomycin Inj (Daptomycin) 500 Mg Vial 500 Mg IV Q24H Must dilute in appropriate IV Fluid prior to administration Motrin Ib (Ibuprofen) 200 Mg Tab 600 Mg PO TID PRN Dilaudid (Hydromorphone HCl) 8 Mg Tab 8 Mg PO Q6H PRN Gabapentin 600 Mg Tab 600 Mg PO BID Review of Systems Except as stated in HPI: all other systems reviewed are Neg Physical Exam Narrative GENERAL: Well-nourished, well-developed patient who is itching all over. SKIN: wounds noted to bilateral legs that are well healing without active abscess or cellulitis appearance HEAD: Normocephalic and atraumatic. EYES: No injection or drainage. ENT: No nasal drainage noted. No uvula edema NECK: Supple, trachea midline. CARDIOVASCULAR: Regular rate and rhythm RESPIRATORY: Breath sounds equal bilaterally. No accessory muscle use. GASTROINTESTINAL: Abdomen soft, non-tender, nondistended. EXTREMITIES: No edema. NEUROLOGICAL: Awake and alert. Motor and sensory grossly within normal limits. Normal speech. Data Data Last Documented VS Vital Signs Date Time Temp Pulse Resp B/P Pulse Ox O2 Delivery O2 Flow Rate FiO2 03/29/17 08:08 18 100 Room Air 03/29/17 08:00 89 106/55 03/29/17 06:34 99.0 Orders Magnesium (Mg) (03/29/17 07:17) Phosphorus (Po4) (03/29/17 07:17) Complete Blood Count With Diff (03/29/17 07:17) Comprehensive Metabolic Panel (03/29/17 07:17) Iv Access Insert/Monitor (03/29/17 07:17) Ecg Monitoring (03/29/17 07:17) Oximetry (03/29/17 07:17) Diphenhydramine (Benadryl) (03/29/17 07:30) Sodium Chlor 0.9% 1000 Ml Inj (Ns 1000 M (03/29/17 07:30) Labs Laboratory Tests Test 03/29/17 07:30 White Blood Count 7.0 TH/MM3 Red Blood Count 3.88 MIL/MM3 Hemoglobin 8.3 GM/DL Hematocrit 26.5 % Mean Corpuscular Volume 68.3 FL Mean Corpuscular Hemoglobin 21.3 PG Mean Corpuscular Hemoglobin 31.1 % Concent Red Cell Distribution Width 16.5 % Platelet Count 226 TH/MM3 Mean Platelet Volume 6.6 FL Neutrophils (%) (Auto) 80.9 % Lymphocytes (%) (Auto) 9.3 % Monocytes (%) (Auto) 5.3 % Eosinophils (%) (Auto) 2.1 % Basophils (%) (Auto) 2.4 % Neutrophils # (Auto) 5.6 TH/MM3 Lymphocytes # (Auto) 0.7 TH/MM3 Monocytes # (Auto) 0.4 TH/MM3 Eosinophils # (Auto) 0.1 TH/MM3 Basophils # (Auto) 0.2 TH/MM3 CBC Comment AUTO DIFF Differential Comment AUTO DIFF CONFIRMED Platelet Estimate NORMAL Platelet Morphology Comment NORMAL Sodium Level 136 MEQ/L Potassium Level 3.4 MEQ/L Chloride Level 100 MEQ/L Carbon Dioxide Level 26.5 MEQ/L Anion Gap 10 MEQ/L Blood Urea Nitrogen 11 MG/DL Creatinine 0.62 MG/DL Estimat Glomerular Filtration 101 ML/MIN Rate Random Glucose 98 MG/DL Calcium Level 7.8 MG/DL Phosphorus Level 2.7 MG/DL Magnesium Level 1.7 MG/DL Total Bilirubin 0.4 MG/DL Aspartate Amino Transf 15 U/L (AST/SGOT) Alanine Aminotransferase 19 U/L (ALT/SGPT) Alkaline Phosphatase 336 U/L Total Protein 7.8 GM/DL Albumin 2.6 GM/DL MDM Medical Decision Making Medical Screen Exam Complete: Yes Emergency Medical Condition: Yes Medical Record Reviewed: Yes (past history confirmed, 02/24 cubicin for septic arthritis of knee, humeral head with osteo s/p I&D) Interpretation(s) CBC & BMP Diagram 03/29/17 07:30 Differential Diagnosis Allergic reaction, medication effect, infection... Narrative Course Will check blood work and discuss with her ID specialist and reevaluate Labs are stable, patient with significant improvement after Benadryl, patient states it is Cubicin that she is on and that she was on vancomycin in the hospital, Patient denies any new complaints and states that they are feeling better. Patient happy with care, all questions answered. Patient knows that follow up is incumbent on them and to return to the emergency room immediately if new or worsening symptoms develop. Patient given strict return precautions, vitals reviewed and are normal, agrees to further workup as an outpatient. Physician Communication Physician Communication dr choe states to continue Cubicin and have patient take Benadryl 30 minutes prior to antibiotic dosing and follow with primary care physician. Diagnosis Primary Impression: Itching Additional Impression: Rash Patient Instructions: General Instructions Additional Instructions: benadryl 25 mg times one 30 mintues before antibiotic dose, return as needed, follow with primary next 1-2 days Med/Other Pt SpecificInfo: Other (benadryl 25 mg times one 30 mintues before antibiotic dose) Disposition: 01 DISCHARGE HOME Condition: Stable Taylor Wu MD March 29, 2017 07:29
[2017-03-29] MEDS ORDERED: SODIUM CHLOR 0.9% 1000 ML INJ 1,000 ML IV ONE (07:30)
[2017-03-29] MEDS ORDERED: diphenhydrAMINE HCL 50 MG CAP PO ONE (07:30)
[2017-03-29 07:43] LABS: AUTOMATED NEUTROPHIL # 5.6 TH/MM3 (1.8-7.7); BASOPHIL # 0.2 TH/MM3 (0-0.2); BASOPHIL % 2.4 % (0.0-2.0); EOSINOPHIL # 0.1 TH/MM3 (0-0.4); EOSINOPHIL % 2.1 % (0.0-4.0); HEMATOCRIT 26.5 % (35.0-46.0); LYMPH % 9.3 % (9.0-44.0); LYMPHOCYTE # 0.7 TH/MM3 (1.0-4.8); MEAN CELL VOLUME 68.3 FL (80.0-100.0); MEAN CORPUSCULAR HEMOGLOBIN 21.3 PG (27.0-34.0); MEAN CORPUSCULAR HGB CONC 31.1 % (32.0-36.0); MONO % 5.3 % (0.0-8.0); NEUT % 80.9 % (16.0-70.0); PLATELET COUNT 226 TH/MM3 (150-450); RED BLOOD COUNT 3.88 MIL/MM3 (4.00-5.30); RED CELL DISTRIBUTION WIDTH 16.5 % (11.6-17.2)
[2017-03-29 07:49] LABS: HEMO FLAGS AUTO DIFF
[2017-03-29 07:50] LABS: CHLORIDE 100 MEQ/L (98-107); POTASSIUM 3.4 MEQ/L (3.5-5.1); SODIUM (NA) 136 MEQ/L (136-145)
[2017-03-29 07:54] LABS: ANION GAP 10 MEQ/L (5-15); BICARBONATE 26.5 MEQ/L (21.0-32.0); BLOOD UREA NITROGEN 11 MG/DL (7-18); MAGNESIUM 1.7 MG/DL (1.5-2.5)
[2017-03-29 07:57] LABS: ALT (GPT) 19 U/L (10-53); AST (GOT) 15 U/L (15-37); GLOMERULAR FILTRATION RATE 101 ML/MIN (>89)
[2017-03-29 07:59] LABS: TOTAL BILIRUBIN ADULT 0.4 MG/DL (0.2-1.0)
[2017-03-29 08:00] VITALS: BP 106/55; PULSE 89; RESP 18; O2SAT 100
[2017-03-29 08:00] LABS: ALKALINE PHOSPHATASE 336 U/L (45-117)
[2017-03-29 08:08] VITALS: RESP 18; O2SAT 100
[2017-03-29 08:25] LABS: PLATELET ESTIMATE SMEAR NORMAL (NORMAL); PLATELET MORPHOLOGY NORMAL (NORMAL); SCAN/DIFF AUTO DIFF CONFIRMED
[2017-03-29 08:50] VITALS: BP 114/65; PULSE 68; RESP 18; O2SAT 98
[2017-05-25] MEDS ORDERED: LEVA500T20 PO (14:34)
== END 2017-03-29 09:03 | disposition home or self-care (01) ==
LOC: PHED 06:30
DX: R21 Rash and other nonspecific skin eruption (principal); Z79.899 Other long term (current) drug therapy
CPT/HCPCS: 80053; 83735; 84100; 85025; 96360; 99283; J7030; Q0163

== ENCOUNTER 2017-05-02 22:36 | Emergency (ER) | payer BC, OTHER ==
[~2017-05-02] VITALS: Ht 177.8 cm; Wt 61.4 kg
[~2017-05-02 22:36] MED LIST changes: +DAPT250I IV; -LORA-373 PO; -MORP1TAB26 PO; -NORT50CA PO
[2017-05-02 22:42] VITALS: BP 104/63; PULSE 94; RESP 16; TEMP 98.2; O2SAT 100
[2017-05-02] MEDS ORDERED: IBUP-232 PO (22:54)
[2017-05-02] MEDS ORDERED: CEPH-460 PO (22:56)
[2017-05-02] MEDS ORDERED: BACT800T5 PO (22:56)
--- NOTE | 2017-05-02 22:56 | PD ---
HPI Chief Complaint: Skin Problem Time Seen by Provider: 22:50 Travel History International Travel<30 days: No Contact w/Intl Traveler<30days: No Traveled to known affect area: No History of Present Illness HPI This 51-year-old female said she was reaching under a car a few hours ago and hit her forearm. She sustained a laceration of the forearm. 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 PFSH Past Medical History Cardiovascular Problems: No Diabetes: No Diminished Hearing: No Endocrine: No Gastrointestinal Disorders: No Genitourinary: No Musculoskeletal: No Neurologic: No Psychiatric: No Reproductive: No Respiratory: No Immunizations Current: Yes Sickle Cell Disease: No Thyroid Disease: No ?: Not Menopausal: Yes : 3 Tubal Ligation: Yes Past Surgical History Abdominal Surgery: Yes (tummy tuck) Body Medical Devices: Right fibula, plane and 8 screws, Bilat breast augmentation Cardiac Surgery: No Section: Yes (X3) Endocrine Surgery: No Eye Surgery: No Genitourinary Surgery: No Gynecologic Surgery: Yes () Oral Surgery: Yes (RHINOPLASTY) Pacemaker: No Other Surgery: Yes (BREAST AUGMENTATION X 2, LIFT X 1) Social History Alcohol Use: No Tobacco Use: Yes (1.5 PPD) Substance Use: No (DENIES - years ago) Allergies-Medications (Allergen,Severity, Reaction): Coded Allergies: *MDRO Multi-Drug Resistant Organism (Verified Adverse Reaction, Unknown, ) MRSA (finger wound) - 06/06/16; (synovial fluid) - 02/15/17; (leg)-02/19/17 MRSA PCR Screen POSITIVE -02/15/17 Reported Meds & Prescriptions Reported Meds & Active Scripts Active Reported Daptomycin Inj (Daptomycin) 500 Mg Vial 500 Mg IV Q24H Must dilute in appropriate IV Fluid prior to administration Motrin Ib (Ibuprofen) 200 Mg Tab 600 Mg PO TID PRN Dilaudid (Hydromorphone HCl) 8 Mg Tab 8 Mg PO Q6H PRN Gabapentin 600 Mg Tab 600 Mg PO BID Review of Systems General / Constitutional: No: Fever, Chills Eyes: No: Diploplia, Blurred Vision HENT: No: Lightheadedness Cardiovascular: No: Chest Pain or Discomfort Respiratory: No: Shortness of Breath Gastrointestinal: No: Nausea, Vomiting Skin: Positive Rash Neurologic: No: Weakness Physical Exam Narrative GENERAL: Well-developed female SKIN: Focused skin assessment warm/dry. There is a 1 cm wound on the right forearm. There is some surrounding erythema. There is no fluctuance. She has had extensive surgery on this arm because of osteomyelitis in the past HEAD: Atraumatic EYES: Pupils equal and round. No scleral icterus. No injection or drainage. ENT: No nasal bleeding or discharge. Mucous membranes pink and moist. NECK: Trachea midline. No JVD. MUSCULOSKELETAL: No obvious deformities. No clubbing. No cyanosis. No edema. NEUROLOGICAL: Awake and alert. No obvious cranial nerve deficits. Motor grossly within normal limits. Normal speech. PSYCHIATRIC: Appropriate mood and affect; insight and judgment normal. Data Data Last Documented VS Vital Signs Date Time Temp Pulse Resp B/P Pulse Ox O2 Delivery O2 Flow Rate FiO2 05/02/17 22:42 98.2 94 16 104/63 100 Orders Cephalexin (Keflex) (05/02/17 23:00) Sulfamet-Trimeth Ds 800-160 Mg (Bactrim (05/02/17 23:00) [facility] Medical Decision Making Medical Screen Exam Complete: Yes Emergency Medical Condition: Yes Medical Record Reviewed: Yes Differential Diagnosis Differential includes laceration on, infection Narrative Course There is some redness surrounding this wound now and I will put her on antibiotics. The wound will not be sutured Diagnosis Primary Impression: Laceration of right forearm Scripts Cephalexin (Keflex)500 Mg [id number] Mg PO Q6H #20 CAP Ref 0 Prov:Saeid Mcneal MD 05/02/17 Sulfamethoxazole-Trimethoprim (Bactrim DS)800-160 Mg Tab1 Tab PO BID #5 TAB Ref 0 Prov:Saeid Mcneal MD 05/02/17 Disposition: DISCHARGE HOME Condition: Stable Saeid Mcneal MD May 02, 2017 22:56
[2017-05-02] MEDS ORDERED: CEPHALEXIN MONOHYDRATE 500 MG CAP PO ONE (23:00)
[2017-05-02] MEDS ORDERED: SULFAMETHOXAZOLE-TRIMETHOPRIM DS 800-160 MG TAB PO ONE (23:00)
[2017-05-25] MEDS ORDERED: LEVA500T20 PO (14:34)
== END 2017-05-02 23:25 | disposition home or self-care (01) ==
LOC: PHED 22:36
DX: S51.811A Laceration without foreign body of right forearm, initial encounter (principal); L53.9 Erythematous condition, unspecified; F17.200 Nicotine dependence, unspecified, uncomplicated; Z98.890 Other specified postprocedural states; X58.XXXA Exposure to other specified factors, initial encounter
CPT/HCPCS: 99284

== ENCOUNTER 2017-06-16 16:11 | Inpatient (IN) | payer BC ==
[~2017-06-16] VITALS: Ht 167.6 cm; Wt 62.0 kg
[~2017-06-16 16:11] MED LIST changes: -DAPT250I IV; +IBUP-232 PO; +LEVA500T20 PO; -MOTR200T4 PO
[2017-06-16 16:15] VITALS: BP 87/53; PULSE 78; RESP 20; TEMP 97.7; O2SAT 99
[2017-06-16 17:13] VITALS: BP 103/55; PULSE 72; RESP 14; TEMP 97.4; O2SAT 98
[2017-06-16] MEDS ORDERED: SODIUM CHLOR 0.9% 1000 ML INJ 1,000 ML IV ONE (18:00)
--- NOTE | 2017-06-16 18:28 | PD ---
HPI Chief Complaint: Skin Problem Time Seen by Provider: 18:21 Travel History International Travel<30 days: No Contact w/Intl Traveler<30days: No Traveled to known affect area: No History of Present Illness HPI Patient is a 51-year-old female presenting to the emergency room for evaluation of infected wounds. Patient states she has a history of cellulitis, she reports that the right knee has gotten more painful, swollen and has had foul odor and drainage. She also states the wound to right first toe got worse as well. She states that she had a low-grade fever. She is followed by the wound care clinic but has not been there since before the May. She has been caring for her wounds herself, she states she ran out of supplies and has been using paper towels and Nasir wraps. The pain in her right knee is a 7 out of 10 and describes as aching and throbbing. She has minimal pain in the left lower leg wound. She states she is normally very healthy other then cellulitis. She does have a history of tobacco use, she is trying to quit. PFSH Past Medical History Cardiovascular Problems: No Diabetes: No Diminished Hearing: No Endocrine: No Gastrointestinal Disorders: No Genitourinary: No Medical other: Yes (ulcerations to bilateral lower extremities.) Musculoskeletal: No Neurologic: No Psychiatric: No Reproductive: No Respiratory: No Immunizations Current: Yes Sickle Cell Disease: No Thyroid Disease: No ?: Not Menopausal: Yes : 4 Para: 3 Miscarriage: 1 Tubal Ligation: Yes Past Surgical History Abdominal Surgery: Yes (tummy tuck) Body Medical Devices: Right fibula, plane and 8 screws, Bilat breast augmentation Cardiac Surgery: No Section: Yes (X3) Endocrine Surgery: No Eye Surgery: No Genitourinary Surgery: No Oral Surgery: Yes (RHINOPLASTY) Pacemaker: No Other Surgery: Yes Social History Alcohol Use: No Tobacco Use: Yes (UNDER 1/2 PPD) Substance Use: No (DENIES - years ago) Allergies-Medications (Allergen,Severity, Reaction): Coded Allergies: *MDRO Multi-Drug Resistant Organism (Verified Adverse Reaction, Unknown, ) MRSA (finger wound) - 06/06/16; (synovial fluid) - 02/15/17; (leg)-02/19/17 & 05/18/17 MRSA PCR Screen POSITIVE -02/15/17 Reported Meds & Prescriptions Reported Meds & Active Scripts Active Reported Ibuprofen 600 Mg Tab 600 Mg PO TID Dilaudid (Hydromorphone HCl) 8 Mg Tab 8 Mg PO Q6H PRN Review of Systems Except as stated in HPI: all other systems reviewed are Neg General / Constitutional: Positive: Fever, Chills HENT: No: Headaches Cardiovascular: No: Chest Pain or Discomfort Respiratory: No: Shortness of Breath Gastrointestinal: No: Nausea, Abdominal Pain Musculoskeletal: Positive: Myalgias, Edema, Pain Skin: Positive Change in Pigmentation, Positive Lesions Neurologic: No: Weakness, Dizziness Physical Exam Narrative GENERAL: Thin, chronically ill-appearing female. Resting comfortably in no acute distress. SKIN: Warm and dry. Ulceration to right first metatarsal, tendon is visualized. Foul odor and drainage noted, mild erythema surrounding. Ulceration to the anterior right knee just proximal to the patella, approximately 3 cm in circumference with purulent drainage, warmth noted. Left anterior shoulder with large area of fluctuance and edema, mild erythema. HEAD: Atraumatic. Normocephalic. EYES: Pupils equal and round. No scleral icterus. No injection or drainage. ENT: No nasal bleeding or discharge. Mucous membranes pink and moist. NECK: Trachea midline. No JVD. CARDIOVASCULAR: Regular rate and rhythm. RESPIRATORY: No accessory muscle use. Clear to auscultation. Breath sounds equal bilaterally. GASTROINTESTINAL: Abdomen soft, non-tender, nondistended. Hepatic and splenic margins not palpable. MUSCULOSKELETAL: Extremities chronic changes to bilateral lower extremities. 2+ Positive dorsalis pedal pulses bilaterally NEUROLOGICAL: Awake and alert. No obvious cranial nerve deficits. Motor grossly within normal limits. Five out of 5 muscle strength in the arms and legs. Normal speech. PSYCHIATRIC: Appropriate mood and affect; insight and judgment normal. Data Data Last Documented VS Vital Signs Date Time Temp Pulse Resp B/P Pulse Ox O2 Delivery O2 Flow Rate FiO2 06/16/17 19:56 71 18 89/51 100 Room Air 06/16/17 17:13 97.4 Orders Complete Blood Count With Diff (06/16/17 17:57) Comprehensive Metabolic Panel (06/16/17 17:57) Prothrombin Time / Inr (Pt) (06/16/17 17:57) Act Partial Throm Time (Ptt) (06/16/17 17:57) Lactic Acid Sepsis Protocol (06/16/17 17:57) Urinalysis - C+S If Indicated (06/16/17 17:57) Blood Culture (06/16/17 17:57) Wound Culture And Gram Stain (06/16/17 17:57) Chest, Single Ap (06/16/17 17:57) Blood Glucose (06/16/17 17:57) Ecg Monitoring (06/16/17 17:57) Iv Access Insert/Monitor (06/16/17 17:57) Oximetry (06/16/17 17:57) Oxygen Administration (06/16/17 17:57) Wound Culture And Gram Stain (06/16/17 17:57) Sodium Chlor 0.9% 1000 Ml Inj (Ns 1000 M (06/16/17 18:00) Knee, Complete (4vws) (06/16/17 ) Foot, Complete (Inh5cho) (06/16/17 ) C-Reactive Protein (Crp) (06/16/17 17:57) Westergren Sedimentation Rate (06/16/17 17:57) Vascular Access Team Consult/P PRN (06/16/17 20:11) Vascular Poc Ultrasound (06/16/17 ) Vancomycin Inj (Vancomycin Inj) (06/16/17 20:15) Piperacil-Tazo 4.5 Gm Premix (Zosyn 4.5 (06/16/17 20:15) Wbc Ceretec, Wb W/ Spect (06/16/17 ) Consult Podiatry (06/16/17 ) (Hub Use Only)Inp Phy Cons/Ref (06/16/17 ) Vital Signs (Adult) Q4H (06/16/17 20:38) Activity Oob With Assistance (06/16/17 20:38) Compensation Expert / Telemetry .CONTINUOUS (06/16/17 20:38) Sodium Chloride 0.9% Flush (Ns Flush) (06/16/17 20:45) Sodium Chloride 0.9% Flush (Ns Flush) (06/16/17 21:00) Basic Metabolic Panel (Bmp) (06/17/17 06:00) Complete Blood Count With Diff (06/17/17 06:00) Naloxone Inj (Narcan Inj) (06/16/17 20:45) Admit To Inpatient (06/16/17 ) Inpatient Certification (06/16/17 ) Npo After Midnight W/ Po Meds (06/17/17 Breakfast) Admit Order (Ed Use Only) (06/16/17 20:50) Labs Laboratory Tests Test 06/16/17 18:40 White Blood Count 6.2 TH/MM3 Red Blood Count 4.28 MIL/MM3 Hemoglobin 8.6 GM/DL Hematocrit 26.9 % Mean Corpuscular Volume 62.8 FL Mean Corpuscular Hemoglobin 20.1 PG Mean Corpuscular Hemoglobin 32.0 % Concent Red Cell Distribution Width 18.1 % Platelet Count 485 TH/MM3 Mean Platelet Volume 6.7 FL Neutrophils (%) (Auto) 80.0 % Lymphocytes (%) (Auto) 10.3 % Monocytes (%) (Auto) 7.4 % Eosinophils (%) (Auto) 1.7 % Basophils (%) (Auto) 0.6 % Neutrophils # (Auto) 5.0 TH/MM3 Lymphocytes # (Auto) 0.6 TH/MM3 Monocytes # (Auto) 0.5 TH/MM3 Eosinophils # (Auto) 0.1 TH/MM3 Basophils # (Auto) 0.0 TH/MM3 CBC Comment DIFF FINAL Differential Comment Erythrocyte Sedimentation Rate GREATER THAN 140 mm/hr Prothrombin Time 11.0 SEC Prothromb Time International 1.0 RATIO Ratio Activated Partial 23.1 SEC Thromboplast Time Sodium Level 132 MEQ/L Potassium Level 3.5 MEQ/L Chloride Level 94 MEQ/L Carbon Dioxide Level 27.6 MEQ/L Anion Gap 10 MEQ/L Blood Urea Nitrogen 20 MG/DL Creatinine 0.74 MG/DL Estimat Glomerular Filtration 82 ML/MIN Rate Random Glucose 94 MG/DL Lactic Acid Level 1.2 mmol/L Calcium Level 9.0 MG/DL Total Bilirubin 0.6 MG/DL Aspartate Amino Transf 17 U/L (AST/SGOT) Alanine Aminotransferase 11 U/L (ALT/SGPT) Alkaline Phosphatase 363 U/L C-Reactive Protein 12.00 MG/DL Total Protein 9.6 GM/DL Albumin 2.4 GM/DL MDM Medical Decision Making Medical Screen Exam Complete: Yes Emergency Medical Condition: Yes Medical Record Reviewed: Yes Interpretation(s) Vital Signs Date Time Temp Pulse Resp B/P Pulse Ox O2 Delivery O2 Flow Rate FiO2 06/16/17 17:13 97.4 72 14 103/55 98 Room Air 06/16/17 16:15 97.7 78 20 87/53 99 Room Air Differential Diagnosis Sepsis versus cellulitis versus metabolic abnormality versus osteomyelitis versus metabolic abnormality versus other Narrative Course Patient is a 51 year old female with a chronic history of venous stasis ulcerations in her bilateral lower extremity, she is currently followed at the wound care clinic by Dr. Segal. She presents with a worsening infection of right toe and right knee. Patient has a history of MRSA wound infections, she completed a 10 day course of Levaquin around June 03. She had a follow-up appointment on June 03 but did not go. Labs and imaging ordered and pending. Wound cultures obtained. Left shoulder with a large abscess, there was an I&D performed in January by Dr. Lock. Sedimentation rate is greater than 140 Hemoglobin 8.6 and 26.9 which is stable Chemistry with alkaline phosphatase 363 CRP is 12 Lactic acid is 1.2 Coags unremarkable x ray of the left shoulder ordered and pending. Discussed with my attending regarding I&D of left shoulder, will defer to admitting MD. Mckenna Keith to inform her. Dr. Keith consult and or so, Dr. Fitzgerald called and recommended I&D be performed and he would notify Dr. Lock in the morning of this patient. CBC procedure poor for I&D. X-ray of the right foot read by radiology shows a large soft tissue also with subcutaneous emphysema and findings suspicious for osteomyelitis of the first metatarsal head and possibly sesamoid. Discussed with Dr. Segal, he requested a Ceretec labeled white blood cell scan be performed in the morning and a consult to him. He said to admit to medicine. Discussed with Dr. Keith who accepted admission. Procedures Procedure Narrative After the risks and benefits were discussed the following procedure was performed: INCISION AND DRAINAGE OF ABSCESS: The area was prepped and was sterilely draped. A subcutaneous wheal of 1% Xylocaine with a total number 2 mL was used to anesthetize the area. The area was properly anesthetized. A number 11 scalpel was used to make a 1.5 -cm incision across the area of the abscess. Cultures were obtained. The abscess was drained an irrigated with normal saline. Approximately 500 cc of copious purulent drainage. Quarter inch iodoform packing was placed in the wound. Sterile dressing applied. Diagnosis Primary Impression: Osteomyelitis Qualified Code: M86.9 - Osteomyelitis, unspecified site, unspecified type Additional Impressions: Open wound of both legs with complication Abscess of left shoulder Admitting Information Admitting Physician Requests: Admit Condition: Stable Joseline Griffith Jun 16, 2017 18:28
[2017-06-16 18:52] VITALS: O2SAT 99
[2017-06-16 19:16] LABS: BASOPHIL % 0.6 % (0.0-2.0); EOSINOPHIL # 0.1 TH/MM3 (0-0.4); EOSINOPHIL % 1.7 % (0.0-4.0); HEMATOCRIT 26.9 % (35.0-46.0); HEMO FLAGS DIFF FINAL; LYMPH % 10.3 % (9.0-44.0); LYMPHOCYTE # 0.6 TH/MM3 (1.0-4.8); MEAN CELL VOLUME 62.8 FL (80.0-100.0); MEAN CORPUSCULAR HEMOGLOBIN 20.1 PG (27.0-34.0); MONO % 7.4 % (0.0-8.0); PLATELET COUNT 485 TH/MM3 (150-450); RED BLOOD COUNT 4.28 MIL/MM3 (4.00-5.30); RED CELL DISTRIBUTION WIDTH 18.1 % (11.6-17.2); WHITE BLOOD COUNT 6.2 TH/MM3 (4.0-11.0)
[2017-06-16 19:30] LABS: ALT (GPT) 11 U/L (10-53); ANION GAP 10 MEQ/L (5-15); AST (GOT) 17 U/L (15-37); BICARBONATE 27.6 MEQ/L (21.0-32.0); BLOOD UREA NITROGEN 20 MG/DL (7-18); CHLORIDE 94 MEQ/L (98-107); GLOMERULAR FILTRATION RATE 82 ML/MIN (>89); POTASSIUM 3.5 MEQ/L (3.5-5.1); SODIUM (NA) 132 MEQ/L (136-145)
[2017-06-16 19:33] LABS: ALKALINE PHOSPHATASE 363 U/L (45-117); TOTAL BILIRUBIN ADULT 0.6 MG/DL (0.2-1.0)
[2017-06-16 19:47] LABS: APTT (PATIENT) 23.1 SEC (24.3-30.1)
[2017-06-16 19:56] VITALS: BP 89/51; PULSE 71; RESP 18; O2SAT 100
--- NOTE | 2017-06-16 20:03 | RADRPT ---
EXAM DATE/TIME: 06/16/2017 19:37 [facility] COMPARISON: No previous studies available for comparison. INDICATIONS : Right foot unhealing break down of skin. MEDICAL HISTORY : Raynauds, fibromyalgia, vasculitis, psoriasis, alopecia, sicca syndrome SURGICAL HISTORY : c/section; ENCOUNTER: Initial ACUITY: 2 weeks PAIN SCORE: 10/10 LOCATION: Right foot FINDINGS: Plantar pineal spur. There is decreased bone mineralization. At the level of the right first digit th ere is ulceration of the soft tissues at the medial aspect of the foot adjacent to the first metatars al head with subcutaneous emphysema identified. There is some cortical ill definition at the metatars al head suspect for osteomyelitis. CONCLUSION: Large soft tissue ulcer with subcutaneous emphysema and findings suspicious for osteomyelitis first m etatarsal head and possibly sesamoid. Luigi Del Real MD on June 16, 2017 at 20:00 Board Certified Radiologist. This report was verified electronically.
--- NOTE | 2017-06-16 20:04 | RADRPT ---
EXAM DATE/TIME: 06/16/2017 19:34 [facility] COMPARISON: No previous studies available for comparison. INDICATIONS : Right knee swelling and pain post surgery two months ago. MEDICAL HISTORY : Raynauds, fibromyalgia, vasculitis, psoriasis, alopecia, sicca syndrome SURGICAL HISTORY : section. ENCOUNTER: Initial ACUITY: 2 weeks PAIN SCORE: 9/10 LOCATION: Right knee FINDINGS: There is severe joint space narrowing of the medial and lateral tibiofemoral compartments. Lateral pl ate and screw fixation of the proximal tibial metaphysis identified with a healed fracture deformity of the proximal tibia. There is a slightly displaced fracture off the patella medial aspect and a lar ge knee joint effusion is identified. The patellar fracture is age-indeterminate though does appear w ell corticated on the frontal view. CONCLUSION: Knee joint effusion, severe osteoarthritis and postoperative changes proximal tibia. Age-indeterminate patellar fracture. Luigi Del Real MD on June 16, 2017 at 20:02 Board Certified Radiologist. This report was verified electronically.
--- NOTE | 2017-06-16 20:06 | RADRPT ---
EXAM DATE/TIME: 06/16/2017 19:31 [facility] COMPARISON: CT SHOULDER LEFT W/O CONTRAST, February 20, 2017, 7:48. MRI SHOULDER LEFT W & W/O CONTRAST, February 20, 017, 14:42. CHEST SINGLE AP, March 02, 2017, 16:18. INDICATIONS : Left shoulder and chest pain. MEDICAL HISTORY : Raynauds, fibromyalgia, vasculitis, psoriasis, alopecia, sicca syndrome. SURGICAL HISTORY : section. ENCOUNTER: Initial ACUITY: 2 weeks PAIN SCORE: 6/10 LOCATION: Bilateral upper chest FINDINGS: Hyperinflation again seen. Linear scarring at the lung bases. No consolidation or effusion. Heart siz e normal. Osseous structures demonstrate focal disruption of the humeral head in the region of the gr eater tuberosity with soft tissue swelling. This corresponds to the findings on the previous CT exam. CONCLUSION: Destructive changes at the humeral head on the left with soft tissue swelling of the shoulder suspect ed. Basilar atelectasis versus linear scarring. Luigi Del Real MD on June 16, 2017 at 20:03 Board Certified Radiologist. This report was verified electronically.
[2017-06-16] MEDS ORDERED: VANCOMYCIN INJ 1,000 MG in SODIUM CHLOR 0.9% 250 ML INJ 250 ML IV ONE (20:15)
[2017-06-16] MEDS ORDERED: PIPERACIL-TAZO 4.5 GM PREMIX 100 ML IV ONE (20:15)
[2017-06-16] MEDS ORDERED: NALOXONE HCL 0.4 MG/ML AMP IV PRN (20:45)
[2017-06-16] MEDS ORDERED: SODIUM CHLORIDE 0.9% FLUSH 10 ML FLUSH IV FLUSH PRN (20:45)
[2017-06-16] MEDS: SODIUM CHLORIDE 0.9% FLUSH 10 ML FLUSH IV FLUSH SCH (21:46)
[2017-06-16 21:49] VITALS: BP 92/53; PULSE 71; RESP 18; O2SAT 98
[2017-06-16] MEDS ORDERED: KETOROLAC TROMETHAMINE 30 MG/ML (IVP) VIAL IV PUSH ONE (22:00)
--- NOTE | 2017-06-16 22:03 | RADRPT ---
EXAM DATE/TIME: 06/16/2017 21:06 [facility] COMPARISON: No previous studies available for comparison. INDICATIONS : Left shoulder pain and swelling. MEDICAL HISTORY : None. SURGICAL HISTORY : None. ENCOUNTER: Initial ACUITY: 1 day PAIN SCORE: 10/10 LOCATION: Left shoulder. FINDINGS: There is soft tissue swelling of the left shoulder soft tissues and cortical disruption and concavity at the humeral head greater tuberosity region. This corresponds to the findings on the MRI. CONCLUSION: Soft tissue swelling and destructive changes left proximal humerus. Luigi Del Real MD on June 16, 2017 at 22:01 Board Certified Radiologist. This report was verified electronically.
[2017-06-16] MEDS ORDERED: HYDROmorphone HCL PF 1 MG/ML VIAL IV PUSH ONE (22:30)
[2017-06-16 23:00] VITALS: BP 86/50; PULSE 77; RESP 17; TEMP 97.5; O2SAT 100
--- NOTE | 2017-06-16 23:07 | HHI.HP ---
HPI Service [facility] Primary Care Physician No Primary Care Physician Admission Diagnosis OSTEOMYELITIS Diagnoses: Chief Complaint: multiple wounds Travel History International Travel<30 Days: No Contact w/Intl Traveler <30 Da: No Traveled to Known Affected Are: No History of Present Illness Written by Risa Dominguez, acting as scribe for [Inna] on 06/16/17 at 23:06. 51 y/o female with a history of Chronic lower extremity wounds, Neurodermatitis , Chronic back pain and Fibromyalgia presented to the ED with complaints of multiple infected skin wounds. She has been dealing with these wounds for many months and has been seeing Dr. Segal for dressing changes. The bandages that he applied to her bilateral lower extremities were tight and very painful. 2 weeks ago she took off the bandages and was caring for the wounds herself at home. 1 week ago her Right knee began to swell and she developed a small ulcer on the outer part of the knee, her right great toe also began to swell. She states 3 days ago the right great toe wound began to open and drain foul smelling fluid. Also beginning about a week ago she began to have swelling and severe pain in her left shoulder. The ED physician did do an I&D of the left shoulder to drain a possible abscess. She is unsure if she had fevers at home because she keep the air down low in her house, but she thinks she may have had them. She denies any chest pain, sob, nausea, vomiting, headaches or dizziness. She does complain of recently having weakness in her hands and dropping objects from time to time. She states she is unable to have her feet on the floor without wearing shoes otherwise she has extreme pain. She also states she has had some peripheral vision loss from time to time as well, but was thinking she was just getting old. She does not have a PCP provider, but does have insurance. She has never seen a manufacturing technology analyst, and states she was never told to see one. She is very interested in getting into a PCP to facilitate care to specialists. He last appointment with Dr. Segal on 05/25/17 and at this visit she was given Levaquin for 10 days for her leg infection. The culture on 05/18/17 did grow MRSA Review of Systems Except as stated in HPI: all other systems reviewed are Neg Past Family Social History Past Medical History Chronic lower extremity wounds Neurodermatitis Chronic back pain Fibromyalgia HEP C Osteomyelitis right wrist Past Surgical History Tubal ligation Debridement of lower extremity wounds Breast augmentation 2 Ji toxic Right tibia fracture repair Rhinoplasty Reported Medications Reported Meds & Active Scripts Active Reported Ibuprofen 600 Mg Tab 600 Mg PO TID Dilaudid (Hydromorphone HCl) 8 Mg Tab 8 Mg PO Q6H PRN Allergies: Coded Allergies: *MDRO Multi-Drug Resistant Organism (Verified Adverse Reaction, Unknown, ) MRSA (finger wound) - 06/06/16; (synovial fluid) - 02/15/17; (leg)-02/19/17 & 05/18/17 MRSA PCR Screen POSITIVE -02/15/17 Active Ordered Medications Current Medications Medications (Trade) Dose Ordered Sig/Arlette Route Start Time Stop Time Status Last Admin (NS Flush) 2 ml UNSCH PRN IV FLUSH 06/16/17 20:45 (NS Flush) 2 ml BID IV FLUSH 06/16/17 21:00 06/16/17 21:46 (Narcan Inj) 0.4 mg UNSCH PRN IV 06/16/17 20:45 Family History Patient denies any family history, no heart disease, no cancer. Social History Tobacco use: a few cigarettes a day Alcohol use: Denies Illicit drug use: Many years ago Physical Exam Vital Signs Vital Signs Date Time Temp Pulse Resp B/P Pulse Ox O2 Delivery O2 Flow Rate FiO2 06/16/17 23:00 97.5 77 17 86/50 100 06/16/17 21:49 71 18 92/53 98 Room Air 06/16/17 19:56 71 18 89/51 100 Room Air 06/16/17 18:52 99 Room Air 06/16/17 18:52 99 Room Air 06/16/17 17:13 97.4 72 14 103/55 98 Room Air 06/16/17 16:15 97.7 78 20 87/53 99 Room Air Physical Exam GENERAL: This is a well-nourished, well-developed patient, in no apparent distress. SKIN: Hypopigmentation skin. Right great toe ulcer with erythema and serosanguineous fluid. Rt knee ulcer, no drainage. Left leg multiple necrotic ulcers. HEAD: Atraumatic. Normocephalic. EYES: Pupils equal round and reactive. Extraocular motions intact. ENT: Nose without bleeding, purulent drainage or septal hematoma. Airway patent. NECK: Trachea midline. No JVD or lymphadenopathy. Supple, nontender, no meningeal signs. CARDIOVASCULAR: Regular rate and rhythm without murmurs, gallops, or rubs. RESPIRATORY: Clear to auscultation. Breath sounds equal bilaterally. No wheezes , rales, or rhonchi. GASTROINTESTINAL: Abdomen soft, non-tender, nondistended. No hepato-splenomegaly , or palpable masses. No guarding. MUSCULOSKELETAL: Right knee with edema. No calf tenderness. Negative Homans sign bilaterally. NEUROLOGICAL: Awake and alert. Motor and sensory grossly within normal limits. Normal speech. Laboratory Laboratory Tests Test 06/16/17 18:40 White Blood Count 6.2 Red Blood Count 4.28 Hemoglobin 8.6 Hematocrit 26.9 Mean Corpuscular Volume 62.8 Mean Corpuscular Hemoglobin 20.1 Mean Corpuscular Hemoglobin 32.0 Concent Red Cell Distribution Width 18.1 Platelet Count 485 Mean Platelet Volume 6.7 Neutrophils (%) (Auto) 80.0 Lymphocytes (%) (Auto) 10.3 Monocytes (%) (Auto) 7.4 Eosinophils (%) (Auto) 1.7 Basophils (%) (Auto) 0.6 Neutrophils # (Auto) 5.0 Lymphocytes # (Auto) 0.6 Monocytes # (Auto) 0.5 Eosinophils # (Auto) 0.1 Basophils # (Auto) 0.0 CBC Comment DIFF FINAL Differential Comment Erythrocyte Sedimentation Rate GREATER THAN 140 Prothrombin Time 11.0 Prothromb Time International 1.0 Ratio Activated Partial 23.1 Thromboplast Time Sodium Level 132 Potassium Level 3.5 Chloride Level 94 Carbon Dioxide Level 27.6 Anion Gap 10 Blood Urea Nitrogen 20 Creatinine 0.74 Estimat Glomerular Filtration 82 Rate Random Glucose 94 Lactic Acid Level 1.2 Calcium Level 9.0 Total Bilirubin 0.6 Aspartate Amino Transf 17 (AST/SGOT) Alanine Aminotransferase 11 (ALT/SGPT) Alkaline Phosphatase 363 C-Reactive Protein 12.00 Total Protein 9.6 Albumin 2.4 Date/Time Procedure Status Source Growth 06/16/17 22:37 Gram Stain Received Wound Shoulder Pending 06/16/17 22:37 Wound Culture Received Wound Shoulder Pending 06/16/17 18:40 Aerobic Blood Culture Received Blood Peripheral Pending 06/16/17 18:40 Anaerobic Blood Culture Received Blood Peripheral Pending Result Diagram: 06/16/17 1840 06/16/17 1840 Imaging Last Impressions Chest X-Ray 06/16/17 1757 Signed Impressions: Service Date/Time: Friday, June 16, 2017 19:31 - CONCLUSION: Destructive changes at the humeral head on the left with soft tissue swelling of the shoulder suspected. Basilar atelectasis versus linear scarring. Luigi Del Real MD Shoulder X-Ray 06/16/17 0000 Signed Impressions: Service Date/Time: Wednesday, June 16, 2017 21:06 - CONCLUSION: Soft tissue swelling and destructive changes left proximal humerus. Luigi Del Real MD Knee X-Ray 06/16/17 0000 Signed Impressions: Service Date/Time: Friday, June 16, 2017 19:34 - CONCLUSION: Knee joint effusion, severe osteoarthritis and postoperative changes proximal tibia. Age-indeterminate patellar fracture. Luigi Del Real MD Foot X-Ray 06/16/17 0000 Signed Impressions: Service Date/Time: Friday, June 16, 2017 19:37 - CONCLUSION: Large soft tissue ulcer with subcutaneous emphysema and findings suspicious for osteomyelitis first metatarsal head and possibly sesamoid. Luigi Del Real MD Assessment and Plan Problem List: (1) Abscess of left shoulder ICD Code: L02.414 Status: Acute (2) Osteomyelitis ICD Code: M86.9 Status: Acute (3) Open wound of both legs with complication ICD Code: S81.801A Status: Acute (4) MRSA infection ICD Code: A49.02 Status: Acute Assessment and Plan 51 y/o female with a history of Chronic lower extremity wounds, Neurodermatitis , Chronic back pain and Fibromyalgia presented to the ED with complaints of multiple infected skin wounds. Abscess of left shoulder, I&D preformed in ED Shoulder x ray reviewed and shows Large soft tissue ulcer with subcutaneous emphysema and findings suspicious for osteomyelitis first metatarsal head and possibly sesamoid. -Consult Orthopedics for recommendations -IV antibiotics Vancomycin and Zosyn -Wound culture pending Right great toe wound, suspect Osteomyelitis ESR >140, CRP 12.0 Right foot x ray reviewed and shows Large soft tissue ulcer with subcutaneous emphysema and findings suspicious for osteomyelitis first metatarsal head and possibly sesamoid. -Would culture pending -WBC Ceretec scan ordered -Antibiotics as above -Pain management with IV Dilaudid -Consult podiatry, Dr. Segal is aware Necrotic left leg wounds -Will be managed by podiatry -Antibiotics and pain management as above Right knee swelling Knee x ray reviewed and shows knee joint effusion, severe osteoarthritis. -Orthopedics for recommendations -Wound care for knee wound Possible autoimmune disorder, patient also has signs of MS -She will need to follow up with a manufacturing technology analyst outpatient and neurology -She wound benefit from a lumbar spine tap once she no longer has an infection. DVT prophylaxis: Hold all measurements due to possible surgery and leg wounds This note was transcribed by [email or web address] [Risa Dominguez]. I, Dr. Jeannine Keith personally performed the history, physical exam, and medical decision making; and confirmed the accuracy of the information in the transcribed note. Authenticated by Dr. Jeannine Keith on06/16/17 at 23:06. Discussed Condition With Patient, and ED physician Physician Certification 2 Midnight Certification Type: Admission for Inpatient Services Order for Inpatient Services The services are ordered in accordance with Medicare regulations or non- Medicare payer requirements, as applicable. In the case of services not specified as inpatient-only, they are appropriately provided as inpatient services in accordance with the 2-midnight benchmark. Estimated LOS (days): 3 days is the estimated time the patient will need to remain in the hospital, assuming treatment plan goals are met and no additional complications. Post-Hospital Plan: Home Problem Qualifiers (1) Osteomyelitis: Qualified Code: M86.9 - Osteomyelitis, unspecified site, unspecified type Risa Dominguez Jun 16, 2017 23:07 Jeannine Keith MD Jun 17, 2017 08:10
[2017-06-16] MEDS ORDERED: Vancomycin Consult Pharmacy 1 EA OTHER SCH (23:45)
[2017-06-17] VITALS (11 sets, daily range): BP systolic 83–93; BP diastolic 49–82; PULSE 67–85; RESP 16–18; TEMP 97.7–99.4; O2SAT 95–100
[2017-06-17] MEDS: HYDROmorphone HCL PF 1 MG/ML VIAL IV PUSH PRN ×3 (03:07→23:03)
[2017-06-17] MEDS: PIPERACIL-TAZO 4.5 GM PREMIX 100 ML IV SCH ×4 (06:24→22:00)
[2017-06-17 06:50] LABS: AUTOMATED NEUTROPHIL # 3.2 TH/MM3 (1.8-7.7); BASOPHIL % 0.6 % (0.0-2.0); EOSINOPHIL # 0.2 TH/MM3 (0-0.4); EOSINOPHIL % 3.8 % (0.0-4.0); HEMATOCRIT 22.7 % (35.0-46.0); HEMO FLAGS DIFF FINAL; LYMPHOCYTE # 0.7 TH/MM3 (1.0-4.8); MEAN CELL VOLUME 61.6 FL (80.0-100.0); MEAN CORPUSCULAR HEMOGLOBIN 20.2 PG (27.0-34.0); MEAN CORPUSCULAR HGB CONC 32.8 % (32.0-36.0); MONO % 9.6 % (0.0-8.0); PLATELET COUNT 439 TH/MM3 (150-450); RED BLOOD COUNT 3.69 MIL/MM3 (4.00-5.30); RED CELL DISTRIBUTION WIDTH 17.7 % (11.6-17.2); WHITE BLOOD COUNT 4.5 TH/MM3 (4.0-11.0)
--- NOTE | 2017-06-17 06:57 | PD.ORT.PN ---
Subjective Subjective Remarks s/p previous I&D and washout of shoulder. reports left shoulder and right knee pain. Objective Vitals Vital Signs Date Time Temp Pulse Resp B/P Pulse Ox O2 Delivery O2 Flow Rate FiO2 06/17/17 04:53 97.7 74 18 91/55 98 06/17/17 04:20 18 06/17/17 02:12 18 06/16/17 23:00 97.5 77 17 86/50 100 06/16/17 23:00 18 06/16/17 21:49 71 18 92/53 98 Room Air 06/16/17 19:56 71 18 89/51 100 Room Air 06/16/17 18:52 99 Room Air 06/16/17 18:52 99 Room Air 06/16/17 17:13 97.4 72 14 103/55 98 Room Air 06/16/17 16:15 97.7 78 20 87/53 99 Room Air I/O 06/16/17 06/16/17 06/16/17 06/17/17 06/17/17 06/17/17 06:59 14:59 22:59 06:59 14:59 22:59 Intake Total 250 ml Balance 250 ml Intake Oral 250 ml Result Diagram: 06/17/17 0559 06/16/17 1840 Other Results Laboratory Tests Test 06/16/17 18:40 Prothrombin Time 11.0 SEC (9.8-11.6) Prothromb Time International 1.0 RATIO Ratio Imaging Last 24 hours Impressions Chest X-Ray 06/16/17 5636 Signed Impressions: Service Date/Time: Friday, June 16, 2017 19:31 - CONCLUSION: Destructive changes at the humeral head on the left with soft tissue swelling of the shoulder suspected. Basilar atelectasis versus linear scarring. Luigi Del Real MD Objective Remarks LUE: +swelling/erythema of shoulder. pain with motion. nvi RLE: +swelling/erythema of knee. pain with motion. 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
[2017-06-17 07:32] LABS: BICARBONATE 28.8 MEQ/L (21.0-32.0); POTASSIUM 3.2 MEQ/L (3.5-5.1)
[2017-06-17] MEDS ORDERED: SODIUM CHLORID 0.9% 500 ML INJ 500 ML IV ONE (08:45)
--- NOTE | 2017-06-17 08:54 | HHI.PR ---
Subjective Remarks This is a pleasant 51 y/o female with a history of Chronic lower extremity wounds, Neurodermatitis, Chronic back pain and Fibromyalgia presented to the ED with complaints of multiple infected skin wounds. She has been dealing with these wounds for many months and has been seeing Dr. Segal for dressing changes. The bandages that he applied to her bilateral lower extremities were tight and very painful. 2 weeks ago she took off the bandages and was caring for the wounds herself at home. 1 week ago her Right knee began to swell and she developed a small ulcer on the outer part of the knee, her right great toe also began to swell. She states 3 days ago the right great toe wound began to open and drain foul smelling fluid. Also beginning about a week ago she began to have swelling and severe pain in her left shoulder. The ED physician did do an I&D of the left shoulder to drain a possible abscess. She is unsure if she had fevers at home because she keep the air down low in her house, but she thinks she may have had them. She denies any chest pain, sob, nausea, vomiting, headaches or dizziness. she has Fibromyalgia, Chronic lower extremity wounds, Neurodermatitis, Chronic low back pain, Hepatitis C, Osteomyelitis of the right wrist. 06/17: Stable in her bedroom, hypotensive, giving IV fluids has evident purulent tissue on her left shoulder, will go later today for I and D of the Left Shoulder and Right knee no nausea, vomit or diarrhea, asymptomatic. discussed with nurse. Objective Vital Signs Date Time Temp Pulse Resp B/P Pulse Ox O2 Delivery O2 Flow Rate FiO2 06/17/17 08:26 67 87/82 06/17/17 07:36 98.2 69 16 89/54 100 06/17/17 04:53 97.7 74 18 91/55 98 06/17/17 04:20 18 06/17/17 02:12 18 06/16/17 23:00 97.5 77 17 86/50 100 06/16/17 23:00 18 06/16/17 21:49 71 18 92/53 98 Room Air 06/16/17 19:56 71 18 89/51 100 Room Air 06/16/17 18:52 99 Room Air 06/16/17 18:52 99 Room Air 06/16/17 17:13 97.4 72 14 103/55 98 Room Air 06/16/17 16:15 97.7 78 20 87/53 99 Room Air I/O 06/16/17 06/16/17 06/16/17 06/17/17 06/17/17 06/17/17 07:00 15:00 23:00 07:00 15:00 23:00 Intake Total 250 ml Balance 250 ml Intake Oral 250 ml Result Diagram: 06/17/17 0559 06/17/17 0559 Imaging Last Impressions Chest X-Ray 06/16/17 1757 Signed Impressions: Service Date/Time: Friday, June 16, 2017 19:31 - CONCLUSION: Destructive changes at the humeral head on the left with soft tissue swelling of the shoulder suspected. Basilar atelectasis versus linear scarring. Luigi Del Real MD Shoulder X-Ray 06/16/17 0000 Signed Impressions: Service Date/Time: Friday, June 16, 2017 21:06 - CONCLUSION: Soft tissue swelling and destructive changes left proximal humerus. Luigi Del Real MD Knee X-Ray 06/16/17 0000 Signed Impressions: Service Date/Time: Friday, June 16, 2017 19:34 - CONCLUSION: Knee joint effusion, severe osteoarthritis and postoperative changes proximal tibia. Age-indeterminate patellar fracture. Luigi Del Real MD Foot X-Ray 06/16/17 0000 Signed Impressions: Service Date/Time: Friday, June 16, 2017 19:37 - CONCLUSION: Large soft tissue ulcer with subcutaneous emphysema and findings suspicious for osteomyelitis first metatarsal head and possibly sesamoid. Luigi Del Real MD Procedures Status post I and D in ER. Other Results Laboratory Tests Test 06/16/17 06/17/17 18:40 05:59 Erythrocyte Sedimentation Rate GREATER THAN 140 mm/hr Prothrombin Time 11.0 SEC Prothromb Time International 1.0 RATIO Ratio Activated Partial 23.1 SEC Thromboplast Time Lactic Acid Level 1.2 mmol/L Total Bilirubin 0.6 MG/DL Aspartate Amino Transf 17 U/L (AST/SGOT) Alanine Aminotransferase 11 U/L (ALT/SGPT) Alkaline Phosphatase 363 U/L C-Reactive Protein 12.00 MG/DL Total Protein 9.6 GM/DL Albumin 2.4 GM/DL White Blood Count 4.5 TH/MM3 Red Blood Count 3.69 MIL/MM3 Hemoglobin 7.4 GM/DL Hematocrit 22.7 % Mean Corpuscular Volume 61.6 FL Mean Corpuscular Hemoglobin 20.2 PG Mean Corpuscular Hemoglobin 32.8 % Concent Red Cell Distribution Width 17.7 % Platelet Count 439 TH/MM3 Mean Platelet Volume 6.6 FL Neutrophils (%) (Auto) 71.0 % Lymphocytes (%) (Auto) 15.0 % Monocytes (%) (Auto) 9.6 % Eosinophils (%) (Auto) 3.8 % Basophils (%) (Auto) 0.6 % Neutrophils # (Auto) 3.2 TH/MM3 Lymphocytes # (Auto) 0.7 TH/MM3 Monocytes # (Auto) 0.4 TH/MM3 Eosinophils # (Auto) 0.2 TH/MM3 Basophils # (Auto) 0.0 TH/MM3 CBC Comment DIFF FINAL Differential Comment Sodium Level 136 MEQ/L Potassium Level 3.2 MEQ/L Chloride Level 100 MEQ/L Carbon Dioxide Level 28.8 MEQ/L Anion Gap 7 MEQ/L Blood Urea Nitrogen 12 MG/DL Creatinine 0.51 MG/DL Estimat Glomerular Filtration 126 ML/MIN Rate Random Glucose 85 MG/DL Calcium Level 8.1 MG/DL Objective Remarks GENERAL: Well-developed patient, in no apparent distress. SKIN: Hypopigmentation skin. Right great toe ulcer with erythema and serosanguineous fluid. Rt knee ulcer, no drainage. Left leg multiple necrotic ulcers. Left shoulder with purulent drainage. HEAD: Atraumatic. Normocephalic. EYES: Pupils equal round and reactive. Extraocular motions intact. ENT: Nose without bleeding, purulent drainage or septal hematoma. Airway patent. NECK: Trachea midline. No JVD or lymphadenopathy. Supple, nontender, no meningeal signs. CARDIOVASCULAR: Regular rate and rhythm without murmurs, gallops, or rubs. RESPIRATORY: Clear to auscultation. Breath sounds equal bilaterally. No wheezes , rales, or rhonchi. GASTROINTESTINAL: Abdomen soft, non-tender, nondistended. No hepato-splenomegaly , or palpable masses. No guarding. MUSCULOSKELETAL: Right knee with edema. No calf tenderness. Negative Homans sign bilaterally. NEUROLOGICAL: Awake and alert. Motor and sensory grossly within normal limits. Normal speech. Medications and IVs Current Medications Medications (Trade) Dose Ordered Sig/Arlette Route Start Time Stop Time Status Last Admin (NS Flush) 2 ml UNSCH PRN IV FLUSH 06/16/17 20:45 (NS Flush) 2 ml BID IV FLUSH 06/16/17 21:00 06/16/17 21:46 Naloxone HCl 0.4 mg 0.4 mg UNSCH PRN IV 06/16/17 20:45 Pharmacy Profile Note 0 ml @ 0 mls/hr UNSCH OTHER 06/16/17 23:45 (Zosyn 4.5 Gm Premix) 100 ml @ 200 mls/hr Q6H IV 06/17/17 07:00 06/17/17 06:24 (Dilaudid Pf Inj) 0.5 mg Q3H PRN IV PUSH 06/17/17 00:00 06/17/17 03:07 Pneumococcal Polyvalent Vaccine 25 mcg 25 mcg ONCE ONCE IM 06/17/17 09:00 06/17/17 09:01 (NS 1000 ml Inj) 1,000 ml @ 125 mls/hr Q8H IV 06/17/17 08:45 UNV A/P Assessment and Plan 51 y/o female with a history of Chronic lower extremity wounds, Neurodermatitis , Chronic back pain and Fibromyalgia presented to the ED with complaints of multiple infected skin wounds. Sepsis at this time with Hypotension, giving IV fluids and following, she is asymptomatic. Abscess of left shoulder, I&D preformed in ED continue Vancomycin and Zosyn at this time. Shoulder x ray reviewed and shows Large soft tissue ulcer with subcutaneous emphysema and findings suspicious for osteomyelitis first metatarsal head and possibly sesamoid. -Orthopedic Surgery following and will go to OR for I and D of the Left Shoulder, Right knee -IV antibiotics Vancomycin and Zosyn -Wound culture pending Right great toe wound, suspect Osteomyelitis ESR >140, CRP 12.0 Right foot x ray reviewed and shows Large soft tissue ulcer with subcutaneous emphysema and findings suspicious for osteomyelitis first metatarsal head and possibly sesamoid. -Would culture pending -WBC Ceretec scan ordered -Antibiotics as above -Pain management with IV Dilaudid -Consult podiatry, Dr. Segal is aware Necrotic left leg wounds -Will be managed by podiatry -Antibiotics and pain management as above Right knee swelling Knee x ray reviewed and shows knee joint effusion, severe osteoarthritis. -Orthopedics surgery for I and D later today. -Wound care for knee wound Possible autoimmune disorder, patient also has signs of MS -She will need to follow up with a city solicitor outpatient and neurology -She wound benefit from a lumbar spine tap once she no longer has an infection. DVT prophylaxis: Hold all measurements due to possible surgery and leg wounds Discussed Condition With Patient and nurse. Physical Therapy and manager port consults placed. Discharge Planning Once cleared by specialists. Cade Fitch MD Jun 17, 2017 08:54
[2017-06-17] MEDS: SODIUM CHLORIDE 0.9% FLUSH 10 ML FLUSH IV FLUSH SCH (09:00)
[2017-06-17] MEDS ORDERED: SODIUM CHLOR 0.9% 1000 ML INJ 1,000 ML IV SCH (09:00)
[2017-06-17] MEDS ORDERED: PNEUMOCOCCAL POLYVALENT INJ 25 MCG/0.5 ML SYR IM ONE (09:00)
[2017-06-17] MEDS ORDERED: SODIUM CHLOR 0.9% 250 ML INJ 250 ML ONE (09:52)
[2017-06-17] MEDS ORDERED: VANCOMYCIN HCL 1000 MG VIAL ONE ×2 (09:52→12:00)
[2017-06-17] MEDS ORDERED: ceFAZolin INJ 1,000 MG VIAL ONE (09:52)
[2017-06-17] MEDS ORDERED: GENTAMICIN SULFATE 80 MG/2 ML VIAL ONE (09:52)
[2017-06-17] MEDS: VANCOMYCIN 1,000 MG/NS 250 ML IV SCH ×2 (10:00)
[2017-06-17] MEDS ORDERED: KETAMINE HCL 500 MG/5 ML VIAL ONE (11:09)
[2017-06-17] MEDS ORDERED: LACTATED RINGER'S 1000 ML INJ 1,000 ML IV ONE (12:00)
[2017-06-17] MEDS ORDERED: ONDANSETRON HCL 4 MG/2 ML VIAL IV PUSH ONE (12:00)
[2017-06-17] MEDS ORDERED: NEOSTIGMINE 3 MG/3 ML SYR IV ONE (12:00)
[2017-06-17] MEDS ORDERED: PHENYLEPH/NS 1000 MCG/10 ML SYR IV ONE (12:00)
[2017-06-17] MEDS ORDERED: ePHEDrine/NS 25 MG/5 ML SYR IV ONE (12:00)
[2017-06-17] MEDS ORDERED: PROPOFOL 200 MG/20 ML AMP IV ONE (12:00)
[2017-06-17] MEDS ORDERED: TOBRAMYCIN SULFATE 1200 MG VIAL OTHER ONE (12:00)
--- NOTE | 2017-06-17 12:25 | PD.OP ---
cc: Leandro Mathis MD Operative Report Date of Surgery: Jun 17, 2017 Preoperative Diagnosis: Left shoulder infection, right knee infection Postoperative Diagnosis: Procedure: Right knee arthrotomy with irrigation and debridement and placement of antibiotic beads, irrigation debridement of left shoulder and humerus with placement of antibiotic beads Surgeon: Leandro Mathis .Net Architect(s): BRIAN Ch PA-C The surgical procedure was assisted by my physician administrative office assistant. My P.A. presence was necessary throughout this case for the manipulation and positioning of the surgical extremity. My P.A. was assisting me throughout the duration of this procedure. The skill set of a physician administrative office assistant was medically necessary to complete this procedure. During the surgical case the sterile supply technician was working at the back table and the physician administrative office assistant was directly assisting me. Operation and Findings: Jamee presented to the emergency room yesterday with recurrent infections of her left shoulder and right knee. Informed consent was obtained for irrigation debridement of right knee and left shoulder. I had a detailed discussion of the risks and benefits of surgery preoperatively. Operative sites were marked. She is brought to operating room. She was given IV sedation and general anesthesia. Left arm and shoulder and right leg were prepped with alcohol followed by Hibiclens and draped in the usual sterile fashion. Timeout procedure was performed. Procedure began with a 3 inch incision over the lateral aspect of the right knee. Full-thickness skin and sinus tracts were excised. The iliotibial band was split. An arthrotomy was created and the joint capsule was opened. There was purulent drainage within the knee. Cultures were obtained from this fluid and tissue. A synovectomy was now performed around the knee. After thorough debridement the knee was thoroughly irrigated with pulsatile lavage. Next attention was turned to the left shoulder. A 4 inch incision was made over the anterolateral shoulder there was a large volume of purulent material around the shoulder. The deltopectoral was opened. There was significant synovitis around the shoulder consistent with chronic infection. Curettes and rongeurs were used to debride soft tissue and bone. A 3.5 mm drill bit was used to create holes in the cortex of the bone to her help debride the bone. The soft tissue and bone were now thoroughly irrigated with pulsatile lavage. Next attention was turned to antibiotic beads. 15 cc of stimulant bone graft were mixed with 2 g of vancomycin and 2 g of tobramycin. Once the cement was set beads were split in half. Half of the beads were placed into the knee and the other half were placed around the shoulder wound. There was significant oozing of blood around the shoulder. A drain was placed to help prevent hematoma. Fascia was closed with 0 PDS, subcutaneous tissues closed with 3-0 PDS and skin was closed with 3-0 nylon. Sterile dressings were applied. Patient was awakened and transferred to recovery room in stable condition Leandro Mathis MD Jun 17, 2017 12:25
[2017-06-17] MEDS ORDERED: Post-op Orders (for Pharmacy) MISC XX ONE (12:30)
[2017-06-17] MEDS ORDERED: diphenhydrAMINE HCL 25 MG CAP PO PRN (12:30)
[2017-06-17] MEDS ORDERED: ONDANSETRON HCL 4 MG/2 ML VIAL IVP PRN (12:30)
[2017-06-17] MEDS ORDERED: SODIUM CHLORIDE 0.9% FLUSH 5 ML FLUSH IVF PRN (12:30)
[2017-06-17] MEDS ORDERED: DO NOT ADM ANY ANTICOAGULANT DRUGS PRN (13:00)
[2017-06-17] MEDS: SODIUM CHLOR 0.9% 1000 ML INJ 1,000 ML IV SCH ×2 (13:00→17:52)
[2017-06-17] MEDS ORDERED: *morphine SULFATE 8 MG/ML PERIprocedure ONLY ONE ×2 (13:22→13:40)
[2017-06-17 13:45] LABS: HEMATOCRIT 21.4 % (35.0-46.0)
[2017-06-17 13:46] LABS: REVIEW FLAG FINAL
--- NOTE | 2017-06-17 14:27 | HHI.PR ---
Addendum to Inpatient Note Addendum Reason: Additional Documentation Additional Information Patient was in surgery today. Ceretec labeled bone scan put off until tomorrow. We'll see patient Wednesday morning. Franky Segal DPM Jun 17, 2017 14:27
[2017-06-17] MEDS ORDERED: FUROSEMIDE 20 MG/2 ML VIAL IV ONE (15:30)
[2017-06-17] MEDS ORDERED: ACETAMINOPHEN 325 MG TAB PO PRN (15:30)
[2017-06-17] MEDS ORDERED: SODIUM CHLOR 0.9% 250 ML INJ 250 ML IV ONE (15:30)
[2017-06-17] MEDS: SODIUM CHLORIDE 0.9% FLUSH 5 ML FLUSH IVF SCH (21:00)
[2017-06-17] MEDS: MORPHINE SULFATE 4 MG/ML INJ IV PUSH PRN (22:13)
[2017-06-18] VITALS (8 sets, daily range): BP systolic 88–104; BP diastolic 50–57; PULSE 57–82; RESP 17–20; TEMP 96.5–100.3; O2SAT 95–100
[2017-06-18] MEDS: VANCOMYCIN 1,000 MG/NS 250 ML IV SCH ×6 (00:20→21:39)
[2017-06-18] MEDS: SODIUM CHLOR 0.9% 1000 ML INJ 1,000 ML IV SCH ×3 (01:00→17:00)
[2017-06-18] MEDS: PIPERACIL-TAZO 4.5 GM PREMIX 100 ML IV SCH ×4 (01:47→18:45)
[2017-06-18] MEDS: MORPHINE SULFATE 4 MG/ML INJ IV PUSH PRN ×3 (01:48→22:45)
[2017-06-18] MEDS: HYDROmorphone HCL PF 1 MG/ML VIAL IV PUSH PRN ×6 (03:11→21:38)
[2017-06-18 05:23] LABS: REVIEW FLAG FINAL
[2017-06-18] MEDS: SODIUM CHLORIDE 0.9% FLUSH 5 ML FLUSH IVF SCH ×2 (09:00→19:33)
[2017-06-18] MEDS ORDERED: PHARMACY ORDERED LAB ONE (09:45)
--- NOTE | 2017-06-18 10:26 | PD.WOU.CON ---
Patient Intake Chief Complaint Amputation with possible osteomyelitis of the right first metatarsal head and ulcerations of bilateral lower extremities Consult Requested by Dr. Jerrod Valdez Reason for Consult Evaluation for possible osteomyelitis and lower extremity wounds Primary Care Physician No Primary Care Physician History of Present Illness 51-year-old female well-known to myself from previous admissions in the wound care visits. She is Mr. last [facility] visits. She continues to smoke against instructions. She was admitted for possible osteomyelitis of the first met head of the right foot. Patient also had a shoulder abscess and a knee effusion treated surgically by Dr. Mathis. On her last admission to the patient to the OR for debridement of bilateral leg wounds. When patient was last seen in the wound center the wounds were healthier looking. They now have a necrotic eschar. Coded Allergies: *MDRO Multi-Drug Resistant Organism (Verified Adverse Reaction, Unknown, ) MRSA (finger wound) - 06/06/16; (synovial fluid) - 02/15/17; (leg)-02/19/17 & 05/18/17; (shoulder)-06/16/17 MRSA PCR Screen POSITIVE -02/15/17 Preferred Language to Discuss: [place] Barriers to Learning: None Teaching Method: Discussion Vital Signs Date Time Temp Pulse Resp B/P Pulse Ox O2 Delivery O2 Flow Rate FiO2 06/18/17 09:29 18 06/18/17 08:00 97.3 71 20 99/57 98 06/18/17 04:00 98.2 79 17 88/52 97 06/18/17 00:00 100.3 76 17 88/52 96 06/17/17 22:30 98.8 85 17 88/52 97 06/17/17 22:00 81 06/17/17 21:40 98.8 85 16 85/52 97 06/17/17 20:00 99.0 85 17 88/50 97 06/17/17 18:01 99.4 80 16 83/49 100 06/17/17 17:47 98.4 81 17 84/52 95 06/17/17 16:40 97.8 77 16 98/52 96 Room Air 06/17/17 16:30 75 16 90/51 95 Room Air 06/17/17 16:00 76 16 92/53 95 Room Air 06/17/17 15:45 77 16 90/52 100 Nasal Cannula 2 7/20/17 15:45 97.6 78 16 90/52 100 06/17/17 15:30 97.7 76 16 93/51 100 06/17/17 15:30 78 16 93/51 99 Nasal Cannula 2 06/17/17 15:15 77 16 89/47 98 Nasal Cannula 2 06/17/17 15:00 76 16 88/52 97 Nasal Cannula 2 06/17/17 14:45 77 16 93/52 97 Nasal Cannula 2 06/17/17 14:30 78 16 90/52 97 Nasal Cannula 2 06/17/17 14:15 79 15 92/50 97 Nasal Cannula 2 06/17/17 14:00 77 15 93/50 96 Nasal Cannula 2 06/17/17 13:45 79 15 97/54 96 Nasal Cannula 2 06/17/17 13:30 83 15 103/59 95 Nasal Cannula 2 06/17/17 13:15 84 14 100/56 95 Nasal Cannula 2 06/17/17 13:00 97.6 85 12 100/57 100 Nasal Cannula 3 Pain scale used: 0-10 numeric scale Pain score: 7 Medications Current Medications Sodium Chloride 1,000 ml @ 999 mls/hr BOLUS ONCE IV Last administered on 06/16 20:54; Start 06/16/17 at 18:00; Stop 06/16/17 at 19:00; Status DC Vancomycin HCl 1000 mg/Sodium Chloride 250 ml @ 250 mls/hr ONCE ONCE IV Last administered on 06/16/17 21:47; Start 06/16/17 at 20:15; Stop 06/16/17 at 21:14 ; Status DC Piperacillin Sod/ Tazobactam Sod (Zosyn 4.5 Gm Premix) 100 ml @ 200 mls/hr ONCE ONCE IV Last administered on 06/16/17 23:58; Start 06/16/17 at 20:15; Stop 06/16/17 at 20:46; Status DC Sodium Chloride (NS Flush) 2 ml UNSCH PRN IV FLUSH FLUSH AFTER USING IV ACCESS ; Start 06/16/17 at 20:45; Stop 06/17/17 at 14:25; Status DC Sodium Chloride (NS Flush) 2 ml BID IV FLUSH Last administered on 06/16/17 21: 46; Start 06/16/17 at 21:00; Stop 06/17/17 at 14:25; Status DC Naloxone HCl (Narcan Inj) 0.4 mg UNSCH PRN IV SEE LABEL COMMENTS; Start at 20:45 Ketorolac Tromethamine (Toradol Inj) 30 mg ONCE ONCE IV PUSH Last administered on 06/16/17 22:23; Start 06/16/17 at 22:00; Stop 06/16/17 at 22:01 ; Status DC Hydromorphone HCl 1 mg 1 mg ONCE ONCE IV PUSH Last administered on 06/16/17 22:24; Start 06/16/17 at 22:30; Stop 06/16/17 at 22:31; Status DC Pharmacy Profile Note 0 ml @ 0 mls/hr UNSCH OTHER ; Start 06/16/17 at 23:45 Piperacillin Sod/ Tazobactam Sod (Zosyn 4.5 Gm Premix) 100 ml @ 200 mls/hr Q6H IV Last administered on 06/18/17 06:06; Start 06/17/17 at 07:00 Hydromorphone HCl (Dilaudid Pf Inj) 0.5 mg Q3H PRN IV PUSH pain >5 Last administered on 06/18/17 08:59; Start 06/17/17 at 00:00 Pneumococcal Polyvalent Vaccine 25 mcg 25 mcg ONCE ONCE IM Last administered on 06/17/17 09:30; Start 06/17/17 at 09:00; Stop 06/17/17 at 09:01; Status DC Sodium Chloride 1,000 ml @ 125 mls/hr Q8H IV ; Start 06/17/17 at 09:00; Stop at 09:08; Status DC Sodium Chloride 500 ml @ 500 mls/hr BOLUS ONCE IV Last administered on 09:29; Start 06/17/17 at 08:45; Stop 06/17/17 at 09:44; Status DC Sodium Chloride 1,000 ml @ 125 mls/hr Q8H IV Last administered on 06/18/17 06 :06; Start 06/17/17 at 09:00 Vancomycin HCl/ Sodium Chloride (Vancomycin Inj/ NS 250 ml Inj) 250 ml @ 250 mls/hr Q12H IV Last administered on 06/18/17 09:56; Start 06/17/17 at 10:00 Vancomycin HCl (Vancomycin Inj) 1,000 mg STK-MED ONCE .ROUTE Last administered on 06/17/17 11:58; Start 06/17/17 at 09:52; Stop 06/17/17 at 09:53; Status DC Cefazolin Sodium (Ancef Inj) 1,000 mg STK-MED ONCE .ROUTE ; Start 06/17/17 at 09 :52; Stop 06/17/17 at 09:53; Status DC Gentamicin Sulfate 240 mg 240 mg STK-MED ONCE .ROUTE Last administered on 11:39; Start 06/17/17 at 09:52; Stop 06/17/17 at 09:53; Status DC Sodium Chloride (NS 250 ml Inj) 250 ml @ As Directed STK-MED ONCE .ROUTE Last administered on 06/17/17 11:58; Start 06/17/17 at 09:52; Stop 06/17/17 at 09:53 ; Status DC Miscellaneous Information SPECIFIC LAB TO BE EMILY... ONCE ONCE .XX Last administered on 06/18/17 09:24; Start 06/18/17 at 09:45; Stop 06/18/17 at 09:46 ; Status DC Ketamine HCl (Ketalar Inj) 500 mg STK-MED ONCE .ROUTE ; Start 06/17/17 at 11:09 ; Stop 06/17/17 at 11:10; Status DC IV Flush (NS Flush) 2 ml UNSCH PRN IVF FLUSH AFTER USING IV ACCESS; Start 06/17 at 12:30 IV Flush (NS Flush) 2 ml BID IVF Last administered on 06/18/17 09:00; Start at 21:00 Miscellaneous Information (Post-op Orders (for Pharmacy)) STAT ONCE XX ; Start 06/17/17 at 12:30; Stop 06/17/17 at 14:26; Status DC Acetaminophen/ Hydrocodone Bitart ([place] 7.5-325 Mg) 1 tab Q3H PRN PO PAIN 3< 10; Start 06/17/17 at 12:30 Ondansetron HCl (Zofran Inj) 4 mg Q4H PRN IVP NAUSEA OR VOMITING; Start at 12:30 Diphenhydramine HCl (Benadryl) 25 mg Q6H PRN PO ITCHING; Start 06/17/17 at 12: 30 Morphine Sulfate (Morphine Inj) 4 mg Q3H PRN IV PUSH break thru pain Last administered on 06/18/17 01:48; Start 06/17/17 at 12:30 Fentanyl Citrate (fentaNYL INJ) 100 mcg STK-MED ONCE .ROUTE ; Start 06/17/17 at 13:10; Stop 06/17/17 at 13:11; Status DC Morphine Sulfate (*morphine INJ PERIprocedure ONLY) 8 mg STK-MED ONCE .ROUTE Last administered on 06/17/17 13:22; Start 06/17/17 at 13:22; Stop 06/17/17 at 13:31; Status DC Morphine Sulfate 8 mg 8 mg STK-MED ONCE .ROUTE Last administered on 06/17/17 13:40; Start 06/17/17 at 13:40; Stop 06/17/17 at 13:41; Status DC Sodium Chloride (NS 250 ml Inj) 250 ml @ 15 mls/hr ONCE ONCE IV Last administered on 06/17/17 15:30; Start 06/17/17 at 15:30; Stop 06/18/17 at 08:09 ; Status DC Acetaminophen (Tylenol) 650 mg Q4H PRN PO SEE LABEL COMMENTS; Start 06/17/17 at 15:30; Stop 06/17/17 at 19:31; Status DC Furosemide (Lasix Inj) 20 mg ONCE ONCE IV Last administered on 06/17/17 17:51 ; Start 06/17/17 at 15:30; Stop 06/17/17 at 16:55; Status DC Miscellaneous Information ALL NURSING DEPARTME... UNSCH PRN .XX SEE LABEL COMMENTS; Start 06/17/17 at 13:00; Stop 06/18/17 at 12:59 Past, Family & Social History Past Medical History PFSH Reviewed: Yes Musculoskeletal: REPORTS HX OF: Fractures (tibia), Other musculoskeletal hx ( septic right knee) Integumentary: REPORTS HX OF: Other integumentary hx Psychiatric: REPORTS HX OF: Depression Disabilities: REPORTS HX OF: Vision deficit (glasses) Past Surgical History Gastrointestinal: DENIES HX OF: Colectomy, total Gynecologic: REPORTS HX OF: delivery, DENIES HX OF: Hysterectomy Integumentary: REPORTS HX OF: Other integumentary surg Breast: REPORTS HX OF: Other breast surgery (implants), DENIES HX OF: Mastectomy, bilateral, Mastectomy, left, Mastectomy, right Review of Systems Notes Ischemic changes of the second toe left foot Constitutional: COMPLAINS OF: Pain Cardiovascular: COMPLAINS OF: Swelling legs / ankles Wound Assessment Vascular Assessment R Dorsails Pedis: Doppler L Dorsails Pedis: Doppler R Posterior Tibial: Doppler L Posterior Tibial: Doppler Temperature of Left Extremity: Cool Color of Left Extremity: Dusky (second toe) Sensation of Left Extremity: Present Temperature of Right Extremity: Cool Color of Right Extremity: Mottled Sensation of Right Extremity: Present Procedure Pain Management Pain Described as: Sharp Wound Information - Wound One Wound Location: bilateral wounds of both lower extremities. Appear to be venous in nature. Wound Type: Venous Disease Classification: FT- full thickness Exudate: Low Debridement: No Fibrin Amount: None Eschar: Yes Odor: Yes Wound Two Wound Location: Right hallux Wound Type: Ischemic Classification: Bone/Tendon Present Exudate: Low Exudate Type: Purulent Debridement: No Fibrin Amount: None Granulation Tissue Color: None Granulation Tissue Texture: N/A Exposed: Bone Eschar: Yes Odor: Yes Wound Three Wound Location: Left lateral Lab and Radiology Results Laboratory Laboratory Tests Test 06/16/17 06/17/17 06/17/17 06/18/17 18:40 05:59 13:36 04:17 White Blood Count 6.2 TH/MM3 4.5 TH/MM3 Red Blood Count 4.28 MIL/MM3 3.69 MIL/MM3 Hemoglobin 8.6 GM/DL 7.4 GM/DL 6.9 GM/DL 7.7 GM/DL Hematocrit 26.9 % 22.7 % 21.4 % 22.0 % Mean Corpuscular Volume 62.8 FL 61.6 FL Mean Corpuscular Hemoglobin 20.1 PG 20.2 PG Mean Corpuscular Hemoglobin 32.0 % 32.8 % Concent Red Cell Distribution Width 18.1 % 17.7 % Platelet Count 485 TH/MM3 439 TH/MM3 Mean Platelet Volume 6.7 FL 6.6 FL Neutrophils (%) (Auto) 80.0 % 71.0 % Lymphocytes (%) (Auto) 10.3 % 15.0 % Monocytes (%) (Auto) 7.4 % 9.6 % Eosinophils (%) (Auto) 1.7 % 3.8 % Basophils (%) (Auto) 0.6 % 0.6 % Neutrophils # (Auto) 5.0 TH/MM3 3.2 TH/MM3 Lymphocytes # (Auto) 0.6 TH/MM3 0.7 TH/MM3 Monocytes # (Auto) 0.5 TH/MM3 0.4 TH/MM3 Eosinophils # (Auto) 0.1 TH/MM3 0.2 TH/MM3 Basophils # (Auto) 0.0 TH/MM3 0.0 TH/MM3 CBC Comment DIFF FINAL DIFF FINAL Differential Comment Erythrocyte Sedimentation Rate GREATER THAN 140 mm/hr Laboratory Tests Test 06/16/17 06/17/17 06/18/17 18:40 05:59 04:17 Sodium Level 132 MEQ/L 136 MEQ/L Potassium Level 3.5 MEQ/L 3.2 MEQ/L Chloride Level 94 MEQ/L 100 MEQ/L Carbon Dioxide Level 27.6 MEQ/L 28.8 MEQ/L Anion Gap 10 MEQ/L 7 MEQ/L Blood Urea Nitrogen 20 MG/DL 12 MG/DL Creatinine 0.74 MG/DL 0.51 MG/DL 0.51 MG/DL Estimat Glomerular Filtration 82 ML/MIN 126 ML/MIN 126 ML/MIN Rate Random Glucose 94 MG/DL 85 MG/DL Lactic Acid Level 1.2 mmol/L Calcium Level 9.0 MG/DL 8.1 MG/DL Total Bilirubin 0.6 MG/DL Aspartate Amino Transf 17 U/L (AST/SGOT) Alanine Aminotransferase 11 U/L (ALT/SGPT) Alkaline Phosphatase 363 U/L C-Reactive Protein 12.00 MG/DL Total Protein 9.6 GM/DL Albumin 2.4 GM/DL Microbiology Date/Time Procedure Status Source Growth 06/16/17 18:30 Gram Stain - Final Resulted Wound Foot 06/16/17 18:30 Wound Culture - Preliminary Resulted Gram Negative Kalia Staphylococcus Aureus 06/16/17 18:30 Gram Stain - Final Resulted Wound Knee 06/16/17 18:30 Wound Culture - Preliminary Resulted Staphylococcus Aureus 06/16/17 18:35 Aerobic Blood Culture - Preliminary Resulted Blood Peripheral NO GROWTH IN 1 DAY 06/16/17 18:35 Anaerobic Blood Culture - Preliminary Resulted Blood Peripheral NO GROWTH IN 1 DAY 06/16/17 18:40 Aerobic Blood Culture - Preliminary Resulted Blood Peripheral NO GROWTH IN 1 DAY 06/16/17 18:40 Anaerobic Blood Culture - Preliminary Resulted Blood Peripheral NO GROWTH IN 1 DAY 06/16/17 22:37 Gram Stain - Final Resulted Wound Shoulder 06/16/17 22:37 Wound Culture - Preliminary Resulted S. Aureus Mrsa 06/17/17 11:50 Gram Stain - Final Resulted Wound Shoulder 06/17/17 11:50 Wound Culture Resulted Wound Shoulder Pending 06/17/17 11:50 Acid Fast Stain Received Wound Shoulder Pending 06/17/17 11:50 Mycobacterial Culture Received Wound Shoulder Pending 06/17/17 11:50 Fungal Smear - Final Resulted Wound Shoulder NO FUNGAL ELEMENTS SEEN. 06/17/17 11:50 Fungal Culture Resulted Wound Shoulder Pending 06/17/17 11:50 Gram Stain - Final Resulted Wound Other 06/17/17 11:50 Wound Culture Resulted Wound Other Pending 06/17/17 11:50 Acid Fast Stain Received Wound Other Pending 06/17/17 11:50 Mycobacterial Culture Received Wound Other Pending 06/17/17 11:50 Fungal Smear - Final Resulted Wound Other NO FUNGAL ELEMENTS SEEN. 06/17/17 11:50 Fungal Culture Resulted Wound Other Pending Radiology Last Impressions Chest X-Ray 06/16/17 1757 Signed Impressions: Service Date/Time: Friday, June 16, 2017 19:31 - CONCLUSION: Destructive changes at the humeral head on the left with soft tissue swelling of the shoulder suspected. Basilar atelectasis versus linear scarring. Luigi Del Real MD Shoulder X-Ray 06/16/17 0000 Signed Impressions: Service Date/Time: Friday, June 16, 2017 21:06 - CONCLUSION: Soft tissue swelling and destructive changes left proximal humerus. Luigi Del Real MD Knee X-Ray 06/16/17 0000 Signed Impressions: Service Date/Time: Friday, June 16, 2017 19:34 - CONCLUSION: Knee joint effusion, severe osteoarthritis and postoperative changes proximal tibia. Age-indeterminate patellar fracture. Luigi Del Real MD Foot X-Ray 06/16/17 0000 Signed Impressions: Service Date/Time: Friday, June 16, 2017 19:37 - CONCLUSION: Large soft tissue ulcer with subcutaneous emphysema and findings suspicious for osteomyelitis first metatarsal head and possibly sesamoid. Luigi Del Real MD Assessment/Plan Problem List: (1) Lytic lesion of bone on x-ray Status: Acute (2) Open wound of both legs with complication Status: Chronic (3) Osteomyelitis Status: Acute Additional Plans & Procedures PLAN: I ordered a Ceretec labeled white blood cell scan which was started this morning. If the scan is positive she probably will need a hallux amputation. However, given the nature of her lower extremity wounds she may eventually end up with bilateral BKA's. We'll follow during this admission. Counseled the patient to stop smoking. She may require vascular consult for ischemic toes. Problem Qualifiers (1) Osteomyelitis: Qualified Code: M86.9 - Osteomyelitis of right foot, unspecified type Franky Segal DPM Jun 18, 2017 10:26
--- NOTE | 2017-06-18 10:27 | HHI.PR ---
Subjective Remarks This is a pleasant 51 y/o female with a history of Chronic lower extremity wounds, Neurodermatitis, Chronic back pain and Fibromyalgia presented to the ED with complaints of multiple infected skin wounds. She has been dealing with these wounds for many months and has been seeing Dr. Segal for dressing changes. The bandages that he applied to her bilateral lower extremities were tight and very painful. 2 weeks ago she took off the bandages and was caring for the wounds herself at home. 1 week ago her Right knee began to swell and she developed a small ulcer on the outer part of the knee, her right great toe also began to swell. She states 3 days ago the right great toe wound began to open and drain foul smelling fluid. Also beginning about a week ago she began to have swelling and severe pain in her left shoulder. The ED physician did do an I&D of the left shoulder to drain a possible abscess. She is unsure if she had fevers at home because she keep the air down low in her house, but she thinks she may have had them. She denies any chest pain, sob, nausea, vomiting, headaches or dizziness. she has Fibromyalgia, Chronic lower extremity wounds, Neurodermatitis, Chronic low back pain, Hepatitis C, Osteomyelitis of the right wrist. 06/17: Stable in her bedroom, hypotensive, giving IV fluids has evident purulent tissue on her left shoulder, will go later today for I and D of the Left Shoulder and Right knee no nausea, vomit or diarrhea, asymptomatic. discussed with nurse. 06/18: Discussed with Podiatry specialist doctor Franky Segal and recommended [facility] Label[facility] White blood cell scan, if positive may need hallux amputation, called attention about the probable need for bilateral BKA's depend of evolution. consulted Vascular integration specialist. seen in her bedroom stable, has some nausea, but no vomit or diarrhea. she is in status post Right Knee Arthrotomy with irrigation and debridement and placement of antibiotics beads, irrigation and debridement of left Shoulder and Humerus wt placement of antibiotic beads by Doctor Leandro Mathis. with Diagnosis of Left shoulder infection, Right knee infection. Objective Vital Signs Date Time Temp Pulse Resp B/P Pulse Ox O2 Delivery O2 Flow Rate FiO2 06/18/17 09:29 18 06/18/17 08:00 97.3 71 20 99/57 98 06/18/17 04:00 98.2 79 17 88/52 97 06/18/17 00:00 100.3 76 17 88/52 96 06/17/17 22:30 98.8 85 17 88/52 97 06/17/17 22:00 81 06/17/17 21:40 98.8 85 16 85/52 97 06/17/17 20:00 99.0 85 17 88/50 97 06/17/17 18:01 99.4 80 16 83/49 100 06/17/17 17:47 98.4 81 17 84/52 95 06/17/17 16:40 97.8 77 16 98/52 96 Room Air 06/17/17 16:30 75 16 90/51 95 Room Air 06/17/17 16:00 76 16 92/53 95 Room Air 06/17/17 15:45 77 16 90/52 100 Nasal Cannula 2 06/17/17 15:45 97.6 78 16 90/52 100 06/17/17 15:30 97.7 76 16 93/51 100 06/17/17 15:30 78 16 93/51 99 Nasal Cannula 2 06/17/17 15:15 77 16 89/47 98 Nasal Cannula 2 06/17/17 15:00 76 16 88/52 97 Nasal Cannula 2 06/17/17 14:45 77 16 93/52 97 Nasal Cannula 2 06/17/17 14:30 78 16 90/52 97 Nasal Cannula 2 06/17/17 14:15 79 15 92/50 97 Nasal Cannula 2 06/17/17 14:00 77 15 93/50 96 Nasal Cannula 2 06/17/17 13:45 79 15 97/54 96 Nasal Cannula 2 06/17/17 13:30 83 15 103/59 95 Nasal Cannula 2 06/17/17 13:15 84 14 100/56 95 Nasal Cannula 2 06/17/17 13:00 97.6 85 12 100/57 100 Nasal Cannula 3 I/O 06/17/17 06/17/17 06/17/17 06/18/17 06/18/17 06/18/17 07:00 15:00 23:00 07:00 15:00 23:00 Intake Total 250 ml 1000 ml 340 ml 1301 ml 240 ml Output Total 300 ml 720 ml 20 ml Balance 250 ml 700 ml -380 ml 1281 ml 240 ml Intake Oral 250 ml 240 ml 240 ml 240 ml IV Total 1061 ml Packed Cells 100 ml Other 1000 ml Output Urine Total 650 ml Drainage Total 70 ml 20 ml Estimated Blood Loss 300 ml # Voids 3 3 Result Diagram: 06/18/1741606/18/17416 Imaging Last Impressions Chest X-Ray 06/16/171756 Signed Impressions: Service Date/Time: Friday, June 16, 2017 19:31 - CONCLUSION: Destructive changes at the humeral head on the left with soft tissue swelling of the shoulder suspected. Basilar atelectasis versus linear scarring. Luigi Del Real MD Shoulder X-Ray 06/16/17 0000 Signed Impressions: Service Date/Time: Friday, June 16, 2017 21:06 - CONCLUSION: Soft tissue swelling and destructive changes left proximal humerus. Luigi Del Real MD Knee X-Ray 06/16/17 0000 Signed Impressions: Service Date/Time: Friday, June 16, 2017 19:34 - CONCLUSION: Knee joint effusion, severe osteoarthritis and postoperative changes proximal tibia. Age-indeterminate patellar fracture. Luigi Del Real MD Foot X-Ray 06/16/17 0000 Signed Impressions: Service Date/Time: Friday, June 16, 2017 19:37 - CONCLUSION: Large soft tissue ulcer with subcutaneous emphysema and findings suspicious for osteomyelitis first metatarsal head and possibly sesamoid. Luigi Del Real MD Procedures Status post I and D in ER. Other Results Laboratory Tests Test 06/16/17 06/17/17 06/17/17 06/17/17 18:40 05:59 12:19 14:49 Erythrocyte Sedimentation Rate GREATER THAN 140 mm/hr Prothrombin Time 11.0 SEC Prothromb Time International 1.0 RATIO Ratio Activated Partial 23.1 SEC Thromboplast Time Lactic Acid Level 1.2 mmol/L Total Bilirubin 0.6 MG/DL Aspartate Amino Transf 17 U/L (AST/SGOT) Alanine Aminotransferase 11 U/L (ALT/SGPT) Alkaline Phosphatase 363 U/L C-Reactive Protein 12.00 MG/DL Total Protein 9.6 GM/DL Albumin 2.4 GM/DL White Blood Count 4.5 TH/MM3 Red Blood Count 3.69 MIL/MM3 Mean Corpuscular Volume 61.6 FL Mean Corpuscular Hemoglobin 20.2 PG Mean Corpuscular Hemoglobin 32.8 % Concent Red Cell Distribution Width 17.7 % Platelet Count 439 TH/MM3 Mean Platelet Volume 6.6 FL Neutrophils (%) (Auto) 71.0 % Lymphocytes (%) (Auto) 15.0 % Monocytes (%) (Auto) 9.6 % Eosinophils (%) (Auto) 3.8 % Basophils (%) (Auto) 0.6 % Neutrophils # (Auto) 3.2 TH/MM3 Lymphocytes # (Auto) 0.7 TH/MM3 Monocytes # (Auto) 0.4 TH/MM3 Eosinophils # (Auto) 0.2 TH/MM3 Basophils # (Auto) 0.0 TH/MM3 CBC Comment DIFF FINAL Differential Comment Sodium Level 136 MEQ/L Potassium Level 3.2 MEQ/L Chloride Level 100 MEQ/L Carbon Dioxide Level 28.8 MEQ/L Anion Gap 7 MEQ/L Blood Urea Nitrogen 12 MG/DL Random Glucose 85 MG/DL Calcium Level 8.1 MG/DL Blood Type O POSITIVE Antibody Screen POSITIVE Crossmatch Leukocyte-Reduced Red Blood Cells Blood Bank Comment Antibody Identification Anti-Jka Test 06/18/17 06/18/17 04:17 09:23 Hemoglobin 7.7 GM/DL Hematocrit 22.0 % Creatinine 0.51 MG/DL Estimat Glomerular Filtration 126 ML/MIN Rate Vancomycin Level Trough 16.8 MCG/ML Objective Remarks GENERAL: Well-developed patient, in no apparent distress. SKIN: Hypopigmentation skin. Right great toe ulcer with erythema and serosanguineous fluid. Rt knee ulcer, no drainage. Left leg multiple necrotic ulcers. Left shoulder and Right knee dressed. HEAD: Atraumatic. Normocephalic. EYES: Pupils equal round and reactive. Extraocular motions intact. ENT: Nose without bleeding, purulent drainage or septal hematoma. Airway patent. NECK: Trachea midline. No JVD or lymphadenopathy. Supple, nontender, no meningeal signs. CARDIOVASCULAR: Regular rate and rhythm without murmurs, gallops, or rubs. RESPIRATORY: Clear to auscultation. Breath sounds equal bilaterally. No wheezes , rales, or rhonchi. GASTROINTESTINAL: Abdomen soft, non-tender, nondistended. No hepato-splenomegaly , or palpable masses. No guarding. MUSCULOSKELETAL: Right knee with edema. No calf tenderness. Negative Homans sign bilaterally. NEUROLOGICAL: Awake and alert. Motor and sensory grossly within normal limits. Normal speech. Medications and IVs Current Medications Medications (Trade) Dose Ordered Sig/Arlette Route Start Time Stop Time Status Last Admin Naloxone HCl 0.4 mg 0.4 mg UNSCH PRN IV 06/16/17 20:45 Pharmacy Profile Note 0 ml @ 0 mls/hr UNSCH OTHER 06/16/17 23:45 (Zosyn 4.5 Gm Premix) 100 ml @ 200 mls/hr Q6H IV 06/17/17 07:00 06/18/17 06:06 Hydromorphone HCl 0.5 mg 0.5 mg Q3H PRN IV PUSH 06/17/17 00:00 06/18/17 08:59 Sodium Chloride 1,000 ml @ 125 mls/hr Q8H IV 06/17/17 09:00 06/18/17 06:06 (Vancomycin Inj/ NS 250 ml Inj) 250 ml @ 250 mls/hr Q12H IV 06/17/17 10:00 06/18/17 09:56 (NS Flush) 2 ml UNSCH PRN IVF 06/17/17 12:30 (NS Flush) 2 ml BID IVF 06/17/17 21:00 06/18/17 09:00 (Solsberry 7.5-325 Mg) 1 tab Q3H PRN PO 06/17/17 12:30 (Zofran Inj) 4 mg Q4H PRN IVP 06/17/17 12:30 (Benadryl) 25 mg Q6H PRN PO 06/17/17 12:30 (Morphine Inj) 4 mg Q3H PRN IV PUSH 06/17/17 12:30 06/18/17 01:48 Miscellaneous Information ALL NURSING DEPARTME... UNSCH PRN .XX 06/17/17 13:00 06/18/17 12:59 A/P Assessment and Plan 51 y/o female with a history of Chronic lower extremity wounds, Neurodermatitis , Chronic back pain and Fibromyalgia presented to the ED with complaints of multiple infected skin wounds. 1. Sepsis secondary to Infection of the Left Shoulder and Right Knee status post Right Knee Arthrotomy with irrigation and debridement and placement of antibiotics beads, irrigation and debridement of left Shoulder and Humerus with placement of antibiotic beads by Doctor Leandro Mathis. 06/18: Discussed with Podiatry specialist doctor Franky Segal and recommended Ceretec Labeled White blood cell scan, if positive may need hallux amputation, called attention about the probable need for bilateral BKA's depend of evolution. consulted Vascular integration specialist. continue Vancomycin and Zosyn. wound care positive for MRSA. of the left shoulder and Staph Aureus of the Right knee. 2. Right great toe wound, suspect Osteomyelitis read #1 ESR >140, CRP 12.0 Right foot x ray reviewed and shows Large soft tissue ulcer with subcutaneous emphysema and findings suspicious for osteomyelitis first metatarsal head and possibly sesamoid. follow Ceretec labeled WBC Scan and probable amputation 3. Necrotic left leg wounds consulted Vascular integration specialist. 4. Possible autoimmune disorder, patient also has signs of MS -She will need to follow up with a electrophysiology nurse practitioner outpatient and neurology -She wound benefit from a lumbar spine tap once she no longer has an infection. DVT prophylaxis: Hold all measurements due to possible surgery and leg wounds Discussed Condition With Patient all questions answered to the best of my abilities. Discharge Planning Once cleared by specialists. Cade Fitch MD Jun 18, 2017 10:27 Physical Therapy and manager trainee consults placed. Discharge Planning Once cleared by specialists. Cade Fitch MD Jun 18, 2017 10:27
[2017-06-18 12:17] LABS: MAGNESIUM 1.7 MG/DL (1.5-2.5)
[2017-06-18 12:21] LABS: POTASSIUM 2.8 MEQ/L (3.5-5.1)
[2017-06-18] MEDS ORDERED: MAGNESIUM SULFATE 1 GM PREMIX 100 ML IV SCH (13:15)
[2017-06-18] MEDS: POTASSIUM CHLOR 20 MEQ PREMIX 100 ML IV SCH ×2 (14:28→15:15)
--- NOTE | 2017-06-18 15:48 | MB ---
cc: KARTHIK LYNCH DATE OF CONSULTATION: 06/18/2017. REASON FOR CONSULTATION: Left shoulder infection and right knee infection. CONSULTING PHYSICIAN: Dr. Jerrod Godinez. HISTORY OF PRESENT ILLNESS: Jamee is a 31-year-old female who has a history of chronic leg wounds and infections. She has previously had a septic left shoulder and right knee treated with irrigation and debridement. She presented back to the emergency room with pain and swelling of her left knee and right shoulder. She has had persistent purulent drainage. She has had the wound packed in the emergency department. She is currently awake and alert in the emergency department. She previously has had MRSA cultures from her wounds. She denies any recent injuries. PAST MEDICAL HISTORY / ILLNESSES: 1. Fibromyalgia. 2. Hepatitis C. 3. Osteomyelitis. 4. Neurodermatitis. 5. Chronic leg wounds. PAST SURGICAL HISTORY: 1. Tubal ligation. 2. section. 3. Leg wound debridement. 4. Right tibia open reduction internal fixation. 5. Rhinoplasty. 6. Right knee irrigation and debridement. 7. Left shoulder irrigation and debridement. MEDICATIONS: 1. Dilaudid. 2. Ibuprofen. Please see the electronic medical record for complete list of the patient's medications. SOCIAL HISTORY: The patient smokes a few cigarettes a day. She denies alcohol or drug use. FAMILY HISTORY: Family history is noncontributory. REVIEW OF SYSTEMS: The patient denies headache, visual changes, neck pain, chest pain, shortness of breath, abdominal pain, nausea, vomiting or recent weight loss. She complains of left shoulder pain and right knee pain. Pain is worse with movement. She also complains of bilateral lower extremity chronic wounds. PHYSICAL EXAMINATION: GENERAL: The patient is a thin 51-year-old female who appears older than her stated age. She is awake and alert. VITAL SIGNS: Temperature 97.8, pulse 73, respirations 17, blood pressure 100/55, O2 sats 1% on room air. HEAD, EYES, EARS, NOSE, THROAT: The patient is normocephalic. Pupils are equal. NECK: Soft, nontender. Trachea is midline. ABDOMEN: The abdomen is soft, nontender and nondistended. EXTREMITIES: Examination of the left shoulder reveals purulent drainage. She has moderate swelling. She has pain with range of motion. She has no pain with elbow or wrist motion. She has intact sensation in all fingers. Radial pulse is palpable. Examination of right arm reveals no pain with shoulder, elbow or wrist motion. She has good capillary refill in all fingers. Sensation is intact. Examination of left leg reveals no obvious pain or deformity with hip, knee or ankle motion. She has chronic wounds on the left leg. She has skin necrosis present. Examination of right leg reveals no obvious pain or deformity around her hip. She has purulent drainage coming from her knee wound. There is moderate swelling. She has pain with knee range of motion. She has chronic skin changes and wounds on her calf. IMPRESSION: 1. Chronic left shoulder infection. 2. Septic right knee joint infection. PLAN: The treatment options were discussed with the patient. At this point, I would recommend irrigation and debridement of right knee and left shoulder. She may need multiple surgeries to eradicate this infection since it has become chronic. She may have osteomyelitis of the shoulder and knee joint. The risks of surgery include bleeding, infection, injury to injury to arteries, nerves and blood vessels, recurrent infection, knee arthritis, loss of motion as well as medical complications including blood clot, stroke, heart attack and . All questions were answered. I will plan on surgery today. A mid-level provider in my office, nurse practitioner or PA, may see this patient on a follow-up basis and continue to implement the objective of this plan including: Starting or adjusting medications, injections of muscle, tendon, bursa or joints, cast application, orthotic or brace application, physical therapy, further radiographic studies including x-ray, MRI, CT, ultrasounds or bone scan, vascular studies, neurologic studies, or other specialist consultations, and proceeding with surgical management as appropriate. MD JULIANA Farrell/SEBASTIAN /3:25 PM /3:41 PM
--- NOTE | 2017-06-18 16:43 | PD.CAR.PN ---
CVT Progress Note Subjective/Hospital Course: Patient seen Full consult dictated CTA with runoff ordered Will follow Jeremy Garcia Objective: Vital Signs Date Time Temp Pulse Resp B/P Pulse Ox O2 Delivery O2 Flow Rate FiO2 06/18/17 12:00 97.8 73 17 100/55 100 06/18/17 09:29 18 06/18/17 08:50 65 06/18/17 08:00 97.3 71 20 99/57 98 06/18/17 04:00 98.2 79 17 88/52 97 06/18/17 00:00 100.3 76 17 88/52 96 06/17/17 22:30 98.8 85 17 88/52 97 06/17/17 22:00 81 06/17/17 21:40 98.8 85 16 85/52 97 06/17/17 20:00 99.0 85 17 88/50 97 06/17/17 18:01 99.4 80 16 83/49 100 06/17/17 17:47 98.4 81 17 84/52 95 Labs: Laboratory Tests Test 06/18/17 06/18/17 09:23 11:47 Vancomycin Level Trough 16.8 MCG/ML (5.0-10.0) Potassium Level 2.8 MEQ/L (3.5-5.1) Phosphorus Level 3.9 MG/DL (2.5-4.9) Magnesium Level 1.7 MG/DL (1.5-2.5) Result Diagram: 06/18/17 0417 06/18/17 1147 Kiel Mccabe MD Jun 18, 2017 16:43
[2017-06-18] MEDS: MAGNESIUM SULFATE 1 GM PREMIX 100 ML IV SCH ×2 (17:00→18:33)
--- NOTE | 2017-06-18 18:10 | MB ---
cc: MD LOYDA,[facility] DATE OF CONSULTATION: 06/18/2017. REASON FOR CONSULTATION: Peripheral vascular disease, gangrene of both legs, recurrent infections of both legs. HISTORY OF PRESENT ILLNESS: This 51-year-old female presents to the hospital with chronic leg wounds. 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 Lock. She has been under long-term care by Dr. Segal. Now she was noted to have a small ulcer on the toe and her left third and fourth toes became discolored. The patient has a large on both legs. The question arises about peripheral vascular disease. PAST MEDICAL HISTORY: 1. Chronic lower extremity wounds. 2. Neurodermatitis. 3. Fibromyalgia. 4. Hepatitis C. 5. Osteomyelitis. PAST SURGICAL HISTORY: 1. Debridement, lower extremities, repeated. 2. Breast augmentation. 3. Tummy tuck. 4. Right tibia open reduction internal fixation. 5. Rhinoplasty. 6. sections. MEDICATIONS: Can be found on the record. SOCIAL HISTORY: The patient is a heavy smoker and has smoked for about forty years and has not stopped. PHYSICAL EXAMINATION: GENERAL: The physical examination reveals a 51-year-old female. HEAD, EYES, EARS, NOSE, THROAT: Normocephalic. No trauma to the head. Pupils equal and reactive. Extraocular muscles intact. NECK: Bilateral carotid pulses. Right sided 3/6 bruit. CHEST: Bilateral breath sounds. Decreased breath sounds over both lung gibson consistent with moderate COPD. Some atrophy of the chest wall musculature apparent. HEART: Regular rhythm. Hemodynamically the patient is intact. ABDOMEN: Soft. Active bowel sounds. No rebound. No guarding. No masses. EXTREMITIES: The patient has bilateral femoral pulses, popliteal pulses and dorsalis pedis and posterior tibial on palpation. The patient has a wrap on the right leg since she had recently drainage of the right knee septic arthritis and beads placement. On the left side, the patient has crusty wounds in the medial aspect of the right leg extending from the thigh all the way down to the foot. This is most prominent below the level of the knee medially where the patient has a large eschar encompassing probably one-fourth of the circumference of the leg, which is black full-thickness skin. NEUROLOGIC: The patient has motion of all four extremities; however, she is unable to walk right now. IMPRESSION: Patient with severe wounds of both legs which appear to be necrotic, dry gangrene almost necrotizing dermatitis, and it not quite clear how this came to be. The patient has palpable dorsalis pedis pulses but then she might have some deficit otherwise. PLAN: I will order a CTA with runoff and will see what this looks like and see if the patient needs only debridement and plastic grafting of the legs or maybe some more aggressive therapy. However, just by clinical exam in the face of palpable pulses in the feet I do not believe the patient will have any significant vascular occlusive degenerative changes or hemodynamically significant stenoses. Thank you very much for the referral. CRITICAL CARE TIME: Forty (40) minutes. Kiel KOVACS/SEBASTIAN /4:45 PM /6:04 PM AMANDA
[2017-06-18] MEDS ORDERED: IOHEXOL 350 MG/ML 10 ML VIAL (for RAD DIAG) IV ONE (20:02)
--- NOTE | 2017-06-18 21:05 | RADRPT ---
EXAM DATE/TIME: 06/18/2017 19:54 [facility] COMPARISON: No previous studies available for comparison. INDICATIONS : Gangrenous legs. IV CONTRAST: 100 cc Omnipaque 350 (iohexol) IV RADIATION DOSE: 1.71 CTDIvol (mGy) MEDICAL HISTORY : None SURGICAL HISTORY : Tubal ligation. ORIF right tibia. ENCOUNTER: Initial ACUITY: 1 month PAIN SCALE: 8/10 LOCATION: Bilateral lower extremities TECHNIQUE: Volumetric scanning was performed using a multi-row detector CT scanner. The data was post processed with a variety of visualization algorithms including full volume maximum intensity projection, multi -planar sliding thin slab reformation, curved planar reformation, and surface rendering techniques. Using automated exposure control and adjustment of the mA and/or kV according to patient size, radiat ion dose was kept as low as reasonably achievable to obtain optimal diagnostic quality images. DICO M format image data is available electronically for review and comparison. FINDINGS: ABDOMINAL AORTA: The lumen is smooth without significant narrowing or aneurysmal dilation. The proximal celiac and dominguez perior mesenteric arteries are patent and normal in diameter. There are solitary renal arteries bila terally without gross abnormality. Scattered atherosclerotic calcifications of the aorta and iliac ve ssels. BIFURCATION: Normal. RIGHT PELVIS: The right common iliac, internal iliac, and external iliac vessels are patent without luminal irregul arity. LEFT PELVIS: The left common iliac, internal iliac, and external iliac vessels are patent and without luminal irre gularity. RIGHT THIGH: The superficial femoral and profunda vessels are patent without luminal irregularity. LEFT THIGH: The superficial femoral and profunda vessels are patent without luminal irregularity. RIGHT KNEE: The distal femoral and popliteal arteries are patent without luminal irregularity. There is a rim-enh ancing loculated fluid collection containing air along the medial aspect of the right knee as well as high attenuation beats in the suprapatellar location with a large knee joint effusion. A few radiode nse beads are seen within the rim-enhancing air and fluid collection in the medial knee region which measures 3.5 x 2.7 cm in AP and transverse dimension. LEFT KNEE: The distal femoral and popliteal arteries are patent without luminal irregularity. RIGHT LEG: The trifurcation is intact. LEFT LEG: The trifurcation is intact. CONCLUSION: 1. There is three-vessel runoff to the ankle bilaterally. There is no high grade stenosis identified. There is no aneurysm. 2. There is an exophytic mass upper pole right kidney measuring 3 cm with an average attenuation of 2 4 Hounsfield units, incompletely characterized on this study. 3. Right knee postsurgical changes and rim-enhancing fluid collections suspicious for abscess. Probab le antibiotic pellets as described above. Small locule of air in the patellofemoral joint and lateral to the lateral femoral condyle within the subcutaneous tissues with soft tissue swelling seen. 4. Ulceration dorsal soft tissues of the right foot. Luigi Del Real MD on June 18, 2017 at 20:57 Board Certified Radiologist. This report was verified electronically.
[2017-06-19] VITALS: BP 96/51; PULSE 68; RESP 18; TEMP 97; O2SAT 98
[2017-06-19] MEDS: PIPERACIL-TAZO 4.5 GM PREMIX 100 ML IV SCH ×4 (00:14→18:21)
[2017-06-19] MEDS: HYDROmorphone HCL PF 1 MG/ML VIAL IV PUSH PRN ×8 (00:14→23:00)
[2017-06-19] MEDS: SODIUM CHLOR 0.9% 1000 ML INJ 1,000 ML IV SCH ×3 (00:15→16:31)
[2017-06-19] MEDS: MORPHINE SULFATE 4 MG/ML INJ IV PUSH PRN ×7 (02:03→21:40)
[2017-06-19 04:00] VITALS: BP 103/58; PULSE 64; RESP 18; TEMP 97.6; O2SAT 99
[2017-06-19 05:06] LABS: BICARBONATE 27.4 MEQ/L (21.0-32.0); POTASSIUM 3.1 MEQ/L (3.5-5.1)
--- NOTE | 2017-06-19 07:03 | PD.ORT.PN ---
Subjective Subjective Remarks Jamee is awake and alert. Her left shoulder pain and right knee pain have improved significantly. She has had less drainage coming from her shoulder each day. She is status post irrigation and debridement of left shoulder and right knee. Objective Vitals Vital Signs Date Time Temp Pulse Resp B/P Pulse Ox O2 Delivery O2 Flow Rate FiO2 06/19/17 04:00 97.6 64 18 103/58 99 06/19/17 00:00 97.0 68 18 96/51 98 06/18/17 22:00 63 06/18/17 20:00 96.5 82 18 97/50 96 06/18/17 17:00 97.8 57 18 104/55 95 06/18/17 16:58 18 06/18/17 12:00 97.8 73 17 100/55 100 06/18/17 08:50 65 06/18/17 08:00 97.3 71 20 99/57 98 I/O 06/18/17 06/18/17 06/18/17 06/19/17 06/19/17 06/19/17 07:00 15:00 23:00 07:00 15:00 23:00 Intake Total 1301 ml 2102 ml 596 ml 360 ml Output Total 20 ml 650 ml 320 ml 2600 ml Balance 1281 ml 1452 ml 276 ml -2240 ml Intake Oral 240 ml 1200 ml 240 ml 360 ml IV Total 1061 ml 902 ml 356 ml Output Urine Total 600 ml 300 ml 2600 ml Drainage Total 20 ml 50 ml 20 ml # Voids 3 # Bowel Movements 0 0 Result Diagram: 06/18/17 0417 06/19/17 0349 Imaging Last 24 hours Impressions Chest X-Ray 06/16/17 8697 Signed Impressions: Service Date/Time: Friday, June 16, 2017 19:31 - CONCLUSION: Destructive changes at the humeral head on the left with soft tissue swelling of the shoulder suspected. Basilar atelectasis versus linear scarring. Luigi Del Real MD Objective Remarks LUE: Incision with some serosanguineous drainage. The drain is in place. No purulence noted. RLE: Clean dry dressing intact right knee. Mild swelling around the knee. Decreased pain with range of motion. nvi Assessment & Plan Assessment and Plan 1) Septic Arthritis of left shoulder and right knee Postop day #2 status post irrigation and debridement left shoulder and right knee Continue drain left shoulder until 06/22/17 Continue IV antibiotics Start daily dressing changes Weight-bear as tolerated Leandro Lock MD Jun 19, 2017 07:03
[2017-06-19 08:00] VITALS: BP 93/50; PULSE 66; RESP 17; TEMP 96.8; O2SAT 98
[2017-06-19] MEDS: SODIUM CHLORIDE 0.9% FLUSH 5 ML FLUSH IVF SCH ×2 (08:37→20:11)
[2017-06-19] MEDS: VANCOMYCIN 1,000 MG/NS 250 ML IV SCH ×4 (08:37→21:41)
--- NOTE | 2017-06-19 10:01 | HHI.PR ---
Subjective Remarks This is a pleasant 51 y/o female with a history of Chronic lower extremity wounds, Neurodermatitis, Chronic back pain and Fibromyalgia presented to the ED with complaints of multiple infected skin wounds. She has been dealing with these wounds for many months and has been seeing Dr. Segal for dressing changes. The bandages that he applied to her bilateral lower extremities were tight and very painful. 2 weeks ago she took off the bandages and was caring for the wounds herself at home. 1 week ago her Right knee began to swell and she developed a small ulcer on the outer part of the knee, her right great toe also began to swell. She states 3 days ago the right great toe wound began to open and drain foul smelling fluid. Also beginning about a week ago she began to have swelling and severe pain in her left shoulder. The ED physician did do an I&D of the left shoulder to drain a possible abscess. She is unsure if she had fevers at home because she keep the air down low in her house, but she thinks she may have had them. She denies any chest pain, sob, nausea, vomiting, headaches or dizziness. she has Fibromyalgia, Chronic lower extremity wounds, Neurodermatitis, Chronic low back pain, Hepatitis C, Osteomyelitis of the right wrist. 06/17: Stable in her bedroom, hypotensive, giving IV fluids has evident purulent tissue on her left shoulder, will go later today for I and D of the Left Shoulder and Right knee no nausea, vomit or diarrhea, asymptomatic. discussed with nurse. 06/18: Discussed with Podiatry specialist doctor Franky Segal and recommended Ceretec Labeled White blood cell scan, if positive may need hallux amputation, called attention about the probable need for bilateral BKA's depend of evolution. consulted Vascular educational technology specialist. seen in her bedroom stable, has some nausea, but no vomit or diarrhea. she is in status post Right Knee Arthrotomy with irrigation and debridement and placement of antibiotics beads, irrigation and debridement of left Shoulder and Humerus with placement of antibiotic beads by Doctor Leandro Mathis. with Diagnosis of Left shoulder infection, Right knee infection. 06/19: Orthopedic Surgery following, status post Left shoulder and right knee I and D, to continue Left shoulder drain until 06/22/17, continue antibiotics, and daily dressing changes. weight bear as tolerated. stable no nausea, vomit or diarrhea. going at this time to Nuclear medicine for Bone Scan. no complaint. Objective Vital Signs Date Time Temp Pulse Resp B/P Pulse Ox O2 Delivery O2 Flow Rate FiO2 06/19/17 08:00 96.8 66 17 93/50 98 06/19/17 04:00 97.6 64 18 103/58 99 06/19/17 00:00 97.0 68 18 96/51 98 06/18/17 22:00 63 06/18/17 20:00 96.5 82 18 97/50 96 06/18/17 17:00 97.8 57 18 104/55 95 06/18/17 16:58 18 06/18/17 12:00 97.8 73 17 100/55 100 I/O 06/18/17 06/18/17 06/18/17 06/19/17 06/19/17 06/19/17 07:00 15:00 23:00 07:00 15:00 23:00 Intake Total 1301 ml 2102 ml 596 ml 1473 ml Output Total 20 ml 650 ml 320 ml 2600 ml Balance 1281 ml 1452 ml 276 ml -1127 ml Intake Oral 240 ml 1200 ml 240 ml 360 ml IV Total 1061 ml 902 ml 356 ml 1113 ml Output Urine Total 600 ml 300 ml 2600 ml Drainage Total 20 ml 50 ml 20 ml 0 ml # Voids 3 # Bowel Movements 0 0 Result Diagram: 06/18/17 0417 06/19/17 0349 Imaging Last Impressions Aorta w/Runoff CTA 06/18/17 0000 Signed Impressions: Service Date/Time: Sunday, June 18, 2017 19:54 - CONCLUSION: 1. There is three-vessel runoff to the ankle bilaterally. There is no high grade stenosis identified. There is no aneurysm. 2. There is an exophytic mass upper pole right kidney measuring 3 cm with an average attenuation of 24 Hounsfield units, incompletely characterized on this study. 3. Right knee postsurgical changes and rim-enhancing fluid collections suspicious for abscess. Probable antibiotic pellets as described above. Small locule of air in the patellofemoral joint and lateral to the lateral femoral condyle within the subcutaneous tissues with soft tissue swelling seen. 4. Ulceration dorsal soft tissues of the right foot. Luigi Del Real MD Chest X-Ray 06/16/17 5337 Signed Impressions: Service Date/Time: Friday, June 16, 2017 19:31 - CONCLUSION: Destructive changes at the humeral head on the left with soft tissue swelling of the shoulder suspected. Basilar atelectasis versus linear scarring. Luigi Del Real MD Shoulder X-Ray 06/16/17 0000 Signed Impressions: Service Date/Time: Friday, June 16, 2017 21:06 - CONCLUSION: Soft tissue swelling and destructive changes left proximal humerus. Luigi Del Real MD Knee X-Ray 06/16/17 0000 Signed Impressions: Service Date/Time: Wednesday, June 16, 2017 19:34 - CONCLUSION: Knee joint effusion, severe osteoarthritis and postoperative changes proximal tibia. Age-indeterminate patellar fracture. Luigi Del Real MD Foot X-Ray 06/16/17 0000 Signed Impressions: Service Date/Time: Friday, June 16, 2017 19:37 - CONCLUSION: Large soft tissue ulcer with subcutaneous emphysema and findings suspicious for osteomyelitis first metatarsal head and possibly sesamoid. Luigi Del Real MD Procedures Status post I and D in ER. Other Results Laboratory Tests Test 06/16/17 06/17/17 06/17/17 06/17/17 18:40 05:59 12:19 14:49 Erythrocyte Sedimentation Rate GREATER THAN 140 mm/hr Prothrombin Time 11.0 SEC Prothromb Time International 1.0 RATIO Ratio Activated Partial 23.1 SEC Thromboplast Time Lactic Acid Level 1.2 mmol/L Total Bilirubin 0.6 MG/DL Aspartate Amino Transf 17 U/L (AST/SGOT) Alanine Aminotransferase 11 U/L (ALT/SGPT) Alkaline Phosphatase 363 U/L C-Reactive Protein 12.00 MG/DL Total Protein 9.6 GM/DL Albumin 2.4 GM/DL White Blood Count 4.5 TH/MM3 Red Blood Count 3.69 MIL/MM3 Mean Corpuscular Volume 61.6 FL Mean Corpuscular Hemoglobin 20.2 PG Mean Corpuscular Hemoglobin 32.8 % Concent Red Cell Distribution Width 17.7 % Platelet Count 439 TH/MM3 Mean Platelet Volume 6.6 FL Neutrophils (%) (Auto) 71.0 % Lymphocytes (%) (Auto) 15.0 % Monocytes (%) (Auto) 9.6 % Eosinophils (%) (Auto) 3.8 % Basophils (%) (Auto) 0.6 % Neutrophils # (Auto) 3.2 TH/MM3 Lymphocytes # (Auto) 0.7 TH/MM3 Monocytes # (Auto) 0.4 TH/MM3 Eosinophils # (Auto) 0.2 TH/MM3 Basophils # (Auto) 0.0 TH/MM3 CBC Comment DIFF FINAL Differential Comment Blood Type O POSITIVE Antibody Screen POSITIVE Crossmatch Leukocyte-Reduced Red Blood Cells Blood Bank Comment Antibody Identification Anti-Jka Test 06/18/17 06/18/17 06/18/17 06/19/17 04:17 09:23 11:47 03:49 Hemoglobin 7.7 GM/DL Hematocrit 22.0 % Vancomycin Level Trough 16.8 MCG/ML Phosphorus Level 3.9 MG/DL Magnesium Level 1.7 MG/DL Sodium Level 135 MEQ/L Potassium Level 3.1 MEQ/L Chloride Level 101 MEQ/L Carbon Dioxide Level 27.4 MEQ/L Anion Gap 7 MEQ/L Blood Urea Nitrogen 7 MG/DL Creatinine 0.53 MG/DL Estimat Glomerular Filtration 121 ML/MIN Rate Random Glucose 88 MG/DL Calcium Level 8.0 MG/DL Objective Remarks GENERAL: Well-developed patient, in no apparent distress. SKIN: Hypopigmentation skin. Right great toe ulcer with erythema and serosanguineous fluid. Rt knee ulcer, no drainage. Left leg multiple necrotic ulcers. Left shoulder and Right knee dressed. HEAD: Atraumatic. Normocephalic. EYES: Pupils equal round and reactive. Extraocular motions intact. ENT: Nose without bleeding, purulent drainage or septal hematoma. Airway patent. NECK: Trachea midline. No JVD or lymphadenopathy. Supple, nontender, no meningeal signs. CARDIOVASCULAR: Regular rate and rhythm without murmurs, gallops, or rubs. RESPIRATORY: Clear to auscultation. Breath sounds equal bilaterally. No wheezes , rales, or rhonchi. GASTROINTESTINAL: Abdomen soft, non-tender, nondistended. No hepato-splenomegaly , or palpable masses. No guarding. MUSCULOSKELETAL: Right knee with edema. No calf tenderness. Negative Homans sign bilaterally. NEUROLOGICAL: Awake and alert. Motor and sensory grossly within normal limits. Normal speech. Medications and IVs Current Medications Medications (Trade) Dose Ordered Sig/Arlette Route Start Time Stop Time Status Last Admin Naloxone HCl 0.4 mg 0.4 mg UNSCH PRN IV 06/16/17 20:45 Pharmacy Profile Note 0 ml @ 0 mls/hr UNSCH OTHER 06/16/17 23:45 (Zosyn 4.5 Gm Premix) 100 ml @ 200 mls/hr Q6H IV 06/17/17 07:00 06/19/17 05:19 Hydromorphone HCl 0.5 mg 0.5 mg Q3H PRN IV PUSH 06/17/17 00:00 06/19/17 07:11 Sodium Chloride 1,000 ml @ 125 mls/hr Q8H IV 06/17/17 09:00 06/19/17 08:36 (Vancomycin Inj/ NS 250 ml Inj) 250 ml @ 250 mls/hr Q12H IV 06/17/17 10:00 06/19/17 08:37 (NS Flush) 2 ml UNSCH PRN IVF 06/17/17 12:30 (NS Flush) 2 ml BID IVF 06/17/17 21:00 06/19/17 08:37 ([place] 7.5-325 Mg) 1 tab Q3H PRN PO 06/17/17 12:30 (Zofran Inj) 4 mg Q4H PRN IVP 06/17/17 12:30 (Benadryl) 25 mg Q6H PRN PO 06/17/17 12:30 (Morphine Inj) 4 mg Q3H PRN IV PUSH 06/17/17 12:30 06/19/17 08:35 Miscellaneous Information SPECIFIC LAB TO BE EMILY... ONCE ONCE .XX 06/20/17 09:45 06/20/17 09:46 A/P Assessment and Plan 51 y/o female with a history of Chronic lower extremity wounds, Neurodermatitis , Chronic back pain and Fibromyalgia presented to the ED with complaints of multiple infected skin wounds. 1. Sepsis secondary to Infection of the Left Shoulder and Right Knee status post Right Knee Arthrotomy with irrigation and debridement and placement of antibiotics beads, irrigation and debridement of left Shoulder and Humerus with placement of antibiotic beads by Doctor Leandro Mathis. 06/18: Discussed with Podiatry specialist doctor Franky Segal and recommended Ceretec Labeled White blood cell scan, if positive may need hallux amputation, called attention about the probable need for bilateral BKA's depend of evolution. consulted Vascular educational technology specialist. continue Vancomycin and Zosyn. wound care positive for MRSA. of the left shoulder and Staph Aureus of the Right knee. at this time will go for Bone scan, already seen by Vascular occupancy specialist and recommended CTA with Runoff, performed yesterday. No high grade stenosis. 2. Right great toe wound, suspect Osteomyelitis read #1 at this time will go for Bone scan. ESR >140, CRP 12.0 Right foot x ray reviewed and shows Large soft tissue ulcer with subcutaneous emphysema and findings suspicious for osteomyelitis first metatarsal head and possibly sesamoid. follow Ceretec labeled WBC Scan and probable amputation 3. Necrotic left leg wounds consulted Vascular educational technology specialist. read #1. 4. Possible autoimmune disorder, patient also has signs of MS -She will need to follow up with a routing equipment tender outpatient and neurology -She wound benefit from a lumbar spine tap once she no longer has an infection. DVT prophylaxis: Hold all measurements due to possible surgery and leg wounds Discussed Condition With Patient all questions answered to the best of my abilities. Discharge Planning Once cleared by specialists. Cade Fitch MD Jun 19, 2017 10:01
--- NOTE | 2017-06-19 13:39 | RADRPT ---
EXAM DATE/TIME: 06/18/2017 12:27 [facility] COMPARISON: FOOT RIGHT COMPLETE ([id number]), June 16, 2017, 19:37. INDICATIONS : Abscess left foot. DOSE: 21 mCi Tc99m Ceretec labeled white blood cells IV SPECT IMAGIN hrs, 20 hrs IMAGNG: SPECT/CT imaging with fusion was performed. RADIATION DOSE: 5.10 CTDIvol (mGy) ; Multiple Day Study MEDICAL HISTORY : Hepatitis C. SURGICAL HISTORY : section. Tubal ligation. Breast augmentation. ENCOUNTER: Initial ACUITY: 1 week PAIN SCALE: 4/10 LOCATION: Left Foot. TECHNIQUE: Following the in vitro labeling of autologous white cells and reinjection, whole body scan was perfor med at the specified times. SPECT imaging was performed at the specified time in sagittal, axial and coronal planes. Attenuation correction was performed with the computed tomography and both the atten uation correction and non-attenuation corrected data sets were reviewed. FINDINGS: There is no abnormal biodistribution of radiotracer. There is no abnormal uptake involving the right first metatarsal head to correspond to the areas of lucency and lytic lesions on the patient's prior foot x-ray and findings could be due to chronic degenerative changes. CONCLUSION: No evidence of osteomyelitis. Austin Palacios MD on June 19, 2017 at 13:34 Board Certified Radiologist. This report was verified electronically.
--- NOTE | 2017-06-19 13:55 | PD.POD ---
Subjective Podiatric Problems Necrotic ulcerations bilaterally with possible osteomyelitis of the right first MPJ Pain scale used: 0-10 numeric scale Pain score: 7 Remarks 51-year-old female who I have seen on her last admission as well as a few follow -up care Center visit. Patient has not come to the wound center for the last few weeks. She was admitted with an abscess of the knee and shoulder. Radiographs showed possible bony erosion of the head of the first metatarsal right foot. Ceretec labeled white blood cell scan finished today shows no osteomyelitis. CTA with runoff showed good flow to the ankle. Past Med/Surg/Social History Past Medical History PFSH Reviewed: Yes Musculoskeletal: REPORTS HX OF: Fractures (tibia), Other musculoskeletal hx ( septic right knee) Integumentary: REPORTS HX OF: Other integumentary hx Psychiatric: REPORTS HX OF: Depression Disabilities: REPORTS HX OF: Vision deficit (glasses) Past Surgical History Gastrointestinal: DENIES HX OF: Colectomy, total Gynecologic: REPORTS HX OF: delivery, DENIES HX OF: Hysterectomy Integumentary: REPORTS HX OF: Other integumentary surg Breast: REPORTS HX OF: Other breast surgery (implants), DENIES HX OF: Mastectomy, bilateral, Mastectomy, left, Mastectomy, right Social History Smoking Status: Current Every Day Smoker Review of Systems Notes No changes in her 14 point review of systems exam from yesterday Objective Vital Signs Vital Signs Date Time Temp Pulse Resp B/P Pulse Ox O2 Delivery O2 Flow Rate FiO2 06/19/17 08:00 96.8 66 17 93/50 98 06/19/17 04:00 97.6 64 18 103/58 99 06/19/17 00:00 97.0 68 18 96/51 98 06/18/17 22:00 63 06/18/17 20:00 96.5 82 18 97/50 96 06/18/17 17:00 97.8 57 18 104/55 95 06/18/17 16:58 18 Coded Allergies: *MDRO Multi-Drug Resistant Organism (Verified Adverse Reaction, Unknown, ) MRSA (finger wound) - 06/06/16; (synovial fluid) - 02/15/17; (leg)-02/19/17 & 05/18/17; (shoulder)-06/16/17 MRSA PCR Screen POSITIVE -03/20/17 Medications and IVs Current Medications Sodium Chloride 1,000 ml @ 999 mls/hr BOLUS ONCE IV Last administered on 06/16 20:54; Start 06/16/17 at 18:00; Stop 06/16/17 at 19:00; Status DC Vancomycin HCl 1000 mg/Sodium Chloride 250 ml @ 250 mls/hr ONCE ONCE IV Last administered on 06/16/17 21:47; Start 06/16/17 at 20:15; Stop 06/16/17 at 21:14 ; Status DC Piperacillin Sod/ Tazobactam Sod (Zosyn 4.5 Gm Premix) 100 ml @ 200 mls/hr ONCE ONCE IV Last administered on 06/16/17 23:58; Start 06/16/17 at 20:15; Stop 06/16/17 at 20:46; Status DC Sodium Chloride (NS Flush) 2 ml UNSCH PRN IV FLUSH FLUSH AFTER USING IV ACCESS ; Start 06/16/17 at 20:45; Stop 06/17/17 at 14:25; Status DC Sodium Chloride (NS Flush) 2 ml BID IV FLUSH Last administered on 06/16/17 21: 46; Start 06/16/17 at 21:00; Stop 06/17/17 at 14:25; Status DC Naloxone HCl (Narcan Inj) 0.4 mg UNSCH PRN IV SEE LABEL COMMENTS; Start at 20:45 Ketorolac Tromethamine (Toradol Inj) 30 mg ONCE ONCE IV PUSH Last administered on 06/16/17 22:23; Start 06/16/17 at 22:00; Stop 06/16/17 at 22:01 ; Status DC Hydromorphone HCl 1 mg 1 mg ONCE ONCE IV PUSH Last administered on 06/16/17 22:24; Start 06/16/17 at 22:30; Stop 06/16/17 at 22:31; Status DC Pharmacy Profile Note 0 ml @ 0 mls/hr UNSCH OTHER ; Start 06/16/17 at 23:45 Piperacillin Sod/ Tazobactam Sod (Zosyn 4.5 Gm Premix) 100 ml @ 200 mls/hr Q6H IV Last administered on 06/19/17 12:22; Start 06/17/17 at 07:00 Hydromorphone HCl (Dilaudid Pf Inj) 0.5 mg Q3H PRN IV PUSH pain >5 Last administered on 06/19/17 13:19; Start 06/17/17 at 00:00 Pneumococcal Polyvalent Vaccine 25 mcg 25 mcg ONCE ONCE IM Last administered on 06/17/17 09:30; Start 06/17/17 at 09:00; Stop 06/17/17 at 09:01; Status DC Sodium Chloride 1,000 ml @ 125 mls/hr Q8H IV ; Start 06/17/17 at 09:00; Stop at 09:08; Status DC Sodium Chloride 500 ml @ 500 mls/hr BOLUS ONCE IV Last administered on 09:29; Start 06/17/17 at 08:45; Stop 06/17/17 at 09:44; Status DC Sodium Chloride 1,000 ml @ 125 mls/hr Q8H IV Last administered on 06/19/17 08 :36; Start 06/17/17 at 09:00 Vancomycin HCl/ Sodium Chloride (Vancomycin Inj/ NS 250 ml Inj) 250 ml @ 250 mls/hr Q12H IV Last administered on 06/19/17 08:37; Start 06/17/17 at 10:00 Vancomycin HCl (Vancomycin Inj) 1,000 mg STK-MED ONCE .ROUTE Last administered on 06/17/17 11:58; Start 06/17/17 at 09:52; Stop 06/17/17 at 09:53; Status DC Cefazolin Sodium (Ancef Inj) 1,000 mg STK-MED ONCE .ROUTE ; Start 06/17/17 at 09 :52; Stop 06/17/17 at 09:53; Status DC Gentamicin Sulfate 240 mg 240 mg STK-MED ONCE .ROUTE Last administered on 11:39; Start 06/17/17 at 09:52; Stop 06/17/17 at 09:53; Status DC Sodium Chloride (NS 250 ml Inj) 250 ml @ As Directed STK-MED ONCE .ROUTE Last administered on 06/17/17 11:58; Start 06/17/17 at 09:52; Stop 06/17/17 at 09:53 ; Status DC Miscellaneous Information SPECIFIC LAB TO BE EMILY... ONCE ONCE .XX Last administered on 06/18/17 09:24; Start 06/18/17 at 09:45; Stop 06/18/17 at 09:46 ; Status DC Ketamine HCl (Ketalar Inj) 500 mg STK-MED ONCE .ROUTE ; Start 06/17/17 at 11:09 ; Stop 06/17/17 at 11:10; Status DC IV Flush (NS Flush) 2 ml UNSCH PRN IVF FLUSH AFTER USING IV ACCESS; Start 06/17 at 12:30 IV Flush (NS Flush) 2 ml BID IVF Last administered on 06/19/17 08:37; Start at 21:00 Miscellaneous Information (Post-op Orders (for Pharmacy)) STAT ONCE XX ; Start 06/17/17 at 12:30; Stop 06/17/17 at 14:26; Status DC Acetaminophen/ Hydrocodone Bitart ([place] 7.5-325 Mg) 1 tab Q3H PRN PO PAIN 3< 10; Start 06/17/17 at 12:30 Ondansetron HCl (Zofran Inj) 4 mg Q4H PRN IVP NAUSEA OR VOMITING; Start at 12:30 Diphenhydramine HCl (Benadryl) 25 mg Q6H PRN PO ITCHING; Start 06/17/17 at 12: 30 Morphine Sulfate (Morphine Inj) 4 mg Q3H PRN IV PUSH break thru pain Last administered on 06/19/17 12:23; Start 06/17/17 at 12:30 Fentanyl Citrate (fentaNYL INJ) 100 mcg STK-MED ONCE .ROUTE ; Start 06/17/17 at 13:10; Stop 06/17/17 at 13:11; Status DC Morphine Sulfate (*morphine INJ PERIprocedure ONLY) 8 mg STK-MED ONCE .ROUTE Last administered on 06/17/17 13:22; Start 06/17/17 at 13:22; Stop 06/17/17 at 13:31; Status DC Morphine Sulfate 8 mg 8 mg STK-MED ONCE .ROUTE Last administered on 06/17/17 13:40; Start 06/17/17 at 13:40; Stop 06/17/17 at 13:41; Status DC Sodium Chloride (NS 250 ml Inj) 250 ml @ 15 mls/hr ONCE ONCE IV Last administered on 06/17/17 15:30; Start 06/17/17 at 15:30; Stop 06/18/17 at 08:09 ; Status DC Acetaminophen (Tylenol) 650 mg Q4H PRN PO SEE LABEL COMMENTS; Start 06/17/17 at 15:30; Stop 06/17/17 at 19:31; Status DC Furosemide (Lasix Inj) 20 mg ONCE ONCE IV Last administered on 06/17/17 17:51 ; Start 06/17/17 at 15:30; Stop 06/17/17 at 16:55; Status DC Miscellaneous Information ALL NURSING DEPARTME... UNSCH PRN .XX SEE LABEL COMMENTS; Start 06/17/17 at 13:00; Stop 06/18/17 at 12:59; Status DC Potassium Chloride 100 ml @ 50 mls/hr Q2H IV Last administered on 06/18/17 14 :28; Start 06/18/17 at 13:15; Stop 06/18/17 at 17:14; Status DC Magnesium Sulfate/ Dextrose (Magnesium Sulfate 1 Gm Premix) 100 ml @ 100 mls/ hr Q1H IV ; Start 06/18/17 at 13:15; Stop 06/18/17 at 14:33; Status DC Miscellaneous Information SPECIFIC LAB TO BE EMILY... ONCE ONCE .XX ; Start 06/20 at 09:45; Stop 06/20/17 at 09:46 Magnesium Sulfate/ Dextrose (Magnesium Sulfate 1 Gm Premix) 100 ml @ 100 mls/ hr Q1H IV Last administered on 06/18/17 18:33; Start 06/18/17 at 17:00; Stop 06/18/17 at 18:59; Status DC Iohexol (Omnipaque 350 Inj) 100 ml STK-MED ONCE IV Last administered on 20:02; Start 06/18/17 at 20:02; Stop 06/18/17 at 20:05; Status DC Other Results Laboratory Tests Test 06/18/17 04:17 Hemoglobin 7.7 GM/DL Hematocrit 22.0 % Laboratory Tests Test 06/18/17 06/18/17 06/18/17 06/19/17 04:17 11:47 19:13 03:49 Creatinine 0.51 MG/DL 0.53 MG/DL Estimat Glomerular Filtration 126 ML/MIN 121 ML/MIN Rate Potassium Level 2.8 MEQ/L 3.2 MEQ/L 3.1 MEQ/L Phosphorus Level 3.9 MG/DL Magnesium Level 1.7 MG/DL Sodium Level 135 MEQ/L Chloride Level 101 MEQ/L Carbon Dioxide Level 27.4 MEQ/L Anion Gap 7 MEQ/L Blood Urea Nitrogen 7 MG/DL Random Glucose 88 MG/DL Calcium Level 8.0 MG/DL Microbiology Date/Time Procedure Status Source Growth 06/16/17 18:30 Gram Stain - Final Complete Wound Foot 06/16/17 18:30 Wound Culture - Final Complete Providencia Rettgeri S. Aureus Mrsa 06/16/17 18:30 Gram Stain - Final Resulted Wound Knee 06/16/17 18:30 Wound Culture - Preliminary Resulted S. Aureus Mrsa Yeast Species 06/16/17 18:35 Aerobic Blood Culture - Preliminary Resulted Blood Peripheral NO GROWTH IN 3 DAYS 06/16/17 18:35 Anaerobic Blood Culture - Preliminary Resulted Blood Peripheral NO GROWTH IN 3 DAYS 06/16/17 18:40 Aerobic Blood Culture - Preliminary Resulted Blood Peripheral NO GROWTH IN 3 DAYS 06/16/17 18:40 Anaerobic Blood Culture - Preliminary Resulted Blood Peripheral NO GROWTH IN 3 DAYS 06/16/17 22:37 Gram Stain - Final Complete Wound Shoulder 06/16/17 22:37 Wound Culture - Final Complete S. Aureus Mrsa 06/17/17 11:50 Gram Stain - Final Complete Wound Shoulder 06/17/17 11:50 Wound Culture - Final Complete S. Aureus Mrsa 06/17/17 11:50 Acid Fast Stain - Final Resulted Wound Shoulder NO ACID FAST BACILLI SEEN 06/17/17 11:50 Mycobacterial Culture Resulted Wound Shoulder Pending 06/17/17 11:50 Fungal Smear - Final Resulted Wound Shoulder NO FUNGAL ELEMENTS SEEN. 06/17/17 11:50 Fungal Culture Resulted Wound Shoulder Pending 06/17/17 11:50 Gram Stain - Final Complete Wound Other 06/17/17 11:50 Wound Culture - Final Complete S. Aureus Mrsa 06/17/17 11:50 Acid Fast Stain - Final Resulted Wound Other NO ACID FAST BACILLI SEEN 06/17/17 11:50 Mycobacterial Culture Resulted Wound Other Pending 06/17/17 11:50 Fungal Smear - Final Resulted Wound Other NO FUNGAL ELEMENTS SEEN. 06/17/17 11:50 Fungal Culture Resulted Wound Other Pending Exam-Podiatry Constitutional General appearance: comfortable Nutritional status: normal Orientation: alert and oriented x3 Dermatological Exam Skin Temp - Right: Within Normal Limits Skin Texture - Right: Within Normal Limits Skin Elasticity - Right: Within Normal Limits Skin Tugor - Right: Within Normal Limits Hair Growth - Right: Within Normal Limits Pigmentation - Right: Within Normal Limits Skin Temp - Left: Within Normal Limits Skin Texture - Left: Within Normal Limits Skin Elasticity - Left: Within Normal Limits Skin Tugor - Left: Within Normal Limits Hair Growth - Left: Within Normal Limits Pigmentation - Left: Within Normal Limits Ulcers: Location/Measurements Chronic ulcerations of both lower legs with dry black eschar. Ulceration of the right first MPJ is noted. Vascular/Lymphatic Exam R Dorsails Pedis: Palpable L Dorsails Pedis: Palpable R Posterior Tibial: Palpable L Posterior Tibial: Palpable Neurologic Exam Details No neurological deficits Muscle Strength Dorsiflexion (Right): Normal Plantarflexion (Right): Normal Inversion (Right): Normal Eversion (Right): Normal Digital (Right): Normal Dorsiflexion (Left): Normal Plantarflexion (Left): Normal Inversion (Left): Normal Eversion (Left): Normal Digital (Left): Normal Foot Range of Motion Dorsiflexion (Right): Normal Plantarflexion (Right): Normal Inversion (Right): Normal Eversion (Right): Normal Digital (Right): Normal Dorsiflexion (Left): Normal Plantarflexion (Left): Normal Inversion (Left): Normal Eversion (Left): Normal Digital (Left): Normal Assessment & Plan Diagnosis: (1) Open wound of both legs with complication Status: Chronic A/P PLAN: Continue local wound care. I will follow her in the wound center after discharge. Will follow as needed. Discuss case with Franky Ram DPM Jun 19, 2017 13:55
--- NOTE | 2017-06-19 15:14 | PD.CAR.PN ---
CVT Progress Note Subjective/Hospital Course: Patient seen Full consult dictated CTA with runoff ordered Will follow Jeremy Garcia 06/19/17 As discussed in the initial original consultation the clinical exam did not indicate severe peripheral vascular disease as far as the major vessels are concerned. This confirmed with CTA with a runoff which shows fairly clean vessels going all the way down to the foot Therefore the necrotic changes in the medial aspect of the thigh and especially left lundberg are not vascular related as far as the major vessel arthrosclerotic changes are concerned. This patient still could have vascular involvement for differential diagnosis is long and may include some sort of immune vasculitis or immune reticuloendothelial collagen inflammatory vasoactive disorder previously undiagnosed, like lupus, scleroderma radius form of rheumatoid disease, ankylosing spondylitis, chronic granulomatous diseases However, as far as vascular reconstruction is concerned this patient doesn't require any of this vessels are clean and no hemodynamically significant stenosis are noted in either leg Objective: Vital Signs Date Time Temp Pulse Resp B/P Pulse Ox O2 Delivery O2 Flow Rate FiO2 06/19/17 08:00 96.8 66 17 93/50 98 06/19/17 04:00 97.6 64 18 103/58 99 06/19/17 00:00 97.0 68 18 96/51 98 06/18/17 22:00 63 06/18/17 20:00 96.5 82 18 97/50 96 06/18/17 17:00 97.8 57 18 104/55 95 06/18/17 16:58 18 Labs: Laboratory Tests Test 06/19/17 03:49 Sodium Level 135 MEQ/L (136-145) Potassium Level 3.1 MEQ/L (3.5-5.1) Chloride Level 101 MEQ/L (98-107) Carbon Dioxide Level 27.4 MEQ/L (21.0-32.0) Anion Gap 7 MEQ/L (5-15) Blood Urea Nitrogen 7 MG/DL (7-18) Creatinine 0.53 MG/DL (0.50-1.00) Estimat Glomerular Filtration 121 ML/MIN Rate (>89) Random Glucose 88 MG/DL (74-106) Calcium Level 8.0 MG/DL (8.5-10.1) Result Diagram: 06/18/17 0417 06/19/17 0349 Kiel Mccabe MD Jun 19, 2017 15:14
[2017-06-19 16:00] VITALS: BP 111/57; PULSE 68; RESP 17; TEMP 97.9; O2SAT 99
[2017-06-19 20:00] VITALS: PULSE 64
[2017-06-19 20:04] VITALS: BP 104/59; PULSE 79; RESP 16; TEMP 97.4; O2SAT 96
[2017-06-20] VITALS (8 sets, daily range): BP systolic 91–123; BP diastolic 51–69; PULSE 54–65; RESP 16–17; TEMP 96.3–98.9; O2SAT 94–100
[2017-06-20] MEDS: MORPHINE SULFATE 4 MG/ML INJ IV PUSH PRN ×5 (00:47→20:48)
[2017-06-20] MEDS: PIPERACIL-TAZO 4.5 GM PREMIX 100 ML IV SCH ×4 (00:49→17:27)
[2017-06-20] MEDS: SODIUM CHLOR 0.9% 1000 ML INJ 1,000 ML IV SCH ×3 (00:49→16:17)
[2017-06-20] MEDS: HYDROmorphone HCL PF 1 MG/ML VIAL IV PUSH PRN ×5 (03:19→22:49)
[2017-06-20] MEDS: SODIUM CHLORIDE 0.9% FLUSH 5 ML FLUSH IVF SCH ×2 (09:00→20:47)
[2017-06-20] MEDS: VANCOMYCIN 1,000 MG/NS 250 ML IV SCH ×4 (09:28→20:51)
--- NOTE | 2017-06-20 09:33 | HHI.PR ---
Subjective Remarks This is a pleasant 51 y/o female with a history of Chronic lower extremity wounds, Neurodermatitis, Chronic back pain and Fibromyalgia presented to the ED with complaints of multiple infected skin wounds. She has been dealing with these wounds for many months and has been seeing Dr. Segal for dressing changes. The bandages that he applied to her bilateral lower extremities were tight and very painful. 2 weeks ago she took off the bandages and was caring for the wounds herself at home. 1 week ago her Right knee began to swell and she developed a small ulcer on the outer part of the knee, her right great toe also began to swell. She states 3 days ago the right great toe wound began to open and drain foul smelling fluid. Also beginning about a week ago she began to have swelling and severe pain in her left shoulder. The ED physician did do an I&D of the left shoulder to drain a possible abscess. She is unsure if she had fevers at home because she keep the air down low in her house, but she thinks she may have had them. She denies any chest pain, sob, nausea, vomiting, headaches or dizziness. she has Fibromyalgia, Chronic lower extremity wounds, Neurodermatitis, Chronic low back pain, Hepatitis C, Osteomyelitis of the right wrist. 06/17: Stable in her bedroom, hypotensive, giving IV fluids has evident purulent tissue on her left shoulder, will go later today for I and D of the Left Shoulder and Right knee no nausea, vomit or diarrhea, asymptomatic. discussed with nurse. 06/18: Discussed with Podiatry specialist doctor Franky Segal and recommended Ceretec Labeled White blood cell scan, if positive may need hallux amputation, called attention about the probable need for bilateral BKA's depend of evolution. consulted Vascular metalworking specialist. seen in her bedroom stable, has some nausea, but no vomit or diarrhea. she is in status post Right Knee Arthrotomy with irrigation and debridement and placement of antibiotics beads, irrigation and debridement of left Shoulder and Humerus with placement of antibiotic beads by Doctor Leandro Mathis. with Diagnosis of Left shoulder infection, Right knee infection. 06/19: Orthopedic Surgery following, status post Left shoulder and right knee I and D, to continue Left shoulder drain until 06/22/17, continue antibiotics, and daily dressing changes. weight bear as tolerated. stable going at this time to Nuclear medicine for Bone Scan. no complaint. 06/20: Stable in her bedroom awaiting for final recommendations by Orthopedic Surgery for discharge, asking for her Gabapentin re started, also will give Ambien at bed time. No nausea, vomit or diarrhea. Objective Vital Signs Date Time Temp Pulse Resp B/P Pulse Ox O2 Delivery O2 Flow Rate FiO2 06/20/17 08:00 97.4 58 16 105/57 100 06/20/17 04:42 96.3 64 17 106/59 97 06/20/17 00:27 97.6 60 17 91/51 95 06/19/17 20:04 97.4 79 16 104/59 96 06/19/17 20:00 64 06/19/17 16:00 97.9 68 17 111/57 99 I/O 06/19/17 06/19/17 06/19/17 06/20/17 06/20/17 06/20/17 07:00 15:00 23:00 07:00 15:00 23:00 Intake Total 1473 ml 888 ml 1190 ml 1379 ml Output Total 2600 ml 510 ml 30 ml 20 ml Balance -1127 ml 378 ml 1160 ml 1359 ml Intake Oral 360 ml 180 ml 480 ml 480 ml IV Total 1113 ml 708 ml 710 ml 899 ml Output Urine Total 2600 ml 500 ml Drainage Total 0 ml 10 ml 30 ml 20 ml # Voids 2 2 # Bowel Movements 0 Result Diagram: 06/18/17 0417 06/19/17 0349 Imaging Last Impressions Tumor Localization 06/18/17 0000 Signed Impressions: Service Date/Time: Sunday, June 18, 2017 12:27 - CONCLUSION: No evidence of osteomyelitis. Austin Palacios MD Aorta w/Runoff CTA 06/18/17 0000 Signed Impressions: Service Date/Time: Sunday, June 18, 2017 19:54 - CONCLUSION: 1. There is three-vessel runoff to the ankle bilaterally. There is no high grade stenosis identified. There is no aneurysm. 2. There is an exophytic mass upper pole right kidney measuring 3 cm with an average attenuation of 24 Hounsfield units, incompletely characterized on this study. 3. Right knee postsurgical changes and rim-enhancing fluid collections suspicious for abscess. Probable antibiotic pellets as described above. Small locule of air in the patellofemoral joint and lateral to the lateral femoral condyle within the subcutaneous tissues with soft tissue swelling seen. 4. Ulceration dorsal soft tissues of the right foot. Luigi Del Real MD Chest X-Ray 06/16/17 1757 Signed Impressions: Service Date/Time: Friday, June 16, 2017 19:31 - CONCLUSION: Destructive changes at the humeral head on the left with soft tissue swelling of the shoulder suspected. Basilar atelectasis versus linear scarring. Luigi Del Real MD Shoulder X-Ray 06/16/17 0000 Signed Impressions: Service Date/Time: Friday, June 16, 2017 21:06 - CONCLUSION: Soft tissue swelling and destructive changes left proximal humerus. Luigi Del Real MD Knee X-Ray 06/16/17 0000 Signed Impressions: Service Date/Time: Friday, June 16, 2017 19:34 - CONCLUSION: Knee joint effusion, severe osteoarthritis and postoperative changes proximal tibia. Age-indeterminate patellar fracture. Luigi Del Real MD Foot X-Ray 06/16/17 0000 Signed Impressions: Service Date/Time: Friday, June 16, 2017 19:37 - CONCLUSION: Large soft tissue ulcer with subcutaneous emphysema and findings suspicious for osteomyelitis first metatarsal head and possibly sesamoid. Luigi Del Real MD Procedures Status post I and D in ER. Other Results Laboratory Tests Test 06/16/17 06/17/17 06/17/17 06/17/17 18:40 05:59 12:19 14:49 Erythrocyte Sedimentation Rate GREATER THAN 140 mm/hr Prothrombin Time 11.0 SEC Prothromb Time International 1.0 RATIO Ratio Activated Partial 23.1 SEC Thromboplast Time Lactic Acid Level 1.2 mmol/L Total Bilirubin 0.6 MG/DL Aspartate Amino Transf 17 U/L (AST/SGOT) Alanine Aminotransferase 11 U/L (ALT/SGPT) Alkaline Phosphatase 363 U/L C-Reactive Protein 12.00 MG/DL Total Protein 9.6 GM/DL Albumin 2.4 GM/DL White Blood Count 4.5 TH/MM3 Red Blood Count 3.69 MIL/MM3 Mean Corpuscular Volume 61.6 FL Mean Corpuscular Hemoglobin 20.2 PG Mean Corpuscular Hemoglobin 32.8 % Concent Red Cell Distribution Width 17.7 % Platelet Count 439 TH/MM3 Mean Platelet Volume 6.6 FL Neutrophils (%) (Auto) 71.0 % Lymphocytes (%) (Auto) 15.0 % Monocytes (%) (Auto) 9.6 % Eosinophils (%) (Auto) 3.8 % Basophils (%) (Auto) 0.6 % Neutrophils # (Auto) 3.2 TH/MM3 Lymphocytes # (Auto) 0.7 TH/MM3 Monocytes # (Auto) 0.4 TH/MM3 Eosinophils # (Auto) 0.2 TH/MM3 Basophils # (Auto) 0.0 TH/MM3 CBC Comment DIFF FINAL Differential Comment Blood Type O POSITIVE Antibody Screen POSITIVE Crossmatch Leukocyte-Reduced Red Blood Cells Blood Bank Comment Antibody Identification Anti-Jka Test 06/18/17 06/18/17 06/18/17 06/19/17 04:17 09:23 11:47 03:49 Hemoglobin 7.7 GM/DL Hematocrit 22.0 % Vancomycin Level Trough 16.8 MCG/ML Phosphorus Level 3.9 MG/DL Magnesium Level 1.7 MG/DL Sodium Level 135 MEQ/L Potassium Level 3.1 MEQ/L Chloride Level 101 MEQ/L Carbon Dioxide Level 27.4 MEQ/L Anion Gap 7 MEQ/L Blood Urea Nitrogen 7 MG/DL Creatinine 0.53 MG/DL Estimat Glomerular Filtration 121 ML/MIN Rate Random Glucose 88 MG/DL Calcium Level 8.0 MG/DL Objective Remarks GENERAL: Well-developed patient, in no apparent distress. SKIN: Hypopigmentation skin. Right great toe ulcer with erythema and serosanguineous fluid. Rt knee ulcer, no drainage. Left leg multiple necrotic ulcers. Left shoulder and Right knee dressed. HEAD: Atraumatic. Normocephalic. EYES: Pupils equal round and reactive. Extraocular motions intact. ENT: Nose without bleeding, purulent drainage or septal hematoma. Airway patent. NECK: Trachea midline. No JVD or lymphadenopathy. Supple, nontender, no meningeal signs. CARDIOVASCULAR: Regular rate and rhythm without murmurs, gallops, or rubs. RESPIRATORY: Clear to auscultation. Breath sounds equal bilaterally. No wheezes , rales, or rhonchi. GASTROINTESTINAL: Abdomen soft, non-tender, nondistended. No hepato-splenomegaly , or palpable masses. No guarding. MUSCULOSKELETAL: Right knee with edema. No calf tenderness. Negative Homans sign bilaterally. NEUROLOGICAL: Awake and alert. Motor and sensory grossly within normal limits. Normal speech. Medications and IVs Current Medications Medications (Trade) Dose Ordered Sig/Arlette Route Start Time Stop Time Status Last Admin Naloxone HCl 0.4 mg 0.4 mg UNSCH PRN IV 06/16/17 20:45 Pharmacy Profile Note 0 ml @ 0 mls/hr UNSCH OTHER 06/16/17 23:45 (Zosyn 4.5 Gm Premix) 100 ml @ 200 mls/hr Q6H IV 06/17/17 07:00 06/20/17 06:16 Hydromorphone HCl 0.5 mg 0.5 mg Q3H PRN IV PUSH 06/17/17 00:00 06/20/17 09:19 Sodium Chloride 1,000 ml @ 125 mls/hr Q8H IV 06/17/17 09:00 06/20/17 00:49 (Vancomycin Inj/ NS 250 ml Inj) 250 ml @ 250 mls/hr Q12H IV 06/17/17 10:00 06/20/17 09:28 (NS Flush) 2 ml UNSCH PRN IVF 06/17/17 12:30 (NS Flush) 2 ml BID IVF 06/17/17 21:00 06/20/17 09:00 ([place] 7.5-325 Mg) 1 tab Q3H PRN PO 06/17/17 12:30 (Zofran Inj) 4 mg Q4H PRN IVP 06/17/17 12:30 (Benadryl) 25 mg Q6H PRN PO 06/17/17 12:30 (Morphine Inj) 4 mg Q3H PRN IV PUSH 06/17/17 12:30 06/20/17 06:16 Miscellaneous Information SPECIFIC LAB TO BE EMILY... ONCE ONCE .XX 06/20/17 09:45 06/20/17 09:46 06/20/17 09:28 A/P Assessment and Plan 51 y/o female with a history of Chronic lower extremity wounds, Neurodermatitis , Chronic back pain and Fibromyalgia presented to the ED with complaints of multiple infected skin wounds. 1. Sepsis secondary to Infection of the Left Shoulder and Right Knee status post Right Knee Arthrotomy with irrigation and debridement and placement of antibiotics beads, irrigation and debridement of left Shoulder and Humerus with placement of antibiotic beads by Doctor Leandro Mathis. 06/18: Discussed with Podiatry specialist doctor Franky Segal and recommended Ceretec Labeled White blood cell scan, if positive may need hallux amputation, called attention about the probable need for bilateral BKA's depend of evolution. consulted Vascular metalworking specialist. continue Vancomycin and Zosyn. wound care positive for MRSA. of the left shoulder and Staph Aureus of the Right knee. at this time will go for Bone scan, already seen by Vascular coverage specialist and recommended CTA with Runoff, performed yesterday. No high grade stenosis. 2. Right great toe wound, suspect Osteomyelitis read #1, status post Bone Scan negative for Osteomyelitis, okay to follow Doctor Segal as outpatient in his office. ESR >140, CRP 12.0 Right foot x ray reviewed and shows Large soft tissue ulcer with subcutaneous emphysema and findings suspicious for osteomyelitis first metatarsal head and possibly sesamoid. 3. Necrotic left leg wounds consulted Vascular metalworking specialist. read #1. 4. Possible autoimmune disorder, patient also has signs of MS -She will need to follow up with a headrig sawyer outpatient and neurology -She wound benefit from a lumbar spine tap once she no longer has an infection. DVT prophylaxis: Hold all measurements due to possible surgery and leg wounds started on Ambien at bedtime as needed for Insomnia and re started her Gabapentin. Discussed Condition With Patient all questions answered to the best of my abilities. Discharge Planning Once cleared by specialists. Cade Fitch MD Jun 20, 2017 09:32
[2017-06-20] MEDS ORDERED: PHARMACY ORDERED LAB ONE (09:45)
--- NOTE | 2017-06-20 11:09 | PD.ORT.PN ---
Subjective Subjective Remarks pain controlled Objective Vitals Vital Signs Date Time Temp Pulse Resp B/P Pulse Ox O2 Delivery O2 Flow Rate FiO2 06/20/17 08:00 97.4 58 16 105/57 100 06/20/17 04:42 96.3 64 17 106/59 97 06/20/17 00:27 97.6 60 17 91/51 95 06/19/17 20:04 97.4 79 16 104/59 96 06/19/17 20:00 64 06/19/17 16:00 97.9 68 17 111/57 99 I/O 06/19/17 06/19/17 06/19/17 06/20/17 06/20/17 06/20/17 07:00 15:00 23:00 07:00 15:00 23:00 Intake Total 1473 ml 888 ml 1190 ml 1379 ml Output Total 2600 ml 510 ml 30 ml 20 ml Balance -1127 ml 378 ml 1160 ml 1359 ml Intake Oral 360 ml 180 ml 480 ml 480 ml IV Total 1113 ml 708 ml 710 ml 899 ml Output Urine Total 2600 ml 500 ml Drainage Total 0 ml 10 ml 30 ml 20 ml # Voids 2 2 # Bowel Movements 0 Result Diagram: 06/18/17 0417 06/19/17 0349 Imaging Last 24 hours Impressions Chest X-Ray 06/16/17 0907 Signed Impressions: Service Date/Time: Friday, June 16, 2017 19:31 - CONCLUSION: Destructive changes at the humeral head on the left with soft tissue swelling of the shoulder suspected. Basilar atelectasis versus linear scarring. Luigi Del Real MD Objective Remarks LUE: Incision with some serosanguineous drainage. The drain is in place. No purulence noted. RLE: Clean dry dressing intact right knee. Mild swelling around the knee. Decreased pain with range of motion. 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 Jun 20, 2017 11:09
[2017-06-20] MEDS: GABAPENTIN 300 MG CAP PO SCH ×2 (13:17→16:17)
[2017-06-20] MEDS: ZOLPIDEM TARTRATE 5 MG TAB PO PRN (22:49)
[2017-06-21] MEDS: PIPERACIL-TAZO 4.5 GM PREMIX 100 ML IV SCH ×5 (00:55→23:54)
[2017-06-21] MEDS: MORPHINE SULFATE 4 MG/ML INJ IV PUSH PRN ×3 (01:53→09:06)
[2017-06-21 04:14] VITALS: BP 116/57; PULSE 54; RESP 16; TEMP 98.9; O2SAT 97
[2017-06-21] MEDS: HYDROmorphone HCL PF 1 MG/ML VIAL IV PUSH PRN ×2 (04:44→07:40)
[2017-06-21] MEDS: SODIUM CHLOR 0.9% 1000 ML INJ 1,000 ML IV SCH ×2 (06:05→09:14)
[2017-06-21] MEDS: GABAPENTIN 300 MG CAP PO SCH ×3 (07:40→18:00)
[2017-06-21] MEDS: SODIUM CHLORIDE 0.9% FLUSH 5 ML FLUSH IVF SCH ×2 (07:41→20:12)
[2017-06-21 08:00] VITALS: BP 122/60; PULSE 63; RESP 16; TEMP 97.7; O2SAT 99
--- NOTE | 2017-06-21 08:22 | HHI.PR ---
Subjective Remarks This is a pleasant 51 y/o female with a history of Chronic lower extremity wounds, Neurodermatitis, Chronic back pain and Fibromyalgia presented to the ED with complaints of multiple infected skin wounds. She has been dealing with these wounds for many months and has been seeing Dr. Segal for dressing changes. The bandages that he applied to her bilateral lower extremities were tight and very painful. 2 weeks ago she took off the bandages and was caring for the wounds herself at home. 1 week ago her Right knee began to swell and she developed a small ulcer on the outer part of the knee, her right great toe also began to swell. She states 3 days ago the right great toe wound began to open and drain foul smelling fluid. Also beginning about a week ago she began to have swelling and severe pain in her left shoulder. The ED physician did do an I&D of the left shoulder to drain a possible abscess. She is unsure if she had fevers at home because she keep the air down low in her house, but she thinks she may have had them. She denies any chest pain, sob, nausea, vomiting, headaches or dizziness. she has Fibromyalgia, Chronic lower extremity wounds, Neurodermatitis, Chronic low back pain, Hepatitis C, Osteomyelitis of the right wrist. 06/17: Stable in her bedroom, hypotensive, giving IV fluids has evident purulent tissue on her left shoulder, will go later today for I and D of the Left Shoulder and Right knee no nausea, vomit or diarrhea, asymptomatic. discussed with nurse. 06/18: Discussed with Podiatry specialist doctor Franky Segal and recommended Ceretec Labeled White blood cell scan, if positive may need hallux amputation, called attention about the probable need for bilateral BKA's depend of evolution. consulted Vascular internal communications specialist. seen in her bedroom stable, has some nausea, but no vomit or diarrhea. she is in status post Right Knee Arthrotomy with irrigation and debridement and placement of antibiotics beads, irrigation and debridement of left Shoulder and Humerus with placement of antibiotic beads by Doctor Leandro Mathis. with Diagnosis of Left shoulder infection, Right knee infection. 06/19: Orthopedic Surgery following, status post Left shoulder and right knee I and D, to continue Left shoulder drain until 06/22/17, continue antibiotics, and daily dressing changes. weight bear as tolerated. stable going at this time to Nuclear medicine for Bone Scan. no complaint. 06/20: Stable in her bedroom awaiting for final recommendations by Orthopedic Surgery for discharge, asking for her Gabapentin re started, also will give Ambien at bed time. 06/21: Seen in her bedroom stable continue FLORENTIN on her left shoulder until tomorrow. no complaint, eating her breakfast, no Nausea, vomit or diarrhea. Objective Vital Signs Date Time Temp Pulse Resp B/P Pulse Ox O2 Delivery O2 Flow Rate FiO2 06/21/17 04:14 98.9 54 16 116/57 97 06/20/17 23:44 98.9 62 17 107/63 98 06/20/17 20:19 97.8 58 16 105/63 94 06/20/17 20:00 63 06/20/17 16:00 96.4 65 17 123/69 100 06/20/17 12:00 97.7 54 16 106/61 99 I/O 06/20/17 06/20/17 06/20/17 06/21/17 06/21/17 06/21/17 07:00 15:00 23:00 07:00 15:00 23:00 Intake Total 1379 ml 1172 ml 1291 ml 1488 ml Output Total 20 ml 20 ml 320 ml 20 ml Balance 1359 ml 1152 ml 971 ml 1468 ml Intake Oral 480 ml 480 ml 480 ml 480 ml IV Total 899 ml 692 ml 811 ml 1008 ml Output Urine Total 300 ml Drainage Total 20 ml 20 ml 20 ml 20 ml # Voids 2 2 2 3 # Bowel Movements 0 0 Result Diagram: 06/18/17 0417 06/19/17 0349 Imaging Last Impressions Tumor Localization 06/18/17 0000 Signed Impressions: Service Date/Time: Sunday, June 18, 2017 12:27 - CONCLUSION: No evidence of osteomyelitis. Austin Palacios MD Aorta w/Runoff CTA 06/18/17 0000 Signed Impressions: Service Date/Time: Sunday, June 18, 2017 19:54 - CONCLUSION: 1. There is three-vessel runoff to the ankle bilaterally. There is no high grade stenosis identified. There is no aneurysm. 2. There is an exophytic mass upper pole right kidney measuring 3 cm with an average attenuation of 24 Hounsfield units, incompletely characterized on this study. 3. Right knee postsurgical changes and rim-enhancing fluid collections suspicious for abscess. Probable antibiotic pellets as described above. Small locule of air in the patellofemoral joint and lateral to the lateral femoral condyle within the subcutaneous tissues with soft tissue swelling seen. 4. Ulceration dorsal soft tissues of the right foot. Luigi Del Real MD Chest X-Ray 06/16/17 1757 Signed Impressions: Service Date/Time: Friday, June 16, 2017 19:31 - CONCLUSION: Destructive changes at the humeral head on the left with soft tissue swelling of the shoulder suspected. Basilar atelectasis versus linear scarring. Luigi Del Rela MD Shoulder X-Ray 06/16/17 0000 Signed Impressions: Service Date/Time: Wednesday, June 16, 2017 21:06 - CONCLUSION: Soft tissue swelling and destructive changes left proximal humerus. Luigi Del Real MD Knee X-Ray 06/16/17 0000 Signed Impressions: Service Date/Time: Friday, June 16, 2017 19:34 - CONCLUSION: Knee joint effusion, severe osteoarthritis and postoperative changes proximal tibia. Age-indeterminate patellar fracture. Luigi Del Real MD Foot X-Ray 06/16/17 0000 Signed Impressions: Service Date/Time: Friday, June 16, 2017 19:37 - CONCLUSION: Large soft tissue ulcer with subcutaneous emphysema and findings suspicious for osteomyelitis first metatarsal head and possibly sesamoid. Luigi Del Real MD Procedures Status post I and D in ER. Other Results Laboratory Tests Test 06/17/17 06/17/17 06/17/17 06/18/17 05:59 12:19 14:49 04:17 White Blood Count 4.5 TH/MM3 Red Blood Count 3.69 MIL/MM3 Mean Corpuscular Volume 61.6 FL Mean Corpuscular Hemoglobin 20.2 PG Mean Corpuscular Hemoglobin 32.8 % Concent Red Cell Distribution Width 17.7 % Platelet Count 439 TH/MM3 Mean Platelet Volume 6.6 FL Neutrophils (%) (Auto) 71.0 % Lymphocytes (%) (Auto) 15.0 % Monocytes (%) (Auto) 9.6 % Eosinophils (%) (Auto) 3.8 % Basophils (%) (Auto) 0.6 % Neutrophils # (Auto) 3.2 TH/MM3 Lymphocytes # (Auto) 0.7 TH/MM3 Monocytes # (Auto) 0.4 TH/MM3 Eosinophils # (Auto) 0.2 TH/MM3 Basophils # (Auto) 0.0 TH/MM3 CBC Comment DIFF FINAL Differential Comment Blood Type O POSITIVE Antibody Screen POSITIVE Crossmatch Leukocyte-Reduced Red Blood Cells Blood Bank Comment Antibody Identification Anti-Jka Hemoglobin 7.7 GM/DL Hematocrit 22.0 % Test 06/18/17 06/19/17 06/20/17 11:47 03:49 09:27 Phosphorus Level 3.9 MG/DL Magnesium Level 1.7 MG/DL Sodium Level 135 MEQ/L Potassium Level 3.1 MEQ/L Chloride Level 101 MEQ/L Carbon Dioxide Level 27.4 MEQ/L Anion Gap 7 MEQ/L Blood Urea Nitrogen 7 MG/DL Creatinine 0.53 MG/DL Estimat Glomerular Filtration 121 ML/MIN Rate Random Glucose 88 MG/DL Calcium Level 8.0 MG/DL Vancomycin Level Trough 14.2 MCG/ML Objective Remarks GENERAL: Well-developed patient, in no apparent distress. SKIN: Hypopigmentation skin. Right great toe ulcer dressed, Left leg multiple necrotic ulcers. Left shoulder and Right knee dressed. HEAD: Atraumatic. Normocephalic. EYES: Pupils equal round and reactive. Extraocular motions intact. ENT: Nose without bleeding, purulent drainage or septal hematoma. Airway patent. NECK: Trachea midline. No JVD or lymphadenopathy. Supple, nontender, no meningeal signs. CARDIOVASCULAR: Regular rate and rhythm without murmurs, gallops, or rubs. RESPIRATORY: Clear to auscultation. Breath sounds equal bilaterally. No wheezes , rales, or rhonchi. GASTROINTESTINAL: Abdomen soft, non-tender, nondistended. No hepato-splenomegaly , or palpable masses. No guarding. MUSCULOSKELETAL: Right knee dressed. left shoulder dressed. FLORENTIN in place. NEUROLOGICAL: Awake and alert. Motor and sensory grossly within normal limits. Normal speech. Medications and IVs Current Medications Medications (Trade) Dose Ordered Sig/Arlette Route Start Time Stop Time Status Last Admin Naloxone HCl 0.4 mg 0.4 mg UNSCH PRN IV 06/16/17 20:45 Pharmacy Profile Note 0 ml @ 0 mls/hr UNSCH OTHER 06/16/17 23:45 (Zosyn 4.5 Gm Premix) 100 ml @ 200 mls/hr Q6H IV 06/17/17 07:00 06/21/17 06:06 Hydromorphone HCl 0.5 mg 0.5 mg Q3H PRN IV PUSH 06/17/17 00:00 06/21/17 07:40 Sodium Chloride 1,000 ml @ 125 mls/hr Q8H IV 06/17/17 09:00 06/21/17 06:05 (Vancomycin Inj/ NS 250 ml Inj) 250 ml @ 250 mls/hr Q12H IV 06/17/17 10:00 06/20/17 20:51 (NS Flush) 2 ml UNSCH PRN IVF 06/17/17 12:30 (NS Flush) 2 ml BID IVF 06/17/17 21:00 06/21/17 07:41 ([place] 7.5-325 Mg) 1 tab Q3H PRN PO 06/17/17 12:30 (Zofran Inj) 4 mg Q4H PRN IVP 06/17/17 12:30 (Benadryl) 25 mg Q6H PRN PO 06/17/17 12:30 (Morphine Inj) 4 mg Q3H PRN IV PUSH 06/17/17 12:30 06/21/17 06:05 (Ambien) 5 mg HS PRN PO 06/20/17 10:30 06/20/17 22:49 (Neurontin) 300 mg TID PO 06/20/17 13:00 06/21/17 07:40 A/P Assessment and Plan 51 y/o female with a history of Chronic lower extremity wounds, Neurodermatitis , Chronic back pain and Fibromyalgia presented to the ED with complaints of multiple infected skin wounds. 1. Sepsis secondary to Infection of the Left Shoulder and Right Knee status post Right Knee Arthrotomy with irrigation and debridement and placement of antibiotics beads, irrigation and debridement of left Shoulder and Humerus with placement of antibiotic beads by Doctor Leandro Mathis. 06/18: Discussed with Podiatry specialist doctor Franky Segal and recommended Ceretec Labeled White blood cell scan, if positive may need hallux amputation, called attention about the probable need for bilateral BKA's depend of evolution. consulted Vascular internal communications specialist. continue Vancomycin and Zosyn. wound care positive for MRSA. of the left shoulder and Staph Aureus of the Right knee. at this time will go for Bone scan, already seen by Vascular security systems specialist and recommended CTA with Runoff No high grade stenosis. 2. Right great toe wound, suspect Osteomyelitis read #1, status post Bone Scan negative for Osteomyelitis, okay to follow Doctor Philipp as outpatient in his office. ESR >140, CRP 12.0 Right foot x ray reviewed and shows Large soft tissue ulcer with subcutaneous emphysema and findings suspicious for osteomyelitis first metatarsal head and possibly sesamoid. 3. Necrotic left leg wounds consulted Vascular internal communications specialist. read #1. 4. Possible autoimmune disorder, patient also has signs of MS -She will need to follow up with a pony rougher outpatient and neurology -She wound benefit from a lumbar spine tap once she no longer has an infection. DVT prophylaxis: Hold all measurements due to possible surgery and leg wounds Discussed Condition With Patient all questions answered to the best of my abilities. Discharge Planning Once cleared by specialists. Cade Fitch MD Jun 21, 2017 08:22 Discharge Planning Once cleared by specialists. Cade Fitch MD Jun 21, 2017 08:22
[2017-06-21] MEDS: VANCOMYCIN 1,000 MG/NS 250 ML IV SCH ×4 (09:06→22:20)
[2017-06-21 10:41] LABS: BICARBONATE 24.7 MEQ/L (21.0-32.0); MAGNESIUM 1.8 MG/DL (1.5-2.5); POTASSIUM 3.2 MEQ/L (3.5-5.1)
[2017-06-21] MEDS ORDERED: LACTULOSE SYRUP 20 GM/30 ML CUP PO ONE (11:00)
[2017-06-21] MEDS ORDERED: GLYCERIN ADULT 2 GM SUPP RECTAL ONE (11:00)
[2017-06-21] MEDS ORDERED: MINERAL OIL ENEMA 118 ML BTL RECTAL PRN (11:00)
[2017-06-21] MEDS: HYDROmorphone HCL 4 MG TAB PO PRN ×4 (11:22→23:55)
[2017-06-21] MEDS: ACETAMINOPHEN/HYDROcodone 325 MG/7.5 MG TAB PO PRN (11:27)
[2017-06-21 12:00] VITALS: BP 112/65; PULSE 52; RESP 16; TEMP 97.5; O2SAT 94
[2017-06-21 15:12] LABS: BASOPHIL % 0.7 % (0.0-2.0); EOSINOPHIL # 0.1 TH/MM3 (0-0.4); EOSINOPHIL % 1.3 % (0.0-4.0); HEMATOCRIT 25.8 % (35.0-46.0); HEMO FLAGS DIFF FINAL; LYMPH % 18.4 % (9.0-44.0); LYMPHOCYTE # 0.7 TH/MM3 (1.0-4.8); MEAN CELL VOLUME 67.7 FL (80.0-100.0); MEAN CORPUSCULAR HEMOGLOBIN 22.1 PG (27.0-34.0); MEAN CORPUSCULAR HGB CONC 32.7 % (32.0-36.0); MONO % 4.7 % (0.0-8.0); NEUT % 74.9 % (16.0-70.0); PLATELET COUNT 427 TH/MM3 (150-450); RED BLOOD COUNT 3.81 MIL/MM3 (4.00-5.30)
[2017-06-21 16:00] VITALS: BP 108/53; PULSE 59; RESP 16; TEMP 95.4; O2SAT 94
[2017-06-21 20:00] VITALS: BP 113/56; PULSE 56; RESP 20; TEMP 98.8; O2SAT 96
[2017-06-21] MEDS: ZOLPIDEM TARTRATE 5 MG TAB PO PRN (22:20)
[2017-06-22] VITALS: BP 133/66; PULSE 58; RESP 20; TEMP 98.6; O2SAT 100
[2017-06-22] MEDS: PIPERACIL-TAZO 4.5 GM PREMIX 100 ML IV SCH ×3 (04:13→20:41)
[2017-06-22] MEDS: HYDROmorphone HCL 4 MG TAB PO PRN ×5 (04:13→20:41)
[2017-06-22 08:00] VITALS: BP 113/53; PULSE 81; RESP 16; TEMP 100.3; O2SAT 97
[2017-06-22] MEDS: SODIUM CHLORIDE 0.9% FLUSH 5 ML FLUSH IVF SCH ×2 (08:20→20:41)
[2017-06-22] MEDS: GABAPENTIN 300 MG CAP PO SCH ×3 (08:20→16:13)
[2017-06-22] MEDS: VANCOMYCIN 1,000 MG/NS 250 ML IV SCH ×4 (10:34→20:42)
[2017-06-22 12:00] VITALS: BP 99/50; PULSE 73; RESP 16; TEMP 99.1; O2SAT 97
--- NOTE | 2017-06-22 12:06 | HHI.PR ---
Subjective Remarks This is a pleasant 51 y/o female with a history of Chronic lower extremity wounds, Neurodermatitis, Chronic back pain and Fibromyalgia presented to the ED with complaints of multiple infected skin wounds. She has been dealing with these wounds for many months and has been seeing Dr. Segal for dressing changes. The bandages that he applied to her bilateral lower extremities were tight and very painful. 2 weeks ago she took off the bandages and was caring for the wounds herself at home. 1 week ago her Right knee began to swell and she developed a small ulcer on the outer part of the knee, her right great toe also began to swell. She states 3 days ago the right great toe wound began to open and drain foul smelling fluid. Also beginning about a week ago she began to have swelling and severe pain in her left shoulder. The ED physician did do an I&D of the left shoulder to drain a possible abscess. She is unsure if she had fevers at home because she keep the air down low in her house, but she thinks she may have had them. She denies any chest pain, sob, nausea, vomiting, headaches or dizziness. she has Fibromyalgia, Chronic lower extremity wounds, Neurodermatitis, Chronic low back pain, Hepatitis C, Osteomyelitis of the right wrist. 06/17: Stable in her bedroom, hypotensive, giving IV fluids has evident purulent tissue on her left shoulder, will go later today for I and D of the Left Shoulder and Right knee no nausea, vomit or diarrhea, asymptomatic. discussed with nurse. 06/18: Discussed with Podiatry specialist doctor Franky Segal and recommended Ceretec Labeled White blood cell scan, if positive may need hallux amputation, called attention about the probable need for bilateral BKA's depend of evolution. consulted Vascular residential lawn specialist. seen in her bedroom stable, has some nausea, but no vomit or diarrhea. she is in status post Right Knee Arthrotomy with irrigation and debridement and placement of antibiotics beads, irrigation and debridement of left Shoulder and Humerus with placement of antibiotic beads by Doctor Leandro Mathis. with Diagnosis of Left shoulder infection, Right knee infection. 06/19: Orthopedic Surgery following, status post Left shoulder and right knee I and D, to continue Left shoulder drain until 06/22/17, continue antibiotics, and daily dressing changes. weight bear as tolerated. stable going at this time to Nuclear medicine for Bone Scan. no complaint. 06/20: Stable in her bedroom awaiting for final recommendations by Orthopedic Surgery for discharge, asking for her Gabapentin re started, also will give Ambien at bed time. 06/21: Seen in her bedroom stable continue FLORENTIN on her left shoulder until tomorrow. no complaint, eating her breakfast. 06/22: Stable removed FLORENTIN from the left shoulder, no nausea, vomit or diarrhea, will have I and D tomorrow of the left shoulder wound. Objective Vital Signs Date Time Temp Pulse Resp B/P Pulse Ox O2 Delivery O2 Flow Rate FiO2 06/22/17 08:00 100.3 81 16 113/53 97 06/22/17 00:00 98.6 58 20 133/66 100 06/21/17 20:00 98.8 56 20 113/56 96 06/21/17 16:00 95.4 59 16 108/53 94 I/O 06/21/17 06/21/17 06/21/17 06/22/17 06/22/17 06/22/17 07:00 15:00 23:00 07:00 15:00 23:00 Intake Total 1488 ml 240 ml 240 ml 690 ml Output Total 20 ml 450 ml 15 ml Balance 1468 ml 240 ml -210 ml 690 ml -15 ml Intake Oral 480 ml 240 ml 240 ml 240 ml IV Total 1008 ml 450 ml Output Urine Total 450 ml Drainage Total 20 ml 15 ml # Voids 3 4 # Bowel Movements 0 1 Result Diagram: 06/21/17 1427 06/21/17 1003 Imaging Last Impressions Tumor Localization 06/18/17 0000 Signed Impressions: Service Date/Time: Sunday, June 18, 2017 12:27 - CONCLUSION: No evidence of osteomyelitis. Austin Palacios MD Aorta w/Runoff CTA 06/18/17 0000 Signed Impressions: Service Date/Time: Sunday, June 18, 2017 19:54 - CONCLUSION: 1. There is three-vessel runoff to the ankle bilaterally. There is no high grade stenosis identified. There is no aneurysm. 2. There is an exophytic mass upper pole right kidney measuring 3 cm with an average attenuation of 24 Hounsfield units, incompletely characterized on this study. 3. Right knee postsurgical changes and rim-enhancing fluid collections suspicious for abscess. Probable antibiotic pellets as described above. Small locule of air in the patellofemoral joint and lateral to the lateral femoral condyle within the subcutaneous tissues with soft tissue swelling seen. 4. Ulceration dorsal soft tissues of the right foot. Luigi Del Real MD Chest X-Ray 06/16/17 1757 Signed Impressions: Service Date/Time: Friday, June 16, 2017 19:31 - CONCLUSION: Destructive changes at the humeral head on the left with soft tissue swelling of the shoulder suspected. Basilar atelectasis versus linear scarring. Luigi Del Real MD Shoulder X-Ray 06/16/17 0000 Signed Impressions: Service Date/Time: Friday, June 16, 2017 21:06 - CONCLUSION: Soft tissue swelling and destructive changes left proximal humerus. Luigi Del Real MD Knee X-Ray 06/16/17 0000 Signed Impressions: Service Date/Time: Friday, June 16, 2017 19:34 - CONCLUSION: Knee joint effusion, severe osteoarthritis and postoperative changes proximal tibia. Age-indeterminate patellar fracture. Luigi Del Real MD Foot X-Ray 06/16/17 0000 Signed Impressions: Service Date/Time: Friday, June 16, 2017 19:37 - CONCLUSION: Large soft tissue ulcer with subcutaneous emphysema and findings suspicious for osteomyelitis first metatarsal head and possibly sesamoid. Luigi Del Real MD Procedures Status post I and D in ER. Other Results Laboratory Tests Test 06/17/17 06/20/17 06/21/17 06/21/17 12:19 09:27 10:03 14:27 Blood Type O POSITIVE Antibody Screen POSITIVE Crossmatch Leukocyte-Reduced Red Blood Cells Blood Bank Comment Vancomycin Level Trough 14.2 MCG/ML Sodium Level 139 MEQ/L Potassium Level 3.2 MEQ/L Chloride Level 105 MEQ/L Carbon Dioxide Level 24.7 MEQ/L Anion Gap 9 MEQ/L Blood Urea Nitrogen 7 MG/DL Creatinine 0.67 MG/DL Estimat Glomerular Filtration 92 ML/MIN Rate Random Glucose 92 MG/DL Calcium Level 7.8 MG/DL Phosphorus Level 2.9 MG/DL Magnesium Level 1.8 MG/DL White Blood Count 4.0 TH/MM3 Red Blood Count 3.81 MIL/MM3 Hemoglobin 8.4 GM/DL Hematocrit 25.8 % Mean Corpuscular Volume 67.7 FL Mean Corpuscular Hemoglobin 22.1 PG Mean Corpuscular Hemoglobin 32.7 % Concent Red Cell Distribution Width 24.0 % Platelet Count 427 TH/MM3 Mean Platelet Volume 6.2 FL Neutrophils (%) (Auto) 74.9 % Lymphocytes (%) (Auto) 18.4 % Monocytes (%) (Auto) 4.7 % Eosinophils (%) (Auto) 1.3 % Basophils (%) (Auto) 0.7 % Neutrophils # (Auto) 3.0 TH/MM3 Lymphocytes # (Auto) 0.7 TH/MM3 Monocytes # (Auto) 0.2 TH/MM3 Eosinophils # (Auto) 0.1 TH/MM3 Basophils # (Auto) 0.0 TH/MM3 CBC Comment DIFF FINAL Differential Comment Objective Remarks GENERAL: Well-developed patient, in no apparent distress. SKIN: Hypopigmentation skin. Right great toe ulcer dressed, Left leg multiple necrotic ulcers. Left shoulder and Right knee dressed. HEAD: Atraumatic. Normocephalic. EYES: Pupils equal round and reactive. Extraocular motions intact. ENT: Nose without bleeding, purulent drainage or septal hematoma. Airway patent. NECK: Trachea midline. No JVD or lymphadenopathy. Supple, nontender, no meningeal signs. CARDIOVASCULAR: Regular rate and rhythm without murmurs, gallops, or rubs. RESPIRATORY: Clear to auscultation. Breath sounds equal bilaterally. No wheezes , rales, or rhonchi. GASTROINTESTINAL: Abdomen soft, non-tender, nondistended. No hepato-splenomegaly , or palpable masses. No guarding. MUSCULOSKELETAL: Right knee dressed. left shoulder dressed. NEUROLOGICAL: Awake and alert. Motor and sensory grossly within normal limits. Normal speech. Medications and IVs Current Medications Medications (Trade) Dose Ordered Sig/Arlette Route Start Time Stop Time Status Last Admin Naloxone HCl 0.4 mg 0.4 mg UNSCH PRN IV 06/16/17 20:45 Pharmacy Profile Note 0 ml @ 0 mls/hr UNSCH OTHER 06/16/17 23:45 Piperacillin Sod/ Tazobactam Sod 100 ml @ 200 mls/hr Q6H IV 06/17/17 07:00 06/22/17 04:13 (Vancomycin Inj/ NS 250 ml Inj) 250 ml @ 250 mls/hr Q12H IV 06/17/17 10:00 06/22/17 10:34 (NS Flush) 2 ml UNSCH PRN IVF 06/17/17 12:30 (NS Flush) 2 ml BID IVF 06/17/17 21:00 06/22/17 08:20 ([place] 7.5-325 Mg) 1 tab Q3H PRN PO 06/17/17 12:30 06/21/17 11:27 (Zofran Inj) 4 mg Q4H PRN IVP 06/17/17 12:30 (Benadryl) 25 mg Q6H PRN PO 06/17/17 12:30 (Ambien) 5 mg HS PRN PO 06/20/17 10:30 06/21/17 22:20 (Neurontin) 300 mg TID PO 06/20/17 13:00 06/22/17 08:20 (Dilaudid) 4 mg Q4H PRN PO 06/21/17 11:00 06/22/17 08:20 (Fleet Mineral Oil Enema) 118 ml DAILY PRN RECTAL 06/21/17 11:00 A/P Assessment and Plan 51 y/o female with a history of Chronic lower extremity wounds, Neurodermatitis , Chronic back pain and Fibromyalgia presented to the ED with complaints of multiple infected skin wounds. 1. Sepsis secondary to Infection of the Left Shoulder and Right Knee status post Right Knee Arthrotomy with irrigation and debridement and placement of antibiotics beads, irrigation and debridement of left Shoulder and Humerus with placement of antibiotic beads by Doctor Leandro Mathis. 06/18: 2. Right great toe wound, suspect Osteomyelitis read #1, status post Bone Scan negative for Osteomyelitis, okay to follow Doctor Segal as outpatient in his office. ESR >140, CRP 12.0 Right foot x ray reviewed and shows Large soft tissue ulcer with subcutaneous emphysema and findings suspicious for osteomyelitis first metatarsal head and possibly sesamoid. Status post Evaluation by Podiatry specialist doctor Franky Connor status post Ceretec Labeled White blood cell scan that was negative for Osteomyelitis, recommended to continue antibiotics and follow as outpatient, also wound care positive for MRSA. of the left shoulder and Staph Aureus of the Right knee. at this time will go for Already seen by Vascular airborne sensor specialist and recommended CTA with Runoff No high grade stenosis. 3. Necrotic left leg wounds consulted Vascular residential lawn specialist. read #1. 4. Possible autoimmune disorder, patient also has signs of MS -She will need to follow up with a research chef outpatient and neurology -She wound benefit from a lumbar spine tap once she no longer has an infection. 5. Hypokalemia replaced and following. 6. chronic Iron deficiency anemia status post blood transfusion giving her Venofer for three days. get Iron level, ferritin and Transferrin. DVT prophylaxis: on hold for procedure tomorrow start management after procedure performed. Discussed Condition With Patient and Nurse Miss Lane, all questions answered to the best of my abilities. Discharge Planning Once cleared by specialists. Cade Fitch MD Jun 22, 2017 12:06
[2017-06-22] MEDS ORDERED: MAGNESIUM SULFATE 1 GM PREMIX 100 ML IV SCH (12:15)
[2017-06-22] MEDS ORDERED: POTASSIUM CHLORIDE 20 MEQ CONTROLLED RELEASE TAB PO ONE ×2 (12:15→15:00)
[2017-06-22 16:00] VITALS: BP 90/45; PULSE 55; RESP 16; TEMP 95.9; O2SAT 99
[2017-06-22] MEDS: IRON SUCROSE INJ 100 MG in SODIUM CHLORIDE 0.9% INJ 100 ML IV SCH (16:58)
[2017-06-22 20:00] VITALS: BP 96/50; PULSE 58; RESP 20; TEMP 97.3; O2SAT 98
[2017-06-23] VITALS: BP 93/51; PULSE 62; RESP 20; TEMP 97.5; O2SAT 100
[2017-06-23] MEDS: HYDROmorphone HCL 4 MG TAB PO PRN ×5 (01:07→20:48)
[2017-06-23] MEDS: PIPERACIL-TAZO 4.5 GM PREMIX 100 ML IV SCH ×3 (01:07→11:26)
[2017-06-23 04:00] VITALS: BP 99/52; PULSE 69; RESP 20; TEMP 99.6; O2SAT 96
[2017-06-23 06:36] LABS: FERRITIN 152 NG/ML (8-252)
--- NOTE | 2017-06-23 07:01 | PD.ORT.PN ---
Subjective Subjective Remarks pain controlled Objective Vitals Vital Signs Date Time Temp Pulse Resp B/P Pulse Ox O2 Delivery O2 Flow Rate FiO2 06/23/17 04:00 99.6 69 20 99/52 96 06/23/17 00:00 97.5 62 20 93/51 100 06/22/17 20:00 97.3 58 20 96/50 98 06/22/17 16:00 95.9 55 16 90/45 99 06/22/17 12:00 99.1 73 16 99/50 97 06/22/17 08:00 100.3 81 16 113/53 97 I/O 06/22/17 06/22/17 06/22/17 06/23/17 06/23/17 06/23/17 06:59 14:59 22:59 06:59 14:59 22:59 Intake Total 690 ml 840 ml 360 ml 450 ml Output Total 15 ml 1225 ml 0 ml Balance 690 ml 825 ml -865 ml 450 ml Intake Oral 240 ml 440 ml 360 ml 0 ml IV Total 450 ml 400 ml 450 ml Output Urine Total 1225 ml 0 ml Drainage Total 15 ml # Voids 3 # Bowel Movements 0 Result Diagram: 06/21/17 1427 06/21/17 1003 Imaging Last 24 hours Impressions Chest X-Ray 06/16/17 1757 Signed Impressions: Service Date/Time: Friday, June 16, 2017 19:31 - CONCLUSION: Destructive changes at the humeral head on the left with soft tissue swelling of the shoulder suspected. Basilar atelectasis versus linear scarring. Luigi Del Real MD Objective Remarks LUE: Incision with some serosanguineous drainage. wound dehiscence. NVI RLE: Clean dry dressing intact right knee. Mild swelling around the knee. Decreased pain with range of motion. 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 Jun 23, 2017 07:01
[2017-06-23] MEDS: ACETAMINOPHEN/HYDROcodone 325 MG/7.5 MG TAB PO PRN (07:30)
[2017-06-23 08:00] VITALS: BP 93/51; PULSE 54; RESP 16; TEMP 96.6; O2SAT 98
[2017-06-23] MEDS: GABAPENTIN 300 MG CAP PO SCH ×3 (09:00→18:12)
[2017-06-23] MEDS: IRON SUCROSE INJ 100 MG in SODIUM CHLORIDE 0.9% INJ 100 ML IV SCH (09:00)
[2017-06-23] MEDS: SODIUM CHLORIDE 0.9% FLUSH 5 ML FLUSH IVF SCH ×2 (09:00→20:49)
[2017-06-23] MEDS ORDERED: GENTAMICIN SULFATE 80 MG/2 ML VIAL ONE (09:02)
[2017-06-23] MEDS: VANCOMYCIN 1,000 MG/NS 250 ML IV SCH ×4 (09:12→23:37)
[2017-06-23] MEDS ORDERED: FAMOTIDINE 20 MG/2 ML VIAL ONE (09:14)
--- NOTE | 2017-06-23 09:59 | PD.OP ---
cc: Leandro Mathis MD Operative Report Date of Surgery: Jun 23, 2017 Preoperative Diagnosis: left shoulder infection Postoperative Diagnosis: Procedure: Left shoulder arthrotomy with irrigation and debridement Anesthesia: Gen. Surgeon: Leandro Mathis Founder And President(s): BRIAN Ch PA-C The surgical procedure was assisted by my physician optical assistant. My P.A. presence was necessary throughout this case for the manipulation and positioning of the surgical extremity. My P.A. was assisting me throughout the duration of this procedure. The skill set of a physician optical assistant was medically necessary to complete this procedure. During the surgical case the surgical orderly was working at the back table and the physician optical assistant was directly assisting me. Operation and Findings: Jamee is well-known to me from recurrent infections of left shoulder and right knee. She has had wound dehiscence of the left shoulder with purulent drainage. Informed consent was confirmed and operative site was marked. She was brought to operating room. She was given IV sedation and general anesthesia. Left arm and shoulder were prepped with alcohol followed by Hibiclens and draped in usual sterile fashion. Attention was turned to the left shoulder. A 4 inch incision was made over the anterolateral shoulder there was moderate purulent material around the shoulder. The deltopectoral was opened. There was significant synovitis around the shoulder consistent with chronic infection. Curettes and rongeurs were used to debride soft tissue and bone. Curettes were used to debride the proximally humerus. The soft tissue and bone were now thoroughly irrigated with pulsatile lavage. Both the subacromial space, subdeltoid bursa, and glenohumeral joints were irrigated. The wound was now cleaned with 0 PDS, 3-0 PDS, and 3-0 nylon. A drain was placed deep prior to closure. Sterile dressings were applied. Patient was awakened and transferred to recovery room stable condition. Leandro Mathis MD Jun 23, 2017 09:59
[2017-06-23] MEDS ORDERED: DO NOT ADM ANY ANTICOAGULANT DRUGS PRN (10:12)
[2017-06-23] MEDS ORDERED: fentaNYL CITRATE 250 MCG/5 ML AMP ONE (10:23)
[2017-06-23] MEDS ORDERED: *morphine SULFATE 8 MG/ML PERIprocedure ONLY ONE (10:23)
[2017-06-23] MEDS ORDERED: MORPHINE SULFATE 4 MG/ML INJ ONE (10:24)
[2017-06-23] MEDS ORDERED: MIDAZOLAM HCL 2 MG/2 ML VIAL ONE (10:24)
[2017-06-23 12:00] VITALS: BP 92/54; PULSE 69; RESP 16; TEMP 96.8; O2SAT 96
[2017-06-23] MEDS ORDERED: PHENYLEPH/NS 1000 MCG/10 ML SYR IV ONE (12:00)
[2017-06-23] MEDS ORDERED: ONDANSETRON HCL 4 MG/2 ML VIAL IV PUSH ONE (12:00)
[2017-06-23] MEDS ORDERED: PROPOFOL 200 MG/20 ML AMP IV ONE (12:00)
[2017-06-23] MEDS ORDERED: ePHEDrine/NS 25 MG/5 ML SYR IV ONE (12:00)
--- NOTE | 2017-06-23 14:59 | HHI.PR ---
Subjective Remarks Follow up for septic right knee and left shoulder osteomyelitis. Patient is doing well. She underwent I&D of her left shoulder by orthopedic surgery today. Denies any acute concerns at this point. No fever, chills. Objective Vitals Vital Signs Date Time Temp Pulse Resp B/P Pulse Ox O2 Delivery O2 Flow Rate FiO2 06/23/17 12:00 96.8 69 16 92/54 96 06/23/17 10:30 60 17 114/56 98 Nasal Cannula 2 06/23/17 10:15 98.9 72 17 101/55 97 Nasal Cannula 2 06/23/17 08:00 96.6 54 16 93/51 98 06/23/17 04:00 99.6 69 20 99/52 96 06/23/17 00:00 97.5 62 20 93/51 100 06/22/17 20:00 97.3 58 20 96/50 98 06/22/17 16:00 95.9 55 16 90/45 99 I/O 06/22/17 06/22/17 06/22/17 06/23/17 06/23/17 06/23/17 07:00 15:00 23:00 07:00 15:00 23:00 Intake Total 690 ml 840 ml 360 ml 450 ml 840 ml Output Total 15 ml 1225 ml 0 ml 685 ml Balance 690 ml 825 ml -865 ml 450 ml 155 ml Intake Oral 240 ml 440 ml 360 ml 0 ml 240 ml IV Total 450 ml 400 ml 450 ml 300 ml Other 300 ml Output Urine Total 1225 ml 0 ml 600 ml Drainage Total 15 ml 65 ml Estimated Blood Loss 20 ml # Voids 3 # Bowel Movements 0 0 Result Diagram: 06/21/17 1427 06/21/17 1003 Imaging Last Impressions Tumor Localization 06/18/17 0000 Signed Impressions: Service Date/Time: Sunday, June 18, 2017 12:27 - CONCLUSION: No evidence of osteomyelitis. Austin Palacios MD Aorta w/Runoff CTA 06/18/17 0000 Signed Impressions: Service Date/Time: Sunday, June 18, 2017 19:54 - CONCLUSION: 1. There is three-vessel runoff to the ankle bilaterally. There is no high grade stenosis identified. There is no aneurysm. 2. There is an exophytic mass upper pole right kidney measuring 3 cm with an average attenuation of 24 Hounsfield units, incompletely characterized on this study. 3. Right knee postsurgical changes and rim-enhancing fluid collections suspicious for abscess. Probable antibiotic pellets as described above. Small locule of air in the patellofemoral joint and lateral to the lateral femoral condyle within the subcutaneous tissues with soft tissue swelling seen. 4. Ulceration dorsal soft tissues of the right foot. Luigi Del Real MD Chest X-Ray 06/16/17 1757 Signed Impressions: Service Date/Time: Friday, June 16, 2017 19:31 - CONCLUSION: Destructive changes at the humeral head on the left with soft tissue swelling of the shoulder suspected. Basilar atelectasis versus linear scarring. Luigi Del Real MD Shoulder X-Ray 06/16/17 0000 Signed Impressions: Service Date/Time: Wednesday, June 16, 2017 21:06 - CONCLUSION: Soft tissue swelling and destructive changes left proximal humerus. Luigi Del Real MD Knee X-Ray 06/16/17 0000 Signed Impressions: Service Date/Time: Friday, June 16, 2017 19:34 - CONCLUSION: Knee joint effusion, severe osteoarthritis and postoperative changes proximal tibia. Age-indeterminate patellar fracture. Luigi Del Real MD Foot X-Ray 06/16/17 0000 Signed Impressions: Service Date/Time: Friday, June 16, 2017 19:37 - CONCLUSION: Large soft tissue ulcer with subcutaneous emphysema and findings suspicious for osteomyelitis first metatarsal head and possibly sesamoid. Luigi Del Real MD Objective Remarks GENERAL: Alert, NAD. SKIN: Warm and dry. HEAD: Normocephalic. EYES: No scleral icterus. No injection or drainage. NECK: Supple, trachea midline. No JVD or lymphadenopathy. CARDIOVASCULAR: Regular rate and rhythm without murmurs, gallops, or rubs. RESPIRATORY: Breath sounds equal bilaterally. No accessory muscle use. GASTROINTESTINAL: Abdomen soft, non-tender, nondistended. MUSCULOSKELETAL: No cyanosis, or edema. BACK: Nontender without obvious deformity. No CVA tenderness. Procedures 06/17/2017 Right knee arthrotomy with irrigation and debridement and placement of antibiotic beads, irrigation debridement of left shoulder and humerus with placement of antibiotic beads 06/17/2017 Left shoulder arthrotomy with irrigation and debridement A/P Problem List: (1) Abscess of left shoulder ICD Code: L02.414 Status: Acute (2) Osteomyelitis ICD Code: M86.9 Status: Acute (3) Open wound of both legs with complication ICD Code: S81.801A Status: Chronic (4) MRSA infection ICD Code: A49.02 Status: Acute Assessment and Plan 51 y/o female with a history of Chronic lower extremity wounds, Neurodermatitis , Chronic back pain and Fibromyalgia presented to the ED with complaints of multiple infected skin wounds. 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 Patient underwent left shoulder arthrotomy with irrigation and debridement as well. - ID consult pending. Continue Vancomycin for now. - Right great toe wound, suspect Osteomyelitis, status post Bone Scan negative for Osteomyelitis, okay to follow Dr. Segal as outpatient in his office. ESR >140, CRP 12.0 Right foot x ray reviewed and shows Large soft tissue ulcer with subcutaneous emphysema and findings suspicious for osteomyelitis first metatarsal head and possibly sesamoid. Status post Evaluation by Podiatry specialist Dr. Franky Connor status post Ceretec Labeled White blood cell scan that was negative for Osteomyelitis, recommended to continue antibiotics and follow as outpatient. - History of SLE - Patient would benefit from outpatient Rheumatology evaluation. - Hypokalemia - K+ 3.2 today. Repeat BMP in the AM. - chronic Iron deficiency anemia status post blood transfusion giving her Venofer for three days. get Iron level, ferritin and Transferrin. Full code. Problem Qualifiers (1) Osteomyelitis: Qualified Code: M86.9 - Osteomyelitis of right foot, unspecified type Tomasa Hilliard DO Jun 23, 2017 2:59 pm
[2017-06-23 16:00] VITALS: BP 93/50; PULSE 54; RESP 16; TEMP 95.5; O2SAT 98
--- NOTE | 2017-06-23 16:52 | PD.CONS ---
History of Present Illness Service Infectious disease Consult Requested By Dr Alissa Lock Reason for Consult Evaluate patient with osteomyelitis of the left shoulder, and septic right knee Primary Care Physician No Primary Care Physician Diagnoses: History of Present Illness Patient seen and examined. Records reviewed. Patient is a 51-year-old female, known to me from her previous hospitalization back in January 2017. During that hospitalization she had MRSA bacteremia with septic right knee, and subsequently developed septic left shoulder. All her cultures grew MRSA, and she underwent multiple surgical procedures to her right knee and her left shoulder. She was on IV vancomycin in the hospital, but when she was discharged she was switched over to IV Cubicin, because the dosing all of her vancomycin was every 8 hours. She completed a course of IV Cubicin last April 01 and according to the patient she was doing well. During that hospitalization she also was seen by Dr. Segal, and since she was discharged from the hospital patient has been going to the wound care center. She was put on some antibiotics in April, and there was a wound culture that had MRSA. She completed Levaquin. Patient presented this time complaining of one-week history of right knee swelling, and at that time she apparently had a new wound over her right knee. She also developed swelling in her left shoulder. Patient has been known sometimes to be noncompliant and would sometimes do her own wound care. When she percent to the hospital this time, patient was diagnosed to have infection in her right knee and left shoulder. She underwent her first surgery June 17, and culture grew MRSA. She had right knee arthrotomy, irrigation and debridement, and placement of antibiotic beads, as well as debridement of her left shoulder, and placement of antibiotic beads. She again went to surgery this morning, and had debridement of her left shoulder.. Infectious disease consultation has been requested by the orthopedic surgeon to assist in management of patient with osteomyelitis of the left shoulder, and septic right knee. HAs on and off low-grade fever since admission. Her WBC has been normal. Patient also was evaluated by vascular surgery and there was no evidence of vascular disease. Her sedimentation rate is greater than 140, C-reactive protein is 12. Patient also has wounds in her right foot, and podiatry is following the patient. There was a wound culture from the right foot that had probably dementia and MRSA. Review of Systems Constitutional: COMPLAINS OF: Fever, DENIES: Chills, Night Sweats Eyes: DENIES: Eye pain Ears, nose, mouth, throat: DENIES: Nasal discharge, Oral lesions, Ear Pain Respiratory: DENIES: Cough, Wheezing, Shortness of breath Cardiovascular: DENIES: Chest pain, Palpitations, Syncope Gastrointestinal: DENIES: Abdominal pain, Diarrhea, Nausea, Vomiting Genitourinary: DENIES: Urinary frequency, Dysuria Musculoskeletal: COMPLAINS OF: Joint pain, Muscle aches, Joint Swelling Integumentary: COMPLAINS OF: Rash, Breast skin changes Neurologic: COMPLAINS OF: Paresthesias, DENIES: Headache, Localized weakness Psychiatric: DENIES: Hallucinations Past Family Social History Allergies: Coded Allergies: *MDRO Multi-Drug Resistant Organism (Verified Adverse Reaction, Unknown, ) MRSA (finger wound) - 06/06/16; (synovial fluid) - 02/15/17; (leg)-02/19/17 & 05/18/17 MRSA PCR Screen POSITIVE -02/15/17 MRSA (shoulder, foot, knee) 06/16/17, (shoulder) 06/17/17 Past Medical History Sicca syndrome Psoriasis Alopecia Rodrigues phenomenon Vasculitis diagnosis back in 2013 History of MSSA sepsis and septic right wrist Fibromyalgia Sun sensitivity Past Surgical History Breast augmentation Abdominoplasty section Surgery on her right wrist and tubal ligation Debridement of lower extremity wounds Right tibial fracture repair Rhinoplasty Previous I and D on the right knee and left shoulder for infection Active Ordered Medications [place] Neurontin Dilaudid Zofran Zosyn Vancomycin Ambien Family History Negative Social History She smokes one and half pack per day of cigarette There was previous history of IV drug use, looks like last documented was in 2012 Denies alcohol abuse Physical Exam Vital Signs Vital Signs Date Time Temp Pulse Resp B/P Pulse Ox O2 Delivery O2 Flow Rate FiO2 06/23/17 12:00 96.8 69 16 92/54 96 06/23/17 10:30 60 17 114/56 98 Nasal Cannula 2 06/23/17 10:15 98.9 72 17 101/55 97 Nasal Cannula 2 06/23/17 08:00 96.6 54 16 93/51 98 06/23/17 04:00 99.6 69 20 99/52 96 06/23/17 00:00 97.5 62 20 93/51 100 06/22/17 20:00 97.3 58 20 96/50 98 Physical Exam GENERAL: Patient is a thin, well-developed female, awake and alert, not in respiratory distress. SKIN: Warm and dry. Has scattered scars from previous wounds in her UE and LE and trunk,chest. HEAD: Atraumatic. Normocephalic. No temporal wasting, or tenderness. EYES: [place] conjunctiva. No petechia or hemorrhage. Pupils equal, round and reactive to light. Extraocular movements full and intact. No scleral icterus. No injection or drainage. EARS, NOSE AND THROAT: Nose without bleeding or purulent nasal discharge. No sinus tenderness. Mucous membranes pink and moist. No oral lesions noted. No exudate. No oral thrush. NECK: Trachea midline. Supple and not tender, no meningeal signs CARDIOVASCULAR: Regular rate and rhythm. No murmurs, rubs or gallops heard RESPIRATORY: Clear to auscultation. Breath sounds equal bilaterally. No rales , wheezing or rhonchi BREAST: Has breast implants and she has scars in her breast bilaterally ABDOMEN: Soft, non-tender, nondistended. Bowel sounds present and normoactive. No guarding. No rebound. No organomegaly. Multiple scars present EXTREMITIES: The are large black eschars on her L leg, no evidence of infection. There is an embolic lesion on her L second toe. Dressing on her R foot and distal leg with brownish drainage on the dressing close to the exposed toes, with some odor. There is dressing dry and intact on her R knee, has very limited ROM on R knee. Has dry dressing on her L shoulder and there is a FLORENTIN drain uin place with bloody fluid, has severe pain with any movement. NEURO: Awake and alert. Cranial nerves grossly intact. Motor grossly within normal limits. PSYCHIATRIC: Normal affect, calm and cooperative. LINE: No evidence of infection Laboratory Laboratory Tests Test 06/23/17 05:20 Iron Level 24 Transferrin 120 Ferritin 152 Result Diagram: 06/21/17 1427 06/21/17 1003 Imaging RADIOLOGY STUDIES/FILMS REVIEWED Tumor Localization 06/18/17 0000 Signed Impressions: Service Date/Time: Sunday, June 18, 2017 12:27 - CONCLUSION: No evidence of osteomyelitis. Austin Palacios MD Aorta w/Runoff CTA 06/18/17 0000 Signed Impressions: Service Date/Time: Sunday, June 18, 2017 19:54 - CONCLUSION: 1. There is three-vessel runoff to the ankle bilaterally. There is no high grade stenosis identified. There is no aneurysm. 2. There is an exophytic mass upper pole right kidney measuring 3 cm with an average attenuation of 24 Hounsfield units, incompletely characterized on this study. 3. Right knee postsurgical changes and rim-enhancing fluid collections suspicious for abscess. Probable antibiotic pellets as described above. Small locule of air in the patellofemoral joint and lateral to the lateral femoral condyle within the subcutaneous tissues with soft tissue swelling seen. 4. Ulceration dorsal soft tissues of the right foot. Luigi Del Real MD Chest X-Ray 06/16/17 1757 Signed Impressions: Service Date/Time: Wednesday, June 16, 2017 19:31 - CONCLUSION: Destructive changes at the humeral head on the left with soft tissue swelling of the shoulder suspected. Basilar atelectasis versus linear scarring. Luigi Del Real MD Shoulder X-Ray 06/16/17 0000 Signed Impressions: Service Date/Time: Friday, June 16, 2017 21:06 - CONCLUSION: Soft tissue swelling and destructive changes left proximal humerus. Luigi Del Real MD Knee X-Ray 06/16/17 0000 Signed Impressions: Service Date/Time: Friday, June 16, 2017 19:34 - CONCLUSION: Knee joint effusion, severe osteoarthritis and postoperative changes proximal tibia. Age-indeterminate patellar fracture. Luigi Del Real MD Foot X-Ray 06/16/17 0000 Signed Impressions: Service Date/Time: Friday, June 16, 2017 19:37 - CONCLUSION: Large soft tissue ulcer with subcutaneous emphysema and findings suspicious for osteomyelitis first metatarsal head and possibly sesamoid. Luigi Del Real MD Assessment and Plan Assessment and Plan IMPRESSION Recurrent septic R knee, with MRSA Recurrent infection L shoulder with osteomyelitis Multiple skin lesions, etiology and has purplish lesion on her 2nd toe, ? vasculitis, CTA negative - she was diagnosed to have vasculitis in 2012, and that time received steroids, she also has low complement levels at that time, neg OSEI and RF - she was evaluated by rheum at that time, but dont think she followed with any assessment director on discharge Has diagnosis of Sicca syndrome RECOMMENDATION Follow new cultures Continue IV Vancomycin I have asked microbiology to do E-test on Vanco since TANIA is 2 Add Rifampin for synergy Check complement levels again Need to have her establish with rheum ?if biopsy would be helpful, though she dopes not have any new skin lesions; she has an ischemic lesion on her L second toe Wound care to wounds per podiatry I will follow along with you Thank you for this consultation Discussed Condition With Explained plan to the patient D/W Marquita More MD Jun 23, 2017 16:52
[2017-06-23] MEDS: LEVOFLOXACIN 750 MG TAB PO SCH (18:12)
[2017-06-23 20:00] VITALS: BP 110/58; PULSE 59; RESP 19; TEMP 95.6; O2SAT 99
[2017-06-23] MEDS: RIFAMPIN 150 MG CAP PO SCH (20:48)
[2017-06-24] VITALS (8 sets, daily range): BP systolic 97–163; BP diastolic 54–84; PULSE 50–95; RESP 16–20; TEMP 96.1–99.3; O2SAT 95–99
[2017-06-24] MEDS: ZOLPIDEM TARTRATE 5 MG TAB PO PRN ×2 (00:49→21:42)
[2017-06-24] MEDS: HYDROmorphone HCL 4 MG TAB PO PRN ×6 (00:50→21:39)
[2017-06-24 05:51] LABS: INDIRECT BILIRUBIN 0.3 MG/DL (0.0-0.8); TOTAL BILIRUBIN ADULT 0.5 MG/DL (0.2-1.0)
[2017-06-24 05:59] LABS: AUTOMATED NEUTROPHIL # 3.9 TH/MM3 (1.8-7.7); BASOPHIL % 0.5 % (0.0-2.0); EOSINOPHIL % 0.6 % (0.0-4.0); HEMATOCRIT 24.4 % (35.0-46.0); HEMO FLAGS DIFF FINAL; LYMPH % 16.9 % (9.0-44.0); LYMPHOCYTE # 0.8 TH/MM3 (1.0-4.8); MEAN CELL VOLUME 68.2 FL (80.0-100.0); MEAN CORPUSCULAR HGB CONC 32.3 % (32.0-36.0); MONO % 4.9 % (0.0-8.0); NEUT % 77.1 % (16.0-70.0); PLATELET COUNT 305 TH/MM3 (150-450); RED BLOOD COUNT 3.58 MIL/MM3 (4.00-5.30); RED CELL DISTRIBUTION WIDTH 24.8 % (11.6-17.2)
--- NOTE | 2017-06-24 07:37 | PD.ORT.PN ---
Subjective Subjective Remarks pain controlled Objective Vitals Vital Signs Date Time Temp Pulse Resp B/P Pulse Ox O2 Delivery O2 Flow Rate FiO2 06/24/17 04:00 99.3 95 20 163/84 96 06/24/17 00:00 96.6 58 19 97/56 99 06/23/17 20:00 95.6 59 19 110/58 99 06/23/17 16:00 95.5 54 16 93/50 98 06/23/17 12:00 96.8 69 16 92/54 96 06/23/17 10:30 60 17 114/56 98 Nasal Cannula 2 06/23/17 10:15 98.9 72 17 101/55 97 Nasal Cannula 2 06/23/17 08:00 96.6 54 16 93/51 98 I/O 06/23/17 06/23/17 06/23/17 06/24/17 06/24/17 06/24/17 06:59 14:59 22:59 06:59 14:59 22:59 Intake Total 450 ml 840 ml 240 ml 240 ml Output Total 0 ml 685 ml 570 ml 500 ml Balance 450 ml 155 ml -330 ml -260 ml Intake Oral 0 ml 240 ml 240 ml 240 ml IV Total 450 ml 300 ml Other 300 ml Output Urine Total 0 ml 600 ml 550 ml 500 ml Drainage Total 65 ml 20 ml Estimated Blood Loss 20 ml # Bowel Movements 0 3 3 Result Diagram: 06/24/177 06/24/17 0357 Imaging Last 24 hours Impressions Chest X-Ray 06/16/17 3790 Signed Impressions: Service Date/Time: Friday, June 16, 2017 19:31 - CONCLUSION: Destructive changes at the humeral head on the left with soft tissue swelling of the shoulder suspected. Basilar atelectasis versus linear scarring. Luigi Del Real MD Objective Remarks LUE: Clean dry dressings with drain of left shoulder. Intact sensation distally over the radial ulnar median nerve distributions with good capillary refills. Full extension and flexion all fingers RLE: Clean dry dressing intact right knee. Mild swelling around the knee. Decreased pain with range of motion. nvi Assessment & Plan Assessment and Plan 1) Septic Arthritis of left shoulder and right knee Postop day #1 status post irrigation and debridement left shoulder Postoperative day #7 right knee Continue IV antibiotics daily dressing changes PT/OT Weight-bear as tolerated Infectious disease for antibiotic recommendations. PICC line needs to be established and IV antibiotics arranged. Once IV antibiotics are arranged we can work toward home discharge with home health care Johnny Botello Jr. Jun 24, 2017 07:37
[2017-06-24] MEDS: SODIUM CHLORIDE 0.9% FLUSH 5 ML FLUSH IVF SCH ×2 (09:00→21:00)
[2017-06-24] MEDS: LEVOFLOXACIN 750 MG TAB PO SCH (09:08)
[2017-06-24] MEDS: GABAPENTIN 300 MG CAP PO SCH ×3 (09:08→17:41)
[2017-06-24] MEDS: RIFAMPIN 150 MG CAP PO SCH ×2 (09:08→21:38)
[2017-06-24] MEDS: IRON SUCROSE INJ 100 MG in SODIUM CHLORIDE 0.9% INJ 100 ML IV SCH (09:09)
[2017-06-24] MEDS ORDERED: PHARMACY ORDERED LAB ONE (09:45)
[2017-06-24] MEDS: VANCOMYCIN 1,000 MG/NS 250 ML IV SCH ×2 (10:30)
--- NOTE | 2017-06-24 12:44 | HHI.PR ---
Subjective Remarks Follow up for septic right knee and left shoulder osteomyelitis. Patient is doing well. She badly wants to go home. Denies any acute concerns. Objective Vitals Vital Signs Date Time Temp Pulse Resp B/P Pulse Ox O2 Delivery O2 Flow Rate FiO2 06/24/17 12:00 96.5 50 16 108/55 99 06/24/17 08:00 96.1 56 16 98/54 99 06/24/17 04:00 99.3 95 20 163/84 96 06/24/17 00:00 96.6 58 19 97/56 99 06/23/17 20:00 95.6 59 19 110/58 99 06/23/17 16:00 95.5 54 16 93/50 98 I/O 06/23/17 06/23/17 06/23/17 06/24/17 06/24/17 06/24/17 06:59 14:59 22:59 06:59 14:59 22:59 Intake Total 450 ml 840 ml 240 ml 490 ml Output Total 0 ml 685 ml 570 ml 500 ml Balance 450 ml 155 ml -330 ml -10 ml Intake Oral 0 ml 240 ml 240 ml 240 ml IV Total 450 ml 300 ml 250 ml Other 300 ml Output Urine Total 0 ml 600 ml 550 ml 500 ml Drainage Total 65 ml 20 ml Estimated Blood Loss 20 ml # Bowel Movements 0 3 3 Result Diagram: 06/24/17 0357 06/24/17 0357 Imaging Last Impressions Chest X-Ray 06/24/17 0000 Signed Impressions: Service Date/Time: May 15:27 - CONCLUSION: 1. Parenchymal scarring or atelectasis in the left lower lung field. Lungs are otherwise clear. 2. Right upper cavity PICC line with the tip projecting over the central venous system. 3. I believe patient has bilateral breast augmentation. There is asymmetry of the implants, however with the left larger than the right. Matthieu Cook MD Tumor Localization 06/18/17 0000 Signed Impressions: Service Date/Time: Sunday, June 18, 2017 12:27 - CONCLUSION: No evidence of osteomyelitis. Austin Palacios MD Aorta w/Runoff CTA 06/18/17 0000 Signed Impressions: Service Date/Time: Sunday, June 18, 2017 19:54 - CONCLUSION: 1. There is three-vessel runoff to the ankle bilaterally. There is no high grade stenosis identified. There is no aneurysm. 2. There is an exophytic mass upper pole right kidney measuring 3 cm with an average attenuation of 24 Hounsfield units, incompletely characterized on this study. 3. Right knee postsurgical changes and rim-enhancing fluid collections suspicious for abscess. Probable antibiotic pellets as described above. Small locule of air in the patellofemoral joint and lateral to the lateral femoral condyle within the subcutaneous tissues with soft tissue swelling seen. 4. Ulceration dorsal soft tissues of the right foot. Luigi Del Real MD Shoulder X-Ray 06/16/17 0000 Signed Impressions: Service Date/Time: Friday, June 16, 2017 21:06 - CONCLUSION: Soft tissue swelling and destructive changes left proximal humerus. Luigi Del Real MD Knee X-Ray 06/16/17 0000 Signed Impressions: Service Date/Time: Wednesday, June 16, 2017 19:34 - CONCLUSION: Knee joint effusion, severe osteoarthritis and postoperative changes proximal tibia. Age-indeterminate patellar fracture. Luigi Del Real MD Foot X-Ray 06/16/17 0000 Signed Impressions: Service Date/Time: Wednesday, June 16, 2017 19:37 - CONCLUSION: Large soft tissue ulcer with subcutaneous emphysema and findings suspicious for osteomyelitis first metatarsal head and possibly sesamoid. Luigi Del Real MD Objective Remarks GENERAL: Alert, NAD. SKIN: Warm and dry. HEAD: Normocephalic. EYES: No scleral icterus. No injection or drainage. NECK: Supple, trachea midline. No JVD or lymphadenopathy. CARDIOVASCULAR: Regular rate and rhythm without murmurs, gallops, or rubs. RESPIRATORY: Breath sounds equal bilaterally. No accessory muscle use. GASTROINTESTINAL: Abdomen soft, non-tender, nondistended. MUSCULOSKELETAL: No cyanosis, or edema. Right great toe ulcer dressed, Left leg multiple necrotic ulcers. Left shoulder and Right knee dressed. BACK: Nontender without obvious deformity. No CVA tenderness. Procedures 06/17/2017 Right knee arthrotomy with irrigation and debridement and placement of antibiotic beads, irrigation debridement of left shoulder and humerus with placement of antibiotic beads 06/17/2017 Left shoulder arthrotomy with irrigation and debridement A/P Problem List: (1) Abscess of left shoulder ICD Code: L02.414 Status: Acute (2) Osteomyelitis ICD Code: M86.9 Status: Acute (3) Open wound of both legs with complication ICD Code: S81.801A Status: Chronic (4) MRSA infection ICD Code: A49.02 Status: Acute Assessment and Plan 51 y/o female with a history of Chronic lower extremity wounds, Neurodermatitis , Chronic back pain and Fibromyalgia presented to the ED with complaints of multiple infected skin wounds. 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 Patient underwent left shoulder arthrotomy with irrigation and debridement as well. - ID consult pending. Continue Vancomycin and Rifampin per ID - PICC line ordered after discussing with ID. - Right great toe wound, suspect Osteomyelitis, status post Bone Scan negative for Osteomyelitis, okay to follow Dr. Segal as outpatient in his office. ESR >140, CRP 12.0 Right foot x ray reviewed and shows Large soft tissue ulcer with subcutaneous emphysema and findings suspicious for osteomyelitis first metatarsal head and possibly sesamoid. Status post Evaluation by Podiatry specialist Dr. Franky Connor status post Ceretec Labeled White blood cell scan that was negative for Osteomyelitis, recommended to continue antibiotics and follow as outpatient. - History of SLE - Patient would benefit from outpatient Rheumatology evaluation. - Hypokalemia - K+ 3.0 today. KCL 40meq once and then 20meq BID X 3 days. - chronic Iron deficiency anemia status post blood transfusion giving her Venofer for three days. get Iron level, ferritin and Transferrin. Full code. Discharge plan: If okay with ID, possible discharge home with home health on . Problem Qualifiers (1) Osteomyelitis: Qualified Code: M86.9 - Osteomyelitis of right foot, unspecified type Tomasa Hilliard DO Jun 24, 2017 12:44 pm
--- NOTE | 2017-06-24 14:23 | HHI.IDPN ---
Subjective Subjective Remarks Patient is a 51-year-old female, known to me from her previous hospitalization back in January 2017. During that hospitalization she had MRSA bacteremia with septic right knee, and subsequently developed septic left shoulder. All her cultures grew MRSA, and she underwent multiple surgical procedures to her right knee and her left shoulder. She was on IV vancomycin in the hospital, but when she was discharged she was switched over to IV Cubicin, because the dosing all of her vancomycin was every 8 hours. She completed a course of IV Cubicin last April 01 and according to the patient she was doing well. During that hospitalization she also was seen by Dr. Segal, and since she was discharged from the hospital patient has been going to the wound care center. She was put on some antibiotics in April, and there was a wound culture that had MRSA. She completed Levaquin. Patient presented this time complaining of one-week history of right knee swelling, and at that time she apparently had a new wound over her right knee. She also developed swelling in her left shoulder. Patient has been known sometimes to be noncompliant and would sometimes do her own wound care. When she percent to the hospital this time, patient was diagnosed to have infection in her right knee and left shoulder. She underwent her first surgery June 17, and culture grew MRSA. She had right knee arthrotomy, irrigation and debridement, and placement of antibiotic beads, as well as debridement of her left shoulder, and placement of antibiotic beads. She again went to surgery this morning, and had debridement of her left shoulder.. Infectious disease consultation has been requested by the orthopedic surgeon to assist in management of patient with osteomyelitis of the left shoulder, and septic right knee. HAs on and off low-grade fever since admission. Her WBC has been normal. Patient also was evaluated by vascular surgery and there was no evidence of vascular disease. Her sedimentation rate is greater than 140, C-reactive protein is 12. Patient also has wounds in her right foot, and podiatry is following the patient. There was a wound culture from the right foot that had probably dementia and MRSA. Notes reviewed Anxious to go home Patient was told by ortho that they are only waiting for ID for D/C Patient however was only seen yesterday in consultation (she was admitted 06/16) and her wound C/S from 06/17 has MRSA with Vanco TANIA 2 Further testing needs to be done to determine what Abx to send her home with She also has FLORENTIN drain in place and I assume that this will need to be D/C before D/C PICC has been ordered D/W Dr Segal - wound care orders have been placed; patient also sometimes get lost to follow-up in [facility] Antibiotics Vancomycin Levaquin Past Medical History Sicca syndrome Psoriasis Alopecia Rodrigues phenomenon Vasculitis diagnosis back in 2013 History of MSSA sepsis and septic right wrist Fibromyalgia Sun sensitivity Past Surgical History Breast augmentation Abdominoplasty section Surgery on her right wrist and tubal ligation Debridement of lower extremity wounds Right tibial fracture repair Rhinoplasty Previous I and D on the right knee and left shoulder for infection Allergies: Coded Allergies: *MDRO Multi-Drug Resistant Organism (Verified Adverse Reaction, Unknown, ) MRSA (finger wound) - 06/06/16; (synovial fluid) - 02/15/17; (leg)-02/19/17 & 05/18/17 MRSA PCR Screen POSITIVE -02/15/17 MRSA (shoulder, foot, knee) 06/16/17, (shoulder) 06/17/17 Objective . Vital Signs Date Time Temp Pulse Resp B/P Pulse Ox O2 Delivery O2 Flow Rate FiO2 06/24/17 12:00 96.5 50 16 108/55 99 06/24/17 08:00 96.1 56 16 98/54 99 06/24/17 04:00 99.3 95 20 163/84 96 06/24/17 00:00 96.6 58 19 97/56 99 06/23/17 20:00 95.6 59 19 110/58 99 06/23/17 16:00 95.5 54 16 93/50 98 06/23/17 06/23/17 06/24/17 14:59 22:59 06:59 Intake Total 840 ml 240 ml 490 ml Output Total 685 ml 570 ml 500 ml Balance 155 ml -330 ml -10 ml Intake Oral 240 ml 240 ml 240 ml IV Total 300 ml 250 ml Other 300 ml Output Urine Total 600 ml 550 ml 500 ml Drainage Total 65 ml 20 ml Estimated Blood Loss 20 ml # Bowel Movements 0 3 3 . Laboratory Tests Test 06/24/17 03:57 White Blood Count 5.0 TH/MM3 Red Blood Count 3.58 MIL/MM3 Hemoglobin 7.9 GM/DL Hematocrit 24.4 % Mean Corpuscular Volume 68.2 FL Mean Corpuscular Hemoglobin 22.0 PG Mean Corpuscular Hemoglobin 32.3 % Concent Red Cell Distribution Width 24.8 % Platelet Count 305 TH/MM3 Mean Platelet Volume 6.6 FL Neutrophils (%) (Auto) 77.1 % Lymphocytes (%) (Auto) 16.9 % Monocytes (%) (Auto) 4.9 % Eosinophils (%) (Auto) 0.6 % Basophils (%) (Auto) 0.5 % Neutrophils # (Auto) 3.9 TH/MM3 Lymphocytes # (Auto) 0.8 TH/MM3 Monocytes # (Auto) 0.2 TH/MM3 Eosinophils # (Auto) 0.0 TH/MM3 Basophils # (Auto) 0.0 TH/MM3 CBC Comment DIFF FINAL Differential Comment Laboratory Tests Test 06/23/17 06/24/17 05:20 03:57 Iron Level 24 MCG/DL Transferrin 120 MG/DL Ferritin 152 NG/ML Sodium Level 138 MEQ/L Potassium Level 3.0 MEQ/L Chloride Level 105 MEQ/L Carbon Dioxide Level 23.0 MEQ/L Anion Gap 10 MEQ/L Blood Urea Nitrogen 11 MG/DL Creatinine 0.62 MG/DL Estimat Glomerular Filtration 101 ML/MIN Rate Random Glucose 109 MG/DL Calcium Level 8.0 MG/DL Total Bilirubin 0.5 MG/DL Direct Bilirubin 0.2 MG/DL Indirect Bilirubin 0.3 MG/DL Aspartate Amino Transf 8 U/L (AST/SGOT) Alanine Aminotransferase 7 U/L (ALT/SGPT) Alkaline Phosphatase 171 U/L Total Protein 6.4 GM/DL Albumin 1.6 GM/DL Physical Exam GENERAL: Patient is a thin, well-developed female, awake and alert, not in respiratory distress. SKIN: Warm and dry. Has scattered scars from previous wounds in her UE and LE and trunk,chest. HEAD: Atraumatic. Normocephalic. No temporal wasting, or tenderness. EYES: [place] conjunctiva. No petechia or hemorrhage. Pupils equal, round and reactive to light. Extraocular movements full and intact. No scleral icterus. No injection or drainage. EARS, NOSE AND THROAT: Nose without bleeding or purulent nasal discharge. No sinus tenderness. Mucous membranes pink and moist. No oral lesions noted. NECK: Trachea midline. Supple and not tender, no meningeal signs CARDIOVASCULAR: Regular rate and rhythm. No murmurs, rubs or gallops heard RESPIRATORY: Clear to auscultation. Breath sounds equal bilaterally. No rales , wheezing or rhonchi BREAST: Has breast implants and she has scars in her breast bilaterally ABDOMEN: Soft, non-tender, nondistended. Bowel sounds present and normoactive. No guarding. No rebound. No organomegaly. Multiple scars present EXTREMITIES: The are large black eschars on her L leg, no evidence of infection. There is an embolic lesion on her L second toe. Dressing on her R foot and distal leg dry and intact. There is dressing dry and intact on her R knee, has very limited ROM on R knee. Has dry dressing on her L shoulder and there is a FLORENTIN drain in place with bloody fluid, has severe pain with any movement. NEURO: Awake and alert. Cranial nerves grossly intact. Motor grossly within normal limits. PSYCHIATRIC: Normal affect, calm and cooperative. LINE: No evidence of infection Assessment & Plan Remarks IMPRESSION Recurrent septic R knee, with MRSA Recurrent infection L shoulder with osteomyelitis, with MRSA MRSA Vanco TANIA - 2 (+) Wound C/S R foot - Providencia and MRSA Multiple skin lesions, etiology and has purplish lesion on her 2nd toe, ? vasculitis, CTA negative - she was diagnosed to have vasculitis in 2012, and that time received steroids, she also has low complement levels at that time, neg OSEI and RF - she was evaluated by rheum at that time, but dont think she followed with any it project coordinator on discharge Has diagnosis of Sicca syndrome RECOMMENDATION Continue IV Vanco - will increase dose since trough only 13 Continue Rifampin - synergy for MRSA I have asked microbiology to do E-test on Vanco since TANIA is 2 Need to have her establish with rheum Wound care to wounds per podiatry PICC D/W RN Spoke with Marquita Frankel MD Jun 24, 2017 14:23 Marquita Ferreira MD Jun 24, 2017 14:23
--- NOTE | 2017-06-24 15:53 | RADRPT ---
EXAM DATE/TIME: 06/24/2017 15:27 [facility] COMPARISON: CHEST SINGLE AP, June 16, 2017, 19:31. INDICATIONS : PICC line placement MEDICAL HISTORY : Raynauds, fibromyalgia, vasculitis, psoriasis, alopecia, sicca syndrome. SURGICAL HISTORY : section. ENCOUNTER: Subsequent ACUITY: 2 weeks PAIN SCORE: 0/10 LOCATION: chest FINDINGS: A single view of the chest demonstrates the lungs to be symmetrically aerated with some linear scarri ng or atelectasis in the left lower lung field. No confluent infiltrate. I believe the patient has bi lateral breast augmentations however, the right implant is much smaller than the left and may show so me capsular calcification. Interval placement of a right upper cavity PICC line with the tip projecti ng over the central venous system. CONCLUSION: 1. Parenchymal scarring or atelectasis in the left lower lung field. Lungs are otherwise clear. 2. Right upper cavity PICC line with the tip projecting over the central venous system. 3. I believe patient has bilateral breast augmentation. There is asymmetry of the implants, however w ith the left larger than the right. Mathtieu Cook MD on June 24, 2017 at 15:37 Board Certified Radiologist. This report was verified electronically.
[2017-06-24] MEDS ORDERED: POTASSIUM CHLORIDE 10 MEQ CAP PO ONE (17:15)
[2017-06-24] MEDS ORDERED: SODIUM CHLORIDE 0.9% FLUSH 10 ML FLUSH IV FLUSH PRN (17:30)
[2017-06-24] MEDS: POTASSIUM CHLORIDE 20 MEQ CONTROLLED RELEASE TAB PO SCH (21:38)
[2017-06-24] MEDS: VANCOMYCIN 1,500 MG/NS 500 ML IV SCH ×2 (21:39)
[2017-06-24] MEDS ORDERED: VANCOMYCIN INJ 1,500 MG in SODIUM CHLOR 0.9% 250 ML INJ 250 ML IV SCH (22:00)
[2017-06-25] MEDS: HYDROmorphone HCL 4 MG TAB PO PRN ×4 (01:32→13:42)
[2017-06-25 04:14] VITALS: BP 112/58; PULSE 73; RESP 16; TEMP 96.7; O2SAT 95
[2017-06-25] MEDS ORDERED: HYDR-3288 PO (07:05)
--- NOTE | 2017-06-25 07:07 | HHI.FF ---
Face to Face Verification Diagnosis: (1) Abscess of left shoulder Occupational Therapy Left UE Range of Motion: Passive ROM Nursing Nursing: Dressing changes, Other (PICC line with IV antibiotics) Dressing Changes: Nasir wrap, Xeroform, Coverderm/Primapore Additional Instructions Xeroform 4 x 4's and Nasir wrap over right knee and Xeroform and Primapore over left shoulder I have seen patient Jamee Mclaughlin on 06/25/17. My clinical findings support the need for the requested home health care services because: Limited ability to care for self I certify that my clinical findings support that this patient is homebound because: Post-op weakness Johnny Botello Jr. Jun 25, 2017 07:07
--- NOTE | 2017-06-25 07:11 | PD.ORT.PN ---
Subjective Subjective Remarks pain controlled Objective Vitals Vital Signs Date Time Temp Pulse Resp B/P Pulse Ox O2 Delivery O2 Flow Rate FiO2 06/25/17 04:14 96.7 73 16 112/58 95 06/24/17 23:53 96.7 66 17 120/56 95 06/24/17 20:04 97.0 70 17 110/56 95 06/24/17 19:30 60 06/24/17 16:00 96.4 54 16 112/65 99 06/24/17 12:00 96.5 50 16 108/55 99 06/24/17 08:00 96.1 56 16 98/54 99 I/O 06/24/17 06/24/17 06/24/17 06/25/17 06/25/17 06/25/17 07:00 15:00 23:00 07:00 15:00 23:00 Intake Total 490 ml 1680 ml 480 ml 880 ml Output Total 500 ml 15 ml 1000 ml 810 ml Balance -10 ml 1665 ml -520 ml 70 ml Intake Oral 240 ml 1680 ml 480 ml 380 ml IV Total 250 ml 500 ml Output Urine Total 500 ml 1000 ml 800 ml Drainage Total 15 ml 10 ml # Voids 6 # Bowel Movements 3 0 Result Diagram: 06/24/17 0357 06/25/17 0535 Imaging Last 24 hours Impressions Chest X-Ray 06/16/17 1757 Signed Impressions: Service Date/Time: Friday, June 16, 2017 19:31 - CONCLUSION: Destructive changes at the humeral head on the left with soft tissue swelling of the shoulder suspected. Basilar atelectasis versus linear scarring. Luigi Del Real MD Objective Remarks LUE: Clean dry dressings with drain of left shoulder. Incision well approximated with sutures in position. Intact sensation distally over the radial ulnar median nerve distributions with good capillary refills. Full extension and flexion all fingers RLE: Clean dry dressing intact right knee. Mild swelling around the knee. Decreased pain with range of motion. nvi Assessment & Plan Assessment and Plan 1) Septic Arthritis of left shoulder and right knee Postop day #2 status post irrigation and debridement left shoulder Postoperative day #8 right knee Continue IV antibiotics daily dressing changes PT/OT Weight-bear as tolerated Remove drain left shoulder POD 3 (this may be done with home health care if discharged today) Infectious disease for antibiotic recommendations. PICC line needs to be established and IV antibiotics arranged. Once IV antibiotics are arranged we can work toward home discharge with home health care Follow-up with Dr. Mathis or PA in 2 weeks Johnny Botello Jr. Jun 25, 2017 07:11
[2017-06-25 08:00] VITALS: BP 111/58; PULSE 66; RESP 16; TEMP 98.5; O2SAT 100
[2017-06-25] MEDS: SODIUM CHLORIDE 0.9% FLUSH 5 ML FLUSH IVF SCH (09:00)
[2017-06-25] MEDS ORDERED: SODIUM CHLORIDE 0.9% FLUSH 10 ML FLUSH IV FLUSH SCH (09:00)
[2017-06-25] MEDS: LEVOFLOXACIN 750 MG TAB PO SCH (09:36)
[2017-06-25] MEDS: POTASSIUM CHLORIDE 20 MEQ CONTROLLED RELEASE TAB PO SCH (09:36)
[2017-06-25] MEDS: GABAPENTIN 300 MG CAP PO SCH ×2 (09:36→12:57)
[2017-06-25] MEDS: RIFAMPIN 150 MG CAP PO SCH (09:36)
[2017-06-25] MEDS: VANCOMYCIN 1,500 MG/NS 500 ML IV SCH ×2 (09:46)
--- NOTE | 2017-06-25 10:38 | PD.POD ---
Subjective Podiatric Problems Necrotic ulcerations bilaterally with exposed tendon of the right hallux Pain scale used: 0-10 numeric scale Pain score: 7 Remarks 51-year-old female who I have seen on her last admission as well as a few follow -up at wound care Center.. Patient has not come to the wound center for the last few weeks. She was admitted with an abscess of the knee and shoulder. Radiographs showed possible bony erosion of the head of the first metatarsal right foot. Ceretec labeled white blood cell scan shows no osteomyelitis. CTA with runoff showed good flow to the ankle. Patient is ready for discharge from an orthopedic and medical standpoint. Past Med/Surg/Social History Past Medical History PFSH Reviewed: Yes Musculoskeletal: REPORTS HX OF: Fractures (tibia), Other musculoskeletal hx ( septic right knee) Integumentary: REPORTS HX OF: Other integumentary hx Psychiatric: REPORTS HX OF: Depression Disabilities: REPORTS HX OF: Vision deficit (glasses) Past Surgical History Gastrointestinal: DENIES HX OF: Colectomy, total Gynecologic: REPORTS HX OF: delivery, DENIES HX OF: Hysterectomy Integumentary: REPORTS HX OF: Other integumentary surg Breast: REPORTS HX OF: Other breast surgery (implants), DENIES HX OF: Mastectomy, bilateral, Mastectomy, left, Mastectomy, right Social History Smoking Status: Current Every Day Smoker Review of Systems Notes No changes in her 14 point review of systems exam since she was last seen Objective Vital Signs Vital Signs Date Time Temp Pulse Resp B/P Pulse Ox O2 Delivery O2 Flow Rate FiO2 06/25/17 08:00 98.5 66 16 111/58 100 06/25/17 04:14 96.7 73 16 112/58 95 06/24/17 23:53 96.7 66 17 120/56 95 06/24/17 20:04 97.0 70 17 110/56 95 06/24/17 19:30 60 06/24/17 16:00 96.4 54 16 112/65 99 06/24/17 12:00 96.5 50 16 108/55 99 Coded Allergies: *MDRO Multi-Drug Resistant Organism (Verified Adverse Reaction, Unknown, ) MRSA (finger wound) - 06/06/16; (synovial fluid) - 02/15/17; (leg)-02/19/17 & 05/18/17 MRSA PCR Screen POSITIVE -02/15/17 MRSA (shoulder, foot, knee) 06/16/17, (shoulder) 06/17/17 Medications and IVs Current Medications Sodium Chloride 1,000 ml @ 999 mls/hr BOLUS ONCE IV Last administered on 06/16 20:54; Start 06/16/17 at 18:00; Stop 06/16/17 at 19:00; Status DC Vancomycin HCl 1000 mg/Sodium Chloride 250 ml @ 250 mls/hr ONCE ONCE IV Last administered on 06/16/17 21:47; Start 06/16/17 at 20:15; Stop 06/16/17 at 21:14 ; Status DC Piperacillin Sod/ Tazobactam Sod (Zosyn 4.5 Gm Premix) 100 ml @ 200 mls/hr ONCE ONCE IV Last administered on 06/16/17 23:58; Start 06/16/17 at 20:15; Stop 06/16/17 at 20:46; Status DC Sodium Chloride (NS Flush) 2 ml UNSCH PRN IV FLUSH FLUSH AFTER USING IV ACCESS ; Start 06/16/17 at 20:45; Stop 06/17/17 at 14:25; Status DC Sodium Chloride (NS Flush) 2 ml BID IV FLUSH Last administered on 06/16/17 21: 46; Start 06/16/17 at 21:00; Stop 06/17/17 at 14:25; Status DC Naloxone HCl (Narcan Inj) 0.4 mg UNSCH PRN IV SEE LABEL COMMENTS; Start at 20:45 Ketorolac Tromethamine (Toradol Inj) 30 mg ONCE ONCE IV PUSH Last administered on 06/16/17 22:23; Start 06/16/17 at 22:00; Stop 06/16/17 at 22:01 ; Status DC Hydromorphone HCl 1 mg 1 mg ONCE ONCE IV PUSH Last administered on 06/16/17 22:24; Start 06/16/17 at 22:30; Stop 06/16/17 at 22:31; Status DC Pharmacy Profile Note 0 ml @ 0 mls/hr UNSCH OTHER ; Start 06/16/17 at 23:45 Piperacillin Sod/ Tazobactam Sod (Zosyn 4.5 Gm Premix) 100 ml @ 200 mls/hr Q6H IV Last administered on 06/23/17 11:26; Start 06/17/17 at 07:00; Stop at 17:14; Status DC Hydromorphone HCl (Dilaudid Pf Inj) 0.5 mg Q3H PRN IV PUSH pain >5 Last administered on 06/21/17 07:40; Start 06/17/17 at 00:00; Stop 06/21/17 at 10:36 ; Status DC Pneumococcal Polyvalent Vaccine 25 mcg 25 mcg ONCE ONCE IM Last administered on 06/17/17 09:30; Start 06/17/17 at 09:00; Stop 06/17/17 at 09:01; Status DC Sodium Chloride 1,000 ml @ 125 mls/hr Q8H IV ; Start 06/17/17 at 09:00; Stop at 09:08; Status DC Sodium Chloride 500 ml @ 500 mls/hr BOLUS ONCE IV Last administered on 09:29; Start 06/17/17 at 08:45; Stop 06/17/17 at 09:44; Status DC Sodium Chloride 1,000 ml @ 125 mls/hr Q8H IV Last administered on 06/21/17 09 :14; Start 06/17/17 at 09:00; Stop 06/21/17 at 10:36; Status DC Vancomycin HCl/ Sodium Chloride (Vancomycin Inj/ NS 250 ml Inj) 250 ml @ 250 mls/hr Q12H IV Last administered on 06/24/17 10:30; Start 06/17/17 at 10:00; Stop 06/24/17 at 14:28; Status DC Vancomycin HCl (Vancomycin Inj) 1,000 mg STK-MED ONCE .ROUTE Last administered on 06/17/17 11:58; Start 06/17/17 at 09:52; Stop 06/17/17 at 09:53; Status DC Cefazolin Sodium (Ancef Inj) 1,000 mg STK-MED ONCE .ROUTE ; Start 06/17/17 at 09 :52; Stop 06/17/17 at 09:53; Status DC Gentamicin Sulfate 240 mg 240 mg STK-MED ONCE .ROUTE Last administered on 11:39; Start 06/17/17 at 09:52; Stop 06/17/17 at 09:53; Status DC Sodium Chloride (NS 250 ml Inj) 250 ml @ As Directed STK-MED ONCE .ROUTE Last administered on 06/17/17 11:58; Start 06/17/17 at 09:52; Stop 06/17/17 at 09:53 ; Status DC Miscellaneous Information SPECIFIC LAB TO BE ... ONCE ONCE .XX Last administered on 06/18/17 09:24; Start 06/18/17 at 09:45; Stop 06/18/17 at 09:46 ; Status DC Ketamine HCl (Ketalar Inj) 500 mg STK-MED ONCE .ROUTE ; Start 06/17/17 at 11:09 ; Stop 06/17/17 at 11:10; Status DC IV Flush (NS Flush) 2 ml UNSCH PRN IVF FLUSH AFTER USING IV ACCESS; Start 06/17 at 12:30 IV Flush (NS Flush) 2 ml BID IVF Last administered on 06/25/17 09:00; Start at 21:00 Miscellaneous Information (Post-op Orders (for Pharmacy)) STAT ONCE XX ; Start 06/17/17 at 12:30; Stop 06/17/17 at 14:26; Status DC Acetaminophen/ Hydrocodone Bitart ([place] 7.5-325 Mg) 1 tab Q3H PRN PO PAIN 3< 10 Last administered on 06/23/17 07:30; Start 06/17/17 at 12:30 Ondansetron HCl (Zofran Inj) 4 mg Q4H PRN IVP NAUSEA OR VOMITING; Start at 12:30 Diphenhydramine HCl (Benadryl) 25 mg Q6H PRN PO ITCHING; Start 06/17/17 at 12: 30 Morphine Sulfate (Morphine Inj) 4 mg Q3H PRN IV PUSH break thru pain Last administered on 06/21/17 09:06; Start 06/17/17 at 12:30; Stop 06/21/17 at 10:36 ; Status DC Fentanyl Citrate (fentaNYL INJ) 100 mcg STK-MED ONCE .ROUTE ; Start 06/17/17 at 13:10; Stop 06/17/17 at 13:11; Status DC Morphine Sulfate (*morphine INJ PERIprocedure ONLY) 8 mg STK-MED ONCE .ROUTE Last administered on 06/17/17 13:22; Start 06/17/17 at 13:22; Stop 06/17/17 at 13:31; Status DC Morphine Sulfate 8 mg 8 mg STK-MED ONCE .ROUTE Last administered on 06/17/17 13:40; Start 06/17/17 at 13:40; Stop 06/17/17 at 13:41; Status DC Sodium Chloride (NS 250 ml Inj) 250 ml @ 15 mls/hr ONCE ONCE IV Last administered on 06/17/17 15:30; Start 06/17/17 at 15:30; Stop 06/18/17 at 08:09 ; Status DC Acetaminophen (Tylenol) 650 mg Q4H PRN PO SEE LABEL COMMENTS; Start 06/17/17 at 15:30; Stop 06/17/17 at 19:31; Status DC Furosemide (Lasix Inj) 20 mg ONCE ONCE IV Last administered on 06/17/17 17:51 ; Start 06/17/17 at 15:30; Stop 06/17/17 at 16:55; Status DC Miscellaneous Information ALL NURSING DEPARTME... UNSCH PRN .XX SEE LABEL COMMENTS; Start 06/17/17 at 13:00; Stop 06/18/17 at 12:59; Status DC Potassium Chloride 100 ml @ 50 mls/hr Q2H IV Last administered on 06/18/17 14 :28; Start 06/18/17 at 13:15; Stop 06/18/17 at 17:14; Status DC Magnesium Sulfate/ Dextrose (Magnesium Sulfate 1 Gm Premix) 100 ml @ 100 mls/ hr Q1H IV ; Start 06/18/17 at 13:15; Stop 06/18/17 at 14:33; Status DC Miscellaneous Information SPECIFIC LAB TO BE EMILY... ONCE ONCE .XX Last administered on 06/20/17 09:28; Start 06/20/17 at 09:45; Stop 06/20/17 at 09:46 ; Status DC Magnesium Sulfate/ Dextrose (Magnesium Sulfate 1 Gm Premix) 100 ml @ 100 mls/ hr Q1H IV Last administered on 06/18/17 18:33; Start 06/18/17 at 17:00; Stop 06/18/17 at 18:59; Status DC Iohexol (Omnipaque 350 Inj) 100 ml STK-MED ONCE IV Last administered on 20:02; Start 06/18/17 at 20:02; Stop 06/18/17 at 20:05; Status DC Zolpidem Tartrate (Ambien) 5 mg HS PRN PO INSOMNIA Last administered on 21:42; Start 06/20/17 at 10:30 Gabapentin (Neurontin) 300 mg TID PO Last administered on 06/25/17 09:36; Start 06/20/17 at 13:00 Hydromorphone HCl (Dilaudid) 4 mg Q4H PRN PO PAIN SCALE 6 TO 10 Last administered on 06/25/17 09:36; Start 06/21/17 at 11:00 Lactulose (Lactulose Liq) 30 ml ONCE ONCE PO Last administered on 06/21/17 11 :22; Start 06/21/17 at 11:00; Stop 06/21/17 at 11:01; Status DC Glycerin (Glycerin Adult Supp) 2 gm ONCE ONCE RECTAL ; Start 06/21/17 at 11:00 ; Stop 06/21/17 at 11:01; Status DC Mineral Oil (Fleet Mineral Oil Enema) 118 ml DAILY PRN RECTAL CONSTIPATION; Start 06/21/17 at 11:00 Potassium Chloride (KCl) 40 meq ONCE ONCE PO ; Start 06/22/17 at 12:15; Stop at 12:16; Status DC Potassium Chloride 40 meq 40 meq ONCE ONCE PO Last administered on 06/22/17 14:01; Start 06/22/17 at 15:00; Stop 06/22/17 at 15:01; Status DC Magnesium Sulfate/ Dextrose 100 ml @ 100 mls/hr Q1H IV Last administered on 14:01; Start 06/22/17 at 12:15; Stop 06/22/17 at 13:14; Status DC Iron Sucrose/ Sodium Chloride (Venofer Inj/NS Inj) 105 ml @ 105 mls/hr DAILY IV Last administered on 06/24/17 09:09; Start 06/22/17 at 16:00; Stop at 09:59; Status DC Gentamicin Sulfate (Gentamicin Inj) 240 mg STK-MED ONCE .ROUTE Last administered on 06/23/17 09:22; Start 06/23/17 at 09:02; Stop 06/23/17 at 09:03 ; Status DC Famotidine (Pepcid Inj) 20 mg STK-MED ONCE .ROUTE Last administered on 09:13; Start 06/23/17 at 09:14; Stop 06/23/17 at 09:15; Status DC Morphine Sulfate (*morphine INJ PERIprocedure ONLY) 8 mg STK-MED ONCE .ROUTE Last administered on 06/23/17 10:23; Start 06/23/17 at 10:23; Stop 06/23/17 at 10:24; Status DC Fentanyl Citrate (fentaNYL INJ) 250 mcg STK-MED ONCE .ROUTE ; Start 06/23/17 at 10:23; Stop 06/23/17 at 10:24; Status DC Morphine Sulfate (Morphine Inj) 8 mg STK-MED ONCE .ROUTE ; Start 06/23/17 at 10: 24; Stop 06/23/17 at 10:25; Status DC Midazolam HCl (Versed Inj) 2 mg STK-MED ONCE .ROUTE ; Start 06/23/17 at 10:24; Stop 06/23/17 at 10:25; Status DC Miscellaneous Information ALL NURSING DEPARTME... UNSCH PRN .XX SEE LABEL COMMENTS; Start 06/23/17 at 10:12; Stop 06/24/17 at 10:11; Status DC Miscellaneous Information SPECIFIC LAB TO BE DRAWN:VANCOMYCIN TROUGH DATE TO... ONCE ONCE .XX Last administered on 06/24/17 09:09; Start 06/24/17 at 09:45; Stop 06/24/17 at 09:46; Status DC Levofloxacin (Levaquin) 750 mg DAILY PO Last administered on 06/25/17 09:36; Start 06/23/17 at 16:30 Rifampin 300 mg 300 mg Q12HR PO Last administered on 06/25/17 09:36; Start at 21:00 Vancomycin HCl 1500 mg/Sodium Chloride 250 ml @ 250 mls/hr Q12H IV ; Start at 22:00; Status Cancel Vancomycin HCl/ Sodium Chloride (Vancomycin Inj/ NS 500 ml Inj) 515 ml @ 257.5 mls/ hr Q12H IV Last administered on 06/25/17 09:46; Start 06/24/17 at 22:00 Miscellaneous Information SPECIFIC LAB TO BE DRAWN:VANCOMYCIN TROUGH DATE TO... ONCE ONCE .XX ; Start 06/26/17 at 09:45; Stop 06/26/17 at 09:46 Potassium Chloride (KCl) 40 meq ONCE ONCE PO ; Start 06/24/17 at 17:15; Stop at 17:25; Status DC Potassium Chloride (KCl) 20 meq Q12HR PO Last administered on 06/25/17 09:36; Start 06/24/17 at 21:00; Stop 06/27/17 at 20:59 Sodium Chloride (NS Flush) See Protocol DAILY IV FLUSH Last administered on 09:43; Start 06/25/17 at 09:00 Sodium Chloride (NS Flush) See Protocol UNSCH PRN IV FLUSH SEE PROTOCOL TABLE; Start 06/24/17 at 17:30 Heparin Sodium (Porcine) (Heparin Central Flush) See Protocol DAILY IV FLUSH Last administered on 06/25/17 09:44; Start 06/25/17 at 09:00 Heparin Sodium (Porcine) (Heparin Central Flush) See Protocol UNSCH PRN IV FLUSH SEE PROTOCOL TABLE; Start 06/24/17 at 17:30 Sodium Chloride (NS Flush) UNSCH PRN IV FLUSH SEE PROTOCOL TABLE; Start at 17:30 Other Results Laboratory Tests Test 06/24/17 03:57 White Blood Count 5.0 TH/MM3 Red Blood Count 3.58 MIL/MM3 Hemoglobin 7.9 GM/DL Hematocrit 24.4 % Mean Corpuscular Volume 68.2 FL Mean Corpuscular Hemoglobin 22.0 PG Mean Corpuscular Hemoglobin 32.3 % Concent Red Cell Distribution Width 24.8 % Platelet Count 305 TH/MM3 Mean Platelet Volume 6.6 FL Neutrophils (%) (Auto) 77.1 % Lymphocytes (%) (Auto) 16.9 % Monocytes (%) (Auto) 4.9 % Eosinophils (%) (Auto) 0.6 % Basophils (%) (Auto) 0.5 % Neutrophils # (Auto) 3.9 TH/MM3 Lymphocytes # (Auto) 0.8 TH/MM3 Monocytes # (Auto) 0.2 TH/MM3 Eosinophils # (Auto) 0.0 TH/MM3 Basophils # (Auto) 0.0 TH/MM3 CBC Comment DIFF FINAL Differential Comment Laboratory Tests Test 06/24/17 06/25/17 03:57 05:35 Sodium Level 138 MEQ/L Potassium Level 3.0 MEQ/L Chloride Level 105 MEQ/L Carbon Dioxide Level 23.0 MEQ/L Anion Gap 10 MEQ/L Blood Urea Nitrogen 11 MG/DL Creatinine 0.62 MG/DL 0.52 MG/DL Estimat Glomerular Filtration 101 ML/MIN 123 ML/MIN Rate Random Glucose 109 MG/DL Calcium Level 8.0 MG/DL Total Bilirubin 0.5 MG/DL Direct Bilirubin 0.2 MG/DL Indirect Bilirubin 0.3 MG/DL Aspartate Amino Transf 8 U/L (AST/SGOT) Alanine Aminotransferase 7 U/L (ALT/SGPT) Alkaline Phosphatase 171 U/L Total Protein 6.4 GM/DL Albumin 1.6 GM/DL Exam-Podiatry Constitutional General appearance: comfortable Nutritional status: normal Orientation: alert and oriented x3 Dermatological Exam Skin Temp - Right: Within Normal Limits Skin Texture - Right: Within Normal Limits Skin Elasticity - Right: Within Normal Limits Skin Tugor - Right: Within Normal Limits Hair Growth - Right: Within Normal Limits Pigmentation - Right: Within Normal Limits Skin Temp - Left: Within Normal Limits Skin Texture - Left: Within Normal Limits Skin Elasticity - Left: Within Normal Limits Skin Tugor - Left: Within Normal Limits Hair Growth - Left: Within Normal Limits Pigmentation - Left: Within Normal Limits Ulcers: Location/Measurements Ulcerations bilateral lower extremities with black eschar. Ulceration of the first MPJ of the right foot with exposed extensor tendon. Vascular/Lymphatic Exam R Dorsails Pedis: Palpable L Dorsails Pedis: Palpable R Posterior Tibial: Palpable L Posterior Tibial: Palpable Neurologic Exam Details No neurological deficits seen Muscle Strength Dorsiflexion (Right): Normal Plantarflexion (Right): Normal Inversion (Right): Normal Eversion (Right): Normal Digital (Right): Normal Dorsiflexion (Left): Normal Plantarflexion (Left): Normal Inversion (Left): Normal Eversion (Left): Normal Digital (Left): Normal Foot Range of Motion Dorsiflexion (Right): Normal Plantarflexion (Right): Normal Inversion (Right): Normal Eversion (Right): Normal Digital (Right): Normal Dorsiflexion (Left): Normal Plantarflexion (Left): Normal Inversion (Left): Normal Eversion (Left): Normal Digital (Left): Normal Assessment & Plan Diagnosis: (1) Open wound of both legs with complication Status: Chronic A/P PLAN: Continue local wound care with Maxorb extra AG. I will follow her in the wound center after discharge. Okay to discharge from a podiatry standpoint. Franky Segal DPM Jun 25, 2017 10:38
--- NOTE | 2017-06-25 11:11 | HHI.FF ---
Infusion Therapy Location of Infusion Therapy: Home [facility] Care IV Infusion Order Patient Information Patient Weight 62 kg Diagnosis: Diagnosis Recurrent infection L shoulder and R knee Coded Allergies: *MDRO Multi-Drug Resistant Organism (Verified Adverse Reaction, Unknown, ) MRSA (finger wound) - 06/06/16; (synovial fluid) - 02/15/17; (leg)-02/19/17 & 05/18/17 MRSA PCR Screen POSITIVE -02/15/17 MRSA (shoulder, foot, knee) 06/16/17, (shoulder) 06/17/17 Administer Medication Daptomycin 500 mg IV q 24 hours Stop Treatment: Aug 05, 2017 Additional Information Venous access: PICC Line Additional Instructions [x] Peripheral flush and dressing changes per protocol [x] Implanted port and central director online marketing: * Implanted port: 10 ml Normal Saline followed by 5 ml Heparin 100 units/ml Heparin flush after each use and monthly to maintain. [] May leave port accessed during therapy. [] May leave peripheral site accessed for duration of therapy. [x] If patient has SOB or respiratory distress, check oxygen saturation. If less than 90% or clinical signs of respiratory distress, administer oxygen at 2 L/min. via nasal cannula and notify physician. [x] Anaphylaxis/Reaction orders: * Stop infusion. * Keep IV line open with saline flush. * Notify physician. * Monitor vital signs every 15 minutes until symptoms resolve. * Check Oxygen saturation; Oxygen at 2 L/min. via nasal cannula if less than 90% or clinical signs of respiratory distress. * Administer diphenhydramine (Benadryl) 25 mg IV STAT, (unless patient has received as pre-med). May repeat once, if necessary. * Solu-Cortef 250 mg IVP over 30-60 seconds, use 100 mg vials for each dissolution. * Epinephrine (1mg/1 ml) 0.3 mg subcutaneously or IVP now with any signs of respiratory distress. * Check with physician for new additional pre-med orders if patient is re- challenged or re-treated. [x] May remove PICC line when treatment complete, after confirming with Physician. [x] If the patient is admitted to the hospital, the ED, or transferred via [facility] , complete transfer form including medication reconciliation order sheet. Laboratory Tests Weekly Labs: CBC w/diff, Creatinine, LFT's (Hepatic function test) (labs every Wednesday - copy to me and Dr Boland), Serum CK Levels, Tobramycin Levels (have patient make follow-up with Dr Boland for ID follow-up, give her the office number and call her office) Marquita Ferreira MD Jun 25, 2017 11:10
[2017-06-25] MEDS ORDERED: DAPT500P IV (11:14)
[2017-06-25] MEDS ORDERED: NEUR300C PO (11:30)
[2017-06-25] MEDS ORDERED: RIFA150C2 PO (11:30)
[2017-06-25] MEDS ORDERED: LEVA750T9 PO (11:30)
--- NOTE | 2017-06-25 11:30 | HHI.DS ---
Discharge Summary Admission Date Jun 16, 2017 at 8:52 pm Discharge Date: Jun 25, 2017 Admitting Diagnosis OSTEOMYELITIS (1) Abscess of left shoulder ICD Code: L02.414 Diagnosis: Principal (2) Osteomyelitis ICD Code: M86.9 Diagnosis: Principal (3) Open wound of both legs with complication ICD Code: S81.801A Diagnosis: Principal (4) MRSA infection ICD Code: A49.02 Diagnosis: Principal Procedures 06/17/2017 Right knee arthrotomy with irrigation and debridement and placement of antibiotic beads, irrigation debridement of left shoulder and humerus with placement of antibiotic beads 06/17/2017 Left shoulder arthrotomy with irrigation and debridement Brief History - From Admission Written by Risa Dominguez, acting as scribe for [Inna] on 06/16/17 at 23:06. 51 y/o female with a history of Chronic lower extremity wounds, Neurodermatitis , Chronic back pain and Fibromyalgia presented to the ED with complaints of multiple infected skin wounds. She has been dealing with these wounds for many months and has been seeing Dr. Segal for dressing changes. The bandages that he applied to her bilateral lower extremities were tight and very painful. 2 weeks ago she took off the bandages and was caring for the wounds herself at home. 1 week ago her Right knee began to swell and she developed a small ulcer on the outer part of the knee, her right great toe also began to swell. She states 3 days ago the right great toe wound began to open and drain foul smelling fluid. Also beginning about a week ago she began to have swelling and severe pain in her left shoulder. The ED physician did do an I&D of the left shoulder to drain a possible abscess. She is unsure if she had fevers at home because she keep the air down low in her house, but she thinks she may have had them. She denies any chest pain, sob, nausea, vomiting, headaches or dizziness. She does complain of recently having weakness in her hands and dropping objects from time to time. She states she is unable to have her feet on the floor without wearing shoes otherwise she has extreme pain. She also states she has had some peripheral vision loss from time to time as well, but was thinking she was just getting old. She does not have a PCP provider, but does have insurance. She has never seen a pigment making supervisor, and states she was never told to see one. She is very interested in getting into a PCP to facilitate care to specialists. He last appointment with Dr. Segal on 05/25/17 and at this visit she was given Levaquin for 10 days for her leg infection. The culture on 05/18/17 did grow MRSA CBC/BMP: 06/24/17 0357 06/25/17 0535 Significant Findings Laboratory Tests Test 06/23/17 06/24/17 06/24/17 05:20 03:57 09:15 Iron Level 24 MCG/DL (50-170) Transferrin 120 MG/DL (213-418) Red Blood Count 3.58 MIL/MM3 (4.00-5.30) Hemoglobin 7.9 GM/DL (11.6-15.3) Hematocrit 24.4 % (35.0-46.0) Mean Corpuscular Volume 68.2 FL (80.0-100.0) Mean Corpuscular Hemoglobin 22.0 PG (27.0-34.0) Red Cell Distribution Width 24.8 % (11.6-17.2) Mean Platelet Volume 6.6 FL (7.0-11.0) Neutrophils (%) (Auto) 77.1 % (16.0-70.0) Lymphocytes # (Auto) 0.8 TH/MM3 (1.0-4.8) Potassium Level 3.0 MEQ/L (3.5-5.1) Random Glucose 109 MG/DL (74-106) Calcium Level 8.0 MG/DL (8.5-10.1) Aspartate Amino Transf 8 U/L (15-37) (AST/SGOT) Alanine Aminotransferase 7 U/L (10-53) (ALT/SGPT) Alkaline Phosphatase 171 U/L (45-117) Albumin 1.6 GM/DL (3.4-5.0) Complement C3 72 MG/DL (90-180) Vancomycin Level Trough 13.8 MCG/ML (5.0-10.0) Imaging Last Impressions Chest X-Ray 06/24/17 0000 Signed Impressions: Service Date/Time: May 15:27 - CONCLUSION: 1. Parenchymal scarring or atelectasis in the left lower lung field. Lungs are otherwise clear. 2. Right upper cavity PICC line with the tip projecting over the central venous system. 3. I believe patient has bilateral breast augmentation. There is asymmetry of the implants, however with the left larger than the right. Matthieu Cook MD Tumor Localization 06/18/17 0000 Signed Impressions: Service Date/Time: Sunday, June 18, 2017 12:27 - CONCLUSION: No evidence of osteomyelitis. Austin Palacios MD Aorta w/Runoff CTA 06/18/17 0000 Signed Impressions: Service Date/Time: Sunday, June 18, 2017 19:54 - CONCLUSION: 1. There is three-vessel runoff to the ankle bilaterally. There is no high grade stenosis identified. There is no aneurysm. 2. There is an exophytic mass upper pole right kidney measuring 3 cm with an average attenuation of 24 Hounsfield units, incompletely characterized on this study. 3. Right knee postsurgical changes and rim-enhancing fluid collections suspicious for abscess. Probable antibiotic pellets as described above. Small locule of air in the patellofemoral joint and lateral to the lateral femoral condyle within the subcutaneous tissues with soft tissue swelling seen. 4. Ulceration dorsal soft tissues of the right foot. Luigi Del Real MD Shoulder X-Ray 06/16/17 0000 Signed Impressions: Service Date/Time: Friday, June 16, 2017 21:06 - CONCLUSION: Soft tissue swelling and destructive changes left proximal humerus. Luigi Del Real MD Knee X-Ray 06/16/17 0000 Signed Impressions: Service Date/Time: Friday, June 16, 2017 19:34 - CONCLUSION: Knee joint effusion, severe osteoarthritis and postoperative changes proximal tibia. Age-indeterminate patellar fracture. Luigi Del Real MD Foot X-Ray 06/16/17 0000 Signed Impressions: Service Date/Time: Friday, June 16, 2017 19:37 - CONCLUSION: Large soft tissue ulcer with subcutaneous emphysema and findings suspicious for osteomyelitis first metatarsal head and possibly sesamoid. Luigi Del Real MD PE at Discharge GENERAL: Alert, NAD. SKIN: Warm and dry. HEAD: Normocephalic. EYES: No scleral icterus. No injection or drainage. NECK: Supple, trachea midline. No JVD or lymphadenopathy. CARDIOVASCULAR: Regular rate and rhythm without murmurs, gallops, or rubs. RESPIRATORY: Breath sounds equal bilaterally. No accessory muscle use. GASTROINTESTINAL: Abdomen soft, non-tender, nondistended. MUSCULOSKELETAL: No cyanosis, or edema. Right great toe ulcer dressed, Left leg multiple necrotic ulcers. Left shoulder and Right knee dressed. BACK: Nontender without obvious deformity. No CVA tenderness. Pt update on day of discharge Patient is doing well. No acute concerns. Denies any chest pain, shortness of breath, fever, chills. She is excited to go home because she just bought a new house. Hospital Course 51 y/o female with a history of Chronic lower extremity wounds, Neurodermatitis , Chronic back pain and Fibromyalgia presented to the ED with complaints of multiple infected skin wounds. 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 Patient underwent left shoulder arthrotomy with irrigation and debridement as well. - ID consulted - On discharge, ID recommended Daptomycin IV infusion, PO Rifampin for 4 weeks and Levaquin for 2 weeks. - PICC line in place. - Right great toe wound, suspect Osteomyelitis, status post Bone Scan negative for Osteomyelitis, okay to follow Dr. Segal as outpatient in his office. ESR >140, CRP 12.0 Right foot x ray reviewed and shows Large soft tissue ulcer with subcutaneous emphysema and findings suspicious for osteomyelitis first metatarsal head and possibly sesamoid. Status post Evaluation by Podiatry specialist Dr. Franky Connor status post Ceretec Labeled White blood cell scan that was negative for Osteomyelitis, recommended to continue antibiotics and follow as outpatient. - History of SLE - Patient would benefit from outpatient Rheumatology evaluation. - Hypokalemia - K+ 3.0 today. KCL 40meq once and then 20meq BID X 3 days. - chronic Iron deficiency anemia status post blood transfusion giving her Venofer for three days. get Iron level, ferritin and Transferrin. Full code. Pt Condition on Discharge: Good Discharge Disposition: Disch w/ Home Health Serv Discharge Time: > 30 minutes Discharge Instructions DIET: Follow Instructions for: As Tolerated, No Restrictions Activities you can perform: Regular-No Restrictions Follow up Referrals: Infectious Disease - 1 Week with Irlanda Boland MD Orthopedics - 2 Weeks [facility] with Leandro Lock MD Podiatry - 1 Week with Franky Segal DPM New Medications: Daptomycin Inj (Cubicin Inj) 500 Mg Bag 500 MG IV Q24H Must dilute in appropriate IV Fluid prior to administration Infection #42 Ref 0 BAG Hydrocodone-Acetaminophen ([place]) 7.5-325 mg Tab 1 TAB PO Q4H PRN PAIN #28 Ref 0 TAB Gabapentin (Neurontin) 300 Mg Cap 300 MG PO TID Pain Management #30 CAP Levofloxacin (Levaquin) 750 Mg Tablet 750 MG PO DAILY Infection #14 TAB Rifampin (Rifampin) 150 Mg Cap 300 MG PO Q12HR Infection #60 CAP Discontinued Medications: Hydromorphone (Dilaudid) 8 Mg Tab 8 MG PO Q6H PRN Pain Management Ref 0 TAB Ibuprofen (Ibuprofen) 600 Mg Tab 600 MG PO TID Arthritis Pain Ref 0 TAB Tomasa Hilliard DO Jun 25, 2017 11:30
[2017-06-25 12:00] VITALS: BP 129/71; PULSE 56; RESP 17; TEMP 97.3; O2SAT 100
[2017-06-25] MEDS ORDERED: SODIUM CHLORIDE 0.9% IV SCH (12:00)
[2017-06-25] MEDS ORDERED: DAPTOMYCIN IV SCH (12:00)
[2017-06-25] MEDS: ACETAMINOPHEN/HYDROcodone 325 MG/7.5 MG TAB PO PRN (13:00)
[2017-06-26] MEDS ORDERED: PHARMACY ORDERED LAB ONE (09:45)
== END 2017-06-25 16:13 | disposition home health service (06) | DRG 854 ==
LOC: NEPC 16:11 → NEDA 20:52 → NEPHCDU 22:10 → N04B 06-17 13:08 → N07B 06-17 15:41 → N07A 06-17 16:59
PROVIDERS: ADMIT Hospitalist; ATTEND Hospitalist
PROC: 0H9CXZZ Drainage of Left Upper Arm Skin, External Approach (ICD-10-PCS; 2017-06-16)
PROC: 0JDF0ZZ Extraction of Left Upper Arm Subcutaneous Tissue and Fascia, Open Approach (ICD-10-PCS; 2017-06-17)
PROC: 3E0U329 Introduction of Other Anti-infective into Joints, Percutaneous Approach (ICD-10-PCS; 2017-06-17)
PROC: 3E1U38X Irrigation of Joints using Irrigating Substance, Percutaneous Approach, Diagnostic (ICD-10-PCS; 2017-06-17)
PROC: 30233N1 Transfusion of Nonautologous Red Blood Cells into Peripheral Vein, Percutaneous Approach (ICD-10-PCS; 2017-06-17)
PROC: 0SBC0ZZ Excision of Right Knee Joint, Open Approach (ICD-10-PCS; principal; 2017-06-17 11:02)
PROC: 0JDF0ZZ Extraction of Left Upper Arm Subcutaneous Tissue and Fascia, Open Approach (ICD-10-PCS; 2017-06-23)
DX: A41.02 Sepsis due to Methicillin resistant Staphylococcus aureus (principal); I96 Gangrene, not elsewhere classified; J98.2 Interstitial emphysema; M00.012 Staphylococcal arthritis, left shoulder; L97.519 Non-pressure chronic ulcer of other part of right foot with unspecified severity; M32.9 Systemic lupus erythematosus, unspecified; L97.819 Non-pressure chronic ulcer of other part of right lower leg with unspecified severity; M00.061 Staphylococcal arthritis, right knee; L02.414 Cutaneous abscess of left upper limb; T81.30XA Disruption of wound, unspecified, initial encounter; M35.00 Sjogren syndrome, unspecified; M79.7 Fibromyalgia; L28.0 Lichen simplex chronicus; B19.20 Unspecified viral hepatitis C without hepatic coma; J44.9 Chronic obstructive pulmonary disease, unspecified; I70.0 Atherosclerosis of aorta; E87.6 Hypokalemia; D50.9 Iron deficiency anemia, unspecified; M54.9 Dorsalgia, unspecified; G89.29 Other chronic pain; H54.7 Unspecified visual loss; F17.210 Nicotine dependence, cigarettes, uncomplicated; Z86.14 Personal history of Methicillin resistant Staphylococcus aureus infection; Z91.19 Patient's noncompliance with other medical treatment and regimen; Z86.19 Personal history of other infectious and parasitic diseases
CPT/HCPCS: 10061; 36430; 36569; 71010; 73030; 73564; 73630; 75635; 76937; 78807; 78999; 80048; 80053; 80076; 80202; 82565; 82728; 83540; 83605; 83735; 84100; 84132; 84466; 85014; 85018; 85025; 85610; 85652; 85730; 86077; 86140; 86160; 86403; 86850; 86870; 86900; 86901; 86902; 86920; 86922; 87015; 87040; 87070; 87077; 87102; 87106; 87116; 87147; 87186; 87205; 87206; 88300; 90732; 94150; A9569; J0690; J0878; J1170; J1580; J1642; J1756; J1885; J1940; J2250; J2270; J2370; J2405; J2543; J2710; J3010; J3260; J3370; J3475; J3480; J7030; J7040; J7050; J7120; P9016; Q9967